=== PATIENT | male | born 1945 | race Caucasian/White ===

== ENCOUNTER → 2018-07-12 16:00 | Outpatient (CLI) | payer OTHER, MEDICARE, SELFPAY ==
--- OUTSIDE RECORDS SUMMARY | 2018-05-10 11:40 | XMS RPT_ITS | Clinical Summary ---
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 Shoulder M25.511 Active Neida Pain in right pain, right (ICD-10-CM) 01/10 01/10 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 (SNOMED CT) 11/06 11/06 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 Derangement of derangement (SNOMED CT) 07/12 07/12 Chicorelli lateral of lateral meniscus meniscus of right knee Osteoarthri 667406267 Active Neida Osteoarthritis tis, knee, (SNOMED CT) 07/12 07/12 Chicorelli of knee right Acute tear 265940233 Active Neida Acute meniscal medial (SNOMED CT) 07/12 07/12 Chicorelli tear, medial meniscus Other tear S83.281A Active Neida Other tear of of lateral (ICD-10-CM) 06/09 06/09 Chicorelli lateral meniscus, meniscus, current current injury, injury, right right knee, knee, initial initial encounter encounter Loose body 59240606708 Active Shelby Ramsay Loose body in in right 9105 06/09 06/09 Zakia right knee knee joint (SNOMED CT) joint EPIDERMOID [id number] Correctio Corrie Jacob Epidermoid CYST, BACK (SNOMED CT) n 12/12 Víctor cyst of skin of back Medications Medication Instructions Start Stop Generic Name NDC Provider Date Date LIPITOR TABS unknown dosage ATORVASTATIN [id number] Giancarlo L CALCIUM TABS Oxana EXFORGE 10-160 One tablet by AMLODIPINE 95352777309 Giancarlo L MG TABS mouth daily BESYLATE-VALSAR Oxana DAO CLONAZEPAM One tablet by CLONAZEPAM [id number] Giancarlo L 0.25 MG TBDP mouth daily Oxana Medications Administered No information available. Allergies, Adverse Reactions, Alerts Observed no known allergies at Results Date Name Value Unit Range Flag Description Office Visit MEDS REVIEW Done Documentation of current medications (procedure) SMOK STATUS Never smoker Tobacco use [facility] Plan of Care Type Date Detail Referral [facility] Therapy [facility], [address] [place] [address], [address] Referral Physical Therapy [facility], [address] [place] [address], [address] Pending order X-Ray, Shoulder Pending order MRI Joint Lower Extremity Patient education OSTEOARTHRITIS Procedures Code Procedure Name Date Entry Date CPT-07001 EXC B9 LES MRGN XCP SK TG T/A/L 1.1-2.0 CM Vital Signs Date Name Value Unit Description BMI (Body Mass Index) 24.82 kg/m2 Body Mass Index [Ratio] Height 71 [in_us] height E&M - 8302-2 Weight Measured 178 [lb_av] weight E&M - 3141-9 Body Temperature 97.6 [degF] temperature E&M BP Diastolic 87 mm[Hg] blood pressure, diastolic - 8462-4 BP Systolic 155 mm[Hg] blood pressure, systolic - 8480-6 BSA (Body Surface Area) 2.00 body surface area Heart Rate 65 /min pulse rate E&M - 8867-4 Respiratory Rate 14 /min respiratory rate E&M - 9279-1
--- OUTSIDE RECORDS SUMMARY | 2018-05-10 11:40 | XMS RPT_ITS | Clinical Summary ---
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 Shoulder M25.511 Active Neida Pain in right pain, right (ICD-10-CM) 01/10 01/10 Chicorelli shoulder Frozen 554178681 Active Neida Adhesive right (SNOMED CT) 11/06 11/06 Chicorelli capsulitis of shoulder shoulder Chronic 71646493 Active Neida Derangement of derangement (SNOMED CT) 07/12 07/12 Chicorelli lateral of lateral meniscus meniscus of right knee Osteoarthri 348281882 Active Neida Osteoarthritis tis, knee, (SNOMED CT) 07/12 07/12 Chicorelli of knee right Acute tear 067914803 Active Neida Acute meniscal medial (SNOMED CT) 07/12 07/12 Chicorelli tear, medial meniscus Other tear S83.281A Active Neida Other tear of of lateral (ICD-10-CM) 06/09 06/09 Chicorelli lateral meniscus, meniscus, current current injury, injury, right right knee, knee, initial initial encounter encounter Loose body 74606509962 Active Shelby Ramsay Loose body in in right 9105 06/09 06/09 Zakia right knee knee joint (SNOMED CT) joint EPIDERMOID [id number] Correctio Corrie Jacob Epidermoid CYST, BACK (SNOMED CT) n 12/12 Víctor cyst of skin of back Medications Medication Instructions Start Stop Generic Name NDC Provider Date Date LIPITOR TABS unknown dosage ATORVASTATIN [id number] Giancarlo L CALCIUM TABS Oxana EXFORGE 10-160 One tablet by AMLODIPINE 31528067848 Giancarlo L MG TABS mouth daily BESYLATE-VALSAR Oxana DAO CLONAZEPAM One tablet by CLONAZEPAM [id number] Giancarlo L 0.25 MG TBDP mouth daily Oxana Medications Administered No information available. Allergies, Adverse Reactions, Alerts Observed no known allergies at Results Date Name Value Unit Range Flag Description Office Visit MEDS REVIEW Done Documentation of current medications (procedure) SMOK STATUS Never smoker Tobacco use [facility] Plan of Care Type Date Detail Referral Physical Therapy [facility], [address] [place] [address], [address] Referral Physical Therapy [facility], [address] [place] [address], [address] Pending order X-Ray, Shoulder Pending order MRI Joint Lower Extremity Patient education OSTEOARTHRITIS Procedures Code Procedure Name Date Entry Date CPT-60196 EXC B9 LES MRGN XCP SK TG [...]
--- OUTSIDE RECORDS SUMMARY | 2018-05-10 11:40 | XMS RPT_ITS | Clinical Summary ---
:1945 Author Organization [facility] Address [address] [place] [address] Phone Care Team Providers Name Role Phone Zakia Shelby Ramsay Unavailable Conditions or Problems Problem Problem Onset Status Entry Provider Comment Standard Annotate Name Code Date Date Description Other tear S83.281A Active Shelby Ramsay Other tear of of lateral (ICD-10-CM) 04/11 04/11 [place] lateral meniscus, meniscus, current current injury, injury, right right knee, knee, initial initial encounter encounter Osteoarthri 141198307 Active Shelby Ramsay Osteoarthritis tis of (SNOMED CT) 01/10 01/10 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 Shoulder M25.511 Active Shelby Ramsay Pain in right pain, right (ICD-10-CM) 01/10 01/10 Chicorelli shoulder Frozen 111116387 Active Shelby Ramsay Adhesive right (SNOMED CT) 11/06 11/06 [place] capsulitis of shoulder shoulder Chronic 42110909 Active Shelby Ramsay Derangement of derangement (SNOMED CT) 07/12 07/12 [place] lateral of lateral meniscus meniscus of right knee Osteoarthri 635241543 Active Shelby Ramsay Osteoarthritis tis, knee, (SNOMED CT) 07/12 07/12 Chicorelli of knee right Acute tear 416436746 Active Shelby Ramsay Acute meniscal medial (SNOMED CT) 07/12 07/12 [place] tear, medial meniscus Other tear S83.281A Active Shelby Ramsay Other tear of of lateral (ICD-10-CM) 06/09 06/09 Chicorelli lateral meniscus, meniscus, current current injury, injury, right right knee, knee, initial initial encounter encounter Loose body 99055368075 Active Shelby Ramsay Loose body in in right 9105 06/09 06/09 Zakia right knee knee joint (SNOMED CT) joint EPIDERMOID [id number] Correctio Corrie Jacob Epidermoid CYST, BACK (SNOMED CT) n 12/12 Víctor cyst of skin of back Medications Medication Instructions Start Stop Generic Name NDC Provider Date Date LIPITOR TABS unknown dosage ATORVASTATIN [id number] Giancarlo L CALCIUM TABS Oxana EXFORGE 10-160 One tablet by AMLODIPINE 36177751139 Giancarlo L MG TABS mouth daily BESYLATE-VALSAR Oxana DAO CLONAZEPAM One tablet by CLONAZEPAM 47698455362 Giancarlo L 0.25 MG TBDP mouth daily Oxana Medications Administered No information available. Allergies, Adverse Reactions, Alerts Observed no known allergies at Results Date Name Value Unit Range Flag Description Office Visit MEDS REVIEW Done Documentation of current medications (procedure) SMOK STATUS Never smoker Tobacco use [facility] Plan of Care Type Date Detail Appointment 02:15 PM Shelby Koehler, [address] , [address], [place], [address], Referral Physical Therapy [facility], [address] [place] [address], [address] Referral Physical Therapy [facility], [address] [place] [address], [address] Pending order X-Ray, Shoulder Pending order MRI Joint Lower Extremity Patient education OSTEOARTHRITIS Procedures Code Procedure Name Date Entry Date CPT-57810 EXC B9 LES MRGN XCP SK TG [...]
--- OUTSIDE RECORDS SUMMARY | 2018-05-10 11:40 | XMS RPT_ITS | Clinical Summary ---
:1945 Author Organization [facility] Address [facility] [place] [address] Phone Care Team Providers Name Role Phone Zakia Shelby Ramsay Unavailable Conditions or Problems Problem Problem Onset Status Entry Provider Comment Standard Annotate Name Code Date Date Description Other tear S83.281A Active Shelby Ramsay Other tear of of lateral (ICD-10-CM) 04/11 04/11 [place] lateral meniscus, meniscus, current current injury, injury, right right knee, knee, initial initial encounter encounter Osteoarthri 473819665 Active Shelby Ramsay Osteoarthritis tis of (SNOMED CT) 01/10 01/10 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 Shoulder M25.511 Active Shelby Ramsay Pain in right pain, right (ICD-10-CM) 01/10 01/10 Chicorelli shoulder Frozen 554897719 Active Shelby Ramsay Adhesive right (SNOMED CT) 11/06 11/06 [place] capsulitis of shoulder shoulder Chronic 06577111 Active Shelby Ramsay Derangement of derangement (SNOMED CT) 07/12 07/12 Chicorelioana lateral of lateral meniscus meniscus of right knee Osteoarthri 852999970 Active Shelby Ramsay Osteoarthritis tis, knee, (SNOMED CT) 07/12 07/12 Chicorelli of knee right Acute tear 836746301 Active Shelby Ramsay Acute meniscal medial (SNOMED CT) 07/12 07/12 Chicorelioana tear, medial meniscus Other tear S83.281A Active Shelby Ramsay Other tear of of lateral (ICD-10-CM) 06/09 06/09 Chicorelli lateral meniscus, meniscus, current current injury, injury, right right knee, knee, initial initial encounter encounter Loose body 00046716592 Active Shelby Ramsay Loose body in in right 9105 06/09 06/09 Zakia right knee knee joint (SNOMED CT) joint EPIDERMOID [id number] Correctio Corrie Jacob Epidermoid CYST, BACK (SNOMED CT) n 12/12 Víctor cyst of skin of back Medications Medication Instructions Start Stop Generic Name NDC Provider Date Date LIPITOR TABS unknown dosage ATORVASTATIN [id number] Giancarlo L CALCIUM TABS Oxana EXFORGE 10-160 One tablet by AMLODIPINE 91585995603 Giancarlo L MG TABS mouth daily BESYLATE-VALSAR Oxana DAO CLONAZEPAM One tablet by CLONAZEPAM 81558748806 Giancarlo L 0.25 MG TBDP mouth daily Oxana Medications Administered No information available. Allergies, Adverse Reactions, Alerts Observed no known allergies at Results Date Name Value Unit Range Flag Description Office Visit SMOK STATUS Never smoker Tobacco use [facility] MEDS REVIEW Done Documentation of current medications (procedure) Plan of Care Type Date Detail Referral Physical Therapy [facility], [address] [place] [address], [address] Referral Physical Therapy [facility], [address] [place] [address], [address] Pending order MRI Joint Lower Extremity Pending order X-Ray, Shoulder Pending order MRI Joint Lower Extremity Patient education OSTEOARTHRITIS Procedures Code Procedure Name Date Entry Date CPT-43252 EXC B9 LES MRGN XCP SK TG [...]
--- OUTSIDE RECORDS SUMMARY | 2018-05-10 11:40 | XMS RPT_ITS | Clinical Summary ---
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 Shoulder M25.511 Active Shelby Ramsay Pain in right pain, right (ICD-10-CM) 01/10 01/10 Chicorelli shoulder Frozen 672098073 Active Shelby Ramsay Adhesive right (SNOMED CT) 11/06 11/06 [place] capsulitis of shoulder shoulder Chronic 17121096 Active Shelby Ramsay Derangement of derangement (SNOMED CT) 07/12 07/12 Chicorelioana lateral of lateral meniscus meniscus of right knee Osteoarthri 977110902 Active Shelby Ramsay Osteoarthritis tis, knee, (SNOMED CT) 07/12 07/12 Chicorelli of knee right Acute tear 475619598 Active Shelby Ramsay Acute meniscal medial (SNOMED CT) 07/12 07/12 Chicorelioana tear, medial meniscus Other tear S83.281A Active Shelby Ramsay Other tear of of lateral (ICD-10-CM) 06/09 06/09 Chicorelli lateral meniscus, meniscus, current current injury, injury, right right knee, knee, initial initial encounter encounter Loose body 63887002985 Active Shelby Ramsay Loose body in in right 9105 06/09 06/09 Zakia right knee knee joint (SNOMED CT) joint EPIDERMOID [id number] Correctio Corrie Jacob Epidermoid CYST, BACK (SNOMED CT) n 12/12 Víctor cyst of skin of back Medications Medication Instructions Start Stop Generic Name NDC Provider Date Date LIPITOR TABS unknown dosage ATORVASTATIN [id number] Giancarlo L CALCIUM TABS Oxana EXFORGE 10-160 One tablet by AMLODIPINE 24636195936 Giancarlo L MG TABS mouth daily BESYLATE-VALSAR Oxana DAO CLONAZEPAM One tablet by CLONAZEPAM 61036479543 Giancarlo L 0.25 MG TBDP mouth daily Oxana Medications Administered No information available. Allergies, Adverse Reactions, Alerts Observed no known allergies at Results Date Name Value Unit Range Flag Description Office Visit SMOK STATUS Never smoker Tobacco use [facility] MEDS REVIEW Done Documentation of current medications (procedure) Plan of Care Type Date Detail Referral Physical Therapy [facility], [address] [place] [address], [address] Referral Physical Therapy [facility], [address] [place] [address], [address] Pending order MRI Joint Lower Extremity Pending order X-Ray, Shoulder Pending order MRI Joint Lower Extremity Patient education OSTEOARTHRITIS Procedures Code Procedure Name Date Entry Date CPT-80980 EXC B9 LES MRGN XCP SK TG [...]
--- OUTSIDE RECORDS SUMMARY | 2018-05-10 11:40 | XMS RPT_ITS | Clinical Summary ---
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 Shoulder M25.511 Active Neida Pain in right pain, right (ICD-10-CM) 01/10 01/10 Chicorelli shoulder Frozen 072340021 Active Neida Adhesive right (SNOMED CT) 11/06 11/06 Chicorelli capsulitis of shoulder shoulder Chronic 05476216 Active Neida Derangement of derangement (SNOMED CT) 07/12 07/12 Chicorelli lateral of lateral meniscus meniscus of right knee Osteoarthri 532769831 Active Neida Osteoarthritis tis, knee, (SNOMED CT) 07/12 07/12 Chicorelli of knee right Acute tear 448307919 Active Neida Acute meniscal medial (SNOMED CT) 07/12 07/12 Chicorelli tear, medial meniscus Other tear S83.281A Active Neida Other tear of of lateral (ICD-10-CM) 06/09 06/09 Chicorelli lateral meniscus, meniscus, current current injury, injury, right right knee, knee, initial initial encounter encounter Loose body 28621913327 Active Shelby Ramsay Loose body in in right 9105 06/09 06/09 Zakia right knee knee joint (SNOMED CT) joint EPIDERMOID [id number] Correctio Corrie Jacob Epidermoid CYST, BACK (SNOMED CT) n 12/12 Víctor cyst of skin of back Medications Medication Instructions Start Stop Generic Name NDC Provider Date Date LIPITOR TABS unknown dosage ATORVASTATIN [id number] Giancarlo L CALCIUM TABS Oxana EXFORGE 10-160 One tablet by AMLODIPINE 14328937162 Giancarlo L MG TABS mouth daily BESYLATE-VALSAR Oxana DAO CLONAZEPAM One tablet by CLONAZEPAM 81559300616 Giancarlo L 0.25 MG TBDP mouth daily Oxana Medications Administered No information available. Allergies, Adverse Reactions, Alerts Observed no known allergies at Results Date Name Value Unit Range Flag Description Office Visit MEDS REVIEW Done Documentation of current medications (procedure) SMOK STATUS Never smoker Tobacco use [facility] Plan of Care Type Date Detail Appointment 03:30 PM Shelby Koehler, [address] , [address], [place], [address], Referral Physical Therapy [facility], [address] [place] [address], [address] Referral Physical Therapy [facility], [address] [place] [address], [address] Pending order X-Ray, Shoulder Pending order MRI Joint Lower Extremity Patient education OSTEOARTHRITIS Procedures Code Procedure Name Date Entry Date CPT-17642 EXC B9 LES MRGN XCP SK TG [...]
[2018-07-12 17:01] LABS: Absolute Lymphocyte Count 1.21 X10^3/ul (0.83-4.51); Absolute Neutrophil Count 2.5 X10^3/uL (2.0-7.7); Basophil# 0.05 X10^3/uL; Eosinophil# 0.27 X10^3/uL; Eosinophils% 5.5 % (0-5); Hematocrit 39.5 % (40-54); Hemoglobin 12.9 g/dl (13.0-16.5); Lymphocyte # 1.21 X10^3/ul (4.0); Lymphocyte % 24.6 % (19-41); Mean Corp Hgb Conc 32.7 g/gl (32-36); Mean Corpuscular Hgb 30.9 pg (27.0-32.0); Mean Corpuscular Volume 94.7 fL (80-94); Mean Platelet Vol. 10.9 fl (6.2-12.0); Monocyte# 0.84 X10^3/uL; Monocyte% 17.1 % (0-10); Neutrophil # 2.54 X10^3/uL (2.7-7.7); Neutrophil % 51.6 % (47-70); Platelet Count 274 K/mm3 (150-450); RBC Distribution Width CV 13.5 % (11.6-14.6); RBC Distribution Width SD 44.9 fl (35.1-43.9); Red Blood Count 4.17 M/mm3 (4.6-6.2); White Blood Count 4.9 K/mm3 (4.4-11.0)
[2018-07-12 17:03] LABS: POSITIVE COUNT NO; POSITIVE DIFFERENTIAL NO; POSITIVE MORPHOLOGY NO
[2018-07-12 17:14] LABS: ALB/GLOB Ratio 1.2 RATIO (0.9-2.4); AST(SGOT) 14 U/L (15-37); Alanine Aminotransfer ALT/SGPT 32 U/L (16-61); Albumin, Serum 3.7 g/dL (3.2-5.0); Alkaline Phosphatase 91 U/L (45-117); Anion Gap 6 (5-15); BUN 14 mg/dL (7-18); BUN/Creat Ratio 13.3 RATIO (10-20); Calcium,Total 8.6 mg/dL (8.5-10.1); Chloride 110 mmol/L (98-107); Creatinine, Serum 1.05 mg/dL (0.70-1.30); EST Glomerular Filtration Rate 74 mL/min (>60); Est Glom Filt Rate - Afr Amer 90 mL/min (>60); Globulin 3.2 g/dL (2.2-4.2); Glucose 89 mg/dL (74-106); PSA,Total - Annual Screen 1.82 ng/mL (0.00-4.00); Potassium 4.4 mmol/L (3.5-5.1); Protein, Total 6.9 g/dL (6.4-8.2); Sodium Level 145 mmol/L (136-145); Thyroid Stim Hormone (TSH) 3.28 uIU/mL (0.358-3.74)
[2018-07-15 09:59] LABS: Hep C Antibodies <0.1 s/co ratio (0.0-0.9)
== END ==
PROVIDERS: Family Provider Family Medicine Geriatric Medicine; PCP Family Medicine Geriatric Medicine; Visit Provider Family Medicine Geriatric Medicine
DX: E55.9 Vitamin D deficiency, unspecified (principal); I10 Essential (primary) hypertension; Z12.5 Encounter for screening for malignant neoplasm of prostate; Z13.89 Encounter for screening for other disorder
CPT/HCPCS: 36415; 80053; 82306; 84153; 84443; 85025; 86803; G0103

== ENCOUNTER → 2018-11-05 16:07 | Outpatient (CLI) | payer OTHER, MEDICARE, SELFPAY ==
--- NOTE | 2018-11-05 16:30 | RAD_ITS ---
STUDY: X-RAY - ABDOMEN/PELVIS REASON FOR EXAM: Male, 73 years old. Pain TECHNIQUE: Supine and upright views of the abdomen and pelvis were obtained. COMPARISON: None. FINDINGS: Lung Bases: Mild chronic changes in both lung bases. Abdomen: No demonstrated abnormality of the major organs. No demonstrated free air. Numerous phleboliths in the lower pelvis bilaterally. Bowel: Unremarkable bowel gas pattern. Soft tissues: Unremarkable. Bones: Diffuse degenerative changes. Minimal levoscoliosis of the lumbar spine. RAD/Abd Inc Decub and/or Erect IMPRESSION: No acute abnormalities are seen in the abdomen or pelvis. Electronically Signed: Genny Oviedo MD at 16:26 EST Tel Direct: [phone], Service support ,
[2018-11-05 17:55] LABS: Absolute Lymphocyte Count 1.02 X10^3/ul (0.83-4.51); Absolute Neutrophil Count 4.1 X10^3/uL (2.0-7.7); Basophil# 0.04 X10^3/uL; Basophil% 0.7 % (0-1); Eosinophil# 0.15 X10^3/uL; Eosinophils% 2.5 % (0-5); Hematocrit 38.4 % (40-54); Hemoglobin 12.6 g/dl (13.0-16.5); Lymphocyte # 1.02 X10^3/ul (4.0); Lymphocyte % 17.3 % (19-41); Mean Corp Hgb Conc 32.8 g/gl (32-36); Mean Corpuscular Hgb 30.7 pg (27.0-32.0); Mean Corpuscular Volume 93.4 fL (80-94); Mean Platelet Vol. 11.2 fl (6.2-12.0); Monocyte# 0.58 X10^3/uL; Monocyte% 9.8 % (0-10); Neutrophil # 4.11 X10^3/uL (2.7-7.7); Neutrophil % 69.5 % (47-70); Platelet Count 282 K/mm3 (150-450); RBC Distribution Width CV 13.4 % (11.6-14.6); RBC Distribution Width SD 44.3 fl (35.1-43.9); Red Blood Count 4.11 M/mm3 (4.6-6.2); White Blood Count 5.9 K/mm3 (4.4-11.0)
[2018-11-05 18:13] LABS: ALB/GLOB Ratio 1.3 RATIO (0.9-2.4); AST(SGOT) 16 U/L (15-37); Alanine Aminotransfer ALT/SGPT 34 U/L (16-61); Alkaline Phosphatase 103 U/L (45-117); Amylase 60 U/L (25-115); Anion Gap 7 (5-15); BUN 21 mg/dL (7-18); BUN/Creat Ratio 17.8 RATIO (10-20); Calcium,Total 8.5 mg/dL (8.5-10.1); Chloride 110 mmol/L (98-107); Creatinine, Serum 1.18 mg/dL (0.70-1.30); EST Glomerular Filtration Rate 65 mL/min (>60); Est Glom Filt Rate - Afr Amer 78 mL/min (>60); Globulin 3.1 g/dL (2.2-4.2); Glucose 91 mg/dL (74-106); Lipase 220 U/L (73-393); Potassium 4.2 mmol/L (3.5-5.1); Protein, Total 7.1 g/dL (6.4-8.2); Sodium Level 142 mmol/L (136-145)
[2018-11-05 18:19] LABS: POSITIVE COUNT NO; POSITIVE DIFFERENTIAL NO; POSITIVE MORPHOLOGY NO
== END ==
PROVIDERS: Family Provider Family Medicine Geriatric Medicine; PCP Family Medicine Geriatric Medicine; Referring Provider Family Medicine Geriatric Medicine; Visit Provider Family Medicine Geriatric Medicine
DX: R10.9 Unspecified abdominal pain (principal)
CPT/HCPCS: 36415; 74019; 80053; 82150; 83690; 85025

== ENCOUNTER → 2018-11-19 10:26 | Outpatient (CLI) | payer OTHER, MEDICARE, SELFPAY ==
--- NOTE | 2018-11-19 10:40 | RAD_ITS ---
STUDY: X-RAY - ABDOMEN/PELVIS REASON FOR EXAM: Male, 73 years old. Abdominal cramping and pain. History of recent surgery. TECHNIQUE: Two AP supine views of the abdomen and pelvis. COMPARISON: None. FINDINGS: There is an unremarkable bowel gas pattern. The visualized liver, spleen and kidneys are grossly normal in size and morphology. There are calcified phleboliths in the pelvis. There are degenerative changes of the visualized lumbar spine. RAD/Abdomen Single View IMPRESSION: Unremarkable bowel gas pattern. Electronically Signed: Bruce Fofana MD at 11:16 EST Tel [phone], Service support ,
--- OUTSIDE RECORDS SUMMARY | 2019-01-21 20:49 | XMS RPT_ITS ---
:1945 Author Organization OHIP Support Name Relationship Address Phone CHANDRIKA YUSUF Unavailable [address] + [place] [address] [employer] [place] [employer] Unavailable [address] +. [place] [address] NOÉ YUSUFIN Unavailable [address] + [place] [address] [employer] [place] [employer] Unavailable [address] +. [place] [address] NOT GIVEN Unavailable [address] [place] [address] NOÉ YUSUFIN Unavailable [address] + [place] [address] STRONGNOÉIN Unavailable [address] [place] [address] NOT GIVEN Unavailable [address] [place] [address] NOÉ YUSUFIN Unavailable [address] + [place] [address] STRONGNOÉIN Unavailable [address] [place] [address] NOT GIVEN Unavailable [address] [place] [address] NOÉ YUSUFIN Unavailable [address] + [place] [address] MADELIN CHANDRIKA Unavailable [address] [place] [address] MADELIN CHANDRIKA Unavailable [address] + [place] [address] NOÉ YUSUFIN Unavailable [address] [place] [address] NOÉ YUSUFIN Unavailable [address] + [place] [address] [employer] [place] [employer] Unavailable [address] +. [facility] [address] Care Team Providers Name Role Phone CHERIE JOHNS II Referring Unavailable COOPERRIDER II, CHERIE H Attending Unavailable COOPERRIDER II, CHERIE H Attending Unavailable COOPERRIDER II, CHERIE H Attending Unavailable COOPERRIDER II, CHERIE H Attending Unavailable COOPERRIDER II, CHERIE H Referring Unavailable JEMIMA ARREOLA M Admitting Unavailable HABERJEMIMA BARTON M Attending Unavailable NO, DOCTOR ON Referring Unavailable JEMIMA ARREOLA M Primary Care Unavailable WILMAN MCCALLUM MD Consulting Unavailable PROVIDER, UNKNOWN Consulting Unavailable PROVIDER, UNKNOWN Consulting Unavailable EULALIA ALMANZAR DR Admitting Unavailable EULALIA ALMANZAR DR Attending Unavailable EULALIA ALMANZAR DR Primary Care Unavailable WILMAN MCCALLUM MD Consulting Unavailable PROVIDER, UNKNOWN Consulting Unavailable PROVIDER, UNKNOWN Consulting Unavailable EULALIA ALMANZAR DR Admitting Unavailable EULALIA ALMANZAR DR Attending Unavailable EULALIA ALMANZAR DR Primary Care Unavailable WILMAN MCCALLUM MD Consulting Unavailable PROVIDER, UNKNOWN Consulting Unavailable PROVIDER, UNKNOWN Consulting Unavailable EULALIA ALMANZAR DR Admitting Unavailable EULALIA ALMANZAR DR Attending Unavailable EULALIA ALMANZAR DR Primary Care Unavailable WILMAN MCCALLUM MD Consulting Unavailable PROVIDER, UNKNOWN Consulting Unavailable PROVIDER, UNKNOWN Consulting Unavailable Jose Manuel, Wilman Chi Attending Unavailable Jose Manuel, Wilman Chi Primary Care Unavailable Jose Manuel, Wilman Chi Referring Unavailable Jose Manuel, Wilman Chi Attending Unavailable Jose Manuel, Wilman Chi Referring Unavailable Jose Manuel, Wilman Chi Primary Care Unavailable Jose Manuel, Wilman Chi Attending Unavailable Jose Manuel, Wilman Chi Primary Care Unavailable PROBLEMS PROBLEMS DATE TYPE CONDITION / ATTENDING STATUS SOURCE CODE 11/20/2018 Active Hypermetropia, COOPERRIDER II, Active [facility] bilateral / CHERIE [facility] H52.03(ICD-10) Repository 10/15/2018 Admitting Displaced EULALIA ALMANZAR DR Active Iker Jeffers Diagnosis fracture of [facility] radius, initial Repository encounter for closed fracture / [id number](ICD-10) 10/15/2018 Principle Displaced EULALIA ALMANZAR DR Active Iker Jeffers Diagnosis fracture of [facility] radius, initial Repository encounter for closed fracture / D13911E(ICD-10) PROCEDURES PROCEDURES No Procedure Records FoundRESULTS RESULTS PROGRESS Observed: 11/20/2018 Status: COMPLETED Source: [place] 9:19 AM [facility] REPOSITORY HNO ID: [id number] Author: Cherie Johns II Service: (none) Author Type: INCIDENT RESPONSE SPECIALIST Type: Progress Notes Filed: 11/20/2018 9:21 AM Note Text: Assessment and Plan 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 Ocular health maintained with contact lens use. Poole stable. Continue with daily disposable contact lenses. Recheck in one year. H40.003 Glaucoma suspect of both eyes Comment: Glaucoma suspect both eyes due to optic nerve cupping. Stable nerve fiber layers in areas scanned today. Monitor yearly. No treatment indicated at this time. Discussed need for continued close observation to minimize chance of future vision loss. H25.13 Nuclear senile cataract of both eyes Comment: Mild cataract in both eyes. Well tolerated at this time. Discussed possible future affect on daily activities to watch for. Monitor as instructed. I have confirmed and edited as necessary the relevant ophthalmic history, ROS, and the neuro exam findings as obtained by others. I have seen and examined Yolanda Yusuf DWIGHT. I have discussed the case and the management of this patient's care with the Resident/Fellow, if applicable. I also have reviewed and agree with the assessment and plan as stated above and agree with all of its relevant components. Cherie Johns, II, OD ABDOMEN SINGLE VIEW Observed: 11/19/2018 Status: F Source: [place] 10:31 AM [facility] REPOSITORY [facility] Imaging Services [address] [place] [address] Abdomen Single View MR#: [id number] Acct: [id number] Name: YOLANDA YUSUF Rep #: [id number] : 1945 M 73 From: Bruce Fofana MD PCP: Jose Manuel GONZALEZ,Wilman Montejo Status: REG CLI Study: Abdomen Single View Date of Exam: 11/19/18 Exam# [id number] Ordering Dr: Wilman Mccallum MD STUDY: X-RAY - ABDOMEN/PELVIS REASON FOR EXAM: Male, 73 years old. Abdominal cramping and pain. History of recent surgery. TECHNIQUE: Two AP supine views of the abdomen and pelvis. COMPARISON: None. FINDINGS: There is an unremarkable bowel gas pattern. The visualized liver, spleen and kidneys are grossly normal in size and morphology. There are calcified phleboliths in the pelvis. There are degenerative changes of the visualized lumbar spine. RAD/Abdomen Single View IMPRESSION: Unremarkable bowel gas pattern. Electronically Signed: Bruce Fofana MD at 11:16 EST Tel [phone], Service support , CC: Wilman Mccallum MD Turkey Roll Maker: Signed ABD INC DECUB Observed: 11/05/2018 Status: F Source: [place] AND/OR ERECT 4:30 PM [facility] REPOSITORY [facility] Imaging Services [facility] [place] [address] Abd Inc Decub and/or Erect MR#: [id number] Acct: [id number] Name: YOLANDA YUSUF Rep #: [id number] : 1945 73 From: Genny Oviedo MD PCP: Wilman Mccallum MD, Chi Status: REG CLI Study: Abd Inc Decub and/or Erect Date of Exam: 11/05/18 Exam# [id number] Ordering Dr: Wilman Mccallum MD STUDY: X-RAY - ABDOMEN/PELVIS REASON FOR EXAM: Male, 73 years old. Pain TECHNIQUE: Supine and upright views of the abdomen and pelvis were obtained. COMPARISON: None. FINDINGS: Lung Bases: Mild chronic changes in both lung bases. Abdomen: No demonstrated abnormality of the major organs. No demonstrated free air. Numerous phleboliths in the lower pelvis bilaterally. Bowel: Unremarkable bowel gas pattern. Soft tissues: Unremarkable. Bones: Diffuse degenerative changes. Minimal levoscoliosis of the lumbar spine. RAD/Abd Inc Decub and/or Erect IMPRESSION: No acute abnormalities are seen in the abdomen or pelvis. Electronically Signed: Genny Oviedo MD at 16:26 EST Tel Direct: [phone], Service support , CC: Wilman Mccallum MD Turkey Roll Maker: Signed COMPREHENSIVE METABOLIC Collected: 11/05/2018 Status: F Source: [place] 4:09 PM [facility] REPOSITORY TYPE CODE TESTS RESULT OUT OF RANGE REFERENCE UNITS LAB L501.0100 74-106 mg/dL Normal GLU 91 Result Comment: Please note revised GLUCOSE reference range effective 2017. LAB L501.1000 7-18 mg/dL High BUN 21 LAB L501.1100 0.70-1.30 mg/dL Normal CREAT,SERUM 1.18 Result Comment: The validity of the calculated GFR AND GFRAA in patients over 70 years has not been determined. Clinical correlation is essential. LAB L501.1110 >60 mL/min Normal EST GFR 65 Result Comment: Non- GFR Calc LAB L501.1115 >60 mL/min Normal EST GFR - AA 78 Result Comment: GFR Calc LAB L501.1300 10-20 RATIO Normal BUN/CRE 17.8 LAB L501.1500 6.4-8.2 g/dL T Normal PROT 7.1 LAB L501.1800 3.2-5.0 g/dL Normal ALB 4.0 LAB L501.1950 2.2-4.2 g/dL Normal GLOB 3.1 LAB L501.2000 0.9-2.4 RATIO Normal A/G 1.3 LAB L501.2200 8.5-10.1 mg/dL CA Normal 8.5 LAB L501.4100 15-37 U/L Normal AST 16 LAB L501.4305 45-117 U/L Normal ALK P 103 LAB L501.4405 16-61 U/L Normal ALT 34 LAB L501.4600 0.20-1.00 mg/dL T Normal BILI 0.80 LAB L501.5300 136-145 mmol/L NA Normal 142 LAB L501.5600 3.5-5.1 mmol/L K Normal 4.2 LAB L501.5900 98-107 mmol/L High CL 110 LAB L501.6100 21.0-32.0 mmol/L Normal CO2 25.0 LAB L501.6200 5-15 Normal GAP 7 Performed By: #### L500.4050, L501.2400, L501.2450 #### [facility] [address] [place], [address] AMYLASE Collected: 11/05/2018 Status: F Source: [place] 4:09 PM [facility] REPOSITORY TYPE CODE TESTS RESULT OUT OF RANGE REFERENCE UNITS LAB L501.2400 25-115 U/L Normal SHERON 60 Performed By: #### L500.4050, L501.2400, L501.2450 #### [facility] [address] [place], [address] LIPASE Collected: 11/05/2018 Status: F Source: [place] 4:09 PM [facility] REPOSITORY TYPE CODE TESTS RESULT OUT OF RANGE REFERENCE UNITS LAB L501.2450 73-393 U/L Normal LIPASE 220 Performed By: #### L500.4050, L501.2400, L501.2450 #### [facility] [address] [place], [address] CBC W/DIFF, AUTOMATED Collected: 11/05/2018 Status: F Source: [place] 4:09 PM [facility] REPOSITORY TYPE CODE TESTS RESULT OUT OF RANGE REFERENCE UNITS LAB L100.1000 4.4-11.0 K/mm3 Normal WBC 5.9 LAB L100.1200 4.6-6.2 M/mm3 Low RBC 4.11 LAB L100.1300 13.0-16.5 g/dl Low HGB 12.6 LAB L100.1400 40-54 % Low HCT 38.4 LAB L100.1500 80-94 fL Normal MCV 93.4 LAB L100.1600 27.0-32.0 pg Normal MCH 30.7 LAB L100.1700 32-36 g/gl Normal MCHC 32.8 LAB L100.1810 11.6-14.6 % Normal RDW CV 13.4 LAB L100.1820 35.1-43.9 fl High RDW SD 44.3 LAB L100.1900 150-450 K/mm3 Normal PLT 282 LAB L100.2000 6.2-12.0 fl Normal MPV 11.2 LAB L100.2100 47-70 % Normal NEUT% 69.5 LAB L100.2200 19-41 % Low LY% 17.3 LAB L100.2300 0-10 % Normal MONO% 9.8 LAB L100.2400 0-5 % Normal EO% 2.5 LAB L100.2500 0-1 % Normal BASO% 0.7 LAB L100.2550 0.0-0.9 % Normal IM GRAN % 0.200 Result Comment: IG% - Immature Granulocytes (promyelocytes, myelocytes and metamyelocytes) > 1% indicates that a LEFT SHIFT is Present. LAB L100.2620 2.0-7.7 X10 3/uL Normal Absolute Neut 4.1 LAB L100.2720 0.83-4.51 X10 3/ul Normal Absolute Lymph 1.02 Performed By: #### L100.0100 #### [facility] [address] 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 Corneas tolerating EW well. Patient understands increased risk vs DW. Therapy on shoulder increasing mobility eventually allowing return to use of daily disposable contacts is plan. Annual exam at next visit in one month. I have confirmed and edited as necessary the relevant ophthalmic history, ROS, and the neuro exam findings as obtained by others. I have seen and examined Yolanda Onel Yusuf II. I have discussed the case and the management of this patient's care with the Resident/Fellow, if applicable. I also have reviewed and agree with the assessment and plan as stated above and agree with all of its relevant components. 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 Patient reports improving mobility of shoulder which should allow self-handling soon. Recheck in one month. I have confirmed and edited as necessary the relevant ophthalmic history, ROS, and the neuro exam findings as obtained by others. I have seen and examined Yolanda Yusuf II. I have discussed the case and the management of this patient's care with the Resident/Fellow, if applicable. I also have reviewed and agree with the assessment and plan as stated above and agree with all of its relevant components. Cherie Johns II, OD PROGRESS Observed: 08/30/2018 Status: COMPLETED Source: [place] 10:22 AM [facility] REPOSITORY O ID: [id number] Author: Cherie Johns II Service: (none) Author Type: INCIDENT RESPONSE SPECIALIST Type: Progress Notes Filed: 08/30/2018 10:24 AM Note Text: ASSESSMENT/PLAN: 1. Hypermetropia of both eyes - ICD9: 367.0, ICD10: H52.03 (primary diagnosis) 2. Presbyopia - ICD9: 367.4, ICD10: H52.4 Extended wear use of contact lenses due to inability to insert/remove contacts being well tolerated. Patient understands increased risk with use of EW contacts. Will return for next pair of contacts in 1 month or sooner if any problems noted. I have confirmed and edited as necessary the relevant ophthalmic history, review of systems, surgical history, and ophthalmological examination findings as obtained by the ophthalmic technical staff. I have seen and examined Yolanda Yusuf II. I have discussed the examination findings, diagnosis, and treatment options with the patient and/or the patient's family. I have also reviewed and agree with the assessment and plan as stated above and agree with all its relevant components. I gave the patient the opportunity to ask questions about the findings, diagnosis, and treatment options. Cherie Johns II, OD C-ARM USAGE 1 HOUR Observed: 08/20/2018 Status: F Source: [place] 4:00 PM [place] [address] Patient: YOLANDA YUSUF Phone#: : 1945 Age: 72 Gender: M Pt. Type: Out Account: [id number] Location: [facility] Ordering: EULALIA ALMANZAR Exam Date: 08/20/2018/15:07 Family Phys: WILMAN MCCALLUM Charge Code: [id number] Physician: [place] Order #: [id number] DLP Dose#: PROCEDURE: C-ARM USEAGE 1 HR COMPARISON: None. INDICATIONS: Fracture TOTAL DOSE: .63 mGy FINDINGS: IMAGES: There has been surgical resection of the radial head. Mild degenerative changes are present. BONES: Normal. No significant arthropathy or acute abnormality. SOFT TISSUES: Negative. No visible soft tissue swelling. EFFUSION: None visible. OTHER: Negative. CONCLUSION: 1. Surgical resection of the radial head. Dictated by: Karine Salinas MD on 08/20/2018 at 16:15 Approved by: Karine Salinas MD on 08/20/2018 at 16:15 OPERATIVE PROCEDURES Observed: 08/20/2018 Status: F Source: [facility] 10:51 AM [facility] OPERATIVE REPORT NAME ACCOUNT SEX AGE ADMIT DISCHARGE PT MED. RECORD# NUMBER DATE DATE TYPE MADELIN [id number] Nidia 72 08/20/18 2 YOLANDA Sykes [id number] ROOM: [facility] DATE OF : 1945 DICTATING PHYSICIAN: Eulalia Almanzar DATE OF SURGERY: August 20, 2018 SURGEON: Eulalia Almanzar MD [employer] DIRECTOR: Helena Medina PA-C. ANESTHESIOLOGIST: ANESTHETIC: General. PREOPERATIVE DIAGNOSIS: Left elbow displaced comminuted radial head fracture. POSTOPERATIVE DIAGNOSIS: Left elbow displaced comminuted radial head fracture. OPERATION PERFORMED: Left elbow resection radial head. COMPLICATIONS: ESTIMATED BLOOD LOSS: SPECIAL MEDICATIONS: Ancef. INDICATIONS: The patient is a 72-year-old male who fell at work recently injuring his left elbow. He was diagnosed with a displaced comminuted radial head fracture. The patient wished to have surgery. Proposed surgery was resection of the radial head. The patient understood risks, benefits, and alternatives of the procedure and consented for the procedure. FINDINGS: Intraoperative findings showed a displaced radial head fracture. Fracture was displaced and angled 90 degrees compared to his normal location. This involved a majority of the radial head, which was comminuted. We resected it and smoothed down the bony surface with an oscillating saw and a rasp. Fluoroscopy was utilized as well. children's nursery assistant, physician glass ribbon machine operator assistant, was utilized throughout the entire procedure. She helped with patient positioning, holding of limb, holding of retractors. She helped Page 1 of 3 YOLANDA YUSUF Operative Report with exposure throughout. She helped with exposure for resection of the radial head using the oscillating saw, protecting soft tissue, as well as resection of the radial head. Without manager surgical, surgical time would have been increased. Surgical outcome could have been less optimal. DESCRIPTION OF OPERATION: The patient was taken to the OR and transferred to the OR table. He was given a general anesthetic. Ancef was given IV preoperatively. Under general anesthetic, his arm lacked 30 degrees of full extension. He also lacked full supination. We could palpate the crepitance with pronation, supination of the elbow. A well-padded tourniquet was applied to the left upper arm. The left upper extremity was prepped, padded, and draped in the usual orthopedic sterile fashion for the procedure. We began by injecting Marcaine with epinephrine into the proposed surgical site, skin, and deeper. Once this was done, limb was exsanguinated, tourniquet was applied to 250 mmHg. Incision was made over the radial head, slightly obliquely and slightly curved. It was taken through skin and subcutaneous tissue. We came down onto the interval between the anconeus tendon and the extensor carpi ulnaris tendon. We developed that plain. This brought us down onto the fracture site into the joint with the proximal radius and the capitulum. We identified small fracture fragments and they were removed. The largest fragment ultimately was discovered just underneath our soft tissue sleeve and at one point held up by the retractors. At this point, we removed the radial head having used fluoroscopy to help visualize it as well. We again used the oscillating saw to smooth down the transected radial head. During our exposure, we did keep the radius in pronation to help resect the bone. We did pronate and supinate to make sure it was flat across. We did use a rasp to smooth it down as well. At this point, we could place surgeons finger at the surgical site, pronate, supinate, and flex and extend and there was no contact between the radius and the capitulum. With axial loading of the wrist, there is also no contact between the radius and the capitulum. Wrist joint was found to be stable. Elbow joint was found to be stable. The wound was thoroughly irrigated. Tourniquet was let down. Bleeding was controlled with the Bovie. Wound was again thoroughly irrigated. Final set of x-rays were taken and confirmed. No further fragments could be seen of the radial head. Radial head was felt to be completely removed. We repaired the split between the anconeus and extensor carpi ulnaris with a running #1 Vicryl. We did a deep layer of inverted 2-0 Vicryl followed by skin Steri-Strips, 4x4's, ABD, Juan wrap, and a splint. He was put in an arm sling. He was awoken from his anesthetic and transferred back to his own bed in recovery room in satisfactory condition. Dictated By: Eulalia Almanzar MD 08/20/18 15:27 JOB #: [id number] Transcribed By: nury 08/20/18 15:30 Electronically signed by: E-SIGN DR. EULALIA ALMANZAR M.D. 08/21/18 08:02 Page 2 of 3 YOLANDA YUSUF Operative Report Page 3 of 3 YOLANDA YUSUF Operative Report CHEST 2 VIEWS Observed: 08/14/2018 Status: F Source: [facility] 5:23 PM [place] [address] Patient: YOLANDA YUSUF. Phone#: : 1945 Age: 72 Gender: M Pt. Type: Out Account: [id number] Location: 052 Ordering: EULALIA ALMANZAR Exam Date: 08/14/2018/17:12 Family Phys: WILMAN MCCALLUM Charge Code: [id number] Physician: [place] Order #: [id number] DLP Dose#: PROCEDURE: X-RAY CHEST 2 VIEWS COMPARISON: None. INDICATIONS: Surgery clearance FINDINGS: LUNGS: Normal. No significant pulmonary parenchymal abnormalities. VASCULATURE: Normal. Unremarkable pulmonary vasculature. CARDIAC: Normal. No cardiac silhouette abnormality or cardiomegaly. MEDIASTINUM: Normal. No visible mass or adenopathy. PLEURA: Normal. No effusion or pleural thickening. BONES: There are degenerative changes of the spine. There appear to be degenerative changes of the right shoulder however it is incompletely evaluated on this exam. OTHER: Negative. CONCLUSION: No acute disease. Dictated by: Emelina Garzon MD on 08/14/2018 at 21:23 Approved by: Emelina Garzon MD on 08/14/2018 at 21:23 CBC Collected: 08/14/2018 Status: F Source: [place] 5:00 PM [facility] REPOSITORY TYPE CODE TESTS RESULT OUT OF RANGE REFERENCE UNITS LAB CBC(LOINC) CBC Result Comment: CBC-COMPLETE BLOOD COUNT LAB WBC(LOINC) 4.5 - 10.8 x 10EE3/UL WBC 7.9 LAB RBC(LOINC) 4.50 - x 10EE6/UL 6.00 RBC Low 4.34 LAB HEMOGLOBIN(LOINC) 13.0 - g/dl 17.5 HEMOGLOBIN 13.5 LAB HEMATOCRIT(LOINC) 40.0 - % 52.0 Low HEMATOCRIT 39.8 LAB MCV(LOINC) 81 - 98 fl MCV 92 LAB MCH(LOINC) 27 - 33 pg MCH 31 LAB MCHC(LOINC) 32 - 36 X10 3 MCHC 34 LAB RDW/CV(LOINC) 12.0 - % 15.6 RDW/CV 13.6 LAB PLATELET(LOINC) 150 - 450 x10EE3/UL PLATELET 264 LAB MPV(LOINC) 6.4 - 10.5 fl MPV 9.2 Result Comment: AUTOMATED DIFFERENTIAL LAB NEUT %(LOINC) 46.0 - 76.0 % NEUT % 71.7 LAB LYMPH %(LOINC) 20.0 - 45.0 % Low LYMPH % 13.6 LAB MONOS %(LOINC) 0.0 - 10.0 % MONOS % High 11.8 LAB EO %(LOINC) 0.0 - 7.0 % EO % 2.1 LAB BASO %(LOINC) 0.0 - 2.0 % BASO % 0.8 LAB Lymph #(LOINC) 0.80 - 2.80 x10EE3/U L Lymph # 1.10 LAB Neut #(LOINC) 1.50 - 7.10 x10EE3/U L Neut # 5.60 LAB Cooper #(LOINC) 0.20 - 1.00 x10EE3/U L Cooper # 0.90 LAB EO #(LOINC) 0.00 - 0.50 x10EE3/U L EO # 0.20 LAB Baso #(LOINC) 0.00 - 0.10 x10EE3/U L Baso # 0.10 LAB MANUAL DIFF(LOINC) MANUAL DIFF N/A LAB MORPHOLOGY(LOINC ) MORPHOLOGY N/A Result Comment: {CD] Performed By: #### [id number] #### [facility],[address] [place] [address] BMP WITH EGFR Collected: 08/14/2018 Status: F Source: [facility] 5:00 PM [facility] REPOSITORY TYPE CODE TESTS RESULT OUT OF RANGE REFERENCE UNITS LAB BMP with eGFR(LOINC) BMP with eGFR Result Comment: BASIC METABOLIC PANEL LAB SODIUM(LOINC) 136 - 145 mmol/l SODIUM 142 LAB POTASSIUM(LOINC) 3.5 - 5.1 mmol/L POTASSIUM 4.1 LAB CHLORIDE(LOINC) 98 - 107 mmol/L CHLORIDE 107 LAB CO2(LOINC) 21.0 - mmol/L 31.0 CO2 27.9 LAB GLUCOSE(LOINC) 74 - 106 mg/dl GLUCOSE 91 LAB BUN(LOINC) 6 - 20 mg/dl BUN 20 LAB CREATININE(LOINC) 0.7 - 1.3 mg/dl CREATININE 1.0 LAB CALCIUM(LOINC) 8.6 - mg/dl 10.2 CALCIUM 9.6 LAB ANION GAP(LOINC) 10 - 20 mmol/L ANION GAP 11 LAB AGE(LOINC) years AGE 72 LAB eGFR(LOINC) 60 - 999 ML/MINUTE eGFR >60 LAB eGFR(AA)(LOINC) 60 - 999 ML/MINUTE eGFR(AA) >60 Result Comment: ACCORDING TO THE NATIONAL KIDNEY DISEASE EDUCATION PROGRAM(NKDE), A NORMAL eGFR IS A VALUE GREATER THAN OR EQUAL TO 60 ML/MIN/1.73 SQ METERS. CHRONIC KIDNEY DISEASE: <60mL/MIN/1.73 SQ METERS KIDNEY FAILURE: <15mL/MIN/1.73 SQ METERS THIS TEST SHOULD ONLY BE USED FOR PATIENTS 18 YEARS OF AGE AND OLDER. Performed By: #### [id number] #### [facility],[address] [place] [id number] FOREARM LT Observed: 08/13/2018 Status: F Source: [facility] 5:[address] [address] Patient: YOLANDA YUSUF Phone#: : 1945 Age: 72 Gender: M Pt. Type: ER Account: [id number] Location: 052 Ordering: JEMIMASELENA ELLERSKYLER Exam Date: 08/13/2018/17:02 Family Phys: WILMAN MCCALLUM Charge Code: 825886 Physician: [place] Order #: [id number] DLP Dose#: PROCEDURE: X-RAY FOREARM LT 2 VIEWS COMPARISON: None. INDICATIONS: Trauma FINDINGS: BONES: Bony avulsion is identified in the radial humeral joint space. Donor site is difficult to determine, but most likely is from the radial head. SOFT TISSUES: Negative. No visible soft tissue swelling. EFFUSION: Joint effusion is present. OTHER: Negative. CONCLUSION: 1. Displaced and rotated avulsion most likely arising from the radial head. Joint effusion is present. Dictated by: Karine Salinas MD on 08/14/2018 at 8:31 Approved by: Kairne Salinas MD on 08/14/2018 at 8:31 ELBOW COMPLETE LT Observed: 08/13/2018 Status: F [facility] [address] Patient: YOLANDA YUSUF Phone#: : [phone] Age: 72 Gender: M Pt. Type: ER Account: [id number] Location: 052 Ordering: JEMIMASELENA ELLRESKYLER Exam Date: 08/13/2018/17:12 Family Phys: WILMAN MCCALLUM Charge Code: 264269 Physician: Sonoma Order #: [id number] DLP Dose#: PROCEDURE: X-RAY ELBOW LT MIN 3 VIEWS COMPARISON: None. INDICATIONS: Trauma FINDINGS: BONES: Radial head avulsion is present. Fracture line extends to the articular surface. SOFT TISSUES: Negative. No visible soft tissue swelling. EFFUSION: Joint effusion is present. OTHER: Negative. CONCLUSION: 1. Radial head fracture. Dictated by: Karine Salinas MD on 08/14/2018 at 8:47 Approved by: Karine Salinas MD on 08/14/2018 at 8:47 EMERGENCY REPORT Observed: 08/13/2018 Status: F Source: [facility] 4:10 PM [facility] REPORT NAME ACCOUNT SEX AGE ADMIT DISCHARGE PT MED. RECORD# NUMBER DATE DATE TYPE MADELIN [id number] Nidia 72 08/13/18 08/13/18 3 YOLANDA [id number] ROOM: ER DATE OF : 1945 DICTATING PHYSICIAN: Jemima Alfonso CHIEF COMPLAINT: Elbow pain. 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 He complains of pain when he twists it like a doorknob on the left and tingling down into his arm. He did not hit his head or lose consciousness. He denies any headache, neck pain, blurred vision, double vision, chest pain, shortness of breath, back pain, abdominal pain, flank pain, lower extremity trauma and isolated pain to the left elbow which he has not injured previously. PAST MEDICAL HISTORY: Hypertension, skin cancer. PAST SURGICAL HISTORY: None. MEDICATIONS: See nurse notes. ALLERGIES: No known drug allergies. FAMILY HISTORY: Noncontributory. SOCIAL HISTORY: Denies alcohol, tobacco or illicit drug abuse. REVIEW OF SYSTEMS: Ten systems reviewed and negative except as mentioned above in HPI. PHYSICAL EXAMINATION: General: Awake, alert and oriented. GCS is 15 with left elbow pain, hesitant to move and holding with his other hand. Head is normocephalic, atraumatic. Pupils are equal and reactive to light bilaterally. Extraocular muscles are intact. No external signs or trauma to the head. Midface is stable. Teeth are intact. No midline cervical tenderness. Heart rate and rhythm regular without murmur, gallop or rub. Lungs are clear to auscultation bilaterally without wheezes , rales or rhonchi. Abdomen is soft with no reproducible tenderness, guarding, rebound or rigidity. Pulses are stable. No lower extremity edema, calf tenderness or swelling. No midline, thoracic or lumbosacral tenderness. We focused physical exam on the left upper extremity. When he holds his arm perfectly still he does not have any pain, but as he tries to turn it like he would be turning a door knob he complains of pain at the radial Page 1 of 2 YOLANDA YUSUF Emergency Room Report head. There is no obvious deformity, abrasion, laceration or contusion. He has limited range of motion of the elbow due to pain. He is able to flex and extend his wrist and move all his fingers in all directions on his own without any difficulty. No radial, ulnar or median nerve entrapment. No pain at the shoulder or humerus. DIAGNOSTIC DATA: X-ray interpreted by the radiologist reveals a comminuted radial head fracture. EMERGENCY DEPARTMENT COURSE AND TREATMENT: The patient was placed in a posterior splint by tn in 90 degree flexion with a sling and swath. On assessment, he is able to move all his fingers good. Good pulses and good perfusion. DIAGNOSIS: Closed left comminuted radial head fracture. PLAN/DISPOSITION: He was given a Percocet 4 pack to go and a prescription for Percocet. He will follow up with [employer] tomorrow. Contact [facility] for 2-3-day followup. Ice, elevation, pain medication. We discussed reasons for ED return sooner. Dictated By: Jemima Alfonso DO 08/13/18 19:27 JOB #: [id number] Transcribed By: damir 08/14/18 02:34 Electronically signed by: E-Sign: JEMIMA ALFONSO MD 09/18/18 12:00 Page 2 of 2 YOLANDA YUSUF Emergency Room Report CBC W/DIFF, AUTOMATED Collected: 07/12/2018 Status: F Source: [place] 4:01 PM [facility] REPOSITORY TYPE CODE TESTS RESULT OUT OF RANGE REFERENCE UNITS LAB L100.1000 4.4-11.0 K/mm3 Normal WBC 4.9 LAB L100.1200 4.6-6.2 M/mm3 Low RBC 4.17 LAB L100.1300 13.0-16.5 g/dl Low HGB 12.9 LAB L100.1400 40-54 % Low HCT 39.5 LAB L100.1500 80-94 fL High MCV 94.7 LAB L100.1600 27.0-32.0 pg Normal MCH 30.9 LAB L100.1700 32-36 g/gl Normal MCHC 32.7 LAB L100.1810 11.6-14.6 % Normal RDW CV 13.5 LAB L100.1820 35.1-43.9 fl High RDW SD 44.9 LAB L100.1900 150-450 K/mm3 Normal PLT 274 LAB L100.2000 6.2-12.0 fl Normal MPV 10.9 LAB L100.2100 47-70 % Normal NEUT% 51.6 LAB L100.2200 19-41 % Normal LY% 24.6 LAB L100.2300 0-10 % High MONO% 17.1 LAB L100.2400 0-5 % High EO% 5.5 LAB L100.2500 0-1 % Normal BASO% 1.0 LAB L100.2550 0.0-0.9 % Normal IM GRAN % 0.200 Result Comment: IG% - Immature Granulocytes (promyelocytes, myelocytes and metamyelocytes) > 1% indicates that a LEFT SHIFT is Present. LAB L100.2620 2.0-7.7 X10 3/uL Normal Absolute Neut 2.5 LAB L100.2720 0.83-4.51 X10 3/ul Normal Absolute Lymph 1.21 Performed By: #### L100.0100 #### [facility] [address] [place], [address] COMPREHENSIVE METABOLIC Collected: 07/12/2018 Status: F Source: [facility] 4:01 PM [facility] REPOSITORY TYPE CODE TESTS RESULT OUT OF RANGE REFERENCE UNITS LAB L501.0100 74-106 mg/dL Normal GLU 89 Result Comment: Please note revised GLUCOSE reference range effective 2017. LAB L501.1000 7-18 mg/dL Normal BUN 14 LAB L501.1100 0.70-1.30 mg/dL Normal CREAT,SERUM 1.05 Result Comment: The validity of the calculated GFR AND GFRAA in patients over 70 years has not been determined. Clinical correlation is essential. LAB L501.1110 >60 mL/min Normal EST GFR 74 Result Comment: Non- GFR Calc LAB L501.1115 >60 mL/min Normal EST GFR - AA 90 Result Comment: GFR Calc LAB L501.1300 10-20 RATIO Normal BUN/CRE 13.3 LAB L501.1500 6.4-8.2 g/dL T Normal PROT 6.9 LAB L501.1800 3.2-5.0 g/dL Normal ALB 3.7 LAB L501.1950 2.2-4.2 g/dL Normal GLOB 3.2 LAB L501.2000 0.9-2.4 RATIO Normal A/G 1.2 LAB L501.2200 8.5-10.1 mg/dL CA Normal 8.6 LAB L501.4100 15-37 U/L Low AST 14 LAB L501.4305 45-117 U/L Normal ALK P 91 LAB L501.4405 16-61 U/L Normal ALT 32 LAB L501.4600 0.20-1.00 mg/dL T Normal BILI 0.60 LAB L501.5300 136-145 mmol/L NA Normal 145 LAB L501.5600 3.5-5.1 mmol/L K Normal 4.4 LAB L501.5900 98-107 mmol/L High CL 110 LAB L501.6100 21.0-32.0 mmol/L Normal CO2 29.0 LAB L501.6200 5-15 Normal GAP 6 Performed By: #### L500.4050, L501.9520, L501.9910 #### [facility] [address] [place], [place], [id number] THYROID STIM HORMONE Collected: 07/12/2018 Status: F Source: [place] ([facility]) 4:01 PM [facility] REPOSITORY TYPE CODE TESTS RESULT OUT OF RANGE REFERENCE UNITS LAB L501.9520 0.358-3.74 uIU/mL Normal TSH 3.28 Performed By: #### L500.4050, L501.9520, L501.9910 #### [facility] [address] [place], [place], [id number] PSA,TOTAL - ANNUAL Collected: 07/12/2018 Status: F Source: [place] SCREEN 4:01 PM [facility] REPOSITORY TYPE CODE TESTS RESULT OUT OF RANGE REFERENCE UNITS LAB L501.9910 0.00-4.00 ng/mL Normal PSA,TOT 1.82 SCREEN Result Comment: This test was performed using the TPSA assay method for the [employer] chemistry system. Values obtained with different assay methods cannot be used interchangably. When changing PSA assays in the course of monitoring a patient, additional sequential testing should be carried out to confirm baseline values. Performed By: #### L500.4050, L501.9520, L501.9910 #### [facility] [address] [place], [address] VITAMIN D,25 HYDROXY Collected: 07/12/2018 Status: F Source: [place] 4:01 PM [facility] REPOSITORY TYPE CODE TESTS RESULT OUT OF REFERENCE UNITS RANGE LAB L506.1000 29.95-100.01 ng/mL Low Vitamin D 25.0 25-OH Result Comment: Vitamin D 25(OH) Status Range Deficiency <20 ng/mL (50nmol/L) Insuffciency 20 - 30 ng/mL (50 - 75 nmol/L) Sufficiency 30 - 100 ng/mL (75 - 250 nmol/L) Toxicity >100 ng/mL (>250 nmol/L) Performed By: #### L506.1000 #### [facility] [address] [place], [address] HEPATITIS C ANTIBODIES Collected: 07/12/2018 Status: F Source: [place] 4:01 [facility] REPOSITORY TYPE CODE TESTS RESULT OUT OF RANGE REFERENCE UNITS LAB L3100.0650 0.0-0.9 s/co ratio Normal HEP C AB <0.1 Result Comment: Negative: < 0.8 Indeterminate: 0.8 - 0.9 Positive: > 0.9 The CDC recommends that a positive HCV antibody result be followed up with a HCV Nucleic Acid Amplification test (467912). Performed at: - [facility] [id number] Running Rigger: Jhonathan Garcia PhD, Phone: [phone] Performed By: #### L3100.0625 #### [facility] (refer to report for specific site) refer to report for address and phone number ALLERGIES ALLERGIES DATE TYPE / CODE NAME / CODE REACTION SEVERITY SOURCE 09/27/2014 Drug No Known Unknown [place] Allergy/328134240(S Allergies/F0019 [facility] NOMED CT) [address](RXNORM) Hospital Repository Miscellaneous No Known Drug Moderate Iker Pomjonatan Allergy/455789587(S Allergies (Severity [facility] NOMED CT) Modifier) [facility] (Qualifier Repository Value) Drug NO KNOWN Bell Class/040878381(SNO ALLERGIES Clinic Main [facility] CT) [place] Repository ENCOUNTERS ENCOUNTERS ADMIT/DISCHARGE ACCOUNT ADMITTING ENCOUNTER LOCATION SOURCE NUMBER CLASS 11/22/2018/11/23/19 [id number] Ambulatory [address] Repository 11/20/2018/11/21/19 [id number] Ambulatory [address] Repository 11/19/2018 [id number] [facility] ing:RAD Repository 11/05/2018 [id number] [facility] ing:POLAB3 Repository 10/25/2018/10/26/20 [id number] Ambulatory [address] Repository 10/15/2018 [id number] JENELLE Ambulatory [address] [facility] Repository 09/27/2018/10/01/20 [id number] Ambulatory [address] Repository 08/30/2018/08/31/20 [id number] Ambulatory [address] Repository 08/20/2018/08/20/20 [id number] JENELLE, Ambulatory BuildinR Iker Jeffers EULALIA coxom: [facility] Repository 08/14/2018/08/14/20 [id number] JENELLE [facility] [address] [facility] Repository 08/13/2018/08/13/20 [id number] ELBA, Emergency BuildinR Iker coxom: ERBed: J [facility] Repository 07/12/2018 [id number] [facility] ing:POLAB3 Repository 05/07/2018/05/08/[id number] Repository 02/13/2018/02/15/20 [id number] Ambulatory [address] Repository PAYERS PAYERS ENCOUNTER GUARANTOR PAYER SUBSCRIBER SOURCE 11/19/2018 YOLANDA [id number] CR Insurance:MEDICAL STRONGDOB: [facility] [address] [place] [address] [id number] [address]Jci: Number: Repository [id number] (HP) Date:[id number] [address]JT: 11/19/2018 Secondary YOLANDA L [place] Insurance:MEDICARE STRONGDOB: Community PART A BPolicy Number: [id number] [id number] Repository Date:2018-11-19 11/19/2018 Tertiary NOT GIVENUNK [place] Insurance:SELF PAY [facility] Number: Effective Repository Date:2018-11-19 11/05/2018 Yolanda L Primary CHANDRIKA L Keely [id number] Insurance:MEDICAL STRONGDOB: [address] [id number] [facility] Hospital [address]Yuw: Number: Repository [id number] (HP) Date:[id number] [address]TB: 11/05/2018 Secondary Yolanda L [place] Insurance:MEDICARE StrongDOB: Community PART A BPolicy Number: [id number] [facility] [id number] Repository Date:2018-11-05 11/05/2018 Tertiary NOT GIVENUNK [place] Insurance:SELF PAY [facility] Number: Effective Repository Date:2018-11-05 10/15/2018 YOLANDA L Primary YOLANDA Sykes Iker Jeffers STRONGDOB: Insurance:CAREWORKS STRONGDOB: [facility] [id number] Hospital CR Number: 5 CR Repository [address] [place] [id number] Date:Plan Name:[facility] [id number]: () 08/20/2018 YOLANDA L Primary YOLANDA Guidryjonatan STRONGDOB: Insurance:WORKERS COMP STRONGDOB: [facility] [id number] Hospital CR Number: [address] Repository [address], [id number] [place] Date:Plan Name:[facility] [id number]: () 08/14/2018 YOLANDA Primary YOLANDA Jeffers STRONGDOB: Insurance:WORKERS COMP STRONGDOB: [facility] [id number] Hospital CR Number: [address] Repository [place], [id number] [place] Date:Plan Name:[facility] [id number]: () 08/13/2018 [facility] YOLANDA Jeffers STRONGDOB: Insurance:WORKERS COMP STRONGDOB: [facility] [id number] Number: [address] Repository [place], [id number] [place] Date:Plan Name:[facility] [id number]: () 07/12/2018 [facility] Primary CHANDRIKA Riggs [id number] Insurance:MEDICAL STRONGDOB: [facility] [id number] [place] [address]Wzt: Number: Repository [id number] (HP) Date:[id number] [address] [place] [address]FH: 07/12/2018 Secondary Yolanda L [place] Insurance:MEDICARE StrongDOB: Community PART A BPolicy Number: [id number] [facility] [id number] Repository Date:2018-07-12 07/12/2018 Tertiary NOT GIVENUNK [place] Insurance:SELF PAY [facility]: Effective Repository Date:2018-07-12
== END ==
PROVIDERS: Family Provider Family Medicine Geriatric Medicine; PCP Family Medicine Geriatric Medicine; Referring Provider Family Medicine Geriatric Medicine; Visit Provider Family Medicine Geriatric Medicine
DX: R10.9 Unspecified abdominal pain (principal)
CPT/HCPCS: 74018

== ENCOUNTER → 2019-01-03 10:46 | Outpatient (CLI) | payer OTHER, MEDICARE, SELFPAY ==
--- NOTE | 2019-01-03 11:00 | RAD_ITS ---
STUDY: X-RAY CHEST REASON FOR EXAM: Male, 73 years old. Cough, fever TECHNIQUE: PA and lateral views of the chest. COMPARISON: March 30, 2016 FINDINGS: There is no new focal consolidation. Normal size heart. Normal mediastinum and jennifer. Normal visualized pulmonary arteries. Normal visualized aortic arch and descending thoracic aorta. Normal visualized thoracic spine. Normal visualized ribs, clavicles, and shoulders. There is no demonstrated abnormality of the visualized soft tissue structures of the upper abdomen. RAD/Chest PA and Lateral IMPRESSION: No acute cardiopulmonary process. Electronically Signed: Stephanie Talavera MD at 22:24 EST Tel , Service support ,
== END ==
PROVIDERS: Family Provider Family Medicine Geriatric Medicine; PCP Family Medicine Geriatric Medicine; Referring Provider Family Medicine Geriatric Medicine; Visit Provider Family Medicine Geriatric Medicine
DX: R05 Cough (principal); R50.9 Fever, unspecified
CPT/HCPCS: 71046; 87633

== ENCOUNTER → 2019-08-08 12:07 | Outpatient (CLI) | payer OTHER, MEDICARE, SELFPAY ==
[2019-08-08 12:46] LABS: Absolute Lymphocyte Count 0.76 X10^3/uL (0.83-4.51); Absolute Neutrophil Count 5.8 X10^3/uL (2.0-7.7); Basophil# 0.05 X10^3/uL; Basophil% 0.6 % (0-1); Eosinophils% 2.6 % (0-5); Hemoglobin 12.8 g/dL (13.0-16.5); Lymphocyte # 0.76 X10^3/ul (4.0); Lymphocyte % 9.7 % (19-41); Mean Corpuscular Hgb 30.2 pg (27.0-32.0); Mean Corpuscular Volume 94.3 fL (80-94); Mean Platelet Vol. 10.9 fl (6.2-12.0); Monocyte# 0.99 X10^3/uL; Monocyte% 12.7 % (0-10); NRBC Flagged by Analyzer 0 % (0-5); Neutrophil # 5.78 X10^3/uL (2.7-7.7); Neutrophil % 74.1 % (47-70); Platelet Count 262 K/mm3 (150-450); RBC Distribution Width SD 44.8 fl (35.1-43.9); Red Blood Count 4.24 M/mm3 (4.6-6.2); White Blood Count 7.8 K/mm3 (4.4-11.0)
[2019-08-08 13:03] LABS: ALB/GLOB Ratio 1.2 RATIO (0.9-2.4); AST(SGOT) 12 U/L (15-37); Alanine Aminotransfer ALT/SGPT 28 U/L (16-61); Albumin, Serum 3.9 g/dL (3.2-5.0); Alkaline Phosphatase 93 U/L (45-117); Anion Gap 5 (5-15); BUN 14 mg/dL (7-18); BUN/Creat Ratio 13.2 RATIO (10-20); Calcium,Total 8.8 mg/dL (8.5-10.1); Chloride 107 mmol/L (98-107); Creatinine, Serum 1.06 mg/dL (0.70-1.30); EST Glomerular Filtration Rate 73 mL/min (>60); Est Glom Filt Rate - Afr Amer 88 mL/min (>60); Globulin 3.3 g/dL (2.2-4.2); Glucose 81 mg/dL (74-106); Potassium 4.4 mmol/L (3.5-5.1); Protein, Total 7.2 g/dL (6.4-8.2); Sodium Level 141 mmol/L (136-145); Thyroid Stim Hormone (TSH) 3.21 uIU/mL (0.358-3.74)
[2019-08-08 13:05] LABS: Vitamin D,25 Hydroxy 19.5 ng/mL (29.95-100.01)
== END ==
PROVIDERS: Family Provider Family Medicine Geriatric Medicine; PCP Family Medicine Geriatric Medicine; Visit Provider Family Medicine Geriatric Medicine
DX: I10 Essential (primary) hypertension (principal); E55.9 Vitamin D deficiency, unspecified
CPT/HCPCS: 36415; 80053; 82306; 84443; 85025

== ENCOUNTER → 2019-12-09 11:13 | Outpatient (CLI) | payer OTHER, MEDICARE, SELFPAY | PROVIDERS: PCP Family Medicine Geriatric Medicine; Referring Provider Family Medicine Geriatric Medicine; Visit Provider Family Medicine Geriatric Medicine | DX: R68.83 Chills (without fever) (principal) | CPT/HCPCS: 87633 ==

== ENCOUNTER → 2019-12-31 17:03 | Outpatient (CLI) | payer OTHER, MEDICARE, SELFPAY | PROVIDERS: PCP Family Medicine Geriatric Medicine; Referring Provider Family Medicine Geriatric Medicine; Visit Provider Family Medicine Geriatric Medicine | DX: R68.83 Chills (without fever) (principal) | CPT/HCPCS: 87633 ==

== ENCOUNTER → 2020-08-24 17:24 | Outpatient (CLI) | payer OTHER, MEDICARE, SELFPAY ==
[2020-08-24 17:57] LABS: Absolute Lymphocyte Count 1.04 X10^3/uL (0.83-4.51); Absolute Neutrophil Count 3.9 X10^3/uL (2.0-7.7); Basophil# 0.05 X10^3/uL; Basophil% 0.9 % (0-1); Eosinophil# 0.19 X10^3/uL; Eosinophils% 3.3 % (0-5); Hematocrit 39.5 % (40-54); Hemoglobin 12.7 g/dL (13.0-16.5); Lymphocyte # 1.04 X10^3/ul (4.0); Lymphocyte % 17.8 % (19-41); Mean Corp Hgb Conc 32.2 g/dL (32-36); Mean Corpuscular Hgb 30.6 pg (27.0-32.0); Mean Corpuscular Volume 95.2 fL (80-94); Mean Platelet Vol. 10.8 fl (6.2-12.0); Monocyte# 0.66 X10^3/uL; Monocyte% 11.3 % (0-10); NRBC Flagged by Analyzer 0 % (0-5); Neutrophil # 3.88 X10^3/uL (2.7-7.7); Neutrophil % 66.5 % (47-70); Platelet Count 309 K/mm3 (150-450); RBC Distribution Width CV 13.3 % (11.6-14.6); RBC Distribution Width SD 46.8 fl (35.1-43.9); Red Blood Count 4.15 M/mm3 (4.6-6.2); White Blood Count 5.8 K/mm3 (4.4-11.0)
[2020-08-24 19:00] LABS: ALB/GLOB Ratio 1.2 RATIO (0.9-2.4); AST(SGOT) 17 U/L (15-37); Alanine Aminotransfer ALT/SGPT 30 U/L (16-61); Alkaline Phosphatase 94 U/L (45-117); Anion Gap 7 (5-15); BUN 16 mg/dL (7-18); BUN/Creat Ratio 14.3 RATIO (10-20); Calcium,Total 9.2 mg/dL (8.5-10.1); Chloride 107 mmol/L (98-107); Creatinine, Serum 1.12 mg/dL (0.70-1.30); EST Glomerular Filtration Rate 68 mL/min (>60); Est Glom Filt Rate - Afr Amer 83 mL/min (>60); Globulin 3.2 g/dL (2.2-4.2); Glucose 90 mg/dL (74-106); Potassium 3.9 mmol/L (3.5-5.1); Protein, Total 7.2 g/dL (6.4-8.2); Sodium Level 141 mmol/L (136-145); Thyroid Stim Hormone (TSH) 4.52 uIU/mL (0.358-3.74)
[2020-08-25 07:45] LABS: SARS-COV-2 TOTAL ABS Nonreactive (Nonreactive)
[2020-08-25 09:41] LABS: Vitamin D,25 Hydroxy 36.6 ng/mL
== END ==
PROVIDERS: PCP Family Medicine Geriatric Medicine; Visit Provider Family Medicine Geriatric Medicine
DX: I10 Essential (primary) hypertension (principal); E55.9 Vitamin D deficiency, unspecified; Z11.59 Encounter for screening for other viral diseases
CPT/HCPCS: 36415; 80053; 82306; 84443; 85025; 86769

== ENCOUNTER → 2021-05-25 14:04 | Outpatient (CLI) | payer OTHER, MEDICARE, SELFPAY | LOC: LAB 05-24 17:06 → PSN 14:08 | PROVIDERS: PCP Family Medicine Geriatric Medicine; Referring Provider Family Medicine Geriatric Medicine; Visit Provider Family Medicine Geriatric Medicine | DX: R06.89 Other abnormalities of breathing (principal) | CPT/HCPCS: 87426; 87804; 87807; C9803 ==

== ENCOUNTER 2022-09-30 09:12 | Outpatient (CLI) | payer OTHER, MEDICARE, SELFPAY ==
[2022-09-30 12:59] LABS: Absolute Lymphocyte Count 1.01 X10^3/uL (0.83-4.51); Absolute Neutrophil Count 4.8 X10^3/uL (2.0-7.7); Basophil# 0.05 X10^3/uL; Basophil% 0.7 % (0-1); Eosinophil# 0.19 X10^3/uL; Eosinophils% 2.7 % (0-5); Hematocrit 40.2 % (40-54); Hemoglobin 13.1 g/dL (13.0-16.5); Lymphocyte # 1.01 X10^3/ul (0.83-4.51); Lymphocyte % 14.4 % (19-41); Mean Corp Hgb Conc 32.6 g/dL (32-36); Mean Corpuscular Hgb 31.4 pg (27.0-32.0); Mean Corpuscular Volume 96.4 fL (80-94); Mean Platelet Vol. 10.6 fl (6.2-12.0); Monocyte# 0.91 X10^3/uL; NRBC Flagged by Analyzer 0 % (0-5); Neutrophil # 4.79 X10^3/uL (2.7-7.7); Neutrophil % 68.6 % (47-70); Platelet Count 295 K/mm3 (150-450); RBC Distribution Width CV 13.1 % (11.6-14.6); RBC Distribution Width SD 46.5 fl (35.1-43.9); Red Blood Count 4.17 M/mm3 (4.6-6.2)
[2022-09-30 13:15] LABS: Vitamin D,25 Hydroxy 17.2 ng/mL
[2022-09-30 13:46] LABS: ALB/GLOB Ratio 1.2 RATIO (0.9-2.4); AST(SGOT) 19 U/L (15-37); Alanine Aminotransfer ALT/SGPT 33 U/L (16-61); Albumin, Serum 3.9 g/dL (3.2-5.0); Alkaline Phosphatase 94 U/L (45-117); Anion Gap 7 (5-15); BUN 16 mg/dL (7-18); BUN/Creat Ratio 13.7 RATIO (10-20); Chloride 103 mmol/L (98-107); Creatinine, Serum 1.17 mg/dL (0.70-1.30); EST Glomerular Filtration Rate 65 mL/min (>60); Est Glom Filt Rate - Afr Amer 78 mL/min (>60); Globulin 3.3 g/dL (2.2-4.2); Glucose 93 mg/dL (74-106); Protein, Total 7.2 g/dL (6.4-8.2); Sodium Level 139 mmol/L (136-145); Thyroid Stim Hormone (TSH) 3.15 uIU/mL (0.358-3.74)
== END 2022-09-30 23:59 | disposition home or self-care (01) ==
LOC: POLAB3 09:12
PROVIDERS: PCP Family Medicine Geriatric Medicine; Visit Provider Family Medicine Geriatric Medicine
DX: I10 Essential (primary) hypertension (principal); R53.83 Other fatigue
CPT/HCPCS: 36415; 80053; 82306; 84443; 85025

== ENCOUNTER → 2023-03-06 | Outpatient (CLI) | payer OTHER, MEDICARE, SELFPAY ==
[2023-03-06 14:50] LABS: Probe Check PASS; Specimen Processing Control PASS
== END | disposition home or self-care (01) ==
PROVIDERS: PCP Family Medicine Geriatric Medicine; Referring Provider Family Medicine Geriatric Medicine; Visit Provider Family Medicine Geriatric Medicine
DX: R68.83 Chills (without fever) (principal)
CPT/HCPCS: 87635; 87804; 87807; C9803; U0003; U0005

== ENCOUNTER → 2023-11-06 | Outpatient (CLI) | payer MEDICARE, SELFPAY | END | disposition home or self-care (01) | PROVIDERS: PCP Family Medicine Geriatric Medicine; Referring Provider Family Medicine Geriatric Medicine; Visit Provider Family Medicine Geriatric Medicine | DX: R68.83 Chills (without fever) (principal) | CPT/HCPCS: 87631 ==

== ENCOUNTER → 2023-11-14 | Outpatient (CLI) | payer MEDICARE, SELFPAY ==
[2023-11-14 12:52] LABS: Absolute Lymphocyte Count 0.85 X10^3/uL (0.83-4.51); Absolute Neutrophil Count 16.6 X10^3/uL (2.0-7.7); Basophil% 0.5 % (0-1); Eosinophil# 0.06 X10^3/uL; Eosinophils% 0.3 % (0-5); Hematocrit 40.9 % (40-54); Hemoglobin 13.1 g/dL (13.0-16.5); Lymphocyte # 0.85 X10^3/ul (0.83-4.51); Lymphocyte % 4.3 % (19-41); Mean Corpuscular Hgb 30.7 pg (27.0-32.0); Mean Corpuscular Volume 95.8 fL (80-94); Mean Platelet Vol. 10.4 fl (6.2-12.0); Monocyte# 1.55 X10^3/uL; Monocyte% 7.9 % (0-10); NRBC Flagged by Analyzer 0 % (0-5); Neutrophil # 16.63 X10^3/uL (2.7-7.7); Neutrophil % 84.5 % (47-70); POSITIVE DIFFERENTIAL YES; Platelet Count 451 K/mm3 (150-450); RBC Distribution Width CV 13.2 % (11.6-14.6); RBC Distribution Width SD 46.9 fl (35.1-43.9); Red Blood Count 4.27 M/mm3 (4.6-6.2); White Blood Count 19.7 K/mm3 (4.4-11.0)
[2023-11-14 13:05] LABS: Vitamin D,25 Hydroxy 45.5 ng/mL
[2023-11-14 13:13] LABS: Differential Indicated SCAN CRITERIA MET
[2023-11-14 13:30] LABS: ALB/GLOB Ratio 0.9 RATIO (0.9-2.4); AST(SGOT) 12 U/L (15-37); Alanine Aminotransfer ALT/SGPT 34 U/L (16-61); Albumin, Serum 3.4 g/dL (3.2-5.0); Alkaline Phosphatase 107 U/L (45-117); Anion Gap 6 (5-15); BUN 19 mg/dL (7-18); BUN/Creat Ratio 18.4 RATIO (10-20); Calcium,Total 9.3 mg/dL (8.5-10.1); Chloride 108 mmol/L (98-107); Creatinine, Serum 1.03 mg/dL (0.70-1.30); EST Glomerular Filtration Rate 75 mL/min (>60); Est Glom Filt Rate - Afr Amer 90 mL/min (>60); Globulin 3.8 g/dL (2.2-4.2); Glucose 100 mg/dL (74-106); Potassium 4.1 mmol/L (3.5-5.1); Protein, Total 7.2 g/dL (6.4-8.2); Sodium Level 140 mmol/L (136-145); Thyroid Stim Hormone (TSH) 2.07 uIU/mL (0.358-3.74)
[2023-11-16 09:33] LABS: Pathologist Review Reviewed
== END | disposition home or self-care (01) ==
PROVIDERS: PCP Family Medicine Geriatric Medicine; Visit Provider Family Medicine Geriatric Medicine
DX: I10 Essential (primary) hypertension (principal); E55.9 Vitamin D deficiency, unspecified
CPT/HCPCS: 36415; 80053; 82306; 84443; 85025

== ENCOUNTER 2023-11-20 08:41 | Outpatient (RCR) | payer MEDICARE, SELFPAY ==
--- NOTE | 2023-11-20 09:53 | HP.SP.EVAL ---
Visit History Visit Info Date of Eval: 11/20/23 Visit: 1 [place]: STACEY Chaudhry Attending Doctor: Referring Doctor: Reason for Referral: DYSPHAGIA RX HERE Previous speech therapy: No Other Relevant Medical History/Diagnoses/Surgery: YOLANDA YUSUF is a 78 year old male who presents to [facility] following concerns for dysphagia. Two months ago, Roly stating when he was drinking water it felt like it hit the back of his throat and then spit it back up - almost like a gag. This event occurred 3x in the same way across 3-4 weeks. 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 Pt does not recall being sick or feeling post nasal drip during these times. Pt with hx of melanoma on the lower left side of his face. No hx of radiation or chemotherapy. Pt with partial resection of left upper lip which impacts labial seal. He denies hx of GERD. Smoking Status: Never smoker Diagnosis Diagnosis: Suspected Oropharyngeal Phase Dysphagia Pain Is pain an issue with your current prescribed condition?: No Personal Preferred language: Belarusian Patient Allergies Allergies Allergies: Allergies No Known Allergies Allergy (Verified 09/27/14 10:02) Objective Dysphagia Administered by Administered by: Self Thin Liquids Administred via: Cup Oral Transit: WNL Bolus clearance: fully cleared Gagging: No Cough: none observed/unable to assess Patient Report: Pt participating in [place] Swallow Protocol with consumption of 3 oz of water with no overt s/sx of penetration/aspiration. Pt taking single sips of thin liquids throughout PO solid trials with Pt showing no signs of penetration/aspiration. Pureed Administered via: Spoon Oral Preparation: WNL Oral Transit: WNL Bolus clearance: fully cleared Gagging: No Cough: none observed/unable to assess Regular Oral Preparation: WNL Oral Transit: WNL Bolus clearance: fully cleared Gagging: No Cough: none observed/unable to assess Impact Impact on Safety & Functioning: No Limitations Diet Texture Recommendations Solids: Regular (Level 7) Liquids: Thin (Level 0) Results Swallowing Within Normal Limits: Yes (Suspecting WNL at this time, however will monitor for one month) Reference: Neuro-QoL instrument Radiation Oncology Patient Plan Plan Plan: Will recommend Roly for skilled outpatient tx to address suspected deficits in oropharyngeal dysphagia. Pt would benefit from keeping a journal of symptoms over the next month to determine need for intervention with instrumental evaluation (i.e., MBSS, FEES). Roly would benefit from continuing an established relationship with speech therapy while we continue to monitor his symptoms. Without skilled intervention, Pt is at risk for consuming a restrictive diet putting him at risk for aspiration pneumonia and atrophy of laryngeal musculature. Recommendations Treatment Warranted: Yes Treatment Warranted: Dysphagia Progress Prognosis: Excellent Frequency Frequency: Monthly Additional (Frequency): 1x follow up in a month Goals that are Established Determination:: Goals will be added/modified as deemed necessary and appropriate. Therapy will be discontinued when results of re-evaluation indicate therapy is no longer needed or lack of progress has been documented. Goal #1-5 Goal #1: Roly will keep a journal of dysphagia symptoms over the next 4 weeks to determine presence of continued dysphagia symptoms. Goal #2: Roly will participate in an instrumental assessment of the swallow (MBSS, FEES) to objectively assess swallow function and determine cause of his previous expelling episodes. Education Patient has Indicated that the Following Identified Educational Needs: None The Patient has indicated that they have no educational or learning abilities that may effect their care.: Yes Patient Instruction Patient Education: Diagnosis, Treatment Plan and Goals Person Taught: Patient Teaching Method: Discussion and Demonstration Response to teaching: Return demonstration and Verbalize understanding
== END 2023-11-20 19:00 | disposition home or self-care (01) ==
LOC: SP 08:41
PROVIDERS: PCP Family Medicine Geriatric Medicine; Referring Provider Family Medicine Geriatric Medicine; Visit Provider Family Medicine Geriatric Medicine
DX: R13.10 Dysphagia, unspecified (principal)
CPT/HCPCS: 92610

== ENCOUNTER 2024-04-14 11:05 | Emergency (ER) | payer MEDICARE, SELFPAY ==
[2024-04-14 11:06] VITALS: BP 146/85; PULSE 71; RESP 16; TEMP 36.6; O2SAT 94; BMI 24.3
--- NOTE | 2024-04-14 11:26 | RAD_ITS ---
EXAM: XR RIGHT KNEE COMPLETE, 4 OR MORE VIEWS CLINICAL INDICATION: atraumatic right knee pain TECHNIQUE: Four or more views of the right knee. COMPARISON: 10/01/2021. FINDINGS: BONES/JOINTS: Suspicious fracture fragment in the medial proximal tibial condyle. This does not appear recent but was not present previously. Pronounced narrowing in the medial tibiofemoral compartment. Degenerative narrowing of the patellofemoral articulation. No sclerotic or destructive changes observed. SOFT TISSUES: Unremarkable. No soft tissue swelling or gas. No radiopaque foreign body. RAD/Knee 4 or More Views IMPRESSION: 1. Increase degenerative narrowing of the medial femorotibial compartment of the right knee. 2. Mild degenerative narrowing of the patellofemoral articulation is unchanged. 3. Suspicious fracture fragment in the medial proximal tibial condyle does not appear recent. MRI of the right knee will be very helpful for further evaluation Electronically Signed: Ge Briones MD at 12:06 EDT ,
--- NOTE | 2024-04-14 11:28 | EDS_ITS ---
HPI History of Present Illness HPI Narrative: 78-year-old male history of arthritic right knee with prior partial meniscal resection. Prior meniscal tear. He has been a runner for most of his life. Recently [place] a trip out [place] and they been walking a lot lately. Last night he had sudden onset of knee pain. Denies any fall injury or trauma recently. No fever. No redness. No prior knee infections nor any history of gout. Chief Complaint: Lower Extremity Injury Informant: patient and spouse/S.O. Occured/Mechanism Mechanism/Context: No injury and No blunt trauma Onset/Context/Timing Onset: Days Context: Gradual Onset Timing: Continuous Quality of Pain: Sharp Current Severity: Mild Maximum Severity: Mild Associated Symptoms Associated Symptoms: Negative for Parasthesia, Weakness or Loss of Funtion Narrative Narrative: 78-year-old male with atraumatic knee pain. No fever or significant swelling. Prior similar symptoms: Yes Recent Illness/Hospitalization: No PFSH PFSH Medical History (Updated 04/14/24 @ 11:36 by Itzel Smith) Restless leg Hypertension Home Medications ?Medication ?Instructions ?Recorded ?Last Taken ?Type amlodipine 5 mg-valsartan 320 mg 1 tab PO DAILY 09/27/14 Unknown History tablet (Exforge) nebivolol 10 mg tablet (Bystolic) 10 mg PO DAILY 09/27/14 09/21/16 08:00 History 10 MG atorvastatin 10 mg tablet 10 mg PO QHS 06/08/16 Unknown History clonazepam 0.5 mg tablet 0.5 mg PO QHS 06/08/16 Unknown History Allergy/AdvReac Type Severity Reaction Status Date / Time No Known Allergies Allergy Verified 04/14/24 11:06 Social History Smoking Status: Never smoker ROS ROS ED ROS Narrative Denies recent illness. Review of Systems ROS Unobtainable: Denies due to encephalopathy Constitutional Constitutional ED: Denies chills or fever(s) Eyes Eyes: Denies blurry vision ENT ENT ED: Denies ear pain Cardiovascular Cardiovascular: Denies chest pain or palpitations Respiratory/Chest Respiratory/Chest: Denies cough or dyspnea Gastrointestinal Gastrointestinal: Denies abdominal pain Genitourinary Genitourinary ED: Denies dysuria or hematuria Musculoskeletal Musculoskeletal: Denies arthralgias or back pain Integumentary Denies abscess or Abrasions Neurologic Neurologic: Denies headache(s) Psychiatric Psychiatric: Denies anxiety or depression Endocrine Endocrinology: Denies polydipsia Hematologic/Lymphatic Hematologic/Lymphatic: Denies easy bleeding or easy bruising Allergic/Immunologic Allergic/Immunologic ED: Denies mouth swelling or tongue swelling EXAM Physical Exam Narrative Exam Narrative: Well-appearing male vital signs stable afebrile. present in room. H EENT exam unremarkable. Lungs clear. Heart regular rhythm. Abdomen soft. Moving all 4 extremities. Neurovascular intact. Right knee minimally swollen. No significant effusion. No redness. No septic joint or cellulitis. He is able to flex and extend his right knee with minimal discomfort. ACL and PCL are intact. As are his MCL and LCL. He can lift his leg off the bed. He has flexion extension. Right foot has normal dorsi plantarflexion. No bony deformity. He is awake and alert. Const Vital Signs: 04/14/24 11:06 Temperature 97.8 F Temperature Source Temporal Pulse Rate 71 Respiratory Rate 16 Blood Pressure 146/85 H Blood Pressure Mean 105 Pulse Ox 94 Oxygen Delivery Method Room Air Positive well nourished and well developed; Negative for obese, cachectic, contractures or unkempt General Appearance ED: well developed and NAD; Negative for unkempt, cachectic or contractures Nutritional Appearance: Negative for cachectic or obese HEENT Reports moist mucous membranes normocephalic and atraumatic; Negative for trauma or tenderness Eyes PERRL General Eye ED: Negative for other Neck full ROM and supple Thyroid: Negative for tender Lymph Lymphatic: Negative for other Chest Wall inspection of chest normal and palpation of chest normal Chest: Negative for other Resp normal respiratory effort, no retractions and clear to auscultation bilaterally Effort and Inspection: Negative for pain with movement Auscultation: Negative for rales, rhonchi, wheezes or diminished lung sounds Cardio regular rate, regular rhythm, S1 normal heart sound, S2 normal heart sound and no murmurs Rate: Negative for bradycardia or tachycardic Rhythm: Negative for abnormal rhythm Bruits: Negative for other GI non-tender, non-distended and no masses Inspection: Negative for abdominal distention Auscultation: normoactive bowel sounds Palpation: soft; Negative for tender or guarding Extremity full ROM; Negative for normal to inspection Extremity Narrative: Right knee minimal swelling. No septic joint. No cellulitis. Normal range of motion. Minimal discomfort. Ligaments and tendons intact. Right leg neurovascular intact. Calves nontender. No edema or cords. General Extremety ED: Negative for cyanosis General Extremity: Negative for cyanosis Neuro oriented x3, CN's II-XII intact bilaterally and moves all extremities Sensorium / Orientation: alert, oriented to person, oriented to place and orien nadira to time; Negative for orientation impaired, confused, lethargic or stuporous Motor Exam: strength 5/5 throughout Psych mental status grossly normal Appearance: Negative for unkempt Mood & Affect: Negative for anxious Skin no wounds Lesions: no lesions Rashes: No no rashes Trauma: Negative for abrasion, laceration or puncture MDM MDM MDM Narrative Medical decision making narrative: 78-year-old male history of right knee meniscal injury and surgery and arthritis. With atraumatic knee pain without fever. This appears to be arthritic. I did want an x-ray done. And we discussed and his has had multiple knee injections in the past before she had knee replacements and they would like that also. I do not think he needs any lab workup he has no history of gout and there is no signs of infection. Radiography Diagnostic Testing: Clinical Impression(s) from Imaging Studies Knee X-Ray 04/14/24 11:26 IMPRESSION: 1. Increase degenerative narrowing of the medial femorotibial compartment of the right knee. 2. Mild degenerative narrowing of the patellofemoral articulation is unchanged. 3. Suspicious fracture fragment in the medial proximal tibial condyle does not appear recent. MRI of the right knee will be very helpful for further evaluation Electronically Signed: Ge Briones MD at 12:06 EDT , Procedures Other Procedures Procedure(s): Right knee joint injection. Flexed position. Cleaned the area with iodine. Injected 10 cc of lidocaine with Kenalog. The patient flex and extend his leg. He started given some relief quickly. Discharge Plan Triage Chief Complaint: Lower Extremity Injury ED Provider: Etienne White Dx/Rx/DC Orders Clinical Impression: Primary osteoarthritis of right knee, History of meniscal tear Instructions: Osteoarthritis Knee Prescriptions: No Action amlodipine-valsartan [Exforge] 1 EACH tablet 1 tab PO DAILY Patient Comments: bp medication nebivolol [Bystolic] 10 MG tablet 10 mg PO DAILY Patient Comments: bp lowering medication atorvastatin 10 MG tablet 10 mg PO QHS Patient Comments: cholesterol lowering clonazepam 0.5 MG tablet 0.5 mg PO QHS Patient Comments: for sleep/anxiety Primary Care Provider: Linda Ibarra Referrals: Linda Ibarra MD [Primary Care Provider] - As Needed Activity Restrictions/Additional Instructions: Ice your knee and elevate to decrease pain and swelling. Slowly increase activity as tolerated. Follow-up with your doctor if not improving. Return if significant swelling, increasing pain, fever or redness which would be signs of infection. Tylenol and Motrin for pain and swelling. Follow-up with an orthopedic doctor of your choice for further evaluation and other treatment options. Print Language: Luxembourgish Disposition Disposition: Home, Self Care
[2024-04-14] MEDS: Triamcinolone Acetonide 40 MG/ML Vial IU (11:33)
[2024-04-14] MEDS: Lidocaine 2% (20 ml mdv) 20 ML Vial INFILT (11:33)
[2024-04-14 12:28] VITALS: BP 133/84; PULSE 70; RESP 16; TEMP 36.6; O2SAT 96
== END 2024-04-14 12:29 | disposition home or self-care (01) ==
PROVIDERS: Emergency Provider Emergency Medicine; PCP Family Medicine; Visit Provider Emergency Medicine
DX: M17.11 Unilateral primary osteoarthritis, right knee (principal); I10 Essential (primary) hypertension; Z79.899 Other long term (current) drug therapy
CPT/HCPCS: 20610; 73564; 99282

== ENCOUNTER → 2024-08-05 | Outpatient (CLI) | payer MEDICARE, SELFPAY ==
[2024-08-05 12:10] LABS: Absolute Lymphocyte Count 0.98 X10^3/uL (0.83-4.51); Absolute Neutrophil Count 4.9 X10^3/uL (2.0-7.7); Basophil# 0.06 X10^3/uL; Basophil% 0.9 % (0-1); Eosinophil# 0.15 X10^3/uL; Eosinophils% 2.2 % (0-5); Hematocrit 40.3 % (40-54); Hemoglobin 13.4 g/dL (13.0-16.5); Lymphocyte # 0.98 X10^3/ul (0.83-4.51); Lymphocyte % 14.1 % (19-41); Mean Corp Hgb Conc 33.3 g/dL (32-36); Mean Corpuscular Hgb 31.4 pg (27.0-32.0); Mean Corpuscular Volume 94.4 fL (80-94); Mean Platelet Vol. 10.4 fl (6.2-12.0); Monocyte# 0.83 X10^3/uL; Monocyte% 11.9 % (0-10); NRBC Flagged by Analyzer 0 % (0-5); Neutrophil % 70.2 % (47-70); Platelet Count 324 K/mm3 (150-450); RBC Distribution Width CV 12.8 % (11.6-14.6); RBC Distribution Width SD 44.3 fl (35.1-43.9); Red Blood Count 4.27 M/mm3 (4.6-6.2)
[2024-08-05 12:29] LABS: ALB/GLOB Ratio 1.1 RATIO (0.9-2.4); AST(SGOT) 15 U/L (15-37); Alanine Aminotransfer ALT/SGPT 22 U/L (16-61); Albumin, Serum 3.7 g/dL (3.2-5.0); Alkaline Phosphatase 105 U/L (45-117); Anion Gap 5 (5-15); BUN 12 mg/dL (7-18); BUN/Creat Ratio 10.3 RATIO (10-20); Calcium,Total 9.5 mg/dL (8.5-10.1); Chloride 105 mmol/L (98-107); Cholesterol 212 mg/dL (200); Creatinine, Serum 1.16 mg/dL (0.70-1.30); EST Glomerular Filtration Rate 65 mL/min (>60); Est Glom Filt Rate - Afr Amer 79 mL/min (>60); Globulin 3.4 g/dL (2.2-4.2); Glucose 95 mg/dL (74-106); High Density Lipoprotein 61 mg/dL; Potassium 4.1 mmol/L (3.5-5.1); Protein, Total 7.1 g/dL (6.4-8.2); Sodium Level 136 mmol/L (136-145); Triglycerides 164 mg/dL; Very Low Density Lipoprotein 33 mg/dL (5-40)
== END | disposition home or self-care (01) ==
PROVIDERS: PCP Family Medicine; Referring Provider Family Medicine; Visit Provider Family Medicine
DX: Z12.5 Encounter for screening for malignant neoplasm of prostate (principal); I10 Essential (primary) hypertension
CPT/HCPCS: 36415; 80053; 80061; 84153; 85025; G0103

== ENCOUNTER → 2024-10-21 | Outpatient (CLI) | payer MEDICARE, SELFPAY | END | disposition home or self-care (01) | LOC: LABSPEC 10:20 | PROVIDERS: PCP Family Medicine; Referring Provider Physician Assistant; Visit Provider Physician Assistant | DX: R39.15 Urgency of urination (principal) | CPT/HCPCS: 87077; 87086; 87088; 87186 ==

== ENCOUNTER → 2024-11-28 | Outpatient (CLI) | payer MEDICARE, SELFPAY ==
[2024-11-28 18:28] LABS: Vitamin D,25 Hydroxy 79.9 ng/mL
[2024-11-28 18:29] LABS: ALB/GLOB Ratio 0.8 RATIO (0.9-2.4); AST(SGOT) 9 U/L (15-37); Alanine Aminotransfer ALT/SGPT 17 U/L (16-61); Albumin, Serum 3.2 g/dL (3.2-5.0); Alkaline Phosphatase 112 U/L (45-117); Anion Gap 8 (5-15); BUN 17 mg/dL (7-18); BUN/Creat Ratio 14.5 RATIO (10-20); Chloride 104 mmol/L (98-107); Cholesterol 187 mg/dL (200); Creatinine, Serum 1.17 mg/dL (0.70-1.30); EST Glomerular Filtration Rate 64 mL/min (>60); Est Glom Filt Rate - Afr Amer 78 mL/min (>60); Glucose 86 mg/dL (74-106); High Density Lipoprotein 59 mg/dL; Protein, Total 7.2 g/dL (6.4-8.2); Sodium Level 138 mmol/L (136-145); Triglycerides 84 mg/dL; Very Low Density Lipoprotein 17 mg/dL (5-40)
[2024-11-28 18:33] LABS: Absolute Lymphocyte Count 0.94 X10^3/uL (0.83-4.51); Absolute Neutrophil Count 10.4 X10^3/uL (2.0-7.7); Basophil# 0.07 X10^3/uL; Basophil% 0.5 % (0-1); Eosinophil# 0.29 X10^3/uL; Eosinophils% 2.3 % (0-5); Hematocrit 38.3 % (40-54); Hemoglobin 12.5 g/dL (13.0-16.5); Lymphocyte # 0.94 X10^3/ul (0.83-4.51); Lymphocyte % 7.3 % (19-41); Mean Corp Hgb Conc 32.6 g/dL (32-36); Mean Corpuscular Hgb 30.8 pg (27.0-32.0); Mean Corpuscular Volume 94.3 fL (80-94); Mean Platelet Vol. 10.3 fl (6.2-12.0); Monocyte% 7.8 % (0-10); NRBC Flagged by Analyzer 0 % (0-5); Neutrophil # 10.42 X10^3/uL (2.7-7.7); Neutrophil % 81.3 % (47-70); Platelet Count 395 K/mm3 (150-450); RBC Distribution Width CV 12.9 % (11.6-14.6); RBC Distribution Width SD 44.7 fl (35.1-43.9); Red Blood Count 4.06 M/mm3 (4.6-6.2); White Blood Count 12.8 K/mm3 (4.4-11.0)
== END | disposition home or self-care (01) ==
LOC: MFPLAB 15:34
PROVIDERS: PCP Family Medicine; Visit Provider Family Medicine
DX: I10 Essential (primary) hypertension (principal); R53.83 Other fatigue
CPT/HCPCS: 36415; 80053; 80061; 82306; 84443; 85025

== ENCOUNTER → 2025-01-27 | Outpatient (CLI) | payer MEDICARE, SELFPAY ==
[2025-01-27 12:20] LABS: Absolute Lymphocyte Count 1.03 X10^3/uL (0.83-4.51); Absolute Neutrophil Count 5.4 X10^3/uL (2.0-7.7); Basophil# 0.09 X10^3/uL; Basophil% 1.2 % (0-1); Eosinophil# 0.19 X10^3/uL; Eosinophils% 2.5 % (0-5); Hematocrit 40.3 % (40-54); Hemoglobin 13.8 g/dL (13.0-16.5); Lymphocyte # 1.03 X10^3/ul (0.83-4.51); Lymphocyte % 13.6 % (19-41); Mean Corp Hgb Conc 34.2 g/dL (32-36); Mean Corpuscular Hgb 31.9 pg (27.0-32.0); Mean Corpuscular Volume 93.1 fL (80-94); Mean Platelet Vol. 10.5 fl (6.2-12.0); Monocyte% 10.6 % (0-10); NRBC Flagged by Analyzer 0 % (0-5); Neutrophil % 71.6 % (47-70); Platelet Count 346 K/mm3 (150-450); RBC Distribution Width CV 13.5 % (11.6-14.6); RBC Distribution Width SD 46.3 fl (35.1-43.9); Red Blood Count 4.33 M/mm3 (4.6-6.2); White Blood Count 7.6 K/mm3 (4.4-11.0)
[2025-01-27 12:50] LABS: Vitamin B12 564 pg/mL (180-914)
== END | disposition home or self-care (01) ==
LOC: MTLAB 10:16
PROVIDERS: PCP Family Medicine; Referring Provider Family Medicine; Visit Provider Family Medicine
DX: E53.8 Deficiency of other specified B group vitamins (principal)
CPT/HCPCS: 36415; 82607; 82746; 85025

== ENCOUNTER → 2025-05-26 | Outpatient (CLI) | payer MEDICARE, SELFPAY ==
--- NOTE | 2025-05-26 08:29 | CT_ITS ---
PROCEDURE: EXTREMITY LOWER WITHOUT CONTRA 05/26/2025 REASON FOR EXAM: TEMPLATING FOR RIGHT TKA TECHNIQUE: EXTREMITY LOWER WITHOUT CONTRA Coronal and Sagittal reconstruction series were provided. CONTRAST: None One or more dose reduction techniques were used (e.g., Automated exposure control, adjustment of the mA and/or kV according to patient size, use of iterative reconstruction technique). RADIATION DOSE SUMMARY: DLP: 1147 mGycm COMPARISON: May 12, 2025 x-ray FINDINGS: There is severe medial joint space narrowing. There multiple intra-articular osteochondral fragments with the largest measuring 0.7 cm in the medial joint space. Chondrocalcinosis is noted in the lateral meniscus. There are prominent osteophytes of the patellofemoral articulation and medial and lateral articular surfaces. There is a small joint effusion. Adjacent muscular structures appear intact. Vascular calcifications are noted. 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 Reading Location: [facility]
== END | disposition home or self-care (01) ==
LOC: CT 08:26
PROVIDERS: PCP Family Medicine; Referring Provider Orthopaedic Surgery; Visit Provider Orthopaedic Surgery
DX: R22.1 Localized swelling, mass and lump, neck (principal)
CPT/HCPCS: 73700

== ENCOUNTER 2025-06-17 05:14 | Day surgery (SDC) | payer MEDICARE, SELFPAY ==
--- NOTE | 2025-05-29 11:33 | EKG12_ITS ---
Test Reason : PRE OP Blood Pressure : */* mmHG Vent. Rate : 60 BPM Atrial Rate : 60 BPM P-R Int : 140 ms QRS Dur : 90 ms QT Int : 432 ms P-R-T Axes : 36 -29 -11 degrees QTcB Int : 432 ms Normal sinus rhythm Minimal voltage criteria for LVH, may be normal variant Nonspecific ST abnormality Abnormal ECG Confirmed by ARCHIE GONZALEZ, MOUNA ([id number]), web editor ABBEY VYAS ([id number]) on 05/30/2025 5:58:04 AM Referred By: Chris Burton Confirmed By: MOUNA ALMANZA MD
[2025-05-29 12:14] LABS: Hematocrit 40.1 % (40-54); Hemoglobin 13.5 g/dL (13.0-16.5); Immature Granulocytes Count 0.050 X10^3/uL (0.0-0.0); Mean Corp Hgb Conc 33.7 g/dL (32-36); Mean Corpuscular Volume 96.2 fL (80-94); Mean Platelet Vol. 10.3 fl (6.2-12.0); NRBC Flagged by Analyzer 0 % (0-5); Platelet Count 305 K/mm3 (150-450); RBC Distribution Width CV 13.2 % (11.6-14.6); RBC Distribution Width SD 47.0 fl (35.1-43.9); Red Blood Count 4.17 M/mm3 (4.6-6.2); White Blood Count 6.2 K/mm3 (4.4-11.0)
[2025-05-29 12:23] LABS: Prothrombin Time (Protime)PT. 13.3 SECONDS (11.7-14.9)
[2025-05-29 12:24] LABS: Partial Thromboplast Time 27.8 Seconds (24.1-36.2)
[2025-05-29 12:57] LABS: Anion Gap 10 (5-15); BUN 13 mg/dL (4-19); BUN/Creat Ratio 11.8 RATIO (10-20); Calcium,Total 9.2 mg/dL (7.6-11.0); Carbon Dioxide 24.6 mmol/L (21.0-32.0); Chloride 105 mmol/L (98-108); Glucose 99 mg/dL (70-99); Potassium 4.5 mmol/L (3.3-5.1)
[2025-05-29 13:02] LABS: Magnesium 2.1 mg/dL (1.5-2.2)
--- NOTE | 2025-05-30 19:54 | PAT.ANESEVAL ---
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 When Was Last Pacemaker Check QUESTION #4 FULL TEXT: You/Your Family Experience fever (hyperthermia) with Anesthesia Last Oral Intake Last Oral intake: Last Oral Intake NPO since Meds taken in AM with sips of water? Meds patient instructed to take am of surgery PONV PONV - vortex operator: PONV - vortex operator Female No 05/27/25 10:28 HX of Motion Sickness No 05/27/25 10:28 HX of N/V After Surgery No 05/27/25 10:28 Non-Smoker Yes 05/27/25 10:28 Duration of Surgery greater Yes 05/27/25 10:28 than 60 minutes Number of Risk Factors 2 05/27/25 10:28 PONV Score Moderate Risk 05/27/25 10:28 Height & Weight Height & Weight: Anesthesia: Height & Weight Height 5 ft 10 in 05/09/25 10:16 Respiratory Assessment Respiratory Assessment - vortex operator: Respiratory Tract Infection Hx - vortex operator Hx Respiratory Tract Infection No 05/27/25 10:28 STOP Sleep Apnea STOP Sleep Apnea - vortex operator: STOP Sleep Apnea - vortex operator Hx Hypertension Yes: PER PT, CONTROLLED ON 05/27/25 10:28 MEDS Hx Sleep Apnea No 05/27/25 10:28 CPAP BIPAP Do you snore loudly (louder No 05/27/25 10:28 than talking or can be heard Do you often feel tired/ No 05/27/25 10:28 fatigued/ sleepy during daytime? Has anyone observed you stop No 05/27/25 10:28 breathing during sleep? STOP Results Negative 05/27/25 10:28 QUESTION #5 FULL TEXT : Do you snore loudly (louder than talking or can be heard through closed doors)? 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 Specify any problems Hx of Preganancy in last 3 N/A 05/27/25 10:28 Months Nurse Filling Out Transfusion MGRIFFITH 05/27/25 10:28 & Questions: Date: 05/27/25 05/27/25 10:28 Time: 10:34 05/27/25 10:28 Patient unable to answer at this time (ie. confused, unrespo /Reproduction History /Reproductive History - vortex operator: /Reproductive Hx- vortex operator Hx Now Gestational Age (in weeks): EDC: Hx Hx [facility] History Wears hearing aid Anxiety Alcohol use Thyroid disease High cholesterol Non-smoker History of stress test Restless leg Hypertension Home Medications ?Medication ?Instructions ?Recorded ?Last Taken ?Type amlodipine 5 mg-valsartan 320 mg 1 tab PO QHS 09/27/14 Unknown History tablet (Exforge) nebivolol 10 mg tablet (Bystolic) 10 mg PO QHS 09/27/14 09/21/16 08:00 History 10 MG clonazepam 0.5 mg tablet 0.25 mg PO QHS 06/08/16 Unknown History citalopram 10 mg tablet 10 mg PO DAILY 05/27/25 Unknown History levothyroxine 25 mcg tablet 25 mcg PO DAILY 05/27/25 Unknown History Allergy/AdvReac Type Severity Reaction Status Date / Time No Known Allergies Allergy Verified 05/28/25 15:01 Surgical History History of skin surgery H/O knee surgery Social History household members: spouse Smoking Status: Never smoker alcohol intake: current alcohol intake frequency: 0-2 drinks per day substance use type: does not use Audit: Pertinent Findings Pertinent Findings EKG Perinent findings: May 29, 2025. Normal sinus rhythm. Minimal voltage criteria for LVH. Nonspecific ST abnormality. Recommendation Anesthesia Recommendation Anesthesia recommendation: OPTIMIZED for anesthesia
[2025-06-17] VITALS (13 sets, daily range): BP systolic 98–133; BP diastolic 59–83; PULSE 79–98; RESP 14–18; TEMP 36.1–36.6; O2SAT 94–99; BMI 26.2
--- OUTSIDE RECORDS SUMMARY | 2025-06-17 05:21 | XMS RPT_ITS | CCD ---
Author Organization [facility] Inform ion [facility] Care Team Providers Care Revenue Enforcement Collection Agent Name Role Phone DionnaShelby koch Unavailable [phone] Dakotah Bethany N Unavailable Candelaria Claireica N Unavailable Dakotah Bethany N Unavailable Free, Text Entry Unavailable Unavailable Jaiden, Shaniqua Unavailable Unavailable Pending Provider Unavailable Unavailable Unavailable Unavailable Jin Richard Chi Primary Care Provider [phone] Lisa Hawkisn Unavailable Unavailable Kirk Morales Unavailable Unavailable Unavailable Unavailable BUTCH LOPEZ PARAEDUCATOR-URGENT/OCC Admitting Unav ailable LOPEZ, BUTCH PARAEDUCATOR-URGENT/OCC Attending Unav ailable LOPEZ, BUTCH PARAEDUCATOR-URGENT/OCC Primary Care Unav ailable JIN RICHARD MD Consulting Unavailable PROVIDER, UNKNOWN Consulting Unavailable PROVIDER, UNKNOWN Consulting Unavailable Pending, Provider Primary Care Unavailable Rezaee, Dr. Susan Leija Attending Selina vailable Omar Salguero Attending Unavailable Pending, Provider Primary Care Unavailable Rezaee, Dr. Susan Leija Referring Selina vailable Pending, Provider Primary Care Unavailable Rezaee, Dr. Susan Leija Referring Selina vailable Rezaee, Dr. Susan Leija Attending Selina vailable Pending, Provider Primary Care Unavailable Rezaee, Dr. Susan Leija Referring Selina vailable Rezaee, Dr. Susan Leija Attending Selina vailable Rezaee, Dr. Susan Leija Referring Selina vailable Pending, Provider Primary Care Unavailable Rezaee, Dr. Susan Leija Attending Selina vailable Rezaee, Dr. Susan Leija Attending Selina vailable Pending, Provider Primary Care Unavailable Rezaee, Dr. Susan Leija Referring Selina vailable Morales, Dr. Kirk Madrid Attending Unavai lable Pending, Provider Primary Care Unavailable Rezaee, Dr. Susan Leija Referring Selina vailable Honda, Dr. Brooks Dalton Attending Unavailabl e Morales, Dr. Kirk Madrid Referring Unavai lable Pending, Provider Primary Care Unavailable Pending, Provider Primary Care Unavailable Rezaee, Dr. Susan Leija Referring Selina vailable Rezaee, Dr. Susan Leija Attending Selina vailable Pending, Provider Primary Care Unavailable Jose MOmar Attending Unavailable Jose MOmar Referring Unavailable Self, Referral Referring Unavailable Pending, Provider Primary Care Unavailable Jose M, Omar Attending Unavailable Pending, Provider Primary Care Unavailable Rezaee, Dr. Susan Leija Referring Selina vailable Rezaee, Dr. Susan Leija Admitting Selina vailable Rezaee, Dr. Susan Leija Attending Selina vailable Jose Manuel, Jin Chi Primary Care Provider Unavailable Primary Care Provider Unavailabl e SUSAN FARLEY Attending Unavailable OMAR SALGUERO Attending Unavailable REZASUSAN CALVIN Attending Unavailable Linda Ibarra MD Primary Care Provider CHERIE COVINGTON II Attending Unavailabl LINDA Diaz Primary Care Unavailable SELF Referring Unavailable EDDIE, LINDA Primary Care Unavailable NADYA QUINTANILLA, CHERIE Chapa Referring Unavailabl e NADYA QUINTANILLA, CHERIE Chapa Attending UnavailLinda Pagan MD Primary Care Provider Linda Ibarra MD Referring Provider Ankit Ambrosio Attending Provider [phone] Dr. Chris Burton DO Attending Provider Ankit Ambrosio Referring Provider Linda Ibarra MD Attending Provider [phone] Linda Ibarra MD Primary Care Provider [phone] Eddie MD, Chalon Referring Provider [phone] Micheal LEWIS, Dr. Perez Attending Provider Eddie GONZALEZ, Linda Attending Provider [phone] Kalyn GONZALEZ, Dr. Robbins Attending Provider [phone] Eddie GONZALEZ, Chalon Primary Care Provider [phone] Eddie GONZALEZ, Linda Referring Provider [phone] Micheal LEWIS, Dr. Perez Attending Provider Micheal LEWIS, Dr. Perez Referring Provider Eddie GONZALEZ, Chalon Primary Care Provider [phone] Eddie GONZALEZ, Chalangeilc Referring Provider [phone] Micheal LEWIS, Dr. Perez Attending Provider Eddie, Chalon Primary Care Unavailable Eddie, Chalon Referring Unavailable Borruso, Chris Attending Unavailable Eddie, Chalon Primary Care Unavailable Eddie, Chalon Referring Unavailable Borruso, Chris Attending Unavailable Eddie, Chalon Primary Care Unavailable Eddie, Chalon Referring Unavailable Borruso, Chris Attending Unavailable Eddie, Chalon Primary Care Unavailable Eddie, Chalon Referring Unavailable Borruso, Chris Attending Unavailable Rosendo Mccain Attending Unavailable Eddie, Chalon Primary Care Unavailable Eddie, Chalon Referring Unavailable Eddie, Chalon Primary Care Unavailable Borruso, Chris Attending Unavailable Eddie, Chalon Referring Unavailable Ankit Ambrosio Attending Unavailable Eddie, Chalon Primary Care Unavailable Ankit Ambrosio Attending Unavailable Eddie, Chalon Primary Care Unavailable Eddie, Chalon Referring Unavailable Eddie, Chalon Primary Care Unavailable Borruso, Chris Referring Unavailable Borruso, Chris Attending Unavailable Eddie, Chalon Primary Care Unavailable Eddie, Chalon Referring Unavailable Borruso, Chris Attending Unavailable Eddie, Chalon Primary Care Unavailable Borruso, Chris Referring Unavailable Borruso, Chris Attending Unavailable Eddie, Chalon Referring Unavailable Borruso, Chris Attending Unavailable Eddie, Chalon Primary Care Unavailable Ankit Ambrosio Attending Unavailable Eddie, Chalon Primary Care Unavailable Ankit Ambrosio Referring Unavailable Eddie, Chalon Primary Care Unavailable Eddie, Chalon Attending Unavailable Eddie, Chalon Primary Care Unavailable Eddie, Chalon Referring Unavailable Eddie, Chalon Attending Unavailable Eddie, Chalon Referring Unavailable Eddie, Chalon Primary Care Unavailable Eddie, Chalon Attending Unavailable Rosendo Mccain Attending Unavailable Eddie, Chalon Primary Care Unavailable Eddie, Chalon Referring Unavailable Eddie, Chalon Primary Care Unavailable Micheal, Chris Attending Unavailable Eddie, Janetton Referring Unavailable Eddie, Chalon Primary Care Unavailable Micheal, Chris Attending Unavailable Eddie, Janetton Primary Care Unavailable Eddie, Janetton Referring Unavailable Borwilda, Chris Attending Unavailable Eddie, Janetton Referring Unavailable Eddie, Chalon Primary Care Unavailable Shikharuso, Chris Attending Unavailable Allergies Allergy Classification Reported Allergen(s) Allergy Type Date of Onset Reaction(s) Facility (1 source) No Alert Propensity to adverse reactions to drug 2 [facility] Medications Current Medications Medication Drug Class(es) Dates Sig (Normalized) Sig (Original) amLODIPine 5 mg / valsartan 320 mg oral tablet (20 sources) Dihydropyridine Calcium Channel Spring, Angiotensin 2 Receptor Spring Start: 09-27-2014 Amlodipine-Valsar durant (Exforge) 1 EACH tablet Active 1 {tbl} PO AT BEDTIME September 27, 2014 1:00am Start: 09-27-2014 Amlodipine-Breanne sartan (Exforge 5-320 Mg Tablet) 1 EACH tablet Active 1 {tbl} PO DAILY September 27, 2014 1:00am Exforge TABS Flynn ntity: 0 Refills: 0 Ordered: 15-Mar-2022 DO Active Exforge Quantity : 0 Refills: 0 Ordered: 14-May-2021 Shaniqua Hwang Generic Substitution Allowed take 1 tablet by karlie th once daily EXFORGE 10-160 MG TABS One tablet by mouth daily AMLODIPINE BESYLATE-VALSARTAN [id number] Giancarlo Daigle take 1 tablet by karlie th once daily EXFORGE 10-160 MG TABS One tablet by mouth daily AMLODIPINE BESYLATE-VALSARTAN [id number] Giancarlo Daigle Comment on above: Take by mouth daily at bedtime. Dosage unknown azithromycin 250 mg oral tablet (1 source) Macrolide Antimicrobial Start: 08-26-2021 End: 08-30-2021 Zithromax Z-Hang 250 mg oral tablet ; 2 tab(s) by mouth at once on day 1, then 1 tablet once a day on days 2-5 Quantity: 6 Refills: 0 Ordered: 26-Aug-2021 Shaniqua Hawng Start: 26-Aug-2021 End: 30-Aug-2021 Generic Substitution Allowed Comments: Do not take dairy products, antacids, or iron preparations within one hour of this medication.Finish all this medication unless otherwise directed by prescriber. Comment on above: Do not take dairy pr oducts, antacids, or iron preparations within one hour of this medication.Finish all this medication unless otherwise directed by prescriber. benoxinate hydrochloride 4 mg/ml / fluorescein sodium 3 mg/ml ophthalmic solution (6 sources) Diagnostic Dye Start: 12-25-2024 End: 12-25-2024 fluorescein-benoxinate 0.3-0.4 % 1 Drop (FLURESS) Start: 12-25-2024 End: 12-25-2024 1 Drop, BOTH EYES, DIRECT ED, Starting on Mon12/25/24 at 1000, Until Mon12/25/24 at 2159, Administer for applanation tonometry. In the event of a Fluress shortage, administer Isabel-Fluor 1 drop into both eyes as directed for applanation tonometry Start: 03-20-2024 End: 03-20-2024 fluorescein-benoxinate 0.3-0 .4 % 1 Drop (FLURESS) Start: 07-12-2023 End: 07-13-2023 fluorescein-benoxinate 0.25- 0.4 % 1 Drop (FLURESS) Start: 05-24-2022 End: 05-25-2022 fluorescein-benoxinate 0.25- 0.4 % 1 Drop (FLURESS) cholecalciferol 0.125 mg ora l tablet (2 sources) Vitamin D cholecalciferol (Vitamin D-3) 5,000 Units tablet Take by mouth. 0 Active cholecalciferol, vitamin D3, (VITAMIN D3 ORAL) (4 sources) cholecalciferol, vitamin D3, (VITAMIN D3 ORAL) Take by mouth. Active cholecalciferol, vitamin D3, (VITAMIN D3 ORAL) Take by mouth. 0 Active Comment on above: Take by mouth. citalopram 10 mg oral tablet (20 sources) Serotonin Reuptake Inhibitor Start: 05-27-2025 take 1 tablet by mouth once daily Citalopram 10 mg tablet Active 10 mg PO DAILY May 27, 2025 12:00am Start: 04-21-2023 take 1 tablet by mouth once ci talopram hydrobromide (CELEXA) 10 mg tablet Take 1 tablet by mouth every afternoon. 04/21/2023 Active CeleXA TABS Clive tity: 0 Refills: 0 Ordered: 15-Mar-2022 DO Active CeleXA Quantity: 0 Refills: 0 Ordered: 26-Aug-2021 Shaniqua Hwang Generic Substitution Allowed Comment on above: Take 1 tablet by karlie th every afternoon. clonazePAM 0.5 mg oral tablet (20 sources) Benzodiazepine Start: take 0.25 mg by mouth at bedtime Clonazepam 0.5 MG tablet Active 0.25 mg PO AT BEDTIME June 08, 2016 12:00am Start: 06-08-2016 take 1 tablet by karlie th at bedtime Clonazepam 0.5 MG tablet Active 0.5 mg PO AT BEDTIME June 08, 2016 12:00am End: 09-01-2023 take 1 tablet by mouth once daily clonazePAM (KlonoPIN) 0.5 mg tablet Take 1 tablet (0.5 mg) by mouth once daily. 0 09/01/2023 Discontinued (Therapy completed) clonazePAM Quant ity: 0 Refills: 0 Ordered: 26-Aug-2021 Shaniqua Hwang Generic Substitution Allowed take 1 tablet by karlie th once daily CLONAZEPAM 0.25 MG TBDP One tablet by mouth daily CLONAZEPAM [id number] Giancarlo Daigle Comment on above: Take by mouth. fluticasone propionate 0.05 mg/actuat metered dose nasal spray (1 source) Corticosteroid Start: 08-26-20 End: 09-24-20 take 1-2 spray(s) nasal route once daily Flonase 50 mcg/inh nasal spray ; 1-2 spray(s) in each nostril once a day Quantity: 1 Refills: 0 Ordered: 26-Aug-2021 Shaniqua Hwang Start: 26-Aug-2021 End: 24-Sep-2021 Generic Substitution Allowed Comments: For the nose.It is very important that you take or use this exactly as directed. Do not skip doses or discontinue unless directed by your doctor. Comment on above: For the nose.It is v anali important that you take or use this exactly as directed. Do not skip doses or discontinue unless directed by your doctor. levothyroxine sodium 0.025 mg oral tablet (15 sources) l-Thyroxine Start: 05-27-20 take 1 tablet by mouth once daily Levothyroxine 25 mcg tablet Active 25 ug PO DAILY May 27, 2025 12:00am Start: 11-29-2024 take 1 tablet by mouth once le vothyroxine (SYNTHROID) 25 mcg tablet Take 1 tablet by mouth every afternoon. 11/29/2024 Active Start: 02-02-2021 End: 09-06-2023 take 1 tablet by mouth once daily levothyroxine (Synthroid, Levoxyl) 25 mcg tablet Take 1 tablet (25 mcg) by mouth once daily. 0 07/25/2023 Active Lisinopril (2 sources) Angiotensin Converting Enzyme Inhibitor lisinopril Quantity: 0 Refills: 0 Ordered: 14-May-2021 Joann Conteh Generic Substitution Allowed moxifloxacin 5 mg/ml ophthalmic solution (6 sources) Quinolone Antimicrobial Start: 05-08-2023 moxifloxacin (Vigamox) 0.5 % ophthalmic solution Start: 05-08-2023 End: 05-15-2023 take 1 drop(s) into the eye(s) every two hours moxifloxacin (VIGAMOX) 0.5 % ophthalmic solution Use 1 Drop in the left eye every 2 hours while awake. 3 mL 1 05/08/2023 05/15/2023 Discontinued (Course of therapy completed) Start: 05-24-2022 End: 05-31-2022 take 1 drop(s) into the eye(s) every two hours moxifloxacin (VIGAMOX) 0.5 % ophthalmic solution Use 1 Drop in the left eye every 2 hours while awake. 3 mL 1 05/24/2022 05/31/2022 Discontinued (Course of therapy completed) Comment on above: Use 1 Drop in the le ft eye every 2 hours while awake. nebivolol 10 mg oral tablet (20 sources) Start: 09-27-2014 take 1 tablet by mouth at bedtime Nebivolol (Bystolic) 10 MG tablet Active 10 mg PO AT BEDTIME September 27, 2014 1:00am Bystolic TABS Qu antity: 0 Refills: 0 Ordered: 15-Mar-2022 DO Active Bystolic Quantit y: 0 Refills: 0 Ordered: 26-Aug-2021 Barney Hwangn Generic Substitution Allowed Comment on above: 10 mg once daily. phenylephrine hydrochloride 25 mg/ml ophthalmic solution (1 source) alpha-1 Adrenergic Agonist Start: 07-12-2023 End: 07-13-2023 PHENYLephrine 2.5 % 1 Drop (AK-DILATE, TWIN-SYNEPHRINE) tropicamide 10 mg/ml ophthalmic solution (4 sources) Anticholinergic Start: 12-25-2024 End: 12-25-2024 tropicamide 1 % 1 Drop (MYDRIACYL) Start: 12-25-2024 End: 12-25-2024 1 Drop, BOTH EYES, DIRECT ED, Starting on Mon12/25/24 at 1000, Until Mon12/25/24 at 2159, Administer for dilation Start: 07-12-2023 End: 07-13-2023 tropicamide 1 % 1 Drop (MYDR IACYL) Start: 03-19-2022 End: 03-19-2022 tropicamide 0.5 % 1 Drop (MY DRIACYL) Completed/Discontinued Medications Medication Drug Class(es) Dates Sig (Normalized) Sig (Original) acetaminophen 325 mg / HYDROcodone bitartrate 5 mg oral tablet (9 sources) Opioid Agonist Start: 09-21-2016 End: 10-01-2021 Hydrocodone-Acetami nophen 1 TABLET tablet Discontinued 1 - 2 {tbl} PO EVERY 6 HOURS NEEDED as needed for Pain 60 0 September 21, 2016 1:00am October 01, 2021 10:11am Start: 09-21-2016 End: 10-01-2021 take 1 tablet by mouth every six hours as needed Hydrocodone-Acetaminophen Discontinued 1 - 2 TABLET PO EVERY 6 HOURS NEEDED 60 September 21, 2016 12:00am October 01, 2021 9:11am [id number] 200 actuat albuterol 0.09 mg/actuat metered dose inhaler (2 sources) beta2-Adrenergic Agonist Start: 03-06-2023 End: 09-18-2023 albuterol 90 mcg/actuation inhaler amoxicillin 500 mg oral tablet (7 sources) Penicillin-class Antibacterial Start: 10-07-2024 End: 10-21-2024 take 1 tablet by mouth three times daily Amoxicillin 500 mg tablet Discontinued 500 mg PO THREE TIMES A DAY 30 0 October 07, 2024 1:00am October 21, 2024 9:17am Start: 05-14-2021 End: 05-23-2021 take 1 tablet by mouth twice daily amoxicillin 875 mg oral tablet ; 1 tab(s) orally 2 times a day x 10 days Quantity: 20 Refills: 0 Ordered: 14-May-2021 Shaniqua Hwang Start: 14-May-2021 End: 23-May-2021 Status: Completed Generic Substitution Allowed Comments: Finish all this medication unless otherwise directed by prescriber. Comment on above: Finish all this medi cation unless otherwise directed by prescriber. atorvastatin 10 mg oral tablet (20 sources) HMG-CoA Reductase Inhibitor Start: 6 End: take 1 tablet by mouth at bedtime Atorvastatin 10 MG tablet Discontinued 10 mg PO AT BEDTIME June 08, 2016 12:00am January 13, 2025 9:41am Lipitor TABS Flynn ntity: 0 Refills: 0 Ordered: 15-Mar-2022 DO Active Lipitor Quantity : 0 Refills: 0 Ordered: 14-May-2021 Shaniqua Hwang Generic Substitution Allowed Comment on above: Take by mouth. Dosag e unknown chlorhexidine gluconate 1.2 mg/ml mouthwash (20 sources) Start: 03-30-2022 End: 09-01-2023 chlorhexidine (Hibiclens) 4 % external liquid use as a preoperative shower 0 03/30/2022 09/01/2023 Discontinued (Therapy completed) Start: 03-30-2022 End: 09-01-2023 take 15 mL by mouth in the morning chlorhexidine (Peridex) 0.12 % solution RINSE MOUTH WITH 15ML (1 CAPFUL) FOR 30 SECONDS AM AND PM AFTER TOOTHBRUSHING. EXPECTORATE AFTER RINSING, DO NOT SWALLOW 0 03/30/2022 09/01/2023 Discontinued (Therapy completed) ciprofloxacin 500 mg oral tablet (5 sources) Quinolone Antimicrobial Start: 10-21-2024 End: 01-13-2025 take 1 tablet by mouth twice daily Ciprofloxacin Hcl 500 mg tablet Discontinued 500 mg PO TWICE A DAY October 21, 2024 1:00am January 13, 2025 9:41am codeine phosphate 2 mg/ml / guaiFENesin 20 mg/ml oral solution (1 source) Opioid Agonist Start: 03-06-2023 End: 09-01-2023 codeine-guaifenesin (Robitussin-AC) 10-100 mg/5 mL syrup cyclobenzaprine hydrochloride 10 mg oral tablet (3 sources) Muscle Relaxant Start: 03-17-2015 cyclobenzaprine (FLEXERIL) 10 mg tablet 10 mg daily at bedtime. 0 03/17/2015 Active Comment on above: 10 mg daily at bedti me. doxycycline hyclate 100 mg oral tablet (1 source) Tetracycline-class Drug Start: 03-06-2023 End: 09-01-2023 doxycycline (Vibra-Tabs) 100 mg tablet loratadine 10 mg oral tablet (2 sources) Start: 05-14-2021 End: 05-23-2021 take 1 tablet by mouth once daily Claritin 10 mg oral tablet ; 1 tab(s) orally once a day Quantity: 1 Refills: 0 Ordered: 14-May-2021 Barney Hwangn Start: 14-May-2021 End: 23-May-2021 Status: Completed Generic Substitution Allowed Comments: May cause drowsiness. Alcohol may intensify this effect. Use care when operating dangerous machinery.Obtain medical advice before taking any non-prescription drugs as some may affect the action of this medication. Comment on above: May cause drowsiness . Alcohol may intensify this effect. Use care when operating dangerous machinery.Obtain medical advice before taking any non-prescription drugs as some may affect the action of this medication. ondansetron 8 mg oral tablet (9 sources) Serotonin-3 Receptor Antagonist Start: 09-21-2016 End: 10-01-2021 take 1 tablet by mouth every eight hours as needed for nausea Ondansetron Hcl 8 MG tablet Discontinued 8 mg PO EVERY 8 HOURS NEEDED as needed for Nausea September 21, 2016 1:00am October 01, 2021 10:11am oxyCODONE hydrochloride 5 mg oral tablet (3 sources) Opioid Agonist Start: 04-14-2022 take 1 tablet by mouth every four hours as needed oxyCODONE HCl - 5 MG Oral Tablet TAKE 1 TABLET EVERY 4 HOURS NEEDED. Quantity: 24 Refills: 0 Ordered: 14-Apr-2022 Omar Salguero MD Start : 14-Apr-2022 Active prednisoLONE acetate 10 mg/ml ophthalmic suspension (9 sources) Corticosteroid Start: 07-12-2023 End: 12-25-2024 prednisoLONE acetate (PRED FORTE) 1 % ophthalmic suspension Use 1 drop in the operative eye 4 times a day starting the day after surgery. Taper drop weekly as instructed by your doctor. 10 mL 1 07/12/2023 12/25/2024 Discontinued (Course of therapy completed) Start: 07-12-2023 prednisoLONE a cetate (Pred-Forte) 1 % ophthalmic suspension Comment on above: Use 1 drop in the op erative eye 4 times a day starting the day after surgery. Taper drop weekly as instructed by your doctor. predniSONE 10 mg oral tablet (3 sources) Start: 03-06-2023 End: 09-18-2023 predniSONE (Deltasone) 10 mg tablet Start: 08-26-2021 End: 08-28-2021 take 1 tablet by mouth once daily at mealtime predniSONE 10 mg oral tablet ; 1 tab(s) orally once a day x 3 days. Take with food. Quantity: 3 Refills: 0 Ordered: 26-Aug-2021 Shaniqua Hwang Start: 26-Aug-2021 End: 28-Aug-2021 Generic Substitution Allowed Comments: It is very important that you take or use this exactly as directed. Do not skip doses or discontinue unless directed by your doctor.Obtain medical advice before taking any non-prescription drugs as some may affect the action of this medication.Take with food or milk. Comment on above: It is very important that you take or use this exactly as directed. Do not skip doses or discontinue unless directed by your doctor.Obtain medical advice before taking any non-prescription drugs as some may affect the action of this medication.Take with food or milk. 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] Onset: 03-30-2022 Chronic Cataract (14 sources) Nuclear senile cataract; Translations: [Age-related nuclear cataract, bilateral] Onset: 04-18-2015 Resolved: 10-06-2023 Chronic Disorders of lipid metabolism (6 sources) Hyperlipidemia, unspecified; Translations: [Mixed hyperlipidemia] Onset: 04-13-2022 09-06-2023 Chronic Essential hypertension (16 sources) Hypertensive disorder; Translations: [Essential (primary) hypertension] Onset: 04-13-2022 06-08-2016 Chronic Glaucoma (12 sources) Suspected bilateral glaucoma; 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, unspecified, bilateral] Onset: 11-20-2018 Chronic Gout and other crystal arthropathies (9 sources) Acute gout; Translations: [Gout, unspecified] 10-01-2021 Chronic Joint disorders and dislocations; trauma-related (12 sources) Derangement of lateral meniscus; Translations: [Loose body in knee, right knee] Onset: 06-09-2016 07-12-2016 Chronic Melanomas of skin (20 sources) Malignant melanoma of skin of lip; 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] Onset: 03-30-2022 Chronic Osteoarthritis (20 sources) Osteoarthritis of glenohumeral joint; Translations: [Osteoarthritis of knee] Onset: 07-12-2016 01-10-2017 Chronic Other connective tissue disease (9 sources) Pain in hallux; Translations: [Pain in right toe(s)] 10-01-2021 Episodic Other connective tissue disease (8 sources) Tendinitis of right rotator cuff; Translations: [Other shoulder lesions, right shoulder] 02-24-2025 Episodic Other connective tissue disease (8 sources) Subdeltoid bursitis of right shoulder; Translations: [Bursitis of right shoulder] 02-24-2025 Episodic Other eye disorders (3 sources) Marginal corneal ulcer of left eye; Translations: [Marginal corneal ulcer, left eye] Episodic Other eye disorders (2 sources) Dry eyes; Translations: [Dry eye syndrome of bilateral lacrimal glands] 03-20-2024 Episodic Other injuries and conditions due to external causes (5 sources) H/O: knee problem; Translations: [Personal history of other (healed) physical injury and trauma] 04-22-2024 Episodic Other lower respiratory disease (2 sources) Cough; Translations: [Cough] 08-26-2021 Episodic Other non-epithelial cancer of skin (10 sources) History of malignant neoplasm of skin; Translations: [Personal history of other malignant neoplasm of skin] Onset: 03-30-2022 06-08-2016 Episodic Other non-traumatic joint disorders (2 sources) Pain in right knee; Translations: [Chronic pain of right knee] 05-28-2025 Episodic Other skin disorders (2 sources) Lip swelling; Translations: [Localized swelling, mass and lump, head] Onset: 02-06-2024 02-06-2024 Episodic Other skin disorders (2 sources) Localized swelling, mass and lump, head; Translations: [Localized swelling, mass and lump, head] Onset: 02-06-2024 Episodic Other skin disorders (1 source) Localized swelling, mass and lump, neck; Translations: [Localized swelling, mass and lump, neck] Onset: 06-06-2025 Episodic Other upper respiratory disease (2 sources) Pain in throat 05-14-2021 Episodic Comment on above: SORE THROAT Other upper respiratory infections (15 sources) Acute sinusitis; Translations: [Acute sinusitis, unspecified] 08-26-2021 Episodic Residual codes; unclassified (3 sources) No current problems or disability; Translations: [Other specified conditions influencing health status] Onset: 04-04-2022 Episodic Unclassified (2 sources) CONTACT WITH AND SUSPECTED EXPOSURE TO COVID-19; Translations: [CONTACT WITH AND SUSPECTED EXPOSURE TO COVID-19] Onset: 04-05-2022 Viral infection (2 sources) Disease caused by 2019-nCoV 08-26-2021 Comment on above: COVID SX Past or Other Problems Problem Classification Problem Date Documented Date Episodic/Chronic Genitourinary symptoms and ill-defined conditions (2 sources) Urgency of urination; Translations: [Frequency of micturition] Onset: 10-21-2024 Episodic Joint disorders and dislocations; trauma-related (18 sources) Other tear of lateral meniscus, current injury, right knee, initial encounter; Translations: [Acute meniscal tear, medial] Onset: 06-09-2016 04-11-2017 Episodic Nutritional deficiencies (1 source) Deficiency of other specified B group vitamins; Translations: [Deficiency of other specified B group vitamins] Onset: 01-30-2025 Episodic Other aftercare (1 source) Other half-way (current) drug therapy; Translations: [Other half-way (current) drug therapy] Onset: 03-30-2022 Episodic Other connective tissue disease (6 sources) Adhesive capsulitis of shoulder; Translations: [Adhesive capsulitis of right shoulder] Onset: 09-06-2016 09-06-2016 Episodic Other non-traumatic joint disorders (7 sources) Pain in right shoulder; Translations: [Pain in right shoulder] Onset: 01-10-2017 01-10-2017 Episodic Other screening for suspected conditions (not mental disorders or infectious disease) (2 sources) Abnormal electrocardiogram [ECG] [EKG]; Translations: [Encounter for screening for malignant neoplasm of prostate] Onset: 03-30-2022 Episodic Other skin disorders (6 sources) Epidermal cyst; Translations: [Epidermal cyst] 10-11-2012 Episodic Unclassified (1 source) CONTACT WITH AND SUSPECTED EXPOSURE TO COVID-19; Translations: [CONTACT WITH AND SUSPECTED EXPOSURE TO COVID-19] Onset: 04-05-2022 Unclassified (3 sources) Onset: 09-01-2023 Resolved: 02-06-2024 09-01-2023 Results Test Name Value Interpretation Reference Range Facility Fructosamineon 05-30-2025 FRUCTOSAMINE 265 umol/L Normal 0-285 [facility] Comment on above: Result Comment: Publ ished reference interval for apparently healthy subjects between age 20 and 60 is 205 - 285 umol/L and in a poorly controlled diabetic population is 228 - 563 umol/L with a mean of 396 umol/L. Performed at: - [facility] [id number] Drop Forger Helper: Jhonathan Garcia PhD, Phone: [phone] Performed By: #### L 500.2500, L300.4310, L501.9985, BTSPAT, L100.0100, L300.3900, L3400.0100, M100.651 ####[facility] [address] [place], [address] MR/Charla 05-30-2025 MR/SAVANNAH.SUSHMA [facility] Medical Records Department [address] [place] [address] PAT - Anesthesia 05/30/251953 MR#: [id number] Acct: [id number] Name: YOLANDA HATFIELD II Rep #: [id number] : 1945 79 From: Rufus King MD PCP: Dr. Linda Ibarra MD Status:PRE [facility] Y Race: C [place] [facility] Pre-Assessment Diagnosis/Proposed Procedure Planned Operative Procedure(s): Right Total Knee Replacement Robotic Arm Assisted Anesthesia History Anesthesia History - audit associate: Anesthesia History - audit associate Hx Hospitalization No 05/27/25 10:28 Any Problems With Anesthesia No 05/27/25 10:28 Cholinesterase deficiency No 05/27/25 10:28 You/Your Family Experience No 05/27/25 10:28 fever (hyperthermia) with Relationship Recent Exposure to Contagious No 05/09/25 10:16 Disease Does patient have nerve No 05/27/25 10:28 stimulator Patient instructed to have device shut off --Does patient have Pacemaker or ICD? When Was Last Pacemaker Check QUESTION #4 FULL TEXT: You/Your Family Experience fever (hyperthermia) with Anesthesia Last Oral Intake Last Oral intake: Last Oral Intake NPO since Meds taken in AM with sips of water? Meds patient instructed to take am of surgery PONV PONV - audit associate: PONV - audit associate Female No 05/27/25 10:28 HX of Motion Sickness No 05/27/25 10:28 HX of N/V After Surgery No 05/27/25 10:28 Non-Smoker Yes 05/27/25 10:28 Duration of Surgery greater Yes 05/27/25 10:28 than 60 minutes Number of Risk Factors 2 05/27/25 10:28 PONV Score Moderate Risk 05/27/25 10:28 Height Weight Height Weight: Anesthesia: Height Weight Height 5 ft 10 in 05/09/25 10:16 Respiratory Assessment Respiratory Assessment - audit associate: Respiratory Tract Infection Hx - audit associate Hx Respiratory Tract Infection No 05/27/25 10:28 STOP Sleep Apnea STOP Sleep Apnea - audit associate: STOP Sleep Apnea - audit associate Hx Hypertension Yes: PER PT, CONTROLLED ON 05/27/25 10:28 MEDS Hx Sleep Apnea No 05/27/25 10:28 CPAP BIPAP Do you snore loudly (louder No 05/27/25 10:28 than talking or can be heard Do you often feel tired/ No 05/27/25 10:28 fatigued/ sleepy during daytime? Has anyone observed you stop No 05/27/25 10:28 breathing during sleep? STOP Results Negative 05/27/25 10:28 QUESTION #5 FULL TEXT : Do you snore loudly (louder than talking or can be heard through closed doors)? 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 Specify any problems Hx of Preganancy in last 3 N/A 05/27/25 10:28 Months Nurse Filling Out Transfusion MGRIFFITH 05/27/25 10:28 Questions: Date: 05/27/25 05/27/25 10:28 Time: 10:34 05/27/25 10:28 Patient unable to answer at this time (ie. confused, unrespo /Reproduction History /Reproductive History - audit associate: /Reproductive Hx- audit associate Hx Now Gestational Age (in weeks): EDC: Hx Hx Para Hx Section SAB [facility] Medical History Wears hearing aid Anxiety Alcohol use Thyroid disease High cholesterol Non-smoker History of stress test Restless leg Hypertension Home Medications ???Medication ???Instructions ???Recorded ???Last Taken ???Type amlodipine 5 mg-valsartan 320 mg 1 tab PO QHS 09/27/14 Unknown Hist ory tablet (Exforge) nebivolol 10 mg tablet (Bystolic) 10 mg PO QHS 09/27/14 09/21/16 08 :00 History 10 MG clonazepam 0.5 mg tablet 0.25 mg PO QHS 06/08/16 Unknown Hi story citalopram 10 mg tablet 10 mg PO DAILY 05/27/25 Unknown Hi story levothyroxine 25 mcg tablet 25 mcg PO DAILY 05/27/25 Unknown H istory Allergy/AdvReac Type Severity Reaction Status Date / Time No Known Allergies Allergy Verified 05/28/25 15:01 Surgical History History of skin lili (more content not included)... Normal [facility] MRSA/SAID NASAL SCREENon MRSA+SAID SCRN Reason for Exam: Lili everardo MRSA MRSA Negative S. AUREUS S. aureus Negative Normal [facility] Comment on above: Performed By: #### L 500.2500, L300.4310, L501.9985, BTSPAT, L100.0100, L300.3900, L3400.0100, M100.651 ####[facility] [address] [facility] [place], [address] 12 Lead EKGon 05-29-2025 12 Lead EKG [facility] Cardiovascular Services [address] [place] [address] 12 Lead EKG 05/29/25 1210 MR#: [id number] Acct: [id number] Name: YOLANDA HATFIELD II Rep #: [id number] : 1945 79 From: Rosendo Mccain MD Attending Dr: Dr. Chris Burton, Status: NE E SD Ordering Dr: Chris Burton DO Date: 05/29/25 Location[place] [facility] Sex: M C Admitted: Test Reason : PRE OP Blood Pressure : */* mmHG Vent. Rate : 60 BPM Atrial Rate : 60 BPM P-R Int : 140 ms QRS Dur : 90 ms QT Int : 432 ms P-R-T Axes : 36 -29 -11 degrees QTcB Int : 432 ms Normal sinus rhythm Minimal voltage criteria for LVH, may be normal variant Nonspecific ST abnormality Abnormal ECG Confirmed by ROSENDO MCCAIN MD ([id number]), photograph editor ABBEY VYAS ([id number]) on 05/30/2025 5:58:04 AM Referred By: Chris Burton Confirmed By: ROSENDO MCCAIN MD 05/30/25 0558 Date Rosendo Mccain MD CC: Dr. Linda Ibarra MD; Dr. Chris Burton, DO Signed Normal [facility] Basic Metabolic Profile (BMP )on 05-29-2025 BUN/CRE 11.8 RATIO Normal 10-20 [facility] Comment on above: Performed By: #### L 500.2500, L300.4310, L501.9985, BTSPAT, L100.0100, L300.3900, L3400.0100, M100.651 ####[facility] [address] [place], [address] Calcium [Mass/Vol] 9.2 mg/dL Normal 7.6-11.0 [facility] Comment on above: Performed By: #### L 500.2500, L300.4310, L501.9985, BTSPAT, L100.0100, L300.3900, L3400.0100, M100.651 ####[facility] [address] [place], [address] Chloride [Moles/Vol] 105 mmol/L Normal 98-108 [facility] Comment on above: Performed By: #### L 500.2500, L300.4310, L501.9985, BTSPAT, L100.0100, L300.3900, L3400.0100, M100.651 ####[facility] [address] [place], [address] CO2 [Moles/Vol] 24.6 mmol/L Normal 21.0-32.0 [facility] Comment on above: Performed By: #### L 500.2500, L300.4310, L501.9985, BTSPAT, L100.0100, L300.3900, L3400.0100, M100.651 ####[facility] [address] [place], [address] Creatinine [Mass/Vol] 1.08 mg/dL Normal 0.70-1.20 [facility] Comment on above: Performed By: #### L 500.2500, L300.4310, L501.9985, BTSPAT, L100.0100, L300.3900, L3400.0100, M100.651 ####[facility] [address] [place], [address] GAP 10 Normal 5-15 [facility] Comment on above: Performed By: #### L 500.2500, L300.4310, L501.9985, BTSPAT, L100.0100, L300.3900, L3400.0100, M100.651 ####[facility] [address] [place], [address] GFR/1.73 sq M.predicted among non-blacks MDRD (S/P/Bld) [Vol rate/Area] 71 mL/min/{1.73_m2} Normal >60 [facility] Comment on above: Result Comment: mL/m in/1.73m2 CKD-EPI Creatinine Equation (2020) Performed By: #### L 500.2500, L300.4310, L501.9985, BTSPAT, L100.0100, L300.3900, L3400.0100, M100.651 ####[facility] [address] [place], [address] Glucose [Mass/Vol] 99 mg/dL Normal 70-99 [facility] Comment on above: Performed By: #### L 500.2500, L300.4310, L501.9985, BTSPAT, L100.0100, L300.3900, L3400.0100, M100.651 ####[facility] [address] [place], [address] Potassium [Moles/Vol] 4.5 mmol/L Normal 3.3-5.1 [facility] Comment on above: Performed By: #### L 500.2500, L300.4310, L501.9985, BTSPAT, L100.0100, L300.3900, L3400.0100, M100.651 ####[facility] [address] [place], [address] Sodium [Moles/Vol] 140 mmol/L Normal 133-145 [facility] Comment on above: Performed By: #### L 500.2500, L300.4310, L501.9985, BTSPAT, L100.0100, L300.3900, L3400.0100, M100.651 ####[facility] [address] [place], [address] Urea nitrogen [Mass/Vol] 13 mg/dL Normal 4-19 [facility] Comment on above: Performed By: #### L 500.2500, L300.4310, L501.9985, BTSPAT, L100.0100, L300.3900, L3400.0100, M100.651 ####[facility] [address] [place], [address] CBC W/Diff, Automatedon 07-3 Absolute Lymph 1.06 X10 3/uL Normal 0.83-4.51 [facility] Comment on above: Performed By: #### L 500.2500, L300.4310, L501.9985, BTSPAT, L100.0100, L300.3900, L3400.0100, M100.651 #### [facility] [address] [place], [address] Absolute Neut 4.1 X10 3/uL Normal 2.0-7.7 [facility] Comment on above: Performed By: #### L 500.2500, L300.4310, L501.9985, BTSPAT, L100.0100, L300.3900, L3400.0100, M100.651 #### [facility] [address] [place], [address] Basophils/100 WBC (Bld) 1.0 % Normal 0-1 [facility] Comment on above: Performed By: #### L 500.2500, L300.4310, L501.9985, BTSPAT, L100.0100, L300.3900, L3400.0100, M100.651 #### [facility] [address] [place], [address] Eosinophils/100 WBC (Bld) 2.3 % Normal 0-5 [facility] Comment on above: Performed By: #### L 500.2500, L300.4310, L501.9985, BTSPAT, L100.0100, L300.3900, L3400.0100, M100.651 #### [facility] [address] [facility] [place], [address] Erythrocyte distribution width (RBC) [Ratio] 13.2 % Normal 11.6-14.6 [facility] Comment on above: Performed By: #### L 500.2500, L300.4310, L501.9985, BTSPAT, L100.0100, L300.3900, L3400.0100, M100.651 #### [facility] [address] [place], [address] Hematocrit (Bld) [Volume fraction] 40.1 % Normal 40-54 [facility] Comment on above: Performed By: #### L 500.2500, L300.4310, L501.9985, BTSPAT, L100.0100, L300.3900, L3400.0100, M100.651 #### [facility] [address] [place], [address] Hemoglobin (Bld) [Mass/Vol] 13.5 g/dL Normal 13.0-16.5 [facility] Comment on above: Performed By: #### L 500.2500, L300.4310, L501.9985, BTSPAT, L100.0100, L300.3900, L3400.0100, M100.651 #### [facility] [address] [place], [address] IG% 0.800 Normal 0.0-0.9 [facility] Comment on above: Result Comment: IG% - Immature Granulocytes (promyelocytes, myelocytes and metamyelocytes) > 1% indicates that a LEFT SHIFT is Present. Performed By: #### L 500.2500, L300.4310, L501.9985, BTSPAT, L100.0100, L300.3900, L3400.0100, M100.651 #### [facility] [address] [place], [address] Lymphocytes/100 WBC (Bld) 17.2 % Low 19-41 [facility] Comment on above: Performed By: #### L 500.2500, L300.4310, L501.9985, BTSPAT, L100.0100, L300.3900, L3400.0100, M100.651 #### [facility] [address] [place], [address] MCH (RBC) [Entitic mass] 32.4 pg High 27.0-32.0 [facility] Comment on above: Performed By: #### L 500.2500, L300.4310, L501.9985, BTSPAT, L100.0100, L300.3900, L3400.0100, M100.651 #### [facility] [address] [place], [address] MCHC (RBC) [Mass/Vol] 33.7 g/dL Normal 32-36 [facility] Comment on above: Performed By: #### L 500.2500, L300.4310, L501.9985, BTSPAT, L100.0100, L300.3900, L3400.0100, M100.651 #### [facility] [address] [place], [address] MCV (RBC) [Entitic vol] 96.2 fL High 80-94 [facility] Comment on above: Performed By: #### L 500.2500, L300.4310, L501.9985, BTSPAT, L100.0100, L300.3900, L3400.0100, M100.651 #### [facility] [address] [place], [address] Monocytes/100 WBC (Bld) 12.6 % High 0-10 [facility] Comment on above: Performed By: #### L 500.2500, L300.4310, L501.9985, BTSPAT, L100.0100, L300.3900, L3400.0100, M100.651 #### [facility] [address] [place], [address] Neutrophils/100 WBC (Bld) 66.1 % Normal 47-70 [facility] Comment on above: Performed By: #### L 500.2500, L300.4310, L501.9985, BTSPAT, L100.0100, L300.3900, L3400.0100, M100.651 #### [facility] [address] [place], [address] Nucleated RBC (Bld) [#/Vol] 0 10*3/uL Normal 0-5 [facility] Comment on above: Performed By: #### L 500.2500, L300.4310, L501.9985, BTSPAT, L100.0100, L300.3900, L3400.0100, M100.651 #### [facility] [address] [place], [address] Platelet mean volume (Bld) [Entitic vol] 10.3 fL Normal 6.2-12.0 [facility] Comment on above: Performed By: #### L 500.2500, L300.4310, L501.9985, BTSPAT, L100.0100, L300.3900, L3400.0100, M100.651 #### [facility] [address] [place], [address] Platelets (Bld) [#/Vol] 305 10*3/uL Normal 150-450 [facility] Comment on above: Performed By: #### L 500.2500, L300.4310, L501.9985, BTSPAT, L100.0100, L300.3900, L3400.0100, M100.651 #### [facility] [address] [place], [address] RBC (Bld) [#/Vol] 4.17 10*6/uL Low 4.6-6.2 [facility] Comment on above: Performed By: #### L 500.2500, L300.4310, L501.9985, BTSPAT, L100.0100, L300.3900, L3400.0100, M100.651 #### [facility] [address] [place], [address] RDW SD 47.0 fl High 35.1-43.9 [facility] Comment on above: Performed By: #### L 500.2500, L300.4310, L501.9985, BTSPAT, L100.0100, L300.3900, L3400.0100, M100.651 #### [facility] [address] [place], [address] WBC (Bld) [#/Vol] 6.2 10*3/uL Normal 4.4-11.0 [facility] Comment on above: Performed By: #### L 500.2500, L300.4310, L501.9985, BTSPAT, L100.0100, L300.3900, L3400.0100, M100.651 #### [facility] [address] [place], [address] Hemoglobin A1con 05-29-2025 HbA1c (Bld) [Mass fraction] 5.2 % Normal <=5.6 [facility] Comment on above: Result Comment: Norm al < 5.7 % Prediabetic 5.7 - 6.4 % Diabetic >or= 6.5 % Please note range changes. Performed By: #### L 500.2500, L300.4310, L501.9985, BTSPAT, L100.0100, L300.3900, L3400.0100, M100.651 #### [facility] [address] [place], [address] Magnesiumon 05-29-2025 Magnesium [Mass/Vol] 2.1 mg/dL Normal 1.5-2.2 [facility] Comment on above: Performed By: #### L 501.5200, L501.9520 ####[facility] [address] [place], [address] Partial Thromboplast Timeon 05-29-2025 aPTT Coag (Bld) [Time] 27.8 s Normal 24.1-36.2 [facility] Comment on above: Performed By: #### L 500.2500, L300.4310, L501.9985, BTSPAT, L100.0100, L300.3900, L3400.0100, M100.651 #### [facility] [address] [place], [address] Prothrombin Time w/INRon INR Coag (PPP) [Relative time] 1.0 {INR} Normal [facility] Comment on above: Performed By: #### L 500.2500, L300.4310, L501.9985, BTSPAT, L100.0100, L300.3900, L3400.0100, M100.651 #### [facility] [address] [place], [address] PT Coag (PPP) [Time] 13.3 s Normal 11.7-14.9 [facility] Comment on above: Performed By: #### L 500.2500, L300.4310, L501.9985, BTSPAT, L100.0100, L300.3900, L3400.0100, M100.651 #### [facility] [address] [place], [address] Thyroid Stim Hormone (TSH)on 05-29-2025 TSH 2.180 uIU/mL Normal 0.300-4.20 0 [facility] Comment on above: Performed By: #### L 501.5200, L501.9520 ####[facility] [address] [place], [address] Type AND Screen - PAT ONLYon 05-29-2025 Ab SCREEN GEL Negative Normal [facility] Comment on above: Order Comment: Surge ry Date: 06/10/25Reason for Laboratory Test [id number] TOTAL KNEE ARTHROPLASTY Performed By: #### L 500.2500, L300.4310, L501.9985, BTSPAT, L100.0100, L300.3900, L3400.0100, M100.651 ####[facility] [address] [place], [address] Orthopedic Visit Reporton Orthopedic Visit Report [facility] [address] [place] [address] 5 [place] [address] OFFICE VISIT Date of Service: 05/28/25 MR#: [id number] Acct: [id number] Name: YOLANDA HATFIELD II Rep #: [id number] : 1945 Provider: Dr. Chris díaz DO Age/Sex: 79/M Location[place] [facility] Status: Signed Intake Vital Signs 05/09/25 10:16 Height 5 ft 10 in Intake Visit Reasons: right knee Chief Complaint: Right Knee Pain Allergies No Known Allergies Allergy (Verified 05/28/25 15:01) Medications ???Medication ???Instructions ???Recorded ???Confirmed ???Type amlodipine 5 mg-valsartan 320 mg 1 tab PO QHS 09/27/14 05/28/25 His tory tablet (Exforge) nebivolol 10 mg tablet (Bystolic) 10 mg PO QHS 09/27/14 05/28/25 Hi story clonazepam 0.5 mg tablet 0.25 mg PO QHS 06/08/16 05/28/25 H istory citalopram 10 mg tablet 10 mg PO DAILY 05/27/25 05/28/25 H istory levothyroxine 25 mcg tablet 25 mcg PO DAILY 05/27/25 05/28/25 History Have you fallen in the past year?: No PFSH Medical History Wears hearing aid Anxiety Alcohol use Thyroid disease High cholesterol Non-smoker History of stress test Restless leg Hypertension Surgical History History of skin surgery H/O knee surgery Social History household members: spouse Smoking Status: Never smoker alcohol intake: current alcohol intake frequency: 0-2 drinks per day substance use type: does not use HPI right knee Details: This documentation accurately reflects the service provided and the decisions made by me, Dr. Chris Burton, DO 05/28/25 2105. Part of today???s visit was documented by Mariza LEBRON, acting as scribe. YOLANDA HATFIELD is a 79 year old M here today for right knee Iovera treatment Ortho Exam General General: Yes no acute distress Neurologic: Yes alert and Yes oriented x3 Psychologic: Yes reasonable and appropriate Right Knee Skin/Wound: Yes CDI, No erythema, No ecchymosis and No swelling Homans Sign: No Knee ROM: Yes ROM-Extension -20 to 0 and Yes ROM-Flexion 0-140 Examination: No Med jt line tenderness, No Lat jt line tenderness, No Pain with flexion and No Pain with extention Stability: NML: Anterior Drawer, NML: Posterior Drawer, NML: Varus 0 and NML: Varus 30 and 1+: Valgus 0 (Due to medial joint space narrowing) and 1+: Valgus 30 Apprehension with Lateral Translation: No KNEE: lacking 5 degrees EXT FLEX 120 - collateral instability No significant swelling no gross motor or sensory deficits right lower EXTR Office Procedures Iovera Procedure Details:: Preoperative diagnosis :chronic knee pain Postoperative diagnosis: Same Procedure: Cryotherapy with Iovera device to anterior femoral cutaneous nerve and 2 branches of the infrapatellar saphenous nerve. Three nerves in total. Description of procedure: Patient was brought back to the procedure room the operative extremity was identified by both patient and physician. Entire extremity was cleaned with alcohol. The superior inferior and medial lateral borders of the patella were marked followed by the center of the patella. We then measured 12 cm proximal to this and with the knee in flexion marked the medial and lateral edges of the patella continuing proximally to give us our proximal treatment line.This was our treatment line for the anterior femoral cutaneous nerve. A second treatment line was made 5 cm medial to the inferior pole of the patella and 5 cm distally. The treatment lines were then prepped with Betadine and 1 last time with alcohol. Lidocaine 1% with epi was injected subcutaneously along the treatment lines. Using the Iovera device on the marked treatment lines device was activated allowing it to freeze and defrost with 1 minute cycles. Once all 3 nerve branches were treated across the 2 treatment lines patient was cleaned and a light dressing with 4 x 4 and Juan wrap was applied. Patient tolerated the procedure without complication. Supplemental Info 05/12/2025 x-ray right knee: There is advanced medial compartment arthrosis with bony erosion of the medial tibial plateau on the flexion view there is also bone spurs throughout the remainder of the knee and moderate spurring of the patellofemoral compartment 02/24/2025 x-ray right shoulder there is severe glenohumeral arthrosis 04/14/2024 x-ray right knee: Advanced medial compartment arthrosis near [id number] there is a fractured osteophyte of the most proximal medial tibial plateau joint space narrowing medially with varus deformity there is also moderate spurring noted through the remainder of the knee 10/01/2021 x-ray right great toe mild/moderate arthritic changes w (more content not included)... Normal [facility] Extremity Lower without Cont raon 05-26-2025 Extremity Lower without Contra [facility] Imaging Services [address] [place] [address] Extremity Lower without Contra MR#: [id number] Acct: [id number] Name: YOLANDA HATFIELD II Rep #: [id number] : 1945 M 79 From: Mic Mcdaniels MD PCP: Dr. Linda Ibarra MD Status: REG CLI Study: Extremity Lower without Contra Date of Exam: 0 05/26/25 Exam# [id number] Ordering Dr: Chris Burton DO PROCEDURE: EXTREMITY LOWER WITHOUT CONTRA 05/26/2025 REASON FOR EXAM: TEMPLATING FOR RIGHT TKA TECHNIQUE: EXTREMITY LOWER WITHOUT CONTRA Coronal and Sagittal reconstruction series were provided. CONTRAST: None One or more dose reduction techniques were used (e.g., Automated exposure control, adjustment of the mA and/or kV according to patient size, use of iterative reconstruction technique). RADIATION DOSE SUMMARY: DLP: 1147 mGycm COMPARISON: May 12, 2025 x-ray FINDINGS: There is severe medial joint space narrowing. There multiple intra-articular osteochondral fragments with the largest measuring 0.7 cm in the medial joint space. Chondrocalcinosis is noted in the lateral meniscus. There are prominent osteophytes of the patellofemoral articulation and medial and lateral articular surfaces. There is a small joint effusion. Adjacent muscular structures appear intact. Vascular calcifications are noted. 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 Reading Location: [facility] CC: Dr. Linda Ibarra MD; Dr. Chris Burton DO Audiovisual Equipment Operator: Signed [facility] Knee 4 or More Viewson 05-12 Knee 4 or More Views [facility] Imaging Services [address] [place] [address] Knee 4 or More Views MR#: [id number] Acct: [id number] Name: YOLANDA HATFIELD II Rep #: [id number] : 1945 M 79 From: Ashley Hines PCP: Dr. Linda Ibarra MD Status: DEP AMB Study: Knee 4 or More Views Date of Exam: 05/12/25 Exam# [id number] Ordering Dr: Chris Burton DO PROCEDURE: KNEE 4 OR MORE VIEWS 05/12/2025 REASON FOR EXAM: CHRONIC PAIN TECHNIQUE: KNEE 4 OR MORE VIEWS COMPARISON: Right knee study dated 04/14/2020 FINDINGS: Bones: Diffuse osteopenia of the osseous structures of the right knee are noted. There is an old healed proximal medial tibial fracture. No acute fractures are seen. There is significant arthritic changes noted involving the medial femorotibial joint and patellofemoral joint. Small spurs are seen off the posterior superior and posterior inferior aspect of the patella. Marginal osteophytes are seen off of the medial and lateral aspect of the tibia. There is increased calcific density in the lateral femorotibial joint most likely representing chondrocalcinosis. There is a small suprapatellar bursa effusion. Soft tissue swelling of the knee is noted. Arteriosclerotic vascular disease of the vessels of the knee are noted. RAD/Knee 4 or More Views IMPRESSION: Significant arthritic changes noted involving the medial femorotibial and patellofemoral joints right knee. Chondrocalcinosis lateral femorotibial joint right knee. Old healed fracture off the proximal medial aspect of the tibia. No acute fractures. 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 Small suprapatellar bursa effusion and mild soft tissue swelling of the knee Reading Location: [id number] CC: Dr. Linda Ibarra MD; Dr. Chris Burton DO Audiovisual Equipment Operator: Signed [facility] Orthopedic Visit Reporton Orthopedic Visit Report [facility] [address] [place] [address] OFFICE VISIT Date of Service: 05/12/25 MR#: [id number] Acct: [id number] Name: YOLANDA HATFIELD II Rep #: [id number] : 1945 Provider: Dr. Chris díaz DO Age/Sex: 79/M [place] [facility] [place] Status: Signed Intake Vital Signs 02/24/25 09:12 05/09/25 10:16 Height 5 ft 10 in 5 ft 10 in Weight: 180 lb BMI 25.8 Intake Visit Reasons: RIGHT KNEE Chief Complaint: Right Knee Pain Accompanied by: Self Is patient in pain?: Yes Pain scale (1-10): 4 Allergies No Known Allergies Allergy (Verified 05/12/25 09:56) Medications ???Medication ???Instructions ???Recorded ???Confirmed ???Type amlodipine 5 mg-valsartan 320 mg 1 tab PO DAILY 09/27/14 05/12/25 H istory tablet (Exforge) nebivolol 10 mg tablet (Bystolic) 10 mg PO DAILY 09/27/14 05/12/25 History clonazepam 0.5 mg tablet 0.5 mg PO QHS 06/08/16 05/12/25 Hi story Have you fallen in the past year?: No PFSH Medical History Restless leg Hypertension Surgical History H/O knee surgery Social History household members: spouse Smoking Status: Never smoker alcohol intake: current alcohol intake frequency: 0-2 drinks per day substance use type: does not use HPI RIGHT KNEE Details: This documentation accurately reflects the service provided and the decisions made by me, Dr. Chris Burton, DO 05/12/2542. Part of today???s visit was documented by Eden Cherry ATC, acting as scribe. YOLANDA HATFIELD is a 79 year old M here today for right knee pain. Patient would like to discuss surgery today. Patient states he did stand up from the couch and hit the knee on the marble ground and it caused an increase in pain but states this happened prior to his last appointment. He states the past injections have given him some relief. He states the last round of injections did help but did not last very long. He has tried a sleeve in the past but no card reader brace. 02/17/2025: Completed Euflexxa series right knee 01/13/2025:01/13/2025 :here today for right knee pain and swelling. Rates pain 2 out of ten. Reports pain stable at a 2-3/10 most of the time. Denies radiculopathy, weakness, numbness or tingling. Ibuprofen taken occasionally for pain. 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 Hx Euflexxa injections completed 07/12/2024. Right knee steroid injection right knee 10/07/2024 reporting pain relief did not last as long as other times. Denies history of surgery on right knee. Denies hx physical therapy. Does not use assistive devices. Plan:Patients xrays show severe osteoarthritis but he does not want to proceed with a total knee arthroplasty at this time. His pain is not affecting his ADLs and when it does, he should consider a total knee arthroplasty. He would like to try the series of viscosupplementation injections which he may have every 6 months. Patient may wear his knee brace when he is running. Followup when we receive the injection approval or sooner if pain, swelling, numbness or associated symptoms, or concerns develop. All questions answered. Patient in agreement of plan. 05/27/2024:right knee pain. Patient notes that he has had knee pain off and on for his entire life. He states that in March, he stood from the couch and a blanket was wrapped around his knee, and he fell on his knee and his knee hit a marble coffee table. Patient denies any bruising or swelling. He went to the ED the next day due to his pain, and he had a steroid injection. Patient notes that he is 95% better. He notes that he still has pain with ambulation. Patient complains of pain over his anterior knee when he ambulates. He rates his pain at a 3/10. Patient denies any pain medications. Patient has a knee sleeve which he uses at times. He denies any physical therapy. Patient had a knee scope in [address] Koehler. 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 Plan:Very pleasant 78-year old active male recent runner up to 2 years ago seen with his today Educated the patient about the anatomy of the knee and etiology of his pain. Spoke with the patient about have having a chip of his medial tibial plateau. 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 Spoke with the patient about his options- repeat steroid injections every 3 months, viscosupplementation injections, physical therapy for strengthening, medial card reader bracing, oral anti-inflammatory or a total knee arthroplasty. Due to patients pain at this time, he should try conservative treatment. He should not do regular running after a total knee arthroplasty. Patient is n (more content not included)... [facility] Orthopedic Visit Reporton Orthopedic Visit Report [facility] [address] [place] [address] OFFICE VISIT Date of Service: 02/24/25 MR#: [id number] Acct: [id number] Name: YOLANDA HATFIELD II Rep #: [id number] : 1945 Provider: Dr. Chris díaz DO Age/Sex: 79/M Location: [facility] [place] Status: Signed Intake Vital Signs 02/17/25 09:00 02/24/25 09:12 Height 5 ft 10 in 5 ft 10 in Weight: 180 lb 180 lb BMI 25.8 25.8 Intake Visit Reasons: RIGHT SHOULDER Chief Complaint: Right shoulder pain Accompanied by: Self Is patient in pain?: Yes Pain scale (1-10): 1 Allergies No Known Allergies Allergy (Verified 02/24/25 09:15) Medications ???Medication ???Instructions ???Recorded ???Confirmed ???Type amlodipine 5 mg-valsartan 320 mg 1 tab PO DAILY 09/27/14 02/24/25 H istory tablet (Exforge) nebivolol 10 mg tablet (Bystolic) 10 mg PO DAILY 09/27/14 02/24/25 History clonazepam 0.5 mg tablet 0.5 mg PO QHS 06/08/16 02/24/25 Hi story Have you fallen in the past year?: No [facility] Medical History Restless leg Hypertension Surgical History H/O knee surgery Social History household members: spouse Smoking Status: Never smoker alcohol intake: current alcohol intake frequency: 0-2 drinks per day substance use type: does not use HPI RIGHT SHOULDER Details: This documentation accurately reflects the service provided and the decisions made by me, Dr. Chris Burton, DO 02/24/25 0800. Part of today???s visit was documented by Sunitha Marie MA, acting as scribe. YOLANDA HATFIELD is a 79 year old M here today for right shoulder pain. Patient is having any pain in the right shoulder, and it goes down into the elbow. The pain is a constant pain. This has been millicent g on for a long time. Patient used to run and would always trip in the mensah. He fell 10 years ago and fell off 300ft myra. Patient denies any surgeries on his shoulder. Laying down makes the pain worse. Patient denies any injections, no physial therapy. Patient takes an Advil now and then. Patient denies and smoking or drugs. Patient denies any numbness or tingling. 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 The pain is over the top of the shoulder over the deltoid down into the elbow. He states he has fallen several times in his lifetime and landed mostly on this side. Denies any radiating pain up into the neck. Ortho Exam General General: Yes no acute distress and Yes well groomed Neurologic: Yes alert and Yes oriented x3 Psychologic: Yes reasonable and appropriate Right Shoulder Skin/Wound: Yes CDI, No ecchymosis, No erythema and No swelling Testing: Positive Hawkin's; Negative TTP AC Joint or Drop Arm SHOULDER: several scars on the back of the neck from trail running and falls - tenderness AC joint 95 forward flexion with pain and mild crepitation ABD 130 ER 40 IR 30 with pain + Mercado intact belly press 5 out of 5 rotator cuff strength no shoulder instability Office Procedures Ortho Injections Injections Yes Subacromial Injection Right Is this a patient provided medication?: No Details: Obtained consent for injection. Under sterile conditions, injected the patients right subacromial shoulder with 4.0mL Bupivacaine, 4.0mL Lidocaine and 1.0mL Depomedrol. The patient tolerated the injection well without any noted complication. Patient should call our office if redness develops, pain worsens or if they have any concerns. Office Meds Depo-Medrol 40 mg/mL suspension for injection Performing Provider: Chris Burton DO Performing Location: [facility] Administered by: Chris Burton DO on 02/24/25 10:09 Dose Route Admin Location Dispensed Lot Number Expiration Date NDC Man ufacturer 40 mg intra-articular Right Shoulder 1 mL [id number] 05/30/26 9707-3489-67 P [id number]-UPJHN Supplemental Info 02/24/2025 x-ray right shoulder there is severe glenohumeral arthrosis 04/14/2024 x-ray right knee: Advanced medial compartment arthrosis near [id number] there is a fractured osteophyte of the most proximal medial tibial plateau joint space narrowing medially with varus deformity there is also moderate spurring noted through the remainder of the knee 10/01/2021 x-ray right great toe mild/moderate arthritic changes with subchondral cysts 10/01/2021 x-ray right knee: moderate to severe medial and patellofemoral compartment arthrosis there is spurring noted in the lateral compartment as well Coding Level of Care Code Off vis,est,level 4 Diagnoses 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 [facility] Shoulder min 2 Viewson 02-24 Shoulder min 2 Views [facility] Imaging Services [address] [place], [place] [address] Shoulder min 2 Views MR#: [id number] Acct: [id number] Name: YOLANDA HATFIELD II Rep #: [id number] : 1945 M 79 From: Mic Mcdaniels MD PCP: Dr. Linda Ibarra MD Status: DEP AMB Study: Shoulder min 2 Views Date of Exam: 02/24/25 Exam# [id number] Ordering Dr: Crhis Burton DO PROCEDURE: SHOULDER MIN 2 VIEWS 02/24/2025 REASON FOR EXAM: CHRONIC PAIN TECHNIQUE: Four views of the right shoulder COMPARISON: None FINDINGS: There is severe osteoarthritis of the glenohumeral articulation with flattening of the articular surfaces, subcortical cyst formation, joint space narrowing, and marginal osteophytes. The AC joint is aligned. Osteopenia is noted. There is no visible soft tissue abnormality. RAD/Shoulder min 2 Views IMPRESSION: There is severe osteoarthritis of the glenohumeral articulation with flattening of the articular surfaces, subcortical cyst formation, joint space narrowing, and marginal osteophytes. Reading Location: [facility] CC: Dr. Linda Ibarra MD; Dr. Chris Burton DO Audiovisual Equipment Operator: Signed [facility] Orthopedic Visit Reporton Orthopedic Visit Report [facility] [address] [place] [address] OFFICE VISIT Date of Service: 02/17/25 MR#: [id number] Acct: [id number] Name: YOLANDA HATFIELD II Rep #: [id number] : 1945 Provider: Dr. Chris díaz DO Age/Sex: 79/M Location: [facility] [place] Status: Signed with Addenda ADDENDUM by Dr. Chris Burton DO on 02/26/25 at 1506 Assessment and Plan Assessment and Plan (1) Primary osteoarthritis of right knee: Status: Acute Plan: First right knee Euflexxa injection given today patient tolerated well follow-up in 1 week for next Orders: Orders Euflexxa Injection 02/17/25 02/26/25 1506 Date Chris Burton DO cc: * Signed ADDENDUM by SAV Cook on 02/17/25 at 0923 Office Procedure Documentation entered by Sunitha Cook MA 02/17/25 09:23: Euflexxa Procedure Details:: Obtained consent for injection. Under sterile conditions, injected the patients 3rd Euflexxa right knee with 20ml 3rd Euflexxa. The patient tolerated the injection well without any noted compl ication. Patient should call our office if redness develops, pain worsens or if they have any concerns. Is this Buy Bill?: Yes Office Meds Euflexxa 10 mg/mL (mw 2.4-3.6 million) intra-articular syringe Performing Provider: Chris Burton DO Performing Location: [facility] Administered by: Chris Burton DO on 02/17/25 09:22 Dose Route Admin Location Dispensed Lot Number Expiration Date NDC Man ufacturer 20 mg intra-articular Right knee 2 mL [id number] 10/19/25 [address]-9 ANA [employer]STINA [employer] Date cc: * Signed Intake Vital Signs 10/20/24 12:19 02/10/25 10:57 02/17/25 09:00 Height 5 ft 10 in 5 ft 10 in 5 ft 10 in Weight: 180 lb 180 lb BMI 25.8 25.8 Intake Visit Reasons: RIGHT KNEE Chief Complaint: 3rd Euflexxa Accompanied by: Self Is patient in pain?: Yes Pain scale (1-10): 2 Allergies No Known Allergies Allergy (Verified 02/17/25 09:04) Medications ???Medication ???Instructions ???Recorded ???Confirmed ???Type amlodipine 5 mg-valsartan 320 mg 1 tab PO DAILY 09/27/14 02/17/25 H istory tablet (Exforge) nebivolol 10 mg tablet (Bystolic) 10 mg PO DAILY 09/27/14 02/17/25 History clonazepam 0.5 mg tablet 0.5 mg PO QHS 06/08/16 02/17/25 Hi story Have you fallen in the past year?: No PFSH Medical History Restless leg Hypertension Surgical History H/O knee surgery Social History household members: spouse Smoking Status: Never smoker alcohol intake: current alcohol intake frequency: 0-2 drinks per day substance use type: does not use HPI RIGHT KNEE Details: This documentation accurately reflects the service provided and the decisions made by me, Dr. Chris Burton, DO 02/17/25 0747. Part of today???s visit was documented by Sunitha Marie MA, acting as scribe. YOLANDA HATFIELD is a 79 year old M here today for 3rd Euflexxa right knee injection. Ortho Exam General General: Yes no acute distress Neurologic: Yes alert and Yes oriented x3 Psychologic: Yes reasonable and appropriate Right Knee Skin/Wound: Yes CDI, No erythema, No ecchymosis and No swelling Homans Sign: No Knee ROM: Yes ROM-Extension -20 to 0 (-8) and Yes ROM-Flexion 0-140 (120) Examination: No Med jt line tenderness and No Lat jt line tenderness Stability: NML: Anterior Drawer, NML: Posterior Drawer, NML: Valgus 0, NML: Varus 0 and NML: Varus 30 and 1+: Valgus 30 (gapping medial ) Apprehension with Lateral Translation: No KNEE: varus deformity. Supplemental Info 04/14/2024 x-ray right knee: Advanced medial compartment arthrosis near [id number] there is a fractured osteophyte of the most proximal medial tibial plateau joint space narrowing medially with varus deformity there is also moderate spurring noted through the remainder of the knee 10/01/2021 x-ray right great toe mild/moderate arthritic changes with subchondral cysts 10/01/2021 x-ray right knee: moderate to severe medial and patellofemoral compartment arthrosis there is spurring noted in the lateral compartment as well Coding Level of Care Code Off vis,est,level 3 Diagnoses Viral URI J06.9 Assessment and Plan Assessment and Plan (1) Viral URI: Status: Acute Plan Third right knee Euflexxa injection given today patient tolerated well . Clinical Quality Measures Falls Risk Screening/Assistive Devices Have you fallen in the past year?: No 02/17/25 0920 (more content not included)... [facility] Orthopedic Visit Reporton Orthopedic Visit Report [facility] [facility] [address] [place] [address] OFFICE VISIT Date of Service: 02/10/25 MR#: [id number] Acct: [id number] Name: YOLANDA HATFIELD II Rep #: [id number] : 1945 Provider: Dr. Chris díaz DO Age/Sex: 79/M [facility] [facility] [place] Status: Signed with Addenda ADDENDUM by Dr. Chris Burton DO on 02/18/25 at 0709 Assessment and Plan Assessment and Plan (1) Primary osteoarthritis of right knee: Status: Acute Plan: First right knee Euflexxa injection given today patient tolerated well follow-up in 1 week for next Orders: Orders Euflexxa Injection 02/10/25 02/18/25 0709 Date Chris Burton DO cc: * Signed Intake Vital Signs 10/20/24 12:19 02/10/25 10:57 Height 5 ft 10 in 5 ft 10 in Weight: 180 lb BMI 25.8 Intake Visit Reasons: RIGHT KNEE Chief Complaint: 2nd Euflexxa in right knee Accompanied by: Self Is patient in pain?: No Allergies No Known Allergies Allergy (Verified 02/10/25 11:01) Medications ???Medication ???Instructions ???Recorded ???Confirmed ???Type amlodipine 5 mg-valsartan 320 mg 1 tab PO DAILY 09/27/14 02/10/25 H istory tablet (Exforge) nebivolol 10 mg tablet (Bystolic) 10 mg PO DAILY 09/27/14 02/10/25 History clonazepam 0.5 mg tablet 0.5 mg PO QHS 06/08/16 02/10/25 Hi story Have you fallen in the past year?: No PFSH Medical History Restless leg Hypertension Surgical History H/O knee surgery Social History household members: spouse Smoking Status: Never smoker alcohol intake: current alcohol intake frequency: 0-2 drinks per day substance use type: does not use HPI RIGHT KNEE Details: This documentation accurately reflects the service provided and the decisions made by me, Dr. Chris Burton DO 02/10/25 0813. Part of today???s visit was documented by Sunitha Marie MA, acting as scribe. YOLANDA HATFIELD is a 79 year old M here today for 2nd Euflexxa injection in the right knee. Ortho Exam General General: Yes no acute distress Neurologic: Yes alert and Yes oriented x3 Psychologic: Yes reasonable and appropriate Right Knee Skin/Wound: Yes CDI, No erythema, No ecchymosis and No swelling Homans Sign: No Knee ROM: Yes ROM-Extension -20 to 0 (-8) and Yes ROM-Flexion 0-140 (120) Examination: No Med jt line tenderness and No Lat jt line tenderness Stability: NML: Anterior Drawer, NML: Posterior Drawer, NML: Valgus 0, NML: Varus 0 and NML: Varus 30 and 1+: Valgus 30 (gapping medial ) Apprehension with Lateral Translation: No KNEE: varus deformity. Office Procedures Euflexxa Procedure Details:: Obtained consent for injection. Under sterile conditions, injected the patients 2nd Euflexxa in right knee with 20 ml. The patient tolerated the injection well without any noted complication. Patient should call our office if redness develops, pain worsens or if they have any concerns. Is this Buy Bill?: Yes Office Meds Euflexxa 10 mg/mL (mw 2.4-3.6 million) intra-articular syringe Performing Provider: Chris Burton DO Performing Location: [facility] Administered by: Chris Burton DO on 02/10/25 11:07 Dose Route Admin Location Dispensed Lot Number Expiration Date NDC Man ufacturer 20 mg intra-articular Right knee 2 mL [id number] 10/19/25 [address]-7 ANA [employer]STINA [employer] Supplemental Info 04/14/2024 x-ray right knee: Advanced medial compartment arthrosis near [id number] there is a fractured osteophyte of the most proximal medial tibial plateau joint space narrowing medially with varus deformity there is also moderate spurring noted through the remainder of the knee 10/01/2021 x-ray right great toe mild/moderate arthritic changes with subchondral cysts 10/01/2021 x-ray right knee: moderate to severe medial and patellofemoral compartment arthrosis there is spurring noted in the lateral compartment as well Coding Level of Care Code Off vis,est,level 3 Diagnoses Viral URI J06.9 Assessment and Plan Assessment and Plan (1) Viral URI: Status: Acute Orders: Orders Euflexxa Injection Today Plan Second right knee Euflexxa injection given today patient tolerated well follow-up in 1 week for third Clinical Quality Measures Falls Risk Screening/Assistive Devices Have you fallen in the past year?: No 02/10/25 1128 Date Chris Stephenson Signature: Date (if applicable) (more content not included)... [facility] Orthopedic Visit Reporton Orthopedic Visit Report [facility] [address] [place], [place] [id number] OFFICE VISIT Date of Service: 02/03/25 MR#: [id number] Acct: [id number] Name: YOLANDA HATFIELD II Rep #: [id number] : 1945 Provider: Dr. Chris díaz DO Age/Sex: 79/M Location: [facility] [place] Status: Signed Intake Vital Signs 10/20/24 12:19 Height 5 ft 10 in Intake Visit Reasons: RIGHT KNEE Allergies No Known Allergies Allergy (Verified 02/03/25 11:03) Medications ???Medication ???Instructions ???Recorded ???Confirmed ???Type amlodipine 5 mg-valsartan 320 mg 1 tab PO DAILY 09/27/14 02/03/25 H istory tablet (Exforge) nebivolol 10 mg tablet (Bystolic) 10 mg PO DAILY 09/27/14 02/03/25 History clonazepam 0.5 mg tablet 0.5 mg PO QHS 06/08/16 02/03/25 Hi story Have you fallen in the past year?: No PFSH Medical History Restless leg Hypertension Surgical History H/O knee surgery Social History household members: spouse Smoking Status: Never smoker alcohol intake: current alcohol intake frequency: 0-2 drinks per day substance use type: does not use HPI RIGHT KNEE Details: This documentation accurately reflects the service provided and the decisions made by me, Dr. Chris Burton, DO 02/03/25 0752. Part of today???s visit was documented by Mariza LEBRON, acting as scribe. YOLANDA HATFIELD is a 79 year old M here today for 1st right knee Euflexxa injection. Ortho Exam General General: Yes no acute distress Neurologic: Yes alert and Yes oriented x3 Psychologic: Yes reasonable and appropriate Right Knee Skin/Wound: Yes CDI, No erythema, No ecchymosis and No swelling Homans Sign: No Knee ROM: Yes ROM-Extension -20 to 0 (-8) and Yes ROM-Flexion 0-140 (120) Examination: No Med jt line tenderness and No Lat jt line tenderness Stability: NML: Anterior Drawer, NML: Posterior Drawer, NML: Valgus 0, NML: Varus 0 and NML: Varus 30 and 1+: Valgus 30 (gapping medial ) Apprehension with Lateral Translation: No KNEE: varus deformity. Office Procedures Euflexxa Procedure Details:: Obtained consent for injection. Under sterile conditions, injected the patients right knee with 20mg/2mL of Euflexxa. The patient tolerated the injection well without any noted complication. Patient should call our office if redness develops, pain worsens or if they have any concerns. Is this Buy Bill?: Yes Office Meds Euflexxa 10 mg/mL (mw 2.4-3.6 million) intra-articular syringe Performing Provider: Chris Burton DO Performing Location: [facility] Administered by: Chris Burton DO on 02/03/25 11:07 Dose Route Admin Location Dispensed Lot Number Expiration Date NDC Zeyad ufacturer 20 mg intra-articular right knee 2 mL [id number] 10/19/25 [address]-7 [employer] Supplemental Info 04/14/2024 x-ray right knee: Advanced medial compartment arthrosis near [id number]-pypi there is a fractured osteophyte of the most proximal medial tibial plateau joint space narrowing medially with varus deformity there is also moderate spurring noted through the remainder of the knee 10/01/2021 x-ray right great toe mild/moderate arthritic changes with subchondral cysts 10/01/2021 x-ray right knee: moderate to severe medial and patellofemoral compartment arthrosis there is spurring noted in the lateral compartment as well Coding Level of Care Code Off vis,est,level 3 Diagnoses Primary osteoarthritis of right knee M17.11 Assessment and Plan Assessment and Plan (1) Primary osteoarthritis of right knee: Status: Acute Plan: First right knee Euflexxa injection given today patient tolerated well follow-up in 1 week for next Orders: Orders Euflexxa Injection Today M17.11 - Unilateral primary osteoarthritis, right knee Medications: New Euflexxa (sodium hyaluronate (viscosup)) 20 mg (2 mL) intra-articular ONCE 2 mL 0RF NS M17.11 - Unilateral primary osteoarthritis, right knee Clinical Quality Measures Falls Risk Screening/Assistive Devices Have you fallen in the past year?: No 02/03/25 1117 Date Chris Burton DO Cosigner Signature: Date (if applicable) CC: Normal [facility] Absolute lymphocyte countOrd ered By: Linda Ibarra on 01-27-2025 Lymphocytes Auto (Unsp spec) [#/Vol] 1.03 10*3/uL 0.83-4.51 [facility] Absolute neutrophil countOrd ered By: Linda Ibarra on 01-27-2025 Neutrophils (Bld) [#/Vol] 5.4 10*3/uL 2.0-7.7 [facility] Automated lymphocyte count a s percentage of total leukocytesOrdered By: Linda Ibarra on 01-27-2025 Lymphocytes/100 WBC Auto (Unsp spec) 13.6 % Low 19-41 [facility] Basophil percentageOrdered B y: Linda Ibarra on 01-27-2025 Basophils/100 WBC (Bld) 1.2 % High 0-1 [facility] CBC W/Diff, Automatedon 12-30 Absolute Lymph 1.03 X10 3/uL Normal 0.83-4.51 [facility] Comment on above: Performed By: #### L 506.0200, L503.0106, L100.0100 ####[facility] [address] [place], [address] Absolute Neut 5.4 X10 3/uL Normal 2.0-7.7 [facility] Comment on above: Performed By: #### L 506.0200, L503.0106, L100.0100 ####[facility] [address] [place], [address] Basophils/100 WBC (Bld) 1.2 % High 0-1 [facility] Comment on above: Performed By: #### L 506.0200, L503.0106, L100.0100 ####[facility] [address] [place], [address] Eosinophils/100 WBC (Bld) 2.5 % Normal 0-5 [facility] Comment on above: Performed By: #### L 506.0200, L503.0106, L100.0100 ####[facility] [address] [place], [address] Erythrocyte distribution width (RBC) [Ratio] 13.5 % Normal 11.6-14.6 [facility] Comment on above: Performed By: #### L 506.0200, L503.0106, L100.0100 ####[facility] [address] [place], [address] Hematocrit (Bld) [Volume fraction] 40.3 % Normal 40-54 [facility] Comment on above: Performed By: #### L 506.0200, L503.0106, L100.0100 ####[facility] [address] [place], [address] Hemoglobin (Bld) [Mass/Vol] 13.8 g/dL Normal 13.0-16.5 [facility] Comment on above: Performed By: #### L 506.0200, L503.0106, L100.0100 ####[facility] [address] [place], [address] IG% 0.500 Normal 0.0-0.9 [facility] Comment on above: Result Comment: IG% - Immature Granulocytes (promyelocytes, myelocytes and metamyelocytes) > 1% indicates that a LEFT SHIFT is Present. Performed By: #### L 506.0200, L503.0106, L100.0100 ####[facility] [address] [place], [address] Lymphocytes/100 WBC (Bld) 13.6 % Low 19-41 [facility] Comment on above: Performed By: #### L 506.0200, L503.0106, L100.0100 ####[facility] [address] [place], [address] MCH (RBC) [Entitic mass] 31.9 pg Normal 27.0-32.0 [facility] Comment on above: Performed By: #### L 506.0200, L503.0106, L100.0100 ####[facility] [address] [place], [address] MCHC (RBC) [Mass/Vol] 34.2 g/dL Normal 32-36 [facility] Comment on above: Performed By: #### L 506.0200, L503.0106, L100.0100 ####[facility] [address] [place], [address] MCV (RBC) [Entitic vol] 93.1 fL Normal 80-94 [facility] Comment on above: Performed By: #### L 506.0200, L503.0106, L100.0100 ####[facility] [address] [place], [address] Monocytes/100 WBC (Bld) 10.6 % High 0-10 [facility] Comment on above: Performed By: #### L 506.0200, L503.0106, L100.0100 ####[facility] [address] [place], [address] Neutrophils/100 WBC (Bld) 71.6 % High 47-70 [facility] Comment on above: Performed By: #### L 506.0200, L503.0106, L100.0100 ####[facility] [address] [place], [address] Nucleated RBC (Bld) [#/Vol] 0 10*3/uL Normal 0-5 [facility] Comment on above: Performed By: #### L 506.0200, L503.0106, L100.0100 ####[facility] [address] [place], [address] Platelet mean volume (Bld) [Entitic vol] 10.5 fL Normal 6.2-12.0 [facility] Comment on above: Performed By: #### L 506.0200, L503.0106, L100.0100 ####[facility] [address] [place], [address] Platelets (Bld) [#/Vol] 346 10*3/uL Normal 150-450 [facility] Comment on above: Performed By: #### L 506.0200, L503.0106, L100.0100 ####[facility] [address] [place], [address] RBC (Bld) [#/Vol] 4.33 10*6/uL Low 4.6-6.2 [facility] Comment on above: Performed By: #### L 506.0200, L503.0106, L100.0100 ####[facility] [address] [place], [address] RDW SD 46.3 fl High 35.1-43.9 [facility] Comment on above: Performed By: #### L 506.0200, L503.0106, L100.0100 ####[facility] [address] [place], [address] WBC (Bld) [#/Vol] 7.6 10*3/uL Normal 4.4-11.0 [facility] Comment on above: Performed By: #### L 506.0200, L503.0106, L100.0100 ####[facility] [address] [place], [address] Eosinophil percentageOrdered By: Linda Ibarra on 01-27-2025 Eosinophils/100 WBC (Bld) 2.5 % 0-5 [facility] Erythrocyte distribution wid th (RBC) [Ratio]Ordered By: Linda Ibarra on 01-27-2025 Erythrocyte distribution width (RBC) [Entitic vol] 46.3 fL High 35.1-43.9 [facility] Erythrocyte distribution wid th ratioOrdered By: Linda Eddie on 01-27-2025 Erythrocyte distribution width (RBC) [Ratio] 13.5 % 11.6-14.6 [facility] Erythrocyte distribution wid th standard deviationOrdered By: Linda Ibarra on 01-27-2025 Erythrocyte distribution width (RBC) [Ratio] 46.3 fl High 35.1-43.9 [facility] FOLATES,SERUM (FOLIC ACID)on 01-27-2025 FOLATES,SERUM 12.90 ng/mL Normal 4.60-34.80 [facility] Comment on above: Order Comment: N Result Comment: Hemo lysis, Results will be affected, Requires Recollection. Performed By: #### L 506.0200, L503.0106, L100.0100 ####[facility] [address] [place], [place], [id number] Folate [Mass/Vol]Ordered By: Linda Ibarra on 01-27-2025 Serum Folate 12.90 ng/mL 4.60-34.80 [facility] Comment on above: Hemolysis, Results w ill be affected, Requires Recollection. Folate [Mass/volume] in Seru m or PlasmaOrdered By: Linda Ibarra on 01-27-2025 Folate [Mass/Vol] 12.90 ng/mL 4.60-34.80 [facility] Comment on above: Hemolysis, Results w ill be affected, Requires Recollection. Hematocrit Auto (Bld) [Volum e fraction]Ordered By: Linda Ibarra on 01-27-2025 Hematocrit (Bld) [Volume fraction] 40.3 % 40-54 [facility] Hemoglobin measurementOrdere d By: Linda Ibarra on 01-27-2025 Hemoglobin (Bld) [Mass/Vol] 13.8 g/dL 13.0-16.5 [facility] Immature granulocytes/100 WB C Auto (Bld)Ordered By: Linda Ibarra on 01-27-2025 Immature granulocytes/100 WBC (Bld) 0.500 % 0.0-0.9 [facility] Comment on above: IG% - Immature Granu locytes (promyelocytes, myelocytes and metamyelocytes) > 1% indicates that a LEFT SHIFT is Present. L503.0106on 01-27-2025 Cobalamin (Vitamin B12) [Mass/Vol] 564 pg/mL Normal 180-914 [facility] Comment on above: Performed By: #### L 506.0200, L503.0106, L100.0100 ####[facility] [address] [place], [address] Lymphocytes Auto (Unsp spec) [#/Vol]Ordered By: Linda Ibarra on 01-27-2025 Lymphocytes (Bld) [#/Vol] 1.03 10*3/uL 0.83-4.51 [facility] Lymphocytes/100 WBC Auto (Un sp spec)Ordered By: Linda Ibarra on 01-27-2025 Lymphocytes/100 WBC (Bld) 13.6 % Low 19-41 [facility] MCV (mean corpuscular volume ) determinationOrdered By: Linda Ibarra on 01-27-2025 MCV (RBC) [Entitic vol] 93.1 fL 80-94 [facility] Mean corpuscular hemoglobin (MCH) determinationOrdered By: [facility] I[facility] on 01-27-2025 MCH (RBC) [Entitic mass] 31.9 pg 27.0-32.0 [facility] Mean corpuscular hemoglobin concentration (MCHC) determinationOrdered By: [facility] Ibarra on 01-27-2025 MCHC (RBC) [Mass/Vol] 34.2 g/dL 32-36 [facility] Mean platelet volume determi nationOrdered By: Linda Ibarra on 01-27-2025 Platelet mean volume (Bld) [Entitic vol] 10.5 fL 6.2-12.0 [facility] Monocyte percentageOrdered B y: Linda Ibarra on 01-27-2025 Monocytes/100 WBC (Bld) 10.6 % High 0-10 [facility] Neutrophil percentageOrdered By: Linda Ibarra on 01-27-2025 Neutrophils/100 WBC (Bld) 71.6 % High 47-70 [facility] Nucleated red blood cell per centageOrdered By: Linda Ibarra on 01-27-2025 Nucleated RBC/100 WBC (Bld) [Ratio] 0 % 0-5 [facility] Platelet countOrdered By: Marianne Ibarra on 01-27-2025 Platelets (Bld) [#/Vol] 346 10*3/uL 150-450 [facility] RBC Auto (Bld) [#/Vol]Ordere d By: Janettangelic Eddie on 01-27-2025 RBC (Bld) [#/Vol] 4.33 10*6/uL Low 4.6-6.2 [facility] Vitamin B12 ser/plasOrdered By: Linda Ibarra on 01-27-2025 Cobalamin (Vitamin B12) [Mass/Vol] 564 pg/mL 180-914 [facility] White blood cell (WBC) count Ordered By: Linda Ibarra on 01-27-2025 WBC (Bld) [#/Vol] 7.6 10*3/uL 4.4-11.0 [facility] Orthopedic Visit Reporton Orthopedic Visit Report [facility] [address] [place] [id number] OFFICE VISIT Date of Service: 01/13/25 MR#: [id number] Acct: [id number] Name: YOLANDA HATFIELD II Rep #: [id number] : 1945 Provider: Dr. 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 Accompanied by: Self Is patient in pain?: Yes Pain scale (1-10): 2 Allergies No Known Allergies Allergy (Verified 01/13/25 09:40) Medications ???Medication ???Instructions ???Recorded ???Confirmed ???Type amlodipine 5 mg-valsartan 320 mg 1 tab PO DAILY 09/27/14 01/13/25 H istory tablet (Exforge) nebivolol 10 mg tablet (Bystolic) 10 mg PO DAILY 09/27/14 01/13/25 History clonazepam 0.5 mg tablet 0.5 mg PO QHS 06/08/16 01/13/25 Hi story Have you fallen in the past year?: No PFSH Medical History Restless leg Hypertension Surgical History H/O knee surgery Social History (Updated 01/13/25 @ 09:42 by Bethany Nicole) household members: spouse Smoking Status: Never smoker alcohol intake: current alcohol intake frequency: 0-2 drinks per day substance use type: does not use HPI RIGHT KNEE Details: This documentation accurately reflects the service provided and the decisions made by me, Dr. Chris Burton, DO 01/13/25 0757. Part of today???s visit was documented by [ ], acting as scribe. YOLANDA HATFIELD is a 79 year old M 01/13/2025 :here today for right knee pain and swelling. Rates pain 2 out of ten. Reports pain stable at a 2-3/10 most of the time. Denies radiculopathy, weakness, numbness or tingling. Ibuprofen taken occasionally for pain. 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 Hx Euflexxa injections completed 07/12/2024. Right knee steroid injection right knee 10/07/2024 reporting pain relief did not last as long as other times. Denies history of surgery on right knee. Denies hx physical therapy. Does not use assistive devices. 05/27/2024:right knee pain. Patient notes that he has had knee pain off and on for his entire life. He states that in March, he stood from the couch and a blanket was wrapped around his knee, and he fell on his knee and his knee hit a marble coffee table. Patient denies any bruising or swelling. He went to the ED the next day due to his pain, and he had a steroid injection. Patient notes that he is 95% better. He notes that he still has pain with ambulation. Patient complains of pain over his anterior knee when he ambulates. He rates his pain at a 3/10. Patient denies any pain medications. Patient has a knee sleeve which he uses at times. He denies any physical therapy. Patient had a knee [place] [address] Koehler. 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 Plan:Very pleasant 78-year old active male recent runner up to 2 years ago seen with his today Educated the patient about the anatomy of the knee and etiology of his pain. Spoke with the patient about have having a chip of his medial tibial plateau. 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 Spoke with the patient about his options- repeat steroid injections every 3 months, viscosupplementation injections, physical therapy for strengthening, medial card reader bracing, oral anti-inflammatory or a total knee arthroplasty. Due to patients pain at this time, he should try conservative treatment. He should not do regular running after a total knee arthroplasty. Patient is not able to have a knee replacement for 3 months after any injection. If he aggravates his knee with activities, he should take an oral anti-inflammatory and ice. Patient mat take up to 600mg ibuprofen three times a day. We will get the viscosupplementation injections approved with her insurance. We will order a medial card reader brace and send his information to [facility]. 10/01/2021: 75 year old M here today for right knee pain. He states that he has been having some increased knee pain over the last month. He is a runner. He has posterior lateral knee pain. He states that he has increased pain at the end of the day. He states that he stand a lot at work. He had a right knee scope with Dr. Koehler which was Right knee partial medial and lateral meniscectomies, intercondylar osteophyte debridement in the notch, patellofemoral chondroplasty, according to operative report there was grade 4 kissing lesions of the medial compartment. He states that he has been taking ibuprofen occasionally for the pain. Denies any injections of the right knee. He is also complaining of right buttock pain and plantar fasciitis. (more content not included)... Normal [facility] 05-XR-Fbkmsrt DOrdered By: Serafin Ibarra on 11-28-2024 Vitamin D 25-Hydroxy 79.9 ng/mL [facility] Comment on above: Vitamin D 25(OH) Sta tus Range Deficiency <20 ng/mL (50nmol/L) Insufficiency 20 - 30 ng/mL (50 - 75 nmol/L) Sufficiency 30 - 100 ng/mL (75 - 250 nmol/L) Toxicity >100 ng/mL (>250 nmol/L) Absolute neutrophil countOrd ered By: Linda Ibarra on 11-28-2024 Neutrophils (Bld) [#/Vol] 10.4 10*3/uL High 2.0-7.7 [facility] Albumin to globulin ratioOrd ered By: Linda Ibarra on 11-28-2024 Albumin/Globulin [Mass ratio] 0.8 {ratio} Low 0.9-2.4 [facility] Basophil percentageOrdered B y: Linda Ibarra on 11-28-2024 Basophils/100 WBC (Bld) 0.5 % 0-1 [facility] Bilirubin, totalOrdered By: Linda Ibarra on 11-28-2024 Bilirubin [Mass/Vol] 0.60 mg/dL 0.20-1.00 [facility] Comment on above: For patients on eltr ombopag therapy, use of Dimension Rheems TBIL is not recommended. Blood urea nitrogen (BUN)/cr eatinine ratioOrdered By: Linda Ibarra on 11-28-2024 Urea nitrogen/Creatinine [Mass ratio] 14.5 mg/mg 10-20 [facility] CBC W/Diff, Automatedon 11-01 Absolute Lymph 0.94 X10 3/uL Normal 0.83-4.51 [facility] Comment on above: Order Comment: PER P T-NOT TO DO PSA-MEDITECH FLAGGED ALREADY DONE OCT Performed By: #### L 500.4050, L506.1000, L500.4100, L501.9520, L100.0100 ####[facility] [address] [place], [address] Absolute Neut 10.4 X10 3/uL High 2.0-7.7 [facility] Comment on above: Order Comment: PER P T-NOT TO DO PSA-MEDITECH FLAGGED ALREADY DONE OCT Performed By: #### L 500.4050, L506.1000, L500.4100, L501.9520, L100.0100 ####[facility] [address] [place], [address] Basophils/100 WBC (Bld) 0.5 % Normal 0-1 [facility] Comment on above: Order Comment: PER P T-NOT TO DO PSA-MEDITECH FLAGGED ALREADY DONE OCT Performed By: #### L 500.4050, L506.1000, L500.4100, L501.9520, L100.0100 ####[facility] [address] [place], [address] Eosinophils/100 WBC (Bld) 2.3 % Normal 0-5 [facility] Comment on above: Order Comment: PER P T-NOT TO DO PSA-MEDITECH FLAGGED ALREADY DONE OCT Performed By: #### L 500.4050, L506.1000, L500.4100, L501.9520, L100.0100 ####[facility] [address] [place], [address] Erythrocyte distribution width (RBC) [Ratio] 12.9 % Normal 11.6-14.6 [facility] Comment on above: Order Comment: PER P T-NOT TO DO PSA-MEDITECH FLAGGED ALREADY DONE OCT Performed By: #### L 500.4050, L506.1000, L500.4100, L501.9520, L100.0100 ####[facility] [address] [place], [address] Hematocrit (Bld) [Volume fraction] 38.3 % Low 40-54 [facility] Comment on above: Order Comment: PER P T-NOT TO DO PSA-MEDITECH FLAGGED ALREADY DONE OCT Performed By: #### L 500.4050, L506.1000, L500.4100, L501.9520, L100.0100 ####[facility] [address] [place], [address] Hemoglobin (Bld) [Mass/Vol] 12.5 g/dL Low 13.0-16.5 [facility] Comment on above: Order Comment: PER P T-NOT TO DO PSA-MEDITECH FLAGGED ALREADY DONE OCT Performed By: #### L 500.4050, L506.1000, L500.4100, L501.9520, L100.0100 ####[facility] [address] [place], [address] IG% 0.800 Normal 0.0-0.9 [facility] Comment on above: Order Comment: PER P T-NOT TO DO PSA-MEDITECH FLAGGED ALREADY DONE OCT Result Comment: IG% - Immature Granulocytes (promyelocytes, myelocytes and metamyelocytes) > 1% indicates that a LEFT SHIFT is Present. Performed By: #### L 500.4050, L506.1000, L500.4100, L501.9520, L100.0100 ####[facility] [address] [place], [address] Lymphocytes/100 WBC (Bld) 7.3 % Low 19-41 [facility] Comment on above: Order Comment: PER P T-NOT TO DO PSA-MEDITECH FLAGGED ALREADY DONE OCT Performed By: #### L 500.4050, L506.1000, L500.4100, L501.9520, L100.0100 ####[facility] [address] [place], [address] MCH (RBC) [Entitic mass] 30.8 pg Normal 27.0-32.0 [facility] Comment on above: Order Comment: PER P T-NOT TO DO PSA-MEDITECH FLAGGED ALREADY DONE OCT Performed By: #### L 500.4050, L506.1000, L500.4100, L501.9520, L100.0100 ####[facility] [address] [place], [address] MCHC (RBC) [Mass/Vol] 32.6 g/dL Normal 32-36 [facility] Comment on above: Order Comment: PER P T-NOT TO DO PSA-MEDITECH FLAGGED ALREADY DONE OCT Performed By: #### L 500.4050, L506.1000, L500.4100, L501.9520, L100.0100 ####[facility] [address] [place], [address] MCV (RBC) [Entitic vol] 94.3 fL High 80-94 [facility] Comment on above: Order Comment: PER P T-NOT TO DO PSA-MEDITECH FLAGGED ALREADY DONE OCT Performed By: #### L 500.4050, L506.1000, L500.4100, L501.9520, L100.0100 ####[facility] [address] [place], [address] Monocytes/100 WBC (Bld) 7.8 % Normal 0-10 [facility] Comment on above: Order Comment: PER P T-NOT TO DO PSA-MEDITECH FLAGGED ALREADY DONE OCT Performed By: #### L 500.4050, L506.1000, L500.4100, L501.9520, L100.0100 ####[facility] [address] [place], [address] Neutrophils/100 WBC (Bld) 81.3 % High 47-70 [facility] Comment on above: Order Comment: PER P T-NOT TO DO PSA-MEDITECH FLAGGED ALREADY DONE OCT Performed By: #### L 500.4050, L506.1000, L500.4100, L501.9520, L100.0100 ####[facility] [address] [place], [address] Nucleated RBC (Bld) [#/Vol] 0 10*3/uL Normal 0-5 [facility] Comment on above: Order Comment: PER P T-NOT TO DO PSA-MEDITECH FLAGGED ALREADY DONE OCT Performed By: #### L 500.4050, L506.1000, L500.4100, L501.9520, L100.0100 ####[facility] [address] [place], [address] Platelet mean volume (Bld) [Entitic vol] 10.3 fL Normal 6.2-12.0 [facility] Comment on above: Order Comment: PER P T-NOT TO DO PSA-MEDITECH FLAGGED ALREADY DONE OCT Performed By: #### L 500.4050, L506.1000, L500.4100, L501.9520, L100.0100 ####[facility] [address] [place], [address] Platelets (Bld) [#/Vol] 395 10*3/uL Normal 150-450 [facility] Comment on above: Order Comment: PER P T-NOT TO DO PSA-MEDITECH FLAGGED ALREADY DONE OCT Performed By: #### L 500.4050, L506.1000, L500.4100, L501.9520, L100.0100 ####[facility] [address] [place], [address] RBC (Bld) [#/Vol] 4.06 10*6/uL Low 4.6-6.2 [facility] Comment on above: Order Comment: PER P T-NOT TO DO PSA-MEDITECH FLAGGED ALREADY DONE OCT Performed By: #### L 500.4050, L506.1000, L500.4100, L501.9520, L100.0100 ####[facility] [address] [place], [address] RDW SD 44.7 fl High 35.1-43.9 [facility] Comment on above: Order Comment: PER P T-NOT TO DO PSA-MEDITECH FLAGGED ALREADY DONE OCT Performed By: #### L 500.4050, L506.1000, L500.4100, L501.9520, L100.0100 ####[facility] [address] [place], [address] WBC (Bld) [#/Vol] 12.8 10*3/uL High 4.4-11.0 [facility] Comment on above: Order Comment: PER P T-NOT TO DO PSA-MEDITECH FLAGGED ALREADY DONE OCT Performed By: #### L 500.4050, L506.1000, L500.4100, L501.9520, L100.0100 ####[facility] [address] [place], [address] Carbon dioxide measurementOr dered By: iLnda Ibarra on 11-28-2024 CO2 [Moles/Vol] 25.0 mmol/L 21.0-32.0 [facility] Chloride measurementOrdered By: Linda Ibarra on 11-28-2024 Chloride [Moles/Vol] 104 mmol/L 98-107 [facility] Comprehensive Metabolic Prof ilon 11-28-2024 Albumin [Mass/Vol] 3.2 g/dL Normal 3.2-5.0 [facility] Comment on above: Order Comment: PER P T-NOT TO DO PSA-MEDITECH FLAGGED ALREADY DONE OCT Performed By: #### L 500.4050, L506.1000, L500.4100, L501.9520, L100.0100 ####[facility] [address] [place], [address] Albumin/Globulin [Mass ratio] 0.8 {ratio} Low 0.9-2.4 [facility] Comment on above: Order Comment: PER P T-NOT TO DO PSA-MEDITECH FLAGGED ALREADY DONE OCT Performed By: #### L 500.4050, L506.1000, L500.4100, L501.9520, L100.0100 ####[facility] [address] [place], [address] ALK P 112 U/L Normal 45-117 [facility] Comment on above: Order Comment: PER P T-NOT TO DO PSA-MEDITECH FLAGGED ALREADY DONE OCT Performed By: #### L 500.4050, L506.1000, L500.4100, L501.9520, L100.0100 ####[facility] [address] [place], [address] ALT [Catalytic activity/Vol] 17 U/L Normal 16-61 [facility] Comment on above: Order Comment: PER P T-NOT TO DO PSA-MEDITECH FLAGGED ALREADY DONE OCT Performed By: #### L 500.4050, L506.1000, L500.4100, L501.9520, L100.0100 ####[facility] [address] [place], [address] AST [Catalytic activity/Vol] 9 U/L Low 15-37 [facility] Comment on above: Order Comment: PER P T-NOT TO DO PSA-MEDITECH FLAGGED ALREADY DONE OCT Performed By: #### L 500.4050, L506.1000, L500.4100, L501.9520, L100.0100 ####[facility] [address] [place], [address] Bilirubin [Mass/Vol] 0.60 mg/dL Normal 0.20-1.00 [facility] Comment on above: Order Comment: PER P T-NOT TO DO PSA-MEDITECH FLAGGED ALREADY DONE OCT Result Comment: For patients on eltrombopag therapy, use of Dimension Rheems TBIL is not recommended. Performed By: #### L 500.4050, L506.1000, L500.4100, L501.9520, L100.0100 ####[facility] [address] [place], [address] BUN/CRE 14.5 RATIO Normal 10-20 [facility] Comment on above: Order Comment: PER P T-NOT TO DO PSA-MEDITECH FLAGGED ALREADY DONE OCT Performed By: #### L 500.4050, L506.1000, L500.4100, L501.9520, L100.0100 ####[facility] [address] [place], [address] CA,Total 10.0 mg/dL Normal 8.5-10.1 [facility] Comment on above: Order Comment: PER P T-NOT TO DO PSA-MEDITECH FLAGGED ALREADY DONE OCT Performed By: #### L 500.4050, L506.1000, L500.4100, L501.9520, L100.0100 ####[facility] [address] [place], [address] Chloride [Moles/Vol] 104 mmol/L Normal 98-107 [facility] Comment on above: Order Comment: PER P T-NOT TO DO PSA-MEDITECH FLAGGED ALREADY DONE OCT Performed By: #### L 500.4050, L506.1000, L500.4100, L501.9520, L100.0100 ####[facility] [address] [place], [address] CO2 [Moles/Vol] 25.0 mmol/L Normal 21.0-32.0 [facility] Comment on above: Order Comment: PER P T-NOT TO DO PSA-MEDITECH FLAGGED ALREADY DONE OCT Performed By: #### L 500.4050, L506.1000, L500.4100, L501.9520, L100.0100 ####[facility] [address] [place], [address] Creatinine [Mass/Vol] 1.17 mg/dL Normal 0.70-1.30 [facility] Comment on above: Order Comment: PER P T-NOT TO DO PSA-MEDITECH FLAGGED ALREADY DONE OCT Result Comment: The validity of the calculated GFR GFRAA in patients over 70 years has not been determined. Clinical correlation is essential. Performed By: #### L 500.4050, L506.1000, L500.4100, L501.9520, L100.0100 ####[facility] [address] [place], [address] EST GFR - AA 78 mL/min Normal >60 [facility] Comment on above: Order Comment: PER P T-NOT TO DO PSA-MEDITECH FLAGGED ALREADY DONE OCT Result Comment: Afri can Greek GFR Calc Performed By: #### L 500.4050, L506.1000, L500.4100, L501.9520, L100.0100 ####[facility] [address] [place], [address] GAP 8 Normal 5-15 [facility] Comment on above: Order Comment: PER P T-NOT TO DO PSA-MEDITECH FLAGGED ALREADY DONE OCT Performed By: #### L 500.4050, L506.1000, L500.4100, L501.9520, L100.0100 ####[facility] [address] [place], [address] GFR/1.73 sq M.predicted among non-blacks MDRD (S/P/Bld) [Vol rate/Area] 64 mL/min/{1.73_m2} Normal >60 [facility] Comment on above: Order Comment: PER P T-NOT TO DO PSA-MEDITECH FLAGGED ALREADY DONE OCT Result Comment: Non- GFR Calc Performed By: #### L 500.4050, L506.1000, L500.4100, L501.9520, L100.0100 ####[facility] [address] [place], [address] Globulin (S) [Mass/Vol] 4.0 g/dL Normal 2.2-4.2 [facility] Comment on above: Order Comment: PER P T-NOT TO DO PSA-MEDITECH FLAGGED ALREADY DONE OCT Performed By: #### L 500.4050, L506.1000, L500.4100, L501.9520, L100.0100 ####[facility] [address] [place], [address] Glucose [Mass/Vol] 86 mg/dL Normal 74-106 [facility] Comment on above: Order Comment: PER P T-NOT TO DO PSA-MEDITECH FLAGGED ALREADY DONE OCT Performed By: #### L 500.4050, L506.1000, L500.4100, L501.9520, L100.0100 ####[facility] [address] [place], [address] Potassium [Moles/Vol] 4.0 mmol/L Normal 3.5-5.1 [facility] Comment on above: Order Comment: PER P T-NOT TO DO PSA-MEDITECH FLAGGED ALREADY DONE OCT Performed By: #### L 500.4050, L506.1000, L500.4100, L501.9520, L100.0100 ####[facility] [address] [place], [address] Sodium [Moles/Vol] 138 mmol/L Normal 136-145 [facility] Comment on above: Order Comment: PER P T-NOT TO DO PSA-MEDITECH FLAGGED ALREADY DONE OCT Performed By: #### L 500.4050, L506.1000, L500.4100, L501.9520, L100.0100 ####[facility] [address] [place], [address] T PROT 7.2 g/dL Normal 6.4-8.2 [facility] Comment on above: Order Comment: PER P T-NOT TO DO PSA-MEDITECH FLAGGED ALREADY DONE OCT Performed By: #### L 500.4050, L506.1000, L500.4100, L501.9520, L100.0100 ####[facility] [address] [place], [address] Urea nitrogen [Mass/Vol] 17 mg/dL Normal 7-18 [facility] Comment on above: Order Comment: PER P T-NOT TO DO PSA-MEDITECH FLAGGED ALREADY DONE OCT Performed By: #### L 500.4050, L506.1000, L500.4100, L501.9520, L100.0100 ####[facility] [address] [place], [address] Eosinophil percentageOrdered By: Linda Ibarra on 11-28-2024 Eosinophils/100 WBC (Bld) 2.3 % 0-5 [facility] Erythrocyte distribution wid th (RBC) [Ratio]Ordered By: Linda Ibarra on 11-28-2024 Erythrocyte distribution width (RBC) [Entitic vol] 44.7 fL High 35.1-43.9 [facility] Erythrocyte distribution wid th ratioOrdered By: Linda Ibarra on 11-28-2024 Erythrocyte distribution width (RBC) [Ratio] 12.9 % 11.6-14.6 [facility] Estimated glomerular filtrat ion rate (GFR) AmericanOrdered By: Linda Ibarra on 11-28-2024 Estimated GFR (MDRD) Amer 78 mL/min >60 [facility] Comment on above: GFR Calc Glomerular filtration rate ( GFR) estimationOrdered By: Linda Ibarra on 11-28-2024 Estimated GFR (MDRD) Non-Af Amer 64 mL/min >60 [facility] Comment on above: Non- GFR Calc Glucose measurementOrdered B y: Linda Ibarra on 11-28-2024 Glucose [Mass/Vol] 86 mg/dL 74-106 [facility] Hematocrit Auto (Bld) [Volum e fraction]Ordered By: Linda Ibarra on 11-28-2024 Hematocrit (Bld) [Volume fraction] 38.3 % Low 40-54 [facility] Hemoglobin measurementOrdere d By: Linda Ibarra on 11-28-2024 Hemoglobin (Bld) [Mass/Vol] 12.5 g/dL Low 13.0-16.5 [facility] High density lipoprotein (HD L) measurementOrdered By: Linda Ibarra on 11-28-2024 Cholesterol in HDL [Mass/Vol] 59 mg/dL >40 [facility] Comment on above: The drugs N-Acetylcy steine and Metamizole may falsely depress this assay. Reference Range HDL <40 mg/dL Low HDL Cholesterol HDL >or= 60 mg/dL High HDL Cholesterol Immature granulocytes/100 WB C Auto (Bld)Ordered By: Linda Ibarra on 11-28-2024 Immature granulocytes/100 WBC (Bld) 0.800 % 0.0-0.9 [facility] Comment on above: IG% - Immature Granu locytes (promyelocytes, myelocytes and metamyelocytes) > 1% indicates that a LEFT SHIFT is Present. Laboratory - Chemistry and C hemistry - challengeOrdered By: Linda Ibarra on 11-28-2024 AST [Catalytic activity/Vol] 9 U/L Low 15-37 [facility] Lipid Profileon 11-28-2024 Cholesterol [Mass/Vol] 187 mg/dL Normal 200 [facility] Comment on above: Order Comment: PER P T-NOT TO DO PSA-MEDITECH FLAGGED ALREADY DONE OCT Result Comment: <200 mg/dL Desirable 200-240 mg/dL Borderline >240 mg/dL High Risk Performed By: #### L 500.4050, L506.1000, L500.4100, L501.9520, L100.0100 ####[facility] [address] [place], [address] Cholesterol in HDL [Mass/Vol] 59 mg/dL Normal [facility] Comment on above: Order Comment: PER P T-NOT TO DO PSA-MEDITECH FLAGGED ALREADY DONE OCT Result Comment: The drugs N-Acetylcysteine and Metamizole may falsely depress this assay. Reference Range HDL <40 mg/dL Low HDL Cholesterol HDL >or= 60 mg/dL High HDL Cholesterol Performed By: #### L 500.4050, L506.1000, L500.4100, L501.9520, L100.0100 ####[facility] [address] [place], [address] Cholesterol in LDL [Mass/Vol] 111 mg/dL Normal 0-130 [facility] Comment on above: Order Comment: PER P T-NOT TO DO PSA-MEDITECH FLAGGED ALREADY DONE OCT Performed By: #### L 500.4050, L506.1000, L500.4100, L501.9520, L100.0100 ####[facility] [address] [place], [address] Cholesterol in VLDL [Mass/Vol] 17 mg/dL Normal 5-40 [facility] Comment on above: Order Comment: PER P T-NOT TO DO PSA-MEDITECH FLAGGED ALREADY DONE OCT Performed By: #### L 500.4050, L506.1000, L500.4100, L501.9520, L100.0100 ####[facility] [address] [place], [address] Triglyceride [Mass/Vol] 84 mg/dL Normal [facility] Comment on above: Order Comment: PER P T-NOT TO DO PSA-MEDITECH FLAGGED ALREADY DONE OCT Result Comment: The drugs N-Acetylcysteine and Metamizole may falsely depress this assay. Serum Triglycerides Reference Interval Normal <150 mg/dL Borderline high 150 - 199 mg/dL High 200 - 499 mg/dL Very High > or = 500 mg/dL Performed By: #### L 500.4050, L506.1000, L500.4100, L501.9520, L100.0100 ####[facility] [address] [place], [place], [address] Low density lipoprotein (LDL ) cholesterol measurementOrdered By: Linda Ibarra on 11-28-2024 Cholesterol in LDL [Mass/Vol] 111 mg/dL 0-130 [facility] Lymphocytes Auto (Unsp spec) [#/Vol]Ordered By: Linda Ibarra on 11-28-2024 Lymphocytes (Bld) [#/Vol] 0.94 10*3/uL 0.83-4.51 [facility] Lymphocytes/100 WBC Auto (Un sp spec)Ordered By: Linda Ibarra on 11-28-2024 Lymphocytes/100 WBC (Bld) 7.3 % Low 19-41 [facility] MCV (mean corpuscular volume ) determinationOrdered By: Linda Ibarra on 11-28-2024 MCV (RBC) [Entitic vol] 94.3 fL High 80-94 [facility] Mean corpuscular hemoglobin (MCH) determinationOrdered By: Linda bIarra on 11-28-2024 MCH (RBC) [Entitic mass] 30.8 pg 27.0-32.0 [facility] Mean corpuscular hemoglobin concentration (MCHC) determinationOrdered By: Linda Ibarra on 11-28-2024 MCHC (RBC) [Mass/Vol] 32.6 g/dL 32-36 [facility] Mean platelet volume determi nationOrdered By: Linda Ibarra on 11-28-2024 Platelet mean volume (Bld) [Entitic vol] 10.3 fL 6.2-12.0 [facility] Monocyte percentageOrdered B y: Linda Ibarra on 11-28-2024 Monocytes/100 WBC (Bld) 7.8 % 0-10 [facility] Neutrophil percentageOrdered By: Linda Ibarra on 11-28-2024 Neutrophils/100 WBC (Bld) 81.3 % High 47-70 [facility] Nucleated red blood cell per centageOrdered By: Linda Ibarra on 11-28-2024 Nucleated RBC/100 WBC (Bld) [Ratio] 0 % 0-5 [facility] Platelet countOrdered By: Marianne Ibarra on 11-28-2024 Platelets (Bld) [#/Vol] 395 10*3/uL 150-450 [facility] Potassium measurementOrdered By: Linda Ibarra on 11-28-2024 Potassium [Moles/Vol] 4.0 mmol/L 3.5-5.1 [facility] RBC Auto (Bld) [#/Vol]Ordere d By: Linda Ibarra on 11-28-2024 RBC (Bld) [#/Vol] 4.06 10*6/uL Low 4.6-6.2 [facility] Serum anion gap measurementO rdered By: Linda Ibarra on 11-28-2024 Anion gap [Moles/Vol] 8 mmol/L 5-15 [facility] Serum globulin measurementOr dered By: Linda Ibarra on 11-28-2024 Globulin (S) [Mass/Vol] 4.0 g/dL 2.2-4.2 [facility] Serum or plasma alanine staton otransferase (ALT) measurementOrdered By: Linda Ibarra on 11-28-2024 ALT [Catalytic activity/Vol] 17 U/L 16-61 [facility] Serum or plasma albumin isaac urement (mass/volume)Ordered By: Linda Ibarra on 11-28-2024 Albumin [Mass/Vol] 3.2 g/dL 3.2-5.0 [facility] Serum or plasma alkaline mic sphatase measurementOrdered By: Linda Ibarra on 11-28-2024 ALP [Catalytic activity/Vol] 112 U/L 45-117 [facility] Serum or plasma calcium isaac urement (mass/volume)Ordered By: Linda Ibarra on 11-28-2024 Calcium [Mass/Vol] 10.0 mg/dL 8.5-10.1 [facility] Serum or plasma cholesterol measurement (mass/volume)Ordered By: Linda Ibarra on 11-28-2024 Cholesterol [Mass/Vol] 187 mg/dL <200 [facility] Comment on above: <200 mg/dL Desirable 200-240 mg/dL Borderline >240 mg/dL High Risk Serum or plasma creatinine m easurement (mass/volume)Ordered By: Linda Ibarra on 11-28-2024 Creatinine [Mass/Vol] 1.17 mg/dL 0.70-1.30 [facility] Comment on above: The validity of the calculated GFR & GFRAA in patients over 70 years has not been determined. Clinical correlation is essential. Serum or plasma urea nitroge n measurement (mass/volume)Ordered By: Linda Ibarra on 11-28-2024 Urea nitrogen [Mass/Vol] 17 mg/dL 7-18 [facility] Sodium levelOrdered By: Janett Ibarra on 11-28-2024 Sodium [Moles/Vol] 138 mmol/L 136-145 [facility] TSH QnOrdered By: Linda Underwood e on 11-28-2024 Thyroid Stimulating Hormone (TSH) 2.160 uIU/mL 0.358-3.74 0 [facility] Thyroid Stim Hormone (TSH)on 11-28-2024 TSH 2.160 uIU/mL Normal 0.358-3.74 0 [facility] Comment on above: Order Comment: PER P T-NOT TO DO PSA-CloudmeterTECH FLAGGED ALREADY DONE OCT Performed By: #### L 500.4050, L506.1000, L500.4100, L501.9520, L100.0100 ####[facility] [address] [place], [place], [id number] Total proteinOrdered By: Anika Ibarra on 11-28-2024 Protein [Mass/Vol] 7.2 g/dL 6.4-8.2 [facility] Triglycerides measurementOrd ered By: Linda Ibarra on 11-28-2024 Triglyceride [Mass/Vol] 84 mg/dL <199 [facility] Comment on above: The drugs N-Acetylcy steine and Metamizole may falsely depress this assay.Serum Triglycerides Reference Interval Normal <150 mg/dL Borderline high 150 - 199 mg/dL High 200 - 499 mg/dL Very High > or = 500 mg/dL Very low density lipoprotein (VLDL) cholesterol measurementOrdered By: Linda Ibarra on 11-28-2024 VLDL Cholesterol 17 mg/dL 5-40 [facility] Vitamin D,25 Hydroxyon 11-28 Vitamin D 25-OH 79.9 ng/mL Normal [facility] Comment on above: Order Comment: PER P T-NOT TO DO PSA-MEDITECH FLAGGED ALREADY DONE OCT Result Comment: Maryjane min D 25(OH) Status Range Deficiency <20 ng/mL (50nmol/L) Insufficiency 20 - 30 ng/mL (50 - 75 nmol/L) Sufficiency 30 - 100 ng/mL (75 - 250 nmol/L) Toxicity >100 ng/mL (>250 nmol/L) Performed By: #### L 500.4050, L506.1000, L500.4100, L501.9520, L100.0100 ####[facility] [address] [place], [place], [id number] White blood cell (WBC) count Ordered By: Linda Iabrra on 11-28-2024 WBC (Bld) [#/Vol] 12.8 10*3/uL High 4.4-11.0 [facility] Urine Cultureon 10-23-2024 URC Pseudomonas aerugino sa [place] Count 80,000-100,000 Pseudomonas aeruginosa: REACTION Cefepime Islt SANTOS 2 Ciprofloxacin Islt SANTOS 0.12 S levoFLOXacin Islt SANTOS 0.5 S Meropenem Islt SANTOS <=0.25 S Pip+Tazo Islt SANTOS 8 S Normal [facility] Comment on above: Performed By: #### M 100.2200 ####[facility] [address] [place], [place], [id number] Laboratory - Chemistry and C hemistry - challengeon 10-21-2024 Bilirubin Ql (U) Negative [facility] Glucose Ql (U) Negative [facility] Ketones Ql (U) Trace (5) [facility] pH (U) 5.0 [pH] [facility] Specific gravity (U) [Rel density] 1.005 [facility] Urobilinogen (U) [Mass/Vol] 0.1591718 mg/dL [facility] Laboratory - Hematology and Cell countson 10-21-2024 Hemoglobin Ql (U) Trace [facility] Laboratory - Specimen inform ationon 10-21-2024 Clarity (U) Cloudy [facility] Color (U) JASVIR [facility] Laboratory - Urinalysison Nitrite Ql (U) Negative [facility] Protein Ql (U) Trace [facility] No Panel Informationon 10-21 Urine Leukocytes Positive [facility] Urine Non-Hemolyzed Blood Trace [facility] Urgent Care Visit Reporton 1 12-22-2023 Urgent Care Visit Report [facility] [address], [address] [place] [address] OFFICE VISIT Date of Service: 10/21/24 MR#: [id number] Acct: [id number] Name: YOLANDA HATFIELD II Rep #: [id number] : 1945 Provider: LUANA Abad Age/Sex: 79/M Location: [facility] Status: Signed Intake Vital Signs 10/20/24 12:19 10/21/24 08:15 Height 5 ft 10 in BP 112/70 Blood Pressure Location Rt brachial Position Sitting Respiration 12 Pulse 95 Pulse Source NIBP Temp 98.2 F Temp Source Oral Pulse Oximetry (%) 100 Oxygen Delivery Method room air Intake Visit Reasons: COUGH/SINUS- GETTING WORSE/HERE 10/07 Chief Complaint: runny nose, urgency and burning with urination, vomiting Fundraising Assistant Required: No Is patient in pain?: No Allergies No Known Allergies Allergy (Verified 10/07/24 08:36) Medications ???Medication ???Instructions ???Recorded ???Confirmed ???Type amlodipine 5 mg-valsartan 320 mg 1 tab PO DAILY 09/27/14 10/21/24 History tablet (Exforge) nebivolol 10 mg tablet (Bystolic) 10 mg PO DAILY 09/27/14 10/21/24 History atorvastatin 10 mg tablet 10 mg PO QHS 06/08/16 10/21/24 History clonazepam 0.5 mg tablet 0.5 mg PO QHS 06/08/16 10/21/24 History ciprofloxacin HCl 500 mg tablet 500 mg PO BID #10 tabs 10/21/24 10/21/24 Rx Have you fallen in the past year?: No Nurse's Note: patient here for frequent urgency with urination every 5 -10 minutes, vomiting, has not eaten in 3 days, symptoms started on monday. PFSH Medical History Restless leg Hypertension Surgical History H/O knee surgery Social History household members: spouse Smoking Status: Never smoker alcohol intake: current HPI HPI Chief Complaint: runny nose, urgency and burning with urination, vomiting Details: YOLANDA HATFIELD, is a 79 M who presents to the office today for initial evaluation at the [facility] for approximately 3 day history of dysuria and urinary frequency with suprapubic pressure. No complaints of fever, chills, sweats, lightheadedness/dizzines s, or chest pain/shortness of breath/dyspnea on exertion/back pain - though persistent nausea appreciated. No changes in color/ character of urine or stool. No iads-ypn-zxrgrev products taken to assist. No other associated symptoms and no alleviating/aggravating factors. ROS Const Constitutional: No other (As above) Exam Const General: cooperative, healthy appearing and no acute distress Orientation: alert, awake and oriented x3 Chest Chest palpation inspection: normal inspection of the chest Resp Effort Inspection: normal respiratory effort and able to speak in complete sentences Auscultation: Bilateral: Clear to Auscultation Cardio Palpation: normal PMI Rate: regular rate Rhythm: regular rhythm Heart Sounds: S1 normal, S2 normal, no gallops, no murmurs and no rubs Pulses: radial pulses present GI Inspection: normal to inspection Palpation: soft and tender suprapubic (Patient describes upon self-palpation) General: No CVA tenderness Skin General: no rashes or lesions noted Neuro General: patient alert, patient awake and patient oriented x3 Cognition: normal cognition Speech: speech normal Psych Appearance: grossly normal Mental Status: mental status grossly normal Mood: congruent mood Affect: normal affect Speech and Movement: speech and movement normal Attitude: cooperative Diagnoses Urinary tract infection N39.0 Assessment and Plan Assessment and Plan (1) Urinary tract infection: Status: Acute Plan: See POC results; urine sent to lab for UA and C/S. Cipro as prescribed today. Supportive measures as instructed today. Follow-up with PCP in 3 to 5 days should symptoms not improve, sooner should symptoms only worsen or any other concerns develop. Patient states acknowledging understanding all the above. Results POC Urinalysis Dip (Clinic) Office Urine Color JASVIR Last Edit by Kym Gutierrez on 10/21/24 08:25 Office Urine Clarity Cloudy Last Edit by Kym Gutierrez on 10/21/24 08:25 Office Urine Glucose Negative Last Edit by Kym Gutierrez on 10/21/24 08:25 Office Urine Ketones Trace (5) Last Edit by Kym Gutierrez on 10/21/24 08:25 Off Ur Spec [place] 1.005 Last Edit by Kym Gutierrez on 10/21/24 08:25 Office Urine pH 5.0 Last Edit by Kym Gutierrez on 10/21/24 08:25 Office Urine Bilirubin Negative Last Edit by Kym Gutierrez on 10/21/24 08:25 Office Urine Urobilinogen 0.2 mg/dL Last Edit by Kym Gutierrez on 10/21/24 08:25 Office Urine Blood Trace Last Edit by Kym Gutierrez on 10/21/24 08:25 Office Urine Blood Hemolyzed Trace Last Edit b (more content not included)... Normal [facility] Urine cultureOrdered By: Tim Hagan on 10-21-2024 Bacteria identified Cx Nom (U) Pseudomonas aeruginosa Abnormal [facility] Orthopedic Visit Reporton Orthopedic Visit Report [facility] [address] [place] [address] OFFICE VISIT Date of Service: 10/07/24 MR#: [id number] Acct: [id number] Name: YOLANDA HATFIELD II Rep #: [id number] : 1945 Provider: Dr. Chris díaz DO Age/Sex: 79/M Location[place] [facility] [place] Status: Signed Intake Vital Signs 05/27/24 08:48 10/07/24 06:17 Height 5 ft 10 in 5 ft 10 in Intake Visit Reasons: RIGHT KNEE Allergies No Known Allergies Allergy (Verified 10/07/24 08:36) Medications ???Medication ???Instructions ???Recorded ???Confirmed ???Type amlodipine 5 mg-valsartan 320 mg 1 tab PO DAILY 09/27/14 10/07/24 History tablet (Exforge) nebivolol 10 mg tablet (Bystolic) 10 mg PO DAILY 09/27/14 10/07/24 History atorvastatin 10 mg tablet 10 mg PO QHS 06/08/16 10/07/24 History clonazepam 0.5 mg tablet 0.5 mg PO QHS 06/08/16 10/07/24 History amoxicillin 500 mg tablet 500 mg PO TID #30 tabs 10/07/24 10/07/24 Rx Have you fallen in the past year?: Yes PFSH Medical History Restless leg Hypertension Surgical History H/O knee surgery Social History household members: spouse Smoking Status: Never smoker alcohol intake: current HPI RIGHT KNEE Details: This documentation accurately reflects the service provided and the decisions made by me, Dr. Chris Burton, 10/07/24 0748. Part of today???s visit was documented by Mariza LEBRON, acting as scribe. YOLANDA HATFIELD is a 79 year old M here today for right knee pain. He is wanting a steroid injection in the knee today. Ortho Exam General General: Yes no acute distress Neurologic: Yes alert and Yes oriented x3 Psychologic: Yes reasonable and appropriate Right Knee Skin/Wound: Yes CDI, No erythema, No ecchymosis and No swelling Knee ROM: Yes ROM-Extension -20 to 0 (-10) and Yes ROM-Flexion 0-140 (120) Examination: No Med jt line tenderness Stability: NML: Anterior Drawer, NML: Posterior Drawer, NML: Varus 0 and NML: Varus 30 and 1+: Valgus 0 and 1+: Valgus 30 (3mm medial gapping due to joint space narrowing) KNEE: no effusion Office Procedures Ortho Injections Injections Yes Knee Right Is this a patient provided medication?: No Details: Obtained consent for injection. Under sterile conditions, injected the patients right knee with 1.5cc bupivacaine 1.5cc lidocaine 1cc depo medrol. The patient tolerated the injection well without any noted complication. Patient should call our office if redness develops, pain worsens or if they have any concerns. Office Meds Depo-Medrol 40 mg/mL suspension for injection Performing Provider: Chris Burton DO Performing Location: [facility] Administered by: Anne-Marie Rausch on 10/07/24 08:50 Dose Route Admin Location Dispensed Lot Number Expiration Date NDC Man ufacturer 40 mg intra-articular right knee 1 mL [id number] 05/30/26 4937-9792-97 [employer]PH[employer] Supplemental Info 04/14/2024 x-ray right knee: Advanced medial compartment arthrosis near [id number] there is a fractured osteophyte of the most proximal medial tibial plateau joint space narrowing medially with varus deformity there is also moderate spurring noted through the remainder of the knee 10/01/2021 x-ray right great toe mild/moderate arthritic changes with subchondral cysts 10/01/2021 x-ray right knee: moderate to severe medial and patellofemoral compartment arthrosis there is spurring noted in the lateral compartment as well Coding Level of Care Code Off vis,est,level 3 Diagnoses Primary osteoarthritis of right knee M17.11 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 He does wish to proceed with viscosupplementation and we will proceed with these once approved. Clinical Quality Measures Falls Risk Screening/Assistive Devices Have you fallen in the past year?: Yes 10/07/24 0901 Date Chris Kleindirkolivia Signature: Date (if applicable) CC: Normal [facility] Urgent Care Visit Reporton 1 12-08-2023 Urgent Care Visit Report [facility] [address] , [address] [place] [address] OFFICE VISIT Date of Service: 10/07/24 MR#: [id number] Acct: [id number] Name: YOLANDA HATFIELD II Rep #: [id number] : 1945 Provider: LUANA Abad Age/Sex: 79/M Location[place] [facility] [place] Status: Signed Intake Vital Signs 05/27/24 08:48 10/07/24 06:17 Height 5 ft 10 in 5 ft 10 in BP 142/82 H Blood Pressure Location Lt brachial Position Sitting Respiration 16 Pulse 66 Pulse Source Monitor Temp 97.9 F Temp Source Temporal Pulse Oximetry (%) 97 Oxygen Delivery Method room air Intake Visit Reasons: COUGH/SINUS COMPLAINT Chief Complaint: cough and sinus congestion Fundraising Assistant Required: No Accompanied by: Self Is patient in pain?: No Allergies No Known Allergies Allergy (Verified 10/07/24 08:36) Medications ???Medication ???Instructions ???Recorded ???Confirmed ???Type amlodipine 5 mg-valsartan 320 mg 1 tab PO DAILY 09/27/14 10/07/24 History tablet (Exforge) nebivolol 10 mg tablet (Bystolic) 10 mg PO DAILY 09/27/14 10/07/24 History atorvastatin 10 mg tablet 10 mg PO QHS 06/08/16 10/07/24 History clonazepam 0.5 mg tablet 0.5 mg PO QHS 06/08/16 10/07/24 History amoxicillin 500 mg tablet 500 mg PO TID #30 tabs 10/07/24 10/07/24 Rx Have you fallen in the past year?: No Nurse's Note: sinus and chest congestion, moist cough with thick clear sputum for 1 week. Denies fever or chills. Reports recently completed 30 day fluorouracil topical treatment for skin cancer on nose. Declines COVID19 testing. [facility] Medical History Restless leg Hypertension Surgical History H/O knee surgery Social History household members: spouse Smoking Status: Never smoker alcohol intake: current HPI HPI Chief Complaint: cough and sinus congestion Details: YOLANDA HATFIELD, is a 79 M who presents to the office today for [facility] evaluation at the [facility] for approximately 2-week history of progressively worsening facial pressure/congestion with purulent postnasal drip/cough. No complaints of fever, chills, myalgias, fatigue, runny nose, or nausea/vomiting/diarrhea . No complaints of chest pain/shortness of breath/dyspnea on exertion. Declining all POC screening upon offering. Non-smoker. No close contacts with similar complaints. No other associated symptoms and no other alleviating/aggravating factors. ROS Const Constitutional: No other (as above) Exam Const General: cooperative, healthy appearing and no acute distress Nutritional Appearance: average body habitus Orientation: alert, awake and oriented x3 HENMT Head: normal to inspection Ears: hearing grossly normal bilaterally, external ears normal, TM's normal bilaterally and EAC's normal Nose: external nose normal except several erythematous base flat lesions with honey colored crusting (status post chemotherapy patient so states, having completed treatment on 2024), nares normal, septum normal and no nasal discharge Face and sinus: normal facial exam, sinuses nontender (Though bilateral maxillary fullness to palpation) and face symmetric Mouth: oral mucosae normal, lip normal, tongue normal and oropharynx normal Throat: posterior oropharynx normal, tonsils normal, uvula midline and postnasal drainage (Purulent) Eyes General: appearance normal, both eyes and all related structures Neck Neck: normal visual inspection, full ROM, no meningeal signs, supple and lymphadenopathy (Bilateral anterior cervical lymph node swelling/tender to palpation) Neck mass: No Thyroid: thyroid normal Chest Chest palpation inspection: normal inspection of the chest Resp Effort Inspection: normal respiratory effort and able to speak in complete sentences Auscultation: Bilateral: Clear to Auscultation Cardio Palpation: normal PMI Rate: regular rate Rhythm: regular rhythm Heart Sounds: S1 normal, S2 normal, no gallops, no murmurs and no rubs Pulses: radial pulses present GI Inspection: normal to inspection Skin General: no rashes or lesions noted Neuro General: patient alert, patient awake and patient oriented x3 Cognition: normal cognition Speech: speech normal Psych Appearance: grossly normal Mental Status: mental status grossly normal Mood: congruent mood Affect: normal affect Speech and Movement: speech and movement normal Attitude: cooperative Diagnoses Acute maxillary sinusitis, unspecified J01.00 Assessment and Plan Assessment and Plan (1) Acute maxillary sinusitis, unspecified: Status: Acute Plan: Amoxicillin as prescribed today. Supportive measures as instructed today. Follow-up with PCP i (more content not included)... Normal [facility] CBC W/Diff, Automatedon 10-0 -2023 Absolute Lymph 0.98 X10 3/uL Normal 0.83-4.51 [facility] Comment on above: Performed By: #### L 500.4050, L501.9910, L500.4100, L100.0100 ####[facility] [address] [place], [address] Absolute Neut 4.9 X10 3/uL Normal 2.0-7.7 [facility] Comment on above: Performed By: #### L 500.4050, L501.9910, L500.4100, L100.0100 ####[facility] [address] [place], [address] Basophils/100 WBC (Bld) 0.9 % Normal 0-1 [facility] Comment on above: Performed By: #### L 500.4050, L501.9910, L500.4100, L100.0100 ####[facility] [address] [place], [address] Eosinophils/100 WBC (Bld) 2.2 % Normal 0-5 [facility] Comment on above: Performed By: #### L 500.4050, L501.9910, L500.4100, L100.0100 ####[facility] [address] [place], [address] Erythrocyte distribution width (RBC) [Ratio] 12.8 % Normal 11.6-14.6 [facility] Comment on above: Performed By: #### L 500.4050, L501.9910, L500.4100, L100.0100 ####[facility] [address] [place], [address] Hematocrit (Bld) [Volume fraction] 40.3 % Normal 40-54 [facility] Comment on above: Performed By: #### L 500.4050, L501.9910, L500.4100, L100.0100 ####[facility] [address] [place], [address] Hemoglobin (Bld) [Mass/Vol] 13.4 g/dL Normal 13.0-16.5 [facility] Comment on above: Performed By: #### L 500.4050, L501.9910, L500.4100, L100.0100 ####[facility] [address] [place], [address] IG% 0.700 Normal 0.0-0.9 [facility] Comment on above: Result Comment: IG% - Immature Granulocytes (promyelocytes, myelocytes and metamyelocytes) > 1% indicates that a LEFT SHIFT is Present. Performed By: #### L 500.4050, L501.9910, L500.4100, L100.0100 ####[facility] [address] [place], [address] Lymphocytes/100 WBC (Bld) 14.1 % Low 19-41 [facility] Comment on above: Performed By: #### L 500.4050, L501.9910, L500.4100, L100.0100 ####[facility] [address] [place], [address] MCH (RBC) [Entitic mass] 31.4 pg Normal 27.0-32.0 [facility] Comment on above: Performed By: #### L 500.4050, L501.9910, L500.4100, L100.0100 ####[facility] [address] [place], [address] MCHC (RBC) [Mass/Vol] 33.3 g/dL Normal 32-36 [facility] Comment on above: Performed By: #### L 500.4050, L501.9910, L500.4100, L100.0100 ####[facility] [address] [place], [address] MCV (RBC) [Entitic vol] 94.4 fL High 80-94 [facility] Comment on above: Performed By: #### L 500.4050, L501.9910, L500.4100, L100.0100 ####[facility] [address] [place], [address] Monocytes/100 WBC (Bld) 11.9 % High 0-10 [facility] Comment on above: Performed By: #### L 500.4050, L501.9910, L500.4100, L100.0100 ####[facility] [address] [place], [address] Neutrophils/100 WBC (Bld) 70.2 % High 47-70 [facility] Comment on above: Performed By: #### L 500.4050, L501.9910, L500.4100, L100.0100 ####[facility] [address] [place], [address] Nucleated RBC (Bld) [#/Vol] 0 10*3/uL Normal 0-5 [facility] Comment on above: Performed By: #### L 500.4050, L501.9910, L500.4100, L100.0100 ####[facility] [address] [place], [address] Platelet mean volume (Bld) [Entitic vol] 10.4 fL Normal 6.2-12.0 [facility] Comment on above: Performed By: #### L 500.4050, L501.9910, L500.4100, L100.0100 ####[facility] [address] [place], [address] Platelets (Bld) [#/Vol] 324 10*3/uL Normal 150-450 [facility] Comment on above: Performed By: #### L 500.4050, L501.9910, L500.4100, L100.0100 ####[facility] [address] [place], [address] RBC (Bld) [#/Vol] 4.27 10*6/uL Low 4.6-6.2 [facility] Comment on above: Performed By: #### L 500.4050, L501.9910, L500.4100, L100.0100 ####[facility] [address] [place], [address] RDW SD 44.3 fl High 35.1-43.9 [facility] Comment on above: Performed By: #### L 500.4050, L501.9910, L500.4100, L100.0100 ####[facility] [address] [place], [address] WBC (Bld) [#/Vol] 7.0 10*3/uL Normal 4.4-11.0 [facility] Comment on above: Performed By: #### L 500.4050, L501.9910, L500.4100, L100.0100 ####[facility] [address] [place], [address] Comprehensive Metabolic Prof ilon 08-05-2024 Albumin [Mass/Vol] 3.7 g/dL Normal 3.2-5.0 [facility] Comment on above: Performed By: #### L 500.4050, L501.9910, L500.4100, L100.0100 ####[facility] [address] [place], [address] Albumin/Globulin [Mass ratio] 1.1 {ratio} Normal 0.9-2.4 [facility] Comment on above: Performed By: #### L 500.4050, L501.9910, L500.4100, L100.0100 ####[facility] [address] [place], [address] ALK P 105 U/L Normal 45-117 [facility] Comment on above: Performed By: #### L 500.4050, L501.9910, L500.4100, L100.0100 ####[facility] [address] [place], [address] ALT [Catalytic activity/Vol] 22 U/L Normal 16-61 [facility] Comment on above: Performed By: #### L 500.4050, L501.9910, L500.4100, L100.0100 ####[facility] [address] [place], [address] AST [Catalytic activity/Vol] 15 U/L Normal 15-37 [facility] Comment on above: Performed By: #### L 500.4050, L501.9910, L500.4100, L100.0100 ####[facility] [address] [place], [address] Bilirubin [Mass/Vol] 2.20 mg/dL High 0.20-1.00 [facility] Comment on above: Result Comment: For patients on eltrombopag therapy, use of Dimension Rheems TBIL is not recommended. Performed By: #### L 500.4050, L501.9910, L500.4100, L100.0100 ####[facility] [address] [place], [address] BUN/CRE 10.3 RATIO Normal 10-20 [facility] Comment on above: Performed By: #### L 500.4050, L501.9910, L500.4100, L100.0100 ####[facility] [address] [place], [address] CA,Total 9.5 mg/dL Normal 8.5-10.1 [facility] Comment on above: Performed By: #### L 500.4050, L501.9910, L500.4100, L100.0100 ####[facility] [address] [place], [address] Chloride [Moles/Vol] 105 mmol/L Normal 98-107 [facility] Comment on above: Performed By: #### L 500.4050, L501.9910, L500.4100, L100.0100 ####[facility] [address] [place], [address] CO2 [Moles/Vol] 26.0 mmol/L Normal 21.0-32.0 [facility] Comment on above: Performed By: #### L 500.4050, L501.9910, L500.4100, L100.0100 ####[facility] [address] [place], [address] Creatinine [Mass/Vol] 1.16 mg/dL Normal 0.70-1.30 [facility] Comment on above: Result Comment: The validity of the calculated GFR GFRAA in patients over 70 years has not been determined. Clinical correlation is essential. Performed By: #### L 500.4050, L501.9910, L500.4100, L100.0100 ####[facility] [address] [place], [address] EST GFR - AA 79 mL/min Normal >60 [facility] Comment on above: Result Comment: Afri can Greek GFR Calc Performed By: #### L 500.4050, L501.9910, L500.4100, L100.0100 ####[facility] [address] [place], [address] GAP 5 Normal 5-15 [facility] Comment on above: Performed By: #### L 500.4050, L501.9910, L500.4100, L100.0100 ####[facility] [address] [place], [address] GFR/1.73 sq M.predicted among non-blacks MDRD (S/P/Bld) [Vol rate/Area] 65 mL/min/{1.73_m2} Normal >60 [facility] Comment on above: Result Comment: Non- GFR Calc Performed By: #### L 500.4050, L501.9910, L500.4100, L100.0100 ####[facility] [address] [place], [address] Globulin (S) [Mass/Vol] 3.4 g/dL Normal 2.2-4.2 [facility] Comment on above: Performed By: #### L 500.4050, L501.9910, L500.4100, L100.0100 ####[facility] [address] [place], [address] Glucose [Mass/Vol] 95 mg/dL Normal 74-106 [facility] Comment on above: Performed By: #### L 500.4050, L501.9910, L500.4100, L100.0100 ####[facility] [address] [place], [address] Potassium [Moles/Vol] 4.1 mmol/L Normal 3.5-5.1 [facility] Comment on above: Performed By: #### L 500.4050, L501.9910, L500.4100, L100.0100 ####[facility] [address] [place], [address] Sodium [Moles/Vol] 136 mmol/L Normal 136-145 [facility] Comment on above: Performed By: #### L 500.4050, L501.9910, L500.4100, L100.0100 ####[facility] [address] [place], [address] T PROT 7.1 g/dL Normal 6.4-8.2 [facility] Comment on above: Performed By: #### L 500.4050, L501.9910, L500.4100, L100.0100 ####[facility] [address] [place], [address] Urea nitrogen [Mass/Vol] 12 mg/dL Normal 7-18 [facility] Comment on above: Performed By: #### L 500.4050, L501.9910, L500.4100, L100.0100 ####[facility] [address] [place], [address] Lipid Profileon 08-05-2024 Cholesterol [Mass/Vol] 212 mg/dL High 200 [facility] Comment on above: Result Comment: <200 mg/dL Desirable 200-240 mg/dL Borderline >240 mg/dL High Risk Performed By: #### L 500.4050, L501.9910, L500.4100, L100.0100 ####[facility] [address] [place], [address] Cholesterol in HDL [Mass/Vol] 61 mg/dL Normal [facility] Comment on above: Result Comment: The drugs N-Acetylcysteine and Metamizole may falsely depress this assay. Reference Range HDL <40 mg/dL Low HDL Cholesterol HDL >or= 60 mg/dL High HDL Cholesterol Performed By: #### L 500.4050, L501.9910, L500.4100, L100.0100 ####[facility] [address] [place], [address] Cholesterol in LDL [Mass/Vol] 118 mg/dL Normal 0-130 [facility] Comment on above: Performed By: #### L 500.4050, L501.9910, L500.4100, L100.0100 ####[facility] [address] [place], [address] Cholesterol in VLDL [Mass/Vol] 33 mg/dL Normal 5-40 [facility] Comment on above: Performed By: #### L 500.4050, L501.9910, L500.4100, L100.0100 ####[facility] [address] [place], [address] Triglyceride [Mass/Vol] 164 mg/dL Normal [facility] Comment on above: Result Comment: The drugs N-Acetylcysteine and Metamizole may falsely depress this assay. Serum Triglycerides Reference Interval Normal <150 mg/dL Borderline high 150 - 199 mg/dL High 200 - 499 mg/dL Very High > or = 500 mg/dL Performed By: #### L 500.4050, L501.9910, L500.4100, L100.0100 ####[facility] [address] [place], [address] PSA,Total - Annual Screenon 08-05-2024 PSA,TOT SCREEN 3.00 ng/mL Normal 0.00-4.00 [facility] Comment on above: Result Comment: This test was performed using the TPSA assay method for the [employer] chemistry system. Values obtained with different assay methods cannot be used interchangably. When changing PSA assays in the course of monitoring a patient, additional sequential testing should be carried out to confirm baseline values. Performed By: #### L 500.4050, L501.9910, L500.4100, L100.0100 ####[facility] [address] [place], [address] Orthopedic Visit Reporton Orthopedic Visit Report [facility] [address] [place] [address] [address] [place] [address] OFFICE VISIT Date of Service: 07/12/24 MR#: [id number] Acct: [id number] Name: YOLANDA HATFIELD II Rep #: : [id number] Provider: Dr. Chris díaz DO Age/Sex: 78/M Location[place] [facility] [place] Status: Signed Intake Vital Signs 05/27/24 08:48 Height 5 ft 10 in Weight: 186 lb BMI 26.6 Intake Visit Reasons: RIGHT KNEE Chief Complaint: 3rd euflexxa injection Accompanied by: Self Is patient in pain?: No Allergies No Known Allergies Allergy (Verified 07/05/24 08:04) Medications ???Medication ???Instructions ???Recorded ???Confirmed ???Type amlodipine 5 mg-valsartan 320 mg 1 tab PO DAILY 09/27/14 07/12/24 History tablet (Exforge) nebivolol 10 mg tablet (Bystolic) 10 mg PO DAILY 09/27/14 07/12/24 History atorvastatin 10 mg tablet 10 mg PO QHS 06/08/16 07/12/24 History clonazepam 0.5 mg tablet 0.5 mg PO QHS 06/08/16 07/12/24 History Have you fallen in the past year?: No PFSH Medical History Restless leg Hypertension Surgical History H/O knee surgery Social History household members: spouse Smoking Status: Never smoker alcohol intake: current HPI RIGHT KNEE Details: This documentation accurately reflects the service provided and the decisions made by me, Dr. Chris Burton, DO 07/12/24723. Part of today???s visit was documented by [ ], acting as scribe. YOLANDA HATFIELD is a 78 year old M here today for 3rd Euflexxa injection. Patient states no reaction to the other 2 injections. He has had some improvement already Ortho Exam General General: Yes no acute distress Neurologic: Yes alert and Yes oriented x3 Psychologic: Yes reasonable and appropriate Right Knee Skin/Wound: Yes CDI, No erythema, No ecchymosis and No swelling Knee ROM: Yes ROM-Extension -20 to 0 (-10) and Yes ROM-Flexion 0-140 (120) Examination: No Med jt line tenderness Stability: NML: Anterior Drawer, NML: Posterior Drawer, NML: Varus 0 and NML: Varus 30 and 1+: Valgus 0 and 1+: Valgus 30 (3mm medial gapping due to joint space narrowing) KNEE: ttp anterior of medial femoral condyle Office Procedures Euflexxa Procedure Details:: Obtained consent for injection. Under sterile conditions, injected the patients Right knee with 2ml Euflexxa 3rd injection. The patient tolerated the injection well without any noted complication. Patient should call our office if redness develops, pain worsens or if they have any concerns. Is this Buy Bill?: Yes Office Meds Euflexxa 10 mg/mL (mw 2.4-3.6 million) intra-articular syringe Performing Provider: Chris Burton DO Performing Location: [facility] Administered by: Chris Burton DO on 07/12/24 08:47 Dose Route Admin Location Dispensed Lot Number Expiration Date [facility] [place] Zeyad ufacturer 20 mg intra-articular Right knee 2 mL [id number] 03/25/25 [address]-5 [employer] Supplemental Info 04/14/2024 x-ray right knee: Advanced medial compartment arthrosis near [id number] there is a fractured osteophyte of the most proximal medial tibial plateau joint space narrowing medially with varus deformity there is also moderate spurring noted through the remainder of the knee 10/01/2021 x-ray right great toe mild/moderate arthritic changes with subchondral cysts 10/01/2021 x-ray right knee: moderate to severe medial and patellofemoral compartment arthrosis there is spurring noted in the lateral compartment as well Coding Level of Care Code Off vis,est,level 3 Diagnoses Primary osteoarthritis of right knee M17.11 Assessment and Plan Assessment and Plan (1) Primary osteoarthritis of right knee: Status: Acute Orders: Orders Euflexxa Injection Today M17.11 - Unilateral primary osteoarthritis, right knee Plan Third Euflexxa injection given today right knee. Patient tolerated well can repeat in 6 months if needed. Follow-up as needed Clinical Quality Measures Falls Risk Screening/Assistive Devices Have you fallen in the past year?: No 07/12/24 0911 Date Chris Burton DO Cosigner Signature: Date (if applicable) CC: Normal [facility] Orthopedic Visit Reporton Orthopedic Visit Report [facility] [address] [place] [address] OFFICE VISIT Date of Service: 07/05/24 MR#: [id number] Acct: [id number] Name: YOLANDA HATFIELD II Rep #: [id number] : 1945 Provider: Dr. Chris díaz DO Age/Sex: 78/M Location: [facility] [place] Status: Signed Intake Vital Signs 05/27/24 08:48 Height 5 ft 10 in Weight: 186 lb BMI 26.6 Intake Visit Reasons: RIGHT KNEE Chief Complaint: 2nd euflexxa injection Accompanied by: Self Allergies No Known Allergies Allergy (Verified 07/05/24 08:04) Medications ???Medication ???Instructions ???Recorded ???Confirmed ???Type amlodipine 5 mg-valsartan 320 mg 1 tab PO DAILY 09/27/14 07/05/24 History tablet (Exforge) nebivolol 10 mg tablet (Bystolic) 10 mg PO DAILY 09/27/14 07/05/24 History atorvastatin 10 mg tablet 10 mg PO QHS 06/08/16 07/05/24 History clonazepam 0.5 mg tablet 0.5 mg PO QHS 06/08/16 07/05/24 History Have you fallen in the past year?: No PFSH Medical History Restless leg Hypertension Surgical History H/O knee surgery Social History household members: spouse Smoking Status: Never smoker alcohol intake: current HPI RIGHT KNEE Details: This documentation accurately reflects the service provided and the decisions made by me, Dr. Chris Burton DO 07/05/24 0742. Part of today???s visit was documented by Mariza LEBRON, acting as scribe. YOLANDA HATFIELD is a 78 year old M here today for 2nd right knee Euflexxa injection. No issues with the first 1 Ortho Exam General General: Yes no acute distress Neurologic: Yes alert and Yes oriented x3 Psychologic: Yes reasonable and appropriate Right Knee Skin/Wound: Yes CDI, No erythema, No ecchymosis and No swelling Knee ROM: Yes ROM-Extension -20 to 0 (-10) and Yes ROM-Flexion 0-140 (120) Examination: No Med jt line tenderness Stability: NML: Anterior Drawer, NML: Posterior Drawer, NML: Varus 0 and NML: Varus 30 and 1+: Valgus 0 and 1+: Valgus 30 (3mm medial gapping due to joint space narrowing) Patella Translation: 1 KNEE: ttp anterior of medial femoral condyle Left Knee Patella Translation: 1 Office Procedures Euflexxa Procedure Details:: Obtained consent for injection. Under sterile conditions, injected the patients right knee with 20mg/2mL of Euflexxa. The patient tolerated the injection well without any noted complication. Patient should call our office if redness develops, pain worsens or if they have any concerns. Is this Buy Bill?: Yes Office Meds Euflexxa 10 mg/mL (mw 2.4-3.6 million) intra-articular syringe Performing Provider: Chris Burton DO Performing Location: [facility] Administered by: Chris Burton DO on 07/05/24 08:06 Dose Route Admin Location Dispensed Lot Number Expiration Date NDC Man ufacturer 20 mg intra-articular right knee 2 mL [id number] 03/25/25 [address]-5 [employer] Supplemental Info 04/14/2024 x-ray right knee: Advanced medial compartment arthrosis near [id number] there is a fractured osteophyte of the most proximal medial tibial plateau joint space narrowing medially with varus deformity there is also moderate spurring noted through the remainder of the knee 10/01/2021 x-ray right great toe mild/moderate arthritic changes with subchondral cysts 10/01/2021 x-ray right knee: moderate to severe medial and patellofemoral compartment arthrosis there is spurring noted in the lateral compartment as well Coding Level of Care Code Off vis,est,level 3 Diagnoses Primary osteoarthritis of right knee M17.11 Assessment and Plan Assessment and Plan (1) Primary osteoarthritis of right knee: Status: Acute Plan Second right knee Euflexxa injection given today patient tolerated well follow-up in 1 week for third Clinical Quality Measures Falls Risk Screening/Assistive Devices Have you fallen in the past year?: No 07/05/24824 Date Chris Burton DO Cosigner Signature: Date (if applicable) CC: Normal [facility] Orthopedic Visit Reporton Orthopedic Visit Report [facility] [address] [place] [address] OFFICE VISIT Date of Service: 06/28/24 MR#: [id number] Acct: [id number] Name: YOLANDA HATFIELDGHISELA QUINTANILLA Rep #: [id number] : 1945 Provider: Dr. Chris díaz DO Age/Sex: 78/M Location: [facility] [place] Status: Signed Intake Vital Signs 05/27/24 08:48 Height 5 ft 10 in Weight: 186 lb BMI 26.6 Intake Visit Reasons: RIGHT KNEE Chief Complaint: 1st euflexxa injection Allergies No Known Allergies Allergy (Verified 06/28/24 08:00) Medications ???Medication ???Instructions ???Recorded ???Confirmed ???Type amlodipine 5 mg-valsartan 320 mg 1 tab PO DAILY 09/27/14 06/28/24 History tablet (Exforge) nebivolol 10 mg tablet (Bystolic) 10 mg PO DAILY 09/27/14 06/28/24 History atorvastatin 10 mg tablet 10 mg PO QHS 06/08/16 06/28/24 History clonazepam 0.5 mg tablet 0.5 mg PO QHS 06/08/16 06/28/24 History Have you fallen in the past year?: No PFSH Medical History (Updated 04/22/24 @ 00:02 by Bethany Mesa) Restless leg Hypertension Surgical History (Updated 05/27/24 @ 08:56 by Linda Del Rio) H/O knee surgery Social History (Updated 05/27/24 @ 08:56 by Linda Del Rio) household members: spouse Smoking Status: Never smoker alcohol intake: current HPI RIGHT KNEE Details: This documentation accurately reflects the service provided and the decisions made by me, Dr. Chris Burton, DO 06/28/24 0750. Part of today???s visit was documented by Mariza LEBRON, acting as scribe. YOLANDA HATFIELD is a 78 year old M here today for his first Euflexxa injection in the right knee. Patient denies any chages. Ortho Exam General General: Yes no acute distress Neurologic: Yes alert and Yes oriented x3 Psychologic: Yes reasonable and appropriate Right Knee Skin/Wound: Yes CDI, No erythema, No ecchymosis and No swelling Knee ROM: Yes ROM-Extension -20 to 0 (-10) and Yes ROM-Flexion 0-140 (120) Examination: No Med jt line tenderness Stability: NML: Anterior Drawer, NML: Posterior Drawer, NML: Varus 0 and NML: Varus 30 and 1+: Valgus 0 and 1+: Valgus 30 (3mm medial gapping due to joint space narrowing) Patella Translation: 1 KNEE: ttp anterior of medial femoral condyle Left Knee Patella Translation: 1 Office Procedures Euflexxa Procedure Details:: Obtained consent for injection. Under sterile conditions, injected the patients right knee with 20mg/2mL of Euflexxa. The patient tolerated the injection well without any noted complication. Patient should call our office if redness develops, pain worsens or if they have any concerns. Is this Buy Bill?: Yes Office Meds Euflexxa 10 mg/mL (mw 2.4-3.6 million) intra-articular syringe Performing Provider: Chris Burton DO Performing Location: [facility] Administered by: Chris Burton DO on 06/28/24 08:15 Dose Route Admin Location Dispensed Lot Number Expiration Date [employer] Man ufacturer 20 mg intra-articular right knee 2 mL [id number] 03/25/25 [address]-4 [employer] Supplemental Info 04/14/2024 x-ray right knee: Advanced medial compartment arthrosis near [id number] there is a fractured osteophyte of the most proximal medial tibial plateau joint space narrowing medially with varus deformity there is also moderate spurring noted through the remainder of the knee 10/01/2021 x-ray right great toe mild/moderate arthritic changes with subchondral cysts 10/01/2021 x-ray right knee: moderate to severe medial and patellofemoral compartment arthrosis there is spurring noted in the lateral compartment as well Coding Level of Care Code Off vis,est,level 3 Diagnoses Primary osteoarthritis of right knee M17.11 CPT Codes Euflexxa Procedure ([id number]) Assessment and Plan Assessment and Plan (1) Primary osteoarthritis of right knee: Status: Acute Plan Euflexxa injection #1 given today right knee. Patient tolerated well follow-up in 1 week for next Clinical Quality Measures Falls Risk Screening/Assistive Devices Have you fallen in the past year?: No 06/28/24 0834 Date Chris Burton DO Cosigner Signature: Date (if applicable) CC: Normal [facility] Absolute lymphocyte countOrd ered By: Jin Richard on 11-14-2023 Lymphocytes Auto (Unsp spec) [#/Vol] 0.85 10*3/uL 0.83-4.51 [facility] Automated lymphocyte count a s percentage of total leukocytesOrdered By: Jin Richard on 11-14-2023 Lymphocytes/100 WBC Auto (Unsp spec) 4.3 % 19-41 [facility] Basophil percentageOrdered B y: Jin Richard on 11-14-2023 Basophils/100 WBC (Bld) 0.5 % 0-1 [facility] Bilirubin [Mass/Vol] 1.00 mg/dL 0.20-1.00 [facility] Comment on above: For patients on eltr ombopag therapy, use of Dimension Rheems TBIL is not recommended. Chloride [Moles/Vol] 108 mmol/L 98-107 [facility] Eosinophils/100 WBC (Bld) 0.3 % 0-5 [facility] Glucose [Mass/Vol] 100 mg/dL 74-106 [facility] Comment on above: Fasting Glucose resu lt from 100 to 125 mg/dL suggests IMPAIRED HOMEOSTASIS per A.D.A. criteria. Hemoglobin (Bld) [Mass/Vol] 13.1 g/dL 13.0-16.5 [facility] Monocytes/100 WBC (Bld) 7.9 % 0-10 [facility] Neutrophils (Bld) [#/Vol] 16.6 10*3/uL 2.0-7.7 [facility] Neutrophils/100 WBC (Bld) 84.5 % 47-70 [facility] Potassium [Moles/Vol] 4.1 mmol/L 3.5-5.1 [facility] Protein [Mass/Vol] 7.2 g/dL 6.4-8.2 [facility] Sodium [Moles/Vol] 140 mmol/L 136-145 [facility] WBC (Bld) [#/Vol] 19.7 10*3/uL 4.4-11.0 [facility] Blood manual differential co mment interpretation (narrative result)Ordered By: Jin Richard on 11-14-2023 Manual differential comment Luc (Bld) [Interp] COMMENT [facility] Comment on above: MONOCYTOSIS. Determination of erythrocyte mean corpuscular volume (MCV)Ordered By: Jin Richard on 11-14-2023 MCV (RBC) [Entitic vol] 95.8 fL 80-94 [facility] Erythrocyte distribution wid th ratioOrdered By: Jin Richard on 11-14-2023 Erythrocyte distribution width (RBC) [Ratio] 13.2 % 11.6-14.6 [facility] Erythrocyte distribution wid th standard deviationOrdered By: Jin Richard on 11-14-2023 Erythrocyte distribution width (RBC) [Entitic vol] 46.9 fL 35.1-43.9 [facility] Hematocrit Auto (Bld) [Volum e fraction]Ordered By: Jin Richard on 11-14-2023 Hematocrit (Bld) [Volume fraction] 40.9 % 40-54 [facility] Immature granulocytes/100 WB C Auto (Bld)Ordered By: Jin Richard on 11-14-2023 Immature granulocytes/100 WBC (Bld) 2.500 % 0.0-0.9 [facility] Comment on above: IG% - Immature Granu locytes (promyelocytes, myelocytes and metamyelocytes) > 1% indicates that a LEFT SHIFT is Present. Laboratory - Chemistry and C hemistry - challengeOrdered By: iJn Richard on 11-14-2023 Albumin/Globulin [Mass ratio] 0.9 {ratio} 0.9-2.4 [facility] ALP [Catalytic activity/Vol] 107 U/L 45-117 [facility] ALT [Catalytic activity/Vol] 34 U/L 16-61 [facility] CO2 [Moles/Vol] 26.0 mmol/L 21.0-32.0 [facility] Globulin (S) [Mass/Vol] 3.8 g/dL 2.2-4.2 [facility] Urea nitrogen/Creatinine [Mass ratio] 18.4 mg/mg 10-20 [facility] Laboratory - Hematology and Cell countsOrdered By: Jin Richard 11-14-2023 MCH (RBC) [Entitic mass] 30.7 pg 27.0-32.0 [facility] MCHC (RBC) [Mass/Vol] 32.0 g/dL 32-36 [facility] Nucleated RBC/100 WBC (Bld) [Ratio] 0 % 0-5 [facility] Platelets (Bld) [#/Vol] 451 10*3/uL 150-450 [facility] No Panel InformationOrdered By: Jin Richard on 11-14-2023 Estimated GFR (MDRD) Amer 90 mL/min >60 [facility] Comment on above: GFR Calc Estimated GFR (MDRD) Non-Af Amer 75 mL/min >60 [facility] Comment on above: Non- GFR Calc Vitamin D 25-Hydroxy 45.5 ng/mL [facility] Comment on above: Vitamin D 25(OH) Sta tus Range Deficiency <20 ng/mL (50nmol/L) Insufficiency 20 - 30 ng/mL (50 - 75 nmol/L) Sufficiency 30 - 100 ng/mL (75 - 250 nmol/L) Toxicity >100 ng/mL (>250 nmol/L) Platelet mean volume Laz-Ec ker (Bld) [Entitic vol]Ordered By: Jin Richard on 11-14-2023 Platelet mean volume (Bld) [Entitic vol] 10.4 fL 6.2-12.0 [facility] RBC Auto (Bld) [#/Vol]Ordere d By: Jin Richard on 11-14-2023 RBC (Bld) [#/Vol] 4.27 10*6/uL 4.6-6.2 [facility] Review by pathologistOrdered By: Jin Richard on 11-14-2023 Pathologist review Luc (Unsp spec) [Interp] Reviewed [facility] Comment on above: Previous reported re sult: February foll Edited by: RGOOD on 11/16/23:0933Neutrophilic leukocytosis with left shift.Macrocytosis.Clinical correlation necessary.Curtis Tariq M.D. 11/16/23 AMENDED REPORT 11/16/23 0933 PATH REV previously reported as: February foll Serum or plasma calcium isaac urement (mass/volume)Ordered By: Jin Richard on 11-14-2023 Calcium [Mass/Vol] 9.3 mg/dL 8.5-10.1 [facility] Serum or plasma creatinine m easurement (mass/volume)Ordered By: Jin Richard on 11-14-2023 Creatinine [Mass/Vol] 1.03 mg/dL 0.70-1.30 [facility] Comment on above: The validity of the calculated GFR & GFRAA in patients over 70 years has not been determined. Clinical correlation is essential. Serum or plasma thyroid stim ulating hormone (TSH) measurement (units/volume)Ordered By: Jin Richard on 11-14-2023 TSH Qn 2.07 uIU/mL 0.358-3.74 [facility] Serum or plasma urea nitroge n measurement (mass/volume)Ordered By: Jin Richard on 11-14-2023 Urea nitrogen [Mass/Vol] 19 mg/dL 7-18 [facility] Thin prep Papanicolaou smear with manual screeningOrdered By: Jin Richard on 11-14-2023 Thin prep Papanicolaou smear with manual screening 3.4 g/dL 3.2-5.0 [facility] Thin prep Papanicolaou smear with manual screening 12 U/L 15-37 [facility] Thin prep Papanicolaou smear with manual screening 6 5-15 [facility] Laboratory - Microbiology an d Antimicrobial susceptibilityOrdered By: Jin Richard on 11-06-2023 SARS-CoV-2 (COVID-19) RNA LEDY+probe Ql (Unsp spec) [facility] COVID-19 virus antigen assay Ordered By: Dr. Richard on 03-06-2023 SARS-CoV-2 (COVID-19) Ag IA.rapid Ql (Resp) Negative Not Detect [facility] Comment on above: Normal Reference Ran ge: Not DetectedMethod:(RT-PCR) real-time reverse transcriptase PCRLuminex MAILE Instrument*The Food and Drug Administration (FDA) has issued an Emergency Use Authorization (EAU) for the [employer] SARS-CoV-2 Assay for the rapid detection of the virus that causes COVID-19. This test has been validated, but the FDAs independent review of this validation is pending.*Negative results do not preclude infection and should not be used as the sole basis for treatment or patient management. Optimum specimen types and timing for peak viral levels during infections caused by SARS-CoV-2 have not been determined. Collection of multiple specimens from the same patient may be necessary to detect the virus. The possibility of a false negative result should be considered if the patient has clinical presentation or has had recent exposure. No Panel InformationOrdered By: Dr. Richard on 03-06-2023 Influenza Types A,B Direct FA (SANTOS) [facility] RSV Ag Immune stain Ql (Tiss )Ordered By: Dr. 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 Agustin and had some stitches removed. Otherwise happy with outcome of repair. Did note some wax issues Staff note Above resident note reviewed and confirmed I saw and examined the patient. I personally obtained the charlton and critical portions of the history and physical exam or was physically present for the charlton and critical portions performed by the resident/fellow. I reviewed the resident/fellow's documentation and discussed the patient with the resident/fellow. I agree with the resident/fellow's medical decision making as documented in the resident's note. 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 EXPECTORATE AFTER RINSING, DO NOT SWALLOW clonazePAM 0.5 MG Oral Tablet Exforge TABS Hibiclens 4 % External Liquiduse as a preoperative shower Lipitor TABS Vitals Vital Signs Recorded: [id number] 08:54AM Eccygsmdmai83 F Height5 ft 10 in Lmowjb790 lb 9.6 oz BMI Cruhuombip67.49 kg/m2 BSA Calculated2.02 Tobacco Useb) No PHQ-2 #1. Over the last 2 weeks have you felt down, depressed or hopeless? (If yes, answer PHQ-9 below)No PHQ-2 #2. Over the last 2 weeks have you felt little interest or pleasure in doing things? (If yes, answer PHQ-9 below)No Falls Screening (Age 18+)a) No falls within the last year Physical Exam PE: CONSTITUTIONAL: Vitals -reviewed from intake field, well developed, well nourished. VOICE: RESPIRATION: Breathing comfortably, no stridor. CV: No clubbing/cyanosis/edema in hands. EYES: EOM Intact, sclera normal. NEURO: Alert and oriented times 3, Cranial nerves II-XII intact and symmetric bilaterally. HEAD AND FACE: mildy asymmetric facial features, no masses or lesions, sinuses nontender to palpation. SALIVARY GLANDS: Parotid and submandibular glands normal bilaterally. EARS: Normal external ears, external auditory canals, and TMs to otoscopy, normal hearing to whispered voice. NOSE: External nose midline, anterior rhinoscopy is normal with limited visualization to the anterior aspect of the interior turbinates. No lesions noted. ORAL CAVITY/OROPHARYNX/LIPS: Normal mucous membranes, normal floor of mouth/tongue/OP, no masses or lesions are noted. PHARYNGEAL CUETO AND NASOPHARYNX: No masses noted. Mucosa appears clean and moist NECK/LYMPH: No LAD, no thyroid masses. Trachea palpably midline SKIIN, incisions are healing well PSYCH: Alert and oriented with appropriate mood and affect Signatures Electronically signed by : Susan Farley MD; Dec 27 2022 5:24PM EST (Author) Normal [employer] Tobacco Screening.on 023 Adult depression screening assessment No [facility] Work Phone: Fall risk assessment a) No falls within the last year [facility] Work Phone: Tobacco use status CPHS b) No [facility] Work Phone: Absolute lymphocyte counton 09-30-2022 Lymphocytes Auto (Unsp spec) [#/Vol] 1.01 10*3/uL 0.83-4.51 [facility] Work Phone: [phone] Basophil percentageon 2021 Basophils/100 WBC (Bld) 0.7 % 0-1 [facility] Work Phone: [phone] Bilirubin [Mass/Vol] 1.60 mg/dL 0.20-1.00 [facility] Work Phone: [phone] Comment on above: For patients on eltr ombopag therapy, use of Dimension Rheems TBIL is not recommended. Chloride [Moles/Vol] 103 mmol/L 98-107 [facility] Work Phone: [phone] Eosinophils/100 WBC (Bld) 2.7 % 0-5 [facility] Work Phone: [phone] Glucose [Mass/Vol] 93 mg/dL 74-106 [facility] Work Phone: [phone] Neutrophils (Bld) [#/Vol] 4.8 10*3/uL 2.0-7.7 [facility] Work Phone: [phone] Neutrophils/100 WBC (Bld) 68.6 % 47-70 [facility] Work Phone: [phone] Potassium [Moles/Vol] 4.0 mmol/L 3.5-5.1 [facility] Work Phone: [phone] Protein [Mass/Vol] 7.2 g/dL 6.4-8.2 [facility] Work Phone: [phone] Sodium [Moles/Vol] 139 mmol/L 136-145 [facility] Work Phone: [phone] WBC (Bld) [#/Vol] 7.0 10*3/uL 4.4-11.0 [facility] Work Phone: [phone] Blood erythrocytes count (nu mber/volume)on 09-30-2022 RBC (Bld) [#/Vol] 4.17 10*6/uL 4.6-6.2 [facility] Work Phone: Blood hemoglobin measurement (mass/volume)on 09-30-2022 Hemoglobin (Bld) [Mass/Vol] 13.1 g/dL 13.0-16.5 [facility] Work Phone: Blood lymphocytes/100 leukoc yteson 09-30-2022 Lymphocytes/100 WBC (Bld) 14.4 % 19-41 [facility] Work Phone: Blood monocytes/100 leukocyt eson 09-30-2022 Monocytes/100 WBC (Bld) 13.0 % 0-10 [facility] Work Phone: Blood platelet mean volumeon 09-30-2022 Platelet mean volume (Bld) [Entitic vol] 10.6 fL 6.2-12.0 [facility] Work Phone: Determination of erythrocyte mean corpuscular volume (MCV)on 09-30-2022 MCV (RBC) [Entitic vol] 96.4 fL 80-94 [facility] Work Phone: Hematocrit Auto (Bld) [Volum e fraction]on 09-30-2022 Hematocrit (Bld) [Volume fraction] 40.2 % 40-54 [facility] Work Phone: Laboratory - Chemistry and C hemistry - challengeon 09-30-2022 ALP [Catalytic activity/Vol] 94 U/L 45-117 [facility] Work Phone: ALT [Catalytic activity/Vol] 33 U/L 16-61 [facility] Work Phone: CO2 [Moles/Vol] 29.0 mmol/L 21.0-32.0 [facility] Work Phone: Globulin (S) [Mass/Vol] 3.3 g/dL 2.2-4.2 [facility] Work Phone: Urea nitrogen/Creatinine [Mass ratio] 13.7 mg/mg 10-20 [facility] Work Phone: Laboratory - Hematology and Cell countson 09-30-2022 Erythrocyte distribution width (RBC) [Entitic vol] 46.5 fL 35.1-43.9 [facility] Work Phone: Erythrocyte distribution width (RBC) [Ratio] 13.1 % 11.6-14.6 [facility] Work Phone: Immature granulocytes/100 WBC (Bld) 0.600 % 0.0-0.9 [facility] Work Phone: Comment on above: IG% - Immature Granu locytes (promyelocytes, myelocytes and metamyelocytes) > 1% indicates that a LEFT SHIFT is Present. MCH (RBC) [Entitic mass] 31.4 pg 27.0-32.0 [facility] Work Phone: Nucleated RBC/100 WBC (Bld) [Ratio] 0 % 0-5 [facility] Work Phone: MCHC Auto (RBC) [Mass/Vol]on 09-30-2022 MCHC (RBC) [Mass/Vol] 32.6 g/dL 32-36 [facility] Work Phone: No Panel Informationon 09-30 Estimated GFR (MDRD) Amer 78 mL/min >60 [facility] Work Phone: Comment on above: GFR Calc Estimated GFR (MDRD) Non-Af Amer 65 mL/min >60 [facility] Work Phone: Comment on above: Non- GFR Calc Thyroid Stimulating Hormone (TSH) 3.15 uIU/mL 0.358-3.74 [facility] Work Phone: Vitamin D 25-Hydroxy 17.2 ng/mL [facility] Work Phone: Comment on above: Vitamin D 25(OH) Sta tus Range Deficiency <20 ng/mL (50nmol/L) Insufficiency 20 - 30 ng/mL (50 - 75 nmol/L) Sufficiency 30 - 100 ng/mL (75 - 250 nmol/L) Toxicity >100 ng/mL (>250 nmol/L) Platelets bldon 09-30-2022 Platelets (Bld) [#/Vol] 295 10*3/uL 150-450 [facility] Work Phone: Serum or plasma albumin isaac urement (mass/volume)on 09-30-2022 Albumin [Mass/Vol] 3.9 g/dL 3.2-5.0 [facility] Work Phone: Serum or plasma albumin/glob ulin mass ratioon 09-30-2022 Albumin/Globulin [Mass ratio] 1.2 {ratio} 0.9-2.4 [facility] Work Phone: Serum or plasma calcium isaac urement (mass/volume)on 09-30-2022 Calcium [Mass/Vol] 9.0 mg/dL 8.5-10.1 [facility] Work Phone: Serum or plasma creatinine m easurement (mass/volume)on 09-30-2022 Creatinine [Mass/Vol] 1.17 mg/dL 0.70-1.30 [facility] Work Phone: Comment on above: The validity of the calculated GFR & GFRAA in patients over 70 years has not been determined. Clinical correlation is essential. 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 I personally obtained the charlton and critical portions of the history and physical exam or was physically present for the charlton and critical portions performed by the resident/fellow. I reviewed the resident/fellow's documentation and discussed the patient with the resident/fellow. I agree with the resident/fellow's medical decision making as documented in the resident's note. Chief Complaint follow up History of Present IllnessCC: lip melanoma Consulted by: dr mederos HPI: had a spot on his lip getting darker no bleeding 04/22/22 doing ok eye feels a little blurry on the left 07/26/22 Still doing well, saw Dr. Agustin and had some stitches removed. Otherwise happy with outcome of repair. Did note some wax issues Staff note Above resident note reviewed and confirmed I saw and examined the patient. I personally obtained the charlton and critical portions of the history and physical exam or was physically present for the charlton and critical portions performed by the resident/fellow. I reviewed the resident/fellow's documentation and discussed the patient with the resident/fellow. I agree with the resident/fellow's medical decision making as documented in the resident's note. 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 EXPECTORATE AFTER RINSING, DO NOT SWALLOW clonazePAM 0.5 MG Oral Tablet Exforge TABS Hibiclens 4 % External Liquiduse as a preoperative shower Lipitor TABS Vitals Vital Signs Recorded: 26Jul2022 11:01AM Znyotmvzgez46.7 F Height5 ft 9 in Lsymtn934 lb 4 oz BMI Tojzclohdh87.73 kg/m2 BSA Calculated1.95 Tobacco Useb) No PHQ-2 #1. Over the last 2 weeks have you felt down, depressed or hopeless? (If yes, answer PHQ-9 below)No PHQ-2 #2. Over the last 2 weeks have you felt little interest or pleasure in doing things? (If yes, answer PHQ-9 below)No Falls Screening (Age 18+)a) No falls within the last year Physical Exam nicely healed incisions from WLE of upper lip melanoma and reconstruction bilateral ears with cerumen impactions cleaned using suction revealing bilateral TMs intact follow up in 4 months Attending Note Trainee role: Resident Trainee discussed patient with Dr. 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 Swelling expected. Flap with mild fullness, likely soft tissue fullness that could be reduced if patient opted for second stage RTC 6 months History of Present Illness IH 6.22.22 Here s/p melolabial flap and cervicofacial advancement flap for reconstruction of the upper lip after WLE and SLNB IH 9.19.22 Doing well. Reconstruction intact, flap viable. Swelling expected. Flap with mild fullness, likely soft tissue fullness that could be reduced if patient opted for second stage Doing well, no complaints Sutures removed RTC 2 months for scar observation. discussed scar and incision care in detail Chief Complaint: lip melanoma Referring Provider: Dr. Farley Location: upper lip, left Quality: melanoma Severity: severe Duration: months Timing: all times Context: no smoking, minimal etoh, mohs surgery prior. spot noticed on the left upper lip that got darker over time Modifying factors: none Associated signs and symptoms: as above, no ulceration Dr. Farley referred this patient. Review of his note was performed to gather information in regards to this visit. 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 All other systems have been reviewed and are negative for complaint unless documented above. Physical Exam: General: Well-developed and well-nourished in appearance. Skin: No rashes or concerning lesions on the visible portions of the skin. Eyes: Extraocular movements intact. Visual baez grossly normal. Ears: Pinna are normal in shape and position. External canals are patent. Nose: Dorsum is midline. Septum is midline and turbinates are normal on anterior rhinoscopy. Oral Cavity/Oropharynx: Dentition is intact. Mucous membranes moist. No masses or lesions. scar at upper lip with surrounding melanocytic changes Neck: Midline trachea without masses or lesions. Thyroid is normal in size. Lymphatics: No palpable cervical lymphadenopathy Respiratory: No respiratory distress. Quiet breathing without stertor or stridor. Cardiovascular: Regular rate and rhythm. Warm extremities with equal pulses. Psych: Normal mood and affect. Judgement and insight appropriate. Neuro: Alert and oriented. CN II-XII grossly intact. No focal deficits. Musculoskeletal: Gait intact. Moves all extremities well without apparent deformities. 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 EXPECTORATE AFTER RINSING, DO NOT SWALLOW clonazePAM 0.5 MG Oral Tablet Exforge TABS (Amlodipine Besylate-Valsartan) Hibiclens 4 % External Liquiduse as a preoperative shower Lipitor TABS (Atorvastatin Calcium) Vitals Vital Signs Recorded: [id number] 09:51AM Ytfgapexnhm20 F Height5 ft 9 in Iufwal668 lb 9.6 oz BMI Oxzeclfvlr02.23 kg/m2 BSA Calculated1.96 Tobacco Useb) No PHQ-2 #1. Over the last 2 weeks have you felt down, depressed or hopeless? (If yes, answer PHQ-9 below)No PHQ-2 #2. Over the last 2 weeks have you felt little interest or pleasure in doing things? 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) Provider Impressions stable progress will present at TB reviewed the path Chief Complaint post op History of Present IllnessCC: lip melanoma Consulted by: dr mederos HPI: had a spot on his lip getting darker no bleeding 04/22/22 doing ok eye feels a little blurry on the left Active Problems 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 EXPECTORATE AFTER RINSING, DO NOT SWALLOW clonazePAM 0.5 MG Oral Tablet Exforge TABS Hibiclens 4 % External Liquiduse as a preoperative shower Lipitor TABS oxyCODONE HCl - 5 MG Oral TabletTAKE 1 TABLET EVERY 4 HOURS NEEDED. Vitals Vital Signs Recorded: 22Apr2022 12:38PM Plwxlspoziu48.8 F Height5 ft 10 in Hydyxu993 lb 12.8 oz BMI Qrmqhzoxmj90.66 kg/m2 BSA Calculated1.99 Tobacco Useb) No Falls Screening (Age 18+)a) No falls within the last year Physical Exam nicely healed incisions expected edema, lateral to eye Signatures Electronically signed by : Susan Farley MD; Apr 22 2022 1:05PM EST (Author) [facility] Tobacco Screening.on 022 Fall risk assessment a) No falls within the last year [facility] Work Phone: Tobacco use status CPHS b) [facility] [place] [facility] Work Phone: Established Visit (Otolaryng ology)on 04-20-2022 Established Visit (Otolaryngology) Diagnoses/Problems 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 discussed scar and incision care in detail Chief Complaint: lip melanoma Referring Provider: Dr. Farley Location: upper lip, left Quality: melanoma Severity: severe Duration: months Timing: all times Context: no smoking, minimal etoh, mohs surgery prior. spot noticed on the left upper lip that got darker over time Modifying factors: none Associated signs and symptoms: as above, no ulceration Dr. Farley referred this patient. Review of his note was performed to gather information in regards to this visit. 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 All other systems have been reviewed and are negative for complaint unless documented above. Physical Exam: General: Well-developed and well-nourished in appearance. Skin: No rashes or concerning lesions on the visible portions of the skin. Eyes: Extraocular movements intact. Visual baez grossly normal. Ears: Pinna are normal in shape and position. External canals are patent. Nose: Dorsum is midline. Septum is midline and turbinates are normal on anterior rhinoscopy. Oral Cavity/Oropharynx: Dentition is intact. Mucous membranes moist. No masses or lesions. scar at upper lip with surrounding melanocytic changes Neck: Midline trachea without masses or lesions. Thyroid is normal in size. Lymphatics: No palpable cervical lymphadenopathy Respiratory: No respiratory distress. Quiet breathing without stertor or stridor. Cardiovascular: Regular rate and rhythm. Warm extremities with equal pulses. Psych: Normal mood and affect. Judgement and insight appropriate. Neuro: Alert and oriented. CN II-XII grossly intact. No focal deficits. Musculoskeletal: Gait intact. Moves all extremities well without apparent deformities. 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 EXPECTORATE AFTER RINSING, DO NOT SWALLOW clonazePAM 0.5 MG Oral Tablet Exforge TABS Hibiclens 4 % External Liquiduse as a preoperative shower Lipitor TABS oxyCODONE HCl - 5 MG Oral TabletTAKE 1 TABLET EVERY 4 HOURS NEEDED. Vitals Vital Signs Recorded: 20Apr2022 09:56AM Nbargtmduxm94.1 F Height5 ft 10 in Npdnfl427 lb BMI Dnirxuxnwr53.83 kg/m2 BSA Calculated2 Tobacco Useb) No Falls Screening (Age 18+)b) One or more falls in the last year 'Scores and Scales' Signatures Electronically signed by : Omar Salguero MD; Apr 20 2022 3:15PM EST (Author) [facility] Tobacco Screening.on 022 Fall risk assessment b) One or more fall s in the last year [facility] 7716 Work Phone: Tobacco use status CPHS b) No [facility] Work Phone: Dermatopathologyon 2 Dermatopathology Name YOLANDA HATFIELD Pathologist: BROOKS ARROYO MD Date of Procedure: 04/13/2022 Date Received: 04/14/2022 Date Reported 04/20/2022 Submitting Physician: SUSAN FARLEY M.D. Location: [facility] Other External # FINAL DIAGNOSIS A. 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 Note: Microscopic examination reveals a specimen that extends into skeletal muscle. In slides A2 through A5 there is an asymmetric proliferation of nested and single atypical melanocytes along the dermal-epidermal junction. The peripheral margin is involved in the 4 - 7 o'clock margin. A step section was performed. B. SKIN, ADDITIONAL LIP RESECTION INFERIOR, NOT INC MARGIN, EXCISION: ATYPICAL MELANOCYTIC HYPERPLASIA, SEE NOTE. Note: Microscopic examination reveals a specimen that extends into skeletal muscle. There are areas of increased single melanocytes, some of which have moderately enlarged nuclei along the dermal-epidermal junction. These melanocytes are approximately 1.25 mm from the peripheral margin. C. NODE, LEFT LEVEL 3 SENTINEL LYMPH NODE, COUNT 33, EXCISION FOCAL MELAN-A STAINING, SEE NOTE. Note: Microscopic examination reveals in the subcapsular to parenchymal space focal Melan-A staining that is not seen on the SOX-10 or HMB45 stains. All control slides stain appropriately. The previous melanoma, [id number], was reviewed and the findings are not diagnostic of metastatic melanoma. Therefore a benign lymph node is favored. D. NODE, ADDITIONAL LEFT LEVEL 3 SENTINEL LYMPH NODE, EXCISION: FOCAL MELAN-A STAINING, SEE NOTE. Note: Microscopic examination reveals a lymph node. In the parenchyma of the lymph node are individual areas of Melan-A staining in an apparent nucleus of cells approximately the size of lymphocytes. These cells are not seen on the SOX-10 or HMB45 stains. All control slides stain appropriately. These cells are compared to the primary melanoma in [id number] and are smaller. Therefore a benign lymph node is favored. Electronically Signed Out by BROOKS ARROYO M.D. Note One or more of the reagents used to perform assays on this specimen MAY have contained components considered to be analyte specific reagents (ASR's). ASR's have not been cleared or approved by the U.S. Food and Drug Administration. These assays were developed and their performance characteristics determined by the Department of Pathology at [facility]. The FDA does not require this test to go through premarket FDA review. This test is used for clinical purposes. It should not be regarded as investigational or for research. This laboratory is certified under the Clinical Laboratory Improvement Amendments (CLIA) as qualified to perform high complexity clinical laboratory testing. The assays were performed with appropriate positive and negative controls which stained appropriately. CANCER SUMMARY REPORT A. SKIN, LEFT UPPER LIP RESECTION, STITCH IS SUPERIOR: SPECIMEN Procedure: Re-excision Ethan node(s) biopsy Specimen Laterality: Left TUMOR Tumor Site: Skin of lip: Left upper lip Histologic Type: Lentigo maligna melanoma Maximum Tumor (Breslow) Thickness (Millimeters): 1.2 mm Macroscopic Satellite Nodule(s): Not identified Ulceration: Not identified Anatomic (Mane) Level: IV (Melanoma invades reticular dermis) Mitotic Rate: None identified Microsatellite(s): Not identified Lymphovascular Invasion: Not identified Neurotropism: Not identified Tumor-Infiltrating Lymphocytes: Present, nonbrisk Tumor Regression: Not identified MARGINS Margin Status for Invasive Melanoma: Cannot be determined: No invasive melanoma is present. Margin Status for Melanoma in situ: Melanoma in situ present at margin Margin(s) Involved by Melanoma in Situ: Peripheral: 4:00 -7:00 margin REGIONAL LYMPH NODES Regional Lymph Node Status: All regional lymph nodes negative for tumor Total Number of Lymph Nodes Examined: 2 Number of Ethan Nodes Examined: 2 DISTANT METASTASIS PATHOLOGIC STAGE CLASSIFICATION (pTNM, AJCC 8th Edition) Reporting of pT, pN, and (when applicable) pM categories is based on information available to the pathologist at the time the report is issued. As per the AJCC (Chapter 1, 8th Ed.) it is the managing physician?s responsibility to establish the final pathologic stage based upon all pertinent information, including but potentially not limited to this pathology report. pT Category: pT2a pN Category: pN0 ADDITIONAL FINDINGS Additional Findings: None ADDITIONAL TESTING Medical Device Sales Blocks: Normal Block: A1 Tumor Block: A2-5 Electronically Signed Out By BROOKS ARROYO MD/REYES By the signature on this report, the individual or group listed as making the Final Interpretation/Diagnosis certifies that they have reviewed t (more content not included)... 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 COMPARISON: None. ACCESSION NUMBER(S): [id number]; [id number] ORDERING CLINICIAN: SUSAN FARLEY TECHNIQUE: DIVISION OF NUCLEAR MEDICINE RADIONUCLIDE SENTINEL LYMPH NODE LYMPHOSCINTIGRAPHY A total of 0.25 millicuries of Tc-99m tilmanocept (LymphoseLaunchPoint) was injected intradermally in a circumferential pattern surrounding the patient's upper lip biopsy site. Initial dynamic images followed by static emission images were obtained. Subsequently, SPECT/CT of the head and neck was performed. FINDINGS: Focally intense radiotracer at the injection site is noted. Initial dynamic images demonstrate no significant migration of radiotracer, although blooming artifact limits evaluation of nearby sites. No definite focal abnormal accumulation within nodes is identified on static images. SPECT/CT demonstrates focal accumulation of radiotracer within a prominently sized left level III lymph node. Additional more mild activity within a tiny right level IV is also noted. Intense activity near the injection site limits evaluation of nearby adjacent structures. IMPRESSION: Successful sentinel lymph node localization to the left level III. Milder activity within a right level IV node is also noted. Medical Device Sales images were saved to the PACS system. I personally reviewed the images/study and I agree with the findings as stated. This study was interpreted at [facility], [place], [place]. Electronically signed by: SANDRA LEVINE MD Normal [facility] NM Lymph Glandon 04-13-2022 NM Lymph node Views Normal [facility]-Ot olaryngo [facility] 4100 Work Phone: NM Tumor Loc Spec/CTon 04-13 NM Tumor Loc Spec/CT Normal MG-O tolaryngo [facility] 4100 Work Phone: No Panel Informationon 04-13 MG-Otolaryngo [facility] 4100 Work Phone: Order Reconciliationon 04-13 Order Reconciliation Page 1 Discharge Reconciliation Document Reconciliation Type: Discharge requested on behalf of Jareth Dumas (Resident) done by Jareth Dumas ( (Resident)) Discharge - Partial Reconciliation: 13-Apr-2022 09:32 by: Jareth Dumas ( (Resident)) Discharge - Reconciliation: 13-Apr-2022 16:36 by: Jareth Dumas ( (Resident)) Discharge - Reset to Incomplete: 14-Apr-2022 11:27 by: Jareth Dumas ( (Resident)) Discharge - Reconciliation: 14-Apr-2022 11:28 by: Jareth Dumas ( (Resident)) Discharge - Reset to Incomplete: 14-Apr-2022 15:08 by: Jareth Dumas ( (Resident)) Discharge - Reconciliation: 14-Apr-2022 15:09 by: Jareth Dumas ( (Resident)) Home Medications EnteredHOME MEDICATIONS AT DISCHARGE DateReconciliation Comment/ Additional Information amlodipine-valsartan 5 mg-320 mg oral tablet 1 tab(s) oral once a day 30-Mar-2022 09:52 amlodipine-valsartan 5 mg-320 mg oral tablet 1 tab(s) oral once a day 30-Mar-2022 09:52 amlodipine-valsartan 5 mg-320 mg oral tablet is continued as amlodipine-valsartan 5 mg-320 mg oral tablet atorvastatin 10 mg oral tablet 1 tab(s) oral 30-Mar-2022 09:52 atorvastatin 10 mg oral tablet 1 tab(s) oral 30-Mar-2022 09:52 atorvastatin 10 mg oral tablet is continued as atorvastatin 10 mg oral tablet CeleXA 0 oral 30-Mar-2022 09:53 CeleXA 0 oral 30-Mar-2022 09:53 CeleXA is continued as CeleXA citalopram 10 mg oral tablet 1 tab(s) orally once a day 13-Apr-2022 10:46 citalopram 10 mg oral tablet 1 tab(s) orally once a day 13-Apr-2022 10:46 citalopram 10 mg oral tablet is continued as citalopram 10 mg oral tablet clonazePAM 1 oral once a day 30-Mar-2022 09:53 clonazePAM 1 oral once a day 30-Mar-2022 09:53 clonazePAM is continued as clonazePAM Flonase 50 mcg/inh nasal spray 1 spray(s) nasal once a day 26-Aug-2021 00:00 Discontinued; Discontinue from ORM Flonase 50 mcg/inh nasal spray is not required Nebivolol 0 tab(s) oral once a day 30-Mar-2022 09:54 Discontinued; Discontinue from ORM Nebivolol is not required Nebivolol 10 mg oral tablet 1 tab(s) orally once a day 13-Apr-2022 10:48 Nebivolol 10 mg oral tablet 1 tab(s) orally once a day 13-Apr-2022 10:48 Nebivolol 10 mg oral tablet is continued as Nebivolol 10 mg oral tablet Current OrdersDateHOME MEDICATIONS AT DISCHARGE DateReconciliation Comment/ Additional Information Acetaminophen Tablet (TYLENOL)DOSE = 650 mg Oral Every 4 Hours, PRN Pain - Mild (1-3) (PACU) when able to take OralStop After 1 DosesClinician Notes: Dorothea-operative order ONLY 13-Apr-2022 10:21 Acetaminophen is not required HYDROmorphone Injectable (DILAUDID)DOSE = 0.2 mg IntraVenous Push Every 5 Minutes, PRN Pain - Mod (4-6) (PACU) if unable to take oralClinician Notes: Dorothea-operative order ONLYMax total of 4 mg regardless of dose. 13-Apr-2022 10:21 HYDROmorphone Injectable is not required HYDROmorphone Injectable (DILAUDID)DOSE = 0.4 mg IntraVenous Push Every 5 Minutes, PRN Pain - Severe (7-10) (PACU)Clinician Notes: Dorothae-operative order ONLYMax total of 4 mg regardless of dose. 13-Apr-2022 10:21 HYDROmorphone Injectable is not required Lactated Ringers Infusion IV Bag Volume = 1,000 mL Run at: 50 mL/hr IntraVenous Clinician Notes: Dorothea-operative order ONLY 13-Apr-2022 10:21 Lactated Ringers Infusion is not required Ondansetron Injectable (ZOFRAN)DOSE = 4 mg IntraVenous Push Once, PRN PONV, first lineClinician Notes: Dorothea-operative order ONLY 13-Apr-2022 10:21 Ondansetron Injectable is not required oxyCODONE Immediate Release Tablet (OXYIR, ROXICODONE)DOSE = 5 mg Oral Every 4 Hours, PRN Pain - Mod (4-6) (PACU) when able to take OralStop After 1 DosesClinician Notes: Dorothea-operative order ONLY 13-Apr-2022 10:21 oxyCODONE Immediate Release is not required Promethazine IV Piggy Back in Sodium Chloride 0.9% 50 mL (PHENERGAN)DOSE = 6.25 mg Once, PRN persistent PONV if first line ineffectiveRecommended Infusion Time: 15 minute(s)Clinician Notes: Dorothea-operative order ONLY 13-Apr-2022 10:21 Promethazine IV Piggy Back is not required Home Medications Added During Discharge Reconciliation oxyCODONE 5 mg oral tablet 1 tab(s) orally every 6 hours x 5 days, As Needed -for severe pain g89.18 - Discontinued; Discontinue from ORM Activity as Tolerated 13-Apr-2022, Routine, Assistance Level: None, Restrictions: None, Limit your activities and rest today. Additional Patient Instructions Do not consume alcoholic beverages for 24 hours. Additional Patient Instructions Do not engage in sports, heavy work or lifting. Additional Patient Instructions Do not smoke for 24 hours. Additional Patient Instructions Keep Surgical incision dry and clean. Additional Patient Instructions The pressure bandage (Jaw Bra) should be worn continuously for about 48 hours. After 48 hours, the bandage may be used as a jaw support as needed. Many patients find that it (more content not included)... Normal [facility] Patient Profile - Preop v3on 04-13-2022 Patient Profile - Preop v3 Patient Profile - Preop: Initial Info: Patient DemographicsName: YOLANDA HATFIELD Date: 1945 Address: [address] [place] [address], [place] [address] Primary Phone [phone] How to be Addressedrobert Spoken Language PreferredEnglish Source of Informationpatient Stated Reason for Admissionexcision on my upper lip Primary Contact Name and Numbergeetha () [phone] Medications Brought to Hospitalno General Health: Patient or Family Member Reaction to Anesthesiano previous reaction Blood Avoidance/Restrictionsno ne Previous Transfusion Reactionnot applicable Health Mgmt: Symptoms/Conditions Managed at Homecardiovascular; behavioral health; cancer Behavioral Health Symptoms/Conditionsanxie ty Cancer Symptoms/Conditionsmelan yessi Cardiovascular Symptoms/Conditionshyper tension Barriers to Managing Healthnone Relationship/Environ: Lives Withspouse Living Arrangementshouse Resource/Environmental Concernsnone Anticipated Transition [facility] Anticipated at Transitionnone Tobacco Use: Tobacco Useno Pre-op Checklist: Arrival [id number] Arrival Time09:59 Procedure Typewide excision upper lip local sentinal lymph node biopsy NPOyes Last Food [id number] 00:00 Last Clear Fluid [id number] 00:00 ID Band On Patientpatient ID (name) Consent Signedpending H&P Completepending Anesthesia Assessment Completedpending EKG Performedsee results tab Chest X-Ray Performedsee results tab Preop Antibioticsnot ordered Beta-spring Last Dose Date/[id number] 00:00 COVID 19 Results in Last 7 daysneg Glucose Resultna Type and Screen Resultedyes Chlorhexadine Bath Givencompleted at home Nasal Antiseptic Appliednot applicable Soap and Water Bath the Night Before Surgeryyes Hair Washed with Shampooyes Bowel Prepno Surgical Site Infection Preventionyes Pain Scales and Managementyes Additional Information: Information Review: Allergies, Home Meds and Significant Events have been Reviewed and Verified with Patient/Familyyes Allergy, Intolerance, Adverse Event: Allergies: No Known Allergies: Active Significant Events: 13-Apr-2022 melanoma: Past Medical History, Active 13-Apr-2022 anxiety: Past Medical History, Active 13-Apr-2022 HLD: Past Medical History, Active 13-Apr-2022 HTN: Past Medical History, Active Electronic Signatures: Gerry Pandey) (Signed 13-Apr-2022 10:36) Authored: Initial Info, General Health, Health Mgmt, Relationship/Environ, Tobacco Use, Pre-op Checklist, Additional Information Last Updated: 13-Apr-2022 10:36 by Gerry Pandey) Normal [facility] TUMOR LOC SPECT/CTon 06-15-2 022 TUMOR LOC SPECT/CT Patient Name: YOLANDA HATFIELD STUDY: LYMPH GLAND; TUMOR LOC SPECT/CT; 04/13/2022 10:04 am 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 COMPARISON: None. ACCESSION NUMBER(S): [id number]; [id number] ORDERING CLINICIAN: SUSAN FARLEY TECHNIQUE: DIVISION OF NUCLEAR MEDICINE RADIONUCLIDE SENTINEL LYMPH NODE LYMPHOSCINTIGRAPHY A total of 0.25 millicuries of Tc-99m tilmanocept ([employer]) was injected intradermally in a circumferential pattern surrounding the patient's upper lip biopsy site. Initial dynamic images followed by static emission images were obtained. Subsequently, SPECT/CT of the head and neck was performed. FINDINGS: Focally intense radiotracer at the injection site is noted. Initial dynamic images demonstrate no significant migration of radiotracer, although blooming artifact limits evaluation of nearby sites. No definite focal abnormal accumulation within nodes is identified on static images. SPECT/CT demonstrates focal accumulation of radiotracer within a prominently sized left level III lymph node. Additional more mild activity within a tiny right level IV is also noted. Intense activity near the injection site limits evaluation of nearby adjacent structures. IMPRESSION: Successful sentinel lymph node localization to the left level III. Milder activity within a right level IV node is also noted. [employer] images were saved to the PACS system. I personally reviewed the images/study and I agree with the findings as stated. This study was interpreted at [place], [place]. Electronically signed by: SANDRA LEVINE MD Normal [facility] CORONAVIRUS 2019, SCREEN ASY MPTOMATICon 04-11-2022 SARS-CoV-2 (COVID-19) RNA LEDY+probe Ql (Unsp spec) Not detected Normal Not Detected [facility] Comment on above: Result Comment: . This assay is designed to detect the N, ORF1ab and/or S genes of SARS-CoV-2 via nucleic acid amplification. A Negative (NOT DETECTED) result does not preclude 2019-nCoV infection since the adequacy of sample collection and/or low viral burden may result in presence of viral nucleic acids below the clinical sensitivity of this test method. Negative (NOT DETECTED) result should not be used as the sole basis for treatment or other patient management decisions. Rather negative results should be combined with clinical observations, patient history, and epidemiological information to make patient management decisions. Fact sheet for providers: https://www.fda.gov/media/939207/download Fact sheet for patients: https://www.fda.gov/media/727045/download This test has received FDA Emergency Use Authorization (EUA) and has been verified by [facility] ([facility]). This test is only authorized for the duration of time that circumstances exist to justify the authorization of the emergency use of in vitro diagnostic tests for the detection of SARS-CoV-2 virus and/or diagnosis of COVID-19 infection under section 564(b)(1) of the Act, 21 U.S.C. 360bbb-3(b)(1), unless the authorization is terminated or revoked sooner. [facility] is certified under CLIA-88 as qualified to perform high complexity testing. Testing is performed in the [facility] laboratories located at [address] [place] [address]. Performed By: #### C OVSC #### [place] [address] Lab Specimen Source Nasal, Nasopharyngeal Normal [facility] Comment on above: Performed By: #### C OVSC #### [place] [address] Coronavirus 2019 RNA by PCR, Screening Asymptomticon 04-11-2022 Coronavirus 2019 RNA by PCR, Screening Asymptomtic Not detected Normal See Below [facility] Work Phone: Comment on above: SOURCE: Nasal, Nasop haryngealReference Range: Not Detected.This assay is designed to detect the N, ORF1ab and/or S genes of SARS-CoV-2 via nucleic acid amplification. A Negative (NOT DETECTED) result does not preclude 2019-nCoV infection since the adequacy of sample collection and/or low viral burden may result in presence of viral nucleic acids below the clinical sensitivity of this test method. Negative (NOT DETECTED) result should not be used as the sole basis for treatment or other patient management decisions. Rather negative results should be combined with clinical observations, patient history, and epidemiological information to make patient management decisions.Fact sheet for providers: https://www.fda.gov/media/781928/downloadFact sheet for patients: https://www.fda.gov/media/131667/downloadThis test has received FDA Emergency Use Authorization (EUA) and has been verified by [facility] ([facility]). This test is only authorized for the duration of time that circumstances exist to justify the authorization of the emergency use of in vitro diagnostic tests for the detection of SARS-CoV-2 virus and/or diagnosis of COVID-19 infection under section 564(b)(1) of the Act, 21 U.S.C. 360bbb-3(b)(1), unless the authorization is terminated or revoked sooner. [facility] is certified under CLIA-88 as qualified to perform high complexity testing. Testing is performed in the [facility] laboratories located at [address] [place] [address]. Covid 19 Resultson 2 SARS-CoV-2 (COVID-19) RNA LEDY+probe Ql (Unsp spec) NEGATIVE COVID-19 Test Coronaviruses are common world-wide and are the cause of many common colds. SARS-COV2 is a new coronavirus that began circulating worldwide in 2019 so we are calling it COVID-19. It has been estimated that four out of five patients with COVID-19 will recover at home without the need for medical attention. Symptoms of COVID-19 may include cough, fever, shortness of breath, loss of taste or smell and other flu-like symptoms including chills, sore muscles, sore throat, and headache. Severe illness is more common in older people and people with other health problems such as high blood pressure, obesity, and immune system problems. If the test is positive, you have COVID-19. You will be contacted by the ordering physicians office and instructed to remain on home isolation, in accordance with CDC guidelines. You may also be contacted by the [facility] to see if any of your close contacts may have been exposed to the virus and need to quarantine. If the test is negative, you likely do not have COVID-19 at this time, but you still may have a different illness that can spread to other people (like Influenza, or the Flu) and could still be at risk for getting COVID-19. We recommend that you stay away from other people to limit the spread of illness until your symptoms are improving and you are fever-free for 24 hours without the use of fever lowering medications such as acetaminophen or ibuprofen. No test is 100% accurate so if you are still concerned you may have COVID-19, talk to your doctor about the need to continue to stay away from others. Medicines Unless your provider told you not to use the following: Acetaminophen (Tylenol and others) is generally safe. Anti-inflammatory medications, such as Ibuprofen (Advil or Motrin) or Naproxen (Aleve) can also be used. Foyb-xiz-rbeayun cough and cold medicines can be used according to the instructions on the package. Some eisq-gee-qgcfqer medicines also contain acetaminophen. Make sure you are not taking more than your recommended dose. For those not hospitalized, there is no specific treatment available for this illness. Antibiotics do not treat Coronaviruses. Follow-Up Follow up with your doctor by scheduling a virtual visit or consider follow-up at one of our urgent care fever clinics. If you are having difficulty breathing, or are very weak and having difficulty standing, this is a medical emergency. Call 911 or have someone take you to the nearest emergency room immediately. If possible, wear a facemask. Additional guidance from the CDC for patients who tested POSITIVE for COVID-19 How to isolate: Isolate yourself in a specific room at home and limit your contact with others. Use a separate bathroom from other members of the household, when possible. Leave home only to get essential medical care. Do not go to work, school or public areas. Avoid using public transportation, ride-sharing, or taxis. Restrict contact with pets and other animals. If you must care for your pet or be around animals while you are sick, wash your hands before and after your interaction and wear a facemask. Make sure that shared spaces in the home have good airflow, such as by an air conditioner or an opened window, weather permitting. Personal Hygiene Procedures: Wear a face mask when in the same room as other people or pets. If a face mask interferes with your breathing, others should wear a mask when sharing space with you. Frequent hand-washing: wash your hands with soap and water for at least 20 seconds. If soap and water are not available, use alcohol-based hand pump erector helper. Avoid touching your eyes, nose, and mouth with unwashed hands. Household Hygiene Procedures: Avoid sharing personal household items such as dishes, glassware, cups, eating utensils, towels or bedding with other people or pets in your home. After use, these items should be washed with soap and hot water. Disinfect all high-touch surfaces every day with antibacterial cleaning solutions such as Lysol wipes, bleach, cleansers, etc. High-touch surfaces include tabletops, doorknobs, bathroom fixtures, toilets, phones, keyboards, tablets and bedside tables. Immediately clean any surfaces that may have blood, poop or body fluids on them, using antibacterial cleaning solutions such as Lysol wipes, bleach, cleansers, etc. If clothing or bedding come into contact with blood, poop or body fluids, they should be washed immediately. Follow the directions on the laundry detergent and clothing labels but hot water is recommended when possible. Stopping home isolation precautions: If possible, consult your doctor before stopping home isolation precautions. According to the CDC, you can discontinue home isolation precautions when you have met both of these criteria: Your fever and respiratory symptoms have been gone for 24 paul (more content not included)... Normal [facility] CORONAVIRUS PCR - [facility] 04-05-2022 SARS-CoV-2 (COVID-19) RNA LEDY+probe Ql (Unsp spec) Negative Normal NORMAL: NEGATIVE [facility] Comment on above: Performed By: #### [id number] #### [facility],[address] [place] [address] SEND TO IC? YES Normal [facility] Comment on above: Result Comment: RESU LTS FAXED TO INFECTION CONTROL. SARS-CoV-2 THIS TEST IS BEING USED UNDER THE FDA EUA PROCEDURE. THIS ASSAY HAS BEEN VALIDATED IN THE [facility] FOR USE WITH NASOPHARYNGEAL SPECIMENS IN [facility] ([facility])[3]. INTERPRETIVE DATA LABORATORY TEST RESULTS SHOULD ALWAYS BE CONSIDERED IN THE CONTEXT OF CLINICAL OBSERVATIONS AND EPIDEMIOLOGICAL DATA IN MAKING FINAL DIAGNOSIS AND PATIENT MANAGEMENT DECISIONS. PATIENT MANAGEMENT SHOULD FOLLOW CURRENT CDC GUIDELINES. A POSITIVE TEST RESULT FOR COVID-19 INDICATES THAT RNA FROM SARS-CoV-2 WAS DETECTED, AND THE PATIENT IS INFECTED WITH THE VIRUS AND PRESUMED TO BE CONTAGIOUS. A NEGATIVE TEST RESULT FOR THIS TEST MEANS THAT SARS-CoV-2 RNA WAS NOT PRESENT IN THE SPECIMEN ABOVE THE LIMIT OF DETECTION. HOWEVER, A NEGATVIE RESULT DOES NOT RULE OUT COVID-19 AND SHOULD NOT BE USED THE SOLE BASIS FOR TREATMENT OR PATIENT MANAGEMENT DECISIONS. A NEGATIVE RESULT DOES NOT EXCLUDE THE POSSIBILITY OF COVID-19. WHEN DIAGNOSTIC TESTING IS NEGATIVE, THE POSSIBLILTY OF A FALSE NEGATIVE RESULT SHOULD BE CONSIDERED IN THE CONTEXT OF A PATIENT'S RECENT EXPOSURES AND THE PRESENCE OF CLINICAL SIGNS AND SYMPTOMS CONSISTENT WITH COVID-19. THE POSSIBILITY OF A FALSE NEGATIVE RESULT SHOULD ESPECIALLY BE CONSIDERED IF THE PATIENT'S RECENT EXPOSURES OR CLINICAL PRESENTATION INDICATE THAT COVID-19 IS LIKELY, AND DIAGNOSTIC TESTS FOR OTHER CAUSES OF ILLNESS (e.g., OTHER RESPIRATORY ILLNESS) ARE NEGATIVE. IF COVID-19 IS STILL SUSPECTED BASED ON EXPOSURE HISTORY TOGETHER WITH OTHER CLINICAL FINDINGS, RE-TESTED SHOULD BE CONSIDERED BY HEALTHCARE PROVIDERS IN CONSULTATION WITH PUBLIC HEALTH AUTHORITIES. Performed By: #### [id number] #### [facility],[address] [place] [address] BASIC METABOLIC PANELon 06-0 Anion gap [Moles/Vol] 15 mmol/L Normal 10 - 20 [facility] Comment on above: Performed By: #### B MP #### [facility] [address] [place] [address] Calcium [Mass/Vol] 9.5 mg/dL Normal 8.6 - 10.6 [facility] Comment on above: Performed By: #### B MP #### [facility] [address] [place] [address] Chloride [Moles/Vol] 104 mmol/L Normal 98 - 107 [facility] Comment on above: Performed By: #### B MP #### [facility] [address] [place] [address] Creatinine [Mass/Vol] 0.94 mg/dL Normal 0.50 - 1.30 [facility] Comment on above: Performed By: #### B MP #### [facility] [address] [place] [address] GFR/1.73 sq M.predicted among non-blacks MDRD (S/P/Bld) [Vol rate/Area] 85 mL/min/{1.73_m2} Normal >90 [facility] Comment on above: Result Comment: CALC ULATIONS OF ESTIMATED GFR ARE PERFORMED USING THE 2020 CKD-EPI STUDY REFIT EQUATION WITHOUT THE RACE VARIABLE FOR THE IDMS-TRACEABLE CREATININE METHODS. https://jasn.asnjournals.org/content//ASN.2020 245110 Performed By: #### B MP #### [facility] [address] [place] [address] Glucose [Mass/Vol] 88 mg/dL Normal 74 - 99 [facility] Comment on above: Performed By: #### B MP #### [facility] [address] [place] [address] HCO3 (Bld) [Moles/Vol] 27 mmol/L Normal 21 - 32 [facility] Comment on above: Performed By: #### B MP #### [facility] [address] [place] [address] Potassium [Moles/Vol] 4.5 mmol/L Normal 3.5 - 5.3 [facility] Comment on above: Performed By: #### B MP #### [facility] [address] [place] [address] Sodium [Moles/Vol] 141 mmol/L Normal 136 - 145 [facility] Comment on above: Performed By: #### B MP #### [facility] [address] [place] [address] Urea nitrogen [Mass/Vol] 16 mg/dL Normal 6 - 23 [facility] Comment on above: Performed By: #### B MP #### [facility] [address] [place] [address] CBCon 03-30-2022 Erythrocyte distribution width (RBC) [Ratio] 13.2 % Normal 11.5 - 14.5 [facility] Comment on above: Performed By: #### C BC #### [facility] [address] [place] [address] Hematocrit (Bld) [Volume fraction] 40.8 % Low 41.0 - 52.0 [facility] Comment on above: Performed By: #### C BC #### [facility] [address] [place] [address] Hemoglobin (Bld) [Mass/Vol] 13.5 g/dL Normal 13.5 - 17.5 [facility] Comment on above: Performed By: #### C BC #### [facility] [address] [place] [address] MCHC (RBC) [Mass/Vol] 33.1 g/dL Normal 32.0 - 36.0 [facility] Comment on above: Performed By: #### C BC #### [facility] [address] [place] [address] MCV (RBC) [Entitic vol] 95 fL Normal 80 - 100 [facility] Comment on above: Performed By: #### C BC #### [facility] [address] [place] [address] NUCLEATED RBC 0.0 /100 WBC Normal 0.0-0.0 [facility] Comment on above: Performed By: #### C BC #### [facility] [address] [place] [address] Platelets (Bld) [#/Vol] 299 10*3/uL Normal 150 - 450 [facility] Comment on above: Performed By: #### C BC #### [facility] [address] [place] [address] RBC 4.31 x10E12/L Low 4.50 - 5.90 [facility] Comment on above: Performed By: #### C BC #### [facility] [address] [place] [address] WBC (Bld) [#/Vol] 6.0 10*3/uL Normal 4.4 - 11.3 [facility] Comment on above: Performed By: #### C BC #### [facility] [address] [place] [address] COAGULATION SCREENon 022 aPTT Coag (Bld) [Time] 30 s Normal 26 - 39 [facility] Comment on above: Result Comment: THE APTT IS NO LONGER USED FOR MONITORING UNFRACTIONATED HEPARIN THERAPY. FOR MONITORING HEPARIN THERAPY, USE THE HEPARIN ASSAY. Performed By: #### C OAGS ####[id number] [place] [address] PT Coag (PPP) [Time] 11.3 s Normal 9.8 - 13.4 [facility] Comment on above: Performed By: #### C OAGS ####[id number] [place] [address] PT, INR 1.0 Normal 0.9 - 1.1 [facility] Comment on above: Performed By: #### C OAGS ####[id number] [place] [address] Electrocardiogram 12 Leadon 03-30-2022 Electrocardiogram 12 Lead Ventricular Rate 61 Atrial Rate 61 P-R Interval 170 QRS Duration 90 Q-T Interval 418 QTC Calculation(Bazett) 420 P Waldwick 65 R Waldwick -36 T Waldwick -5 QRS Count 10 Q Onset 223 P Onset 138 P Offset 200 T Offset 432 QTC Fredericia 420 Diagnosis Class Abnormal Diagnosis Normal sinus rhythm Left axis deviation Cannot rule out Anterior infarct , age undetermined Abnormal ECG No previous ECGs available Confirmed by Luis Carlos Page ([id number]) on 03/31/2022 9:51:00 PM Normal [facility] Established Visit (Otolaryng ology)on 03-30-2022 Established Visit (Otolaryngology) Diagnoses/Problems 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 Farley planning for WLE with appropriate margins + SLNB. Reconstructive effort discussed extensively including possible skin graft, local and regional flap options. The patient understands there may be need for staged reconstruction and revision at a later time. Risks include flap failure, scar, cosmetic deformity, microstomia, further procedures, recurrence of disease. Consent obtained in clinic today. History of Present Illness Chief Complaint: lip melanoma Referring Provider: Dr. Farley Location: upper lip, left Quality: melanoma Severity: severe Duration: months Timing: all times Context: no smoking, minimal etoh, mohs surgery prior. spot noticed on the left upper lip that got darker over time Modifying factors: none Associated signs and symptoms: as above, no ulceration Dr. Farley referred this patient. Review of his note was performed to gather information in regards to this visit. 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 All other systems have been reviewed and are negative for complaint unless documented above. Physical Exam: General: Well-developed and well-nourished in appearance. Skin: No rashes or concerning lesions on the visible portions of the skin. Eyes: Extraocular movements intact. Visual baez grossly normal. Ears: Pinna are normal in shape and position. External canals are patent. Nose: Dorsum is midline. Septum is midline and turbinates are normal on anterior rhinoscopy. Oral Cavity/Oropharynx: Dentition is intact. Mucous membranes moist. No masses or lesions. scar at upper lip with surrounding melanocytic changes Neck: Midline trachea without masses or lesions. Thyroid is normal in size. Lymphatics: No palpable cervical lymphadenopathy Respiratory: No respiratory distress. Quiet breathing without stertor or stridor. Cardiovascular: Regular rate and rhythm. Warm extremities with equal pulses. Psych: Normal mood and affect. Judgement and insight appropriate. Neuro: Alert and oriented. CN II-XII grossly intact. No focal deficits. Musculoskeletal: Gait intact. Moves all extremities well without apparent deformities. 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 EXPECTORATE AFTER RINSING, DO NOT SWALLOW clonazePAM 0.5 MG Oral Tablet Exforge TABS Hibiclens 4 % External Liquiduse as a preoperative shower Lipitor TABS Vitals Vital Signs Recorded: 30Mar2022 10:53AM Height5 ft 10 in Tobacco Useb) No Fall Screeninga) No falls within the last year 'Scores and Scales' Signatures Electronically signed by : Omar Salguero MD; Mar 31 2022 12:40PM EST (Author) Normal [facility] - Blood bankon ABO group Nom (Bld) O [facility] Work Phone: [phone] Blood group antibody screen Ql Negative [facility] Work Phone: [phone] Rh immune globulin screen (Bld) [Interp] Positive [facility]Otolary sheets [facility] Work Phone: [phone] Laboratory - Chemistry and C hemistry - challengeon 03-30-2022 Anion gap [Moles/Vol] 15 mmol/L 10 - 20 [facility] Work Phone: [phone] Calcium [Mass/Vol] 9.5 mg/dL 8.6 - 10.6 [facility] Work Phone: Chloride [Moles/Vol] 104 mmol/L 98 - 107 [facility] tolaryngo [facility] Work Phone: CO2 [Moles/Vol] 27 mmol/L 21 - 32 [facility]Otolar yngo [facility] Work Phone: Creatinine [Mass/Vol] 0.94 mg/dL See Below [facility] Work Phone: Comment on above: Reference Range: 0.5 0 - 1.30 Glucose [Mass/Vol] 88 mg/dL 74 - 99 [facility] l[facility]o [facility] Work Phone: Potassium [Moles/Vol] 4.5 mmol/L 3.5 - 5.3 [facility] Work Phone: Sodium [Moles/Vol] 141 mmol/L 136 - 145 [facility] Work Phone: Urea nitrogen [Mass/Vol] 16 mg/dL 6 - 23 [facility] Work Phone: Laboratory - Coagulationon 0 03-30-2022 aPTT Coag (PPP) [Time] 30 s 26 - 39 [employer] Work Phone: Comment on above: THE APTT IS NO LONGE R USED FOR MONITORING UNFRACTIONATED HEPARIN THERAPY. FOR MONITORING HEPARIN THERAPY, USE THE HEPARIN ASSAY. INR Coag (PPP) [Relative time] 1.0 {INR} 0.9 - 1.1 [facility] [employer] Work Phone: PT Coag (PPP) [Time] 11.3 s 9.8 - 13.4 [facility] Work Phone: Laboratory - Hematology and Cell countson 03-30-2022 Erythrocyte distribution width (RBC) [Ratio] 13.2 % See Below [employer] Work Phone: Comment on above: Reference Range: 11. 5 - 14.5 Hematocrit (Bld) [Volume fraction] 40.8 % below low threshold See Below [employer] Work Phone: Comment on above: Reference Range: 41. 0 - 52.0 Hemoglobin (Bld) [Mass/Vol] 13.5 g/dL See Below [employer] Work Phone: Comment on above: Reference Range: 13. 5 - 17.5 MCHC (RBC) [Mass/Vol] 33.1 g/dL See Below [employer] Work Phone: Comment on above: Reference Range: 32. 0 - 36.0 MCV (RBC) [Entitic vol] 95 fL 80 - 100 M [employer] Work Phone: Platelets (Bld) [#/Vol] 299 10*3/uL 150 - 450 [facility] Work Phone: RBC (Bld) [#/Vol] 4.31 {x10E12/L} below low threshold See Below [facility] Work Phone: Comment on above: Reference Range: 4.5 0 - 5.90 WBC (Bld) [#/Vol] 6.0 10*3/uL 4.4 - 11.3 [facility] Work Phone: MRSA Screenon 03-30-2022 Staphylococcus sp identified Org specific cx Nom (Unsp spec) [facility] Work Phone: No Panel Informationon 03-30 85 {mL/min/1.73m2} >90 [facility] l[facility] Work Phone: Comment on above: CALCULATIONS OF MISTY MATED GFR ARE PERFORMED USING THE 2020 CKD-EPI STUDY REFIT EQUATION WITHOUT THE RACE VARIABLE FOR THE IDMS-TRACEABLE CREATININE METHODS.https://jasn.asnjournals.org/content/early/ ASN.1704545844 0.0 {/100_WBC} 0.0-0.0 [facility]tol[facility] sheets [facility] Work Phone: https://UHMUSEXPRDWE B01: 8080/musescripts/museweb .dll?RetrieveTestByDateT christiano?ZfopmpbIV=[email or web address]& Date=11-04-2021&Time=10% 3a15%3a18%3a00&TestType= ECG&Site=1&OutputType=PD F&Ext=PDF [facility] Work Phone: Normal sinus rhythm [facility] Work Phone: Abnormal [facility] Work Phone: [phone] [facility] Work Phone: [phone] [facility] Work Phone: 200 1 [facility] Work Phone: [phone] [facility] Work Phone: [phone] [facility] Work Phone: [phone] 10 1 [facility] Work Phone: [phone] [facility] Work Phone: [phone] [facility] Work Phone: [phone] [facility] Work Phone: [phone] [facility] Work Phone: [phone] [facility] Work Phone: 1 [facility] Work Phone: [facility] Work Phone: Office Visit Presurgicalon 0 03-30-2022 Office Visit Presurgical Diagnoses/Problems Assessed 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 Farley planning for WLE with appropriate margins + SLNB. Reconstructive effort discussed extensively including possible skin graft, local and regional flap options. The patient understands there may be need for staged reconstruction and revision at a later time. Risks include flap failure, scar, cosmetic deformity, microstomia, further procedures, recurrence of disease. Consent obtained in clinic today. History of Present Illness Chief Complaint: lip melanoma Referring Provider: Dr. Farley Location: upper lip, left Quality: melanoma Severity: severe Duration: months Timing: all times Context: no smoking, minimal etoh, mohs surgery prior. spot noticed on the left upper lip that got darker over time Modifying factors: none Associated signs and symptoms: as above, no ulceration Dr. Farley referred this patient. Review of his note was performed to gather information in regards to this visit. 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 All other systems have been reviewed and are negative for complaint unless documented above. Physical Exam: General: Well-developed and well-nourished in appearance. Skin: No rashes or concerning lesions on the visible portions of the skin. Eyes: Extraocular movements intact. Visual baez grossly normal. Ears: Pinna are normal in shape and position. External canals are patent. Nose: Dorsum is midline. Septum is midline and turbinates are normal on anterior rhinoscopy. Oral Cavity/Oropharynx: Dentition is intact. Mucous membranes moist. No masses or lesions. scar at upper lip with surrounding melanocytic changes Neck: Midline trachea without masses or lesions. Thyroid is normal in size. Lymphatics: No palpable cervical lymphadenopathy Respiratory: No respiratory distress. Quiet breathing without stertor or stridor. Cardiovascular: Regular rate and rhythm. Warm extremities with equal pulses. Psych: Normal mood and affect. Judgement and insight appropriate. Neuro: Alert and oriented. CN II-XII grossly intact. No focal deficits. Musculoskeletal: Gait intact. Moves all extremities well without apparent deformities. Active Problems Problems Melanoma of skin of lip (172.0) (C43.0) Preoperative clearance (V72.84) (Z01.818) Allergies Medication No Known Drug Allergies Recorded By: Lisset Arias; 03/15/2022 9:04:14 AM Current Meds Medication NameInstruction Bystolic TABS CeleXA TABS Chlorhexidine Gluconate 0.12 % Mouth/Throat SolutionRINSE MOUTH WITH 15ML (1 CAPFUL) FOR 30 SECONDS AM AND PM AFTER TOOTHBRUSHING. EXPECTORATE AFTER RINSING, DO NOT SWALLOW clonazePAM 0.5 MG Oral Tablet Exforge TABS Hibiclens 4 % External Liquiduse as a preoperative shower Lipitor TABS Vitals Vital Signs Recorded: 30Mar2022 10:53AM Height5 ft 10 in Tobacco Useb) No Fall Screeninga) No falls within the last year 'Scores and Scales' Signatures Electronically signed by : Omar Salguero MD; Mar 31 2022 12:40PM EST (Author) Normal [facility] STAPH/MRSA SCREENon 06-01-20 22 STAPH/MRSA SCREEN PATIENT: NOÉ HATFIELD LOCATION: [facility]#: [id number] : 49 AGE: SEX: M ORDERED BY: SUSAN FARLEY SOURCE: ANTERIOR NARES COLLECTED: 03/30/22 10:29 ANTIBIOTICS AT RONNI.: RECEIVED : 03/30/22 14:52 SITE: Nasal R E S U L T S STAPH/MRSA SCREEN FINAL 04/01/22 09:41 NO Staphylococcus aureus ISOLATED. Normal [facility] Comment on above: Performed By: #### S TAPH #### [facility] [id number] [place] [address] TYPE + SCREENon 03-30-2022 ABO TYPE O Normal [facility] Comment on above: Performed By: #### T +S #### [facility] [address] [place] [address] RH TYPE Positive Normal [facility] Comment on above: Performed By: #### T +S #### [facility] [id number] [place] [address] Tobacco Screening.on 022 Fall risk assessment a) No falls within the last year [facility] Work Phone: Tobacco use status HS b) No M [facility] Work Phone: Dermatopathologyon Dermatopathology Name: YOLANDA HATFIELD Pathologist: BROOKS ARROYO MD Date of Procedure: 03/25/2022 Date Received: 03/25/2022 Date Reported 03/29/2022 Submitting Physician: KIRK MORALES MD, Location: [facility] Copy To/Referring/Attending: LISA HAWKINS MD FINAL DIAGNOSIS 9 SLIDES, [facility], #[id number] (BX: 02/25/2022) SKIN, LEFT UPPER LIP, EXCISION: MALIGNANT MELANOMA, BRESLOW THICKNESS 1.2 MM, PRESENT ON THE PERIPHERAL MARGIN, SEE NOTE. Note: Microscopic examination reveals a specimen that extends into skeletal muscle. There is dense solar elastosis and there is an asymmetric proliferation of nested and single atypical melanocytes throughout all layers of the epidermis. In slide A2 there are also nests of atypical melanocytes in the dermis. Some of the melanocytes stain with antibodies against PRAME, while all of the melanocytes stain with antibodies against SOX-10. In slide A2 there are nested and single melanocytes that extend almost vertically downward into the deep dermis at a depth of 1.2 mm from the top of the granular layer. No adjacent hair follicle is seen in this area. Therefore, while the vertically oriented melanocytic proliferation into the dermis raises the possibility of adjacent follicular extension, the lack of visualization of a hair follicle prevents confirmation of follicular extension and a Breslow depth of 1.2 mm will be used. Electronically Signed Out by BROOKS ARROYO M.D. CANCER SUMMARY REPORT A. 9 SLIDES, [facility], #[id number] (BX: 02/25/2022): SPECIMEN Procedure: Excision Specimen Laterality: Left TUMOR Tumor Site: Skin of other and unspecified parts of face: Left upper lip Histologic Type: Lentigo maligna melanoma Maximum Tumor (Breslow) Thickness (Millimeters): 1.2 mm Ulceration: Not identified Anatomic (Mane) Level: IV (melanoma invades reticular dermis) Mitotic Rate: None identified Microsatellite(s): Not identified Lymphovascular Invasion: Not identified Neurotropism: Not identified Tumor-Infiltrating Lymphocytes: Present, nonbrisk Tumor Regression: Not identified MARGINS Margin Status for Invasive Melanoma: All margins negative for invasive melanoma Closest Margin(s) to Invasive Melanoma: Not possible Distance from Invasive Melanoma to Closest Peripheral Margin: 0.4 mm Distance from Invasive Melanoma to Deep Margin: 1.75 mm Margin Status for Melanoma in situ: Melanoma in situ present at margin Margin(s) Involved by Melanoma in Situ: Peripheral PATHOLOGIC STAGE CLASSIFICATION (pTNM, AJCC 8th Edition) Reporting of pT categories is based on information available to the pathologist at the time the report is issued. As per the AJCC (Chapter 1, 8th Ed.) it is the managing physician?s responsibility to establish the final pathologic stage based upon all pertinent information, including but potentially not limited to this pathology report. pT Category: pT2a ADDITIONAL FINDINGS Additional Findings: None ADDITIONAL TESTING Medical Device Sales Blocks: Normal Block: None Tumor Block: A1-3 with invasive melanoma present in A2 Clinical History: LEFT UPPER LIP - R/O LENTIGO; ATYPICAL MELANOCYTIC LESION Specimens Submitted As: A: 9 SLIDES, [facility], #[id number] (BX: 02/25/2022) Gross Description: Received for consultation from [facility] are nine slides labeled [id number] (BX: 02/25/2022) along with the corresponding pathology report. Slide/Block Description 9 SLIDES, [id number]. Keep Slides: N Slides Returned: N Personal Consult: N Normal [facility] Comment on above: Performed By: #### D ####Dermatopathology No Panel Informationon 03-25 [facility] Work Phone: Initial Visit (Otolaryngolog y)on 03-15-2022 Initial Visit (Otolaryngology) Diagnoses/Problems Melanoma of skin of lip (172.0) (C43.0) Chief Complaint melanoma upper lip History of Present IllnessCC: lip melanoma Consulted by: dr mederos HPI: had a spot on his lip getting darker no bleeding Past medical history: no DM, +HTN Past surgical history: MOHS surgery, Social history: no smoking, social drinking (nightcap), lives with family Family history: Reviewed and not relevant to the presenting complaint Current medications: Reviewed as noted in current orders Allergies: Reviewed and as noted in current orders ROS: All other systems have been reviewed and are negative for complaint. I personally reviewed the intake form that was scanned in today PE: CONSTITUTIONAL: Vitals -reviewed from intake field, well developed, well nourished. VOICE: RESPIRATION: Breathing comfortably, no stridor. CV: No clubbing/cyanosis/edema in hands. EYES: EOM Intact, sclera normal. NEURO: Alert and oriented times 3, Cranial nerves II-XII intact and symmetric bilaterally. HEAD AND FACE: Symmetric facial features, no masses or lesions, sinuses nontender to palpation. SALIVARY GLANDS: Parotid and submandibular glands normal bilaterally. EARS: Normal external ears, external auditory canals, and TMs to otoscopy, normal hearing to whispered voice. NOSE: External nose midline, anterior rhinoscopy is normal with limited visualization to the anterior aspect of the inferior turbinates. No lesions noted. ORAL CAVITY/OROPHARYNX/LIPS: Normal mucous membranes, normal floor of mouth/tongue/OP, no masses or lesions are noted. recent excisional scare present left upper lip with malanoctic chagnes to phlithrum and commisure, with additional pigmented area left oral lip mucosa PHARYNGEAL CUETO AND NASOPHARYNX: No masses noted. Mucosa appears clean and moist NECK/LYMPH: No LAD, no thyroid masses. Trachea palpably midline SKIN: Neck skin is without scar or injury PSYCH: Alert and oriented with appropriate mood and affect Radiology reviewed: I personally reviewed the pathology---> melanoma 1.3 mm depth, extends to lip A/P: left lip melanoma with + margin and wide area of surrounding melanocytic changes discussed the complex nature of his lesion and all management options Lengthy and detailed discussion utilizing diagrams and answering questions regarding the management options of melanoma including the concept of wide local excision and the rationale for such based on depth as well as stage reconstruction versus primary reconstruction as well as the concept and rationale for sentinel node biopsies also discussed in detail the role of MOHS in this situation as it can assiste with determining the width of removal prior to or in conjunction with SLNB Also discussed the indication for staged procedures including the indications for skin grafting at the primary setting versus sewing gauze in position and consideration of grafting in a secondary procedure once the sentinel node has been analyzed Discussed the potential need for therapeutic parotid ectomy and/or neck dissection as indicated by location of sentinel node has also been reviewed Multiple questions a been answered discused the mulltidisipinary nature of the case with him and the importance of obtained tumor board review Allergies No Known Drug Allergies Recorded By: Lisset Arias; 03/15/2022 9:04:14 AM Current Meds Medication NameInstruction Bystolic TABS CeleXA TABS Exforge TABS Lipitor TABS Vitals Vital Signs Recorded: 15Mar2022 08:53AM Ydchfkicoih95.4 F Height5 ft 10 in Oieczj197 lb BMI Bbwoyemxvl96.83 kg/m2 BSA Calculated2 Tobacco Useb) No Fall Screeninga) No falls within the last year 'Scores and Scales' Signatures Electronically signed by : Susan Farley MD; Mar 18 2022 5:22AM EST (Author) Normal [facility] Tobacco Screening.on 022 Fall risk assessment a) No falls within the last year [facility] Work Phone: Tobacco use status CPHS b) No M [facility] Work Phone: CORONAVIRUS 2019 BY PCRon SARS-CoV-2 (COVID-19) RNA LEDY+probe Ql (Unsp spec) Not detected Normal Not Detected [facility] Comment on above: Result Comment: . This assay is designed to detect the N, ORF1ab and/or S genes of SARS-CoV-2 via nucleic acid amplification. A Negative (NOT DETECTED) result does not preclude 2019-nCoV infection since the adequacy of sample collection and/or low viral burden may result in presence of viral nucleic acids below the clinical sensitivity of this test method. Negative (NOT DETECTED) result should not be used as the sole basis for treatment or other patient management decisions. Rather negative results should be combined with clinical observations, patient history, and epidemiological information to make patient management decisions. Fact sheet for providers: https://www.fda.gov/media/188761/download Fact sheet for patients: https://www.fda.gov/media/755283/download This test has received FDA Emergency Use Authorization (EUA) and has been verified by [facility] ([facility]). This test is only authorized for the duration of time that circumstances exist to justify the authorization of the emergency use of in vitro diagnostic tests for the detection of SARS-CoV-2 virus and/or diagnosis of COVID-19 infection under section 564(b)(1) of the Act, 21 U.S.C. 360bbb-3(b)(1), unless the authorization is terminated or revoked sooner. [facility] is certified under CLIA-88 as qualified to perform high complexity testing. Testing is performed in the [facility] laboratories located at [address] [place] [address]. Performed By: #### C OV19 #### [address] [place] [address] Covid 19 Resultson SARS-CoV-2 (COVID-19) RNA LEDY+probe Ql (Unsp spec) NEGATIVE COVID-19 Test Coronaviruses are common world-wide and are the cause of many common colds. SARS-COV2 is a new coronavirus that began circulating worldwide in 2019 so we are calling it COVID-19. It has been estimated that four out of five patients with COVID-19 will recover at home without the need for medical attention. Symptoms of COVID-19 may include cough, fever, shortness of breath, loss of taste or smell and other flu-like symptoms including chills, sore muscles, sore throat, and headache. Severe illness is more common in older people and people with other health problems such as high blood pressure, obesity, and immune system problems. If the test is positive, you have COVID-19. You will be contacted by the ordering physicians office and instructed to remain on home isolation, in accordance with CDC guidelines. You may also be contacted by the [facility] to see if any of your close contacts may have been exposed to the virus and need to quarantine. If the test is negative, you likely do not have COVID-19 at this time, but you still may have a different illness that can spread to other people (like Influenza, or the Flu) and could still be at risk for getting COVID-19. We recommend that you stay away from other people to limit the spread of illness until your symptoms are improving and you are fever-free for 24 hours without the use of fever lowering medications such as acetaminophen or ibuprofen. No test is 100% accurate so if you are still concerned you may have COVID-19, talk to your doctor about the need to continue to stay away from others. Medicines Unless your provider told you not to use the following: Acetaminophen (Tylenol and others) is generally safe. Anti-inflammatory medications, such as Ibuprofen (Advil or Motrin) or Naproxen (Aleve) can also be used. Khqz-lcb-ttdkypv cough and cold medicines can be used according to the instructions on the package. Some enqc-fvi-yvenawo medicines also contain acetaminophen. Make sure you are not taking more than your recommended dose. For those not hospitalized, there is no specific treatment available for this illness. Antibiotics do not treat Coronaviruses. Follow-Up Follow up with your doctor by scheduling a virtual visit or consider follow-up at one of our urgent care fever clinics. If you are having difficulty breathing, or are very weak and having difficulty standing, this is a medical emergency. Call 911 or have someone take you to the nearest emergency room immediately. If possible, wear a facemask. Additional guidance from the CDC for patients who tested POSITIVE for COVID-19 How to isolate: Isolate yourself in a specific room at home and limit your contact with others. Use a separate bathroom from other members of the household, when possible. Leave home only to get essential medical care. Do not go to work, school or public areas. Avoid using public transportation, ride-sharing, or taxis. Restrict contact with pets and other animals. If you must care for your pet or be around animals while you are sick, wash your hands before and after your interaction and wear a facemask. Make sure that shared spaces in the home have good airflow, such as by an air conditioner or an opened window, weather permitting. Personal Hygiene Procedures: Wear a face mask when in the same room as other people or pets. If a face mask interferes with your breathing, others should wear a mask when sharing space with you. Frequent hand-washing: wash your hands with soap and water for at least 20 seconds. If soap and water are not available, use alcohol-based hand pump erector helper. Avoid touching your eyes, nose, and mouth with unwashed hands. Household Hygiene Procedures: Avoid sharing personal household items such as dishes, glassware, cups, eating utensils, towels or bedding with other people or pets in your home. After use, these items should be washed with soap and hot water. Disinfect all high-touch surfaces every day with antibacterial cleaning solutions such as Lysol wipes, bleach, cleansers, etc. High-touch surfaces include tabletops, doorknobs, bathroom fixtures, toilets, phones, keyboards, tablets and bedside tables. Immediately clean any surfaces that may have blood, poop or body fluids on them, using antibacterial cleaning solutions such as Lysol wipes, bleach, cleansers, etc. If clothing or bedding come into contact with blood, poop or body fluids, they should be washed immediately. Follow the directions on the laundry detergent and clothing labels but hot water is recommended when possible. Stopping home isolation precautions: If possible, consult your doctor before stopping home isolation precautions. According to the CDC, you can discontinue home isolation precautions when you have met both of these criteria: Your fever and respiratory symptoms have been gone for 24 paul (more content not included)... Normal [facility] CORONAVIRUS 2019 BY PCRon DATE OF SYMPTOM ONSET [YYYYMMDD]? [id number] [facility] Comment on above: Performed By: #### C OV19 #### [facility] [address] [place] [address] Lab Specimen Source Nasal, Nasopharyngeal [facility] Comment on above: Performed By: #### C OV19 #### [facility] [address] [place] [address] Provider Note - ED v3on 07-31 Provider Note - ED v3 Provider Note: Chart Review: HISTORY OF PRESENTING ILLNESS YOLANDA is a 75 year old Male and was seen by me at 26-Aug-2021 08:46. The historian is the patient. Triage Information: Most recent Vital Sign Value Date PAST MEDICAL HISTORY ALLERGIES/INTOLERANCES: No Known Allergies HEALTH HISTORY: Medical History Name:HTN (hypertension) Code:I10 Name:Hyperlipidemia Code:E78.5 Name:Skin cancer Code:C44.90 Also has history of anxiety. Follows with PCP. Family history: no pertinent history. Social history: non-smoker. 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 . 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 OUTPATIENT MEDICATIONS: Home Medications Review Status for Reconciliation: Incomplete Med Status: Patient Currently Takes Medications Drug Name: lisinopril Instructions: null Drug Name: Exforge Instructions: null Drug Name: Lipitor Instructions: null Drug Name: Bystolic Instructions: null Drug Name: CeleXA Instructions: null Drug Name: clonazePAM Instructions: null Drug Name: Zithromax Z-Hang 250 mg oral tablet Instructions: 2 tab(s) by mouth at once on day 1, then 1 tablet once a day on days 2-5 Drug Name: Flonase 50 mcg/inh nasal spray Instructions: 1-2 spray(s) in each nostril once a day Drug Name: predniSONE 10 mg oral tablet Instructions: 1 tab(s) orally once a day x 3 days. Take with food. SIGNIFICANT EVENTS: Past Medical History Description:skin CA Description:high cholesterol No known significant events or known past surgical history. Has received 2 doses of the Moderna COVID vaccine. CRITICAL CARE VITAL SIGNS: T PRBP SpO2O2(LPM) %FiO2 Method 26-Aug-2021 09:56:00-37.1159/80 MDM MDM/ED COURSE: This note was generated with voice recognition software and may contain errors including spelling, grammar, syntax, and misrecognization of what was dictated CHIEF COMPLAINT nasal congestion, sore throat, mild cough HISTORY OF PRESENT ILLNESS Patient presents today with complaints of nasal congestion (thick, yellow mucus), fatigue, fever/chills (Tmax 101f this AM), body aches, sore throat, and mild, non-productive cough x 2-3 days. Has intermittent, mild headaches. States sinuses are a little tender; ears are mildly sore- reports is following with Audiology who is planning upcoming ear irrigation. Denies any abdominal pain, chest pain, wheezing/shortness of breath, rashes, urinary symptoms, nausea/vomiting, and diarrhea. Denies any lightheadedness or dizziness; no changes in mental status. Appetite is poor but is able to drink fluids without difficulty; denies any loss of sense of taste or smell. Reports feels like symptoms are unchanged since onset. Has been taking Afrin nasal spray and benadryl with some temporary relief; no other abqp-rjr-urlyzzv medications or home remedies for symptom management. Reports his young granddaughter is currently ill with similar sxs; no other known ill contacts. Has received 2 doses of the Moderna COVID vaccine, and also reports he had COVID infection in 10/2020. Follows closely with PCP. REVIEW OF SYSTEMS 10 systems reviewed negative with exception of history of present illness listed above PHYSICAL EXAMINATION General: Mildly ill-appearing, well nourished male; alert and oriented; in no acute distress. Sitting comfortably on exam table. Non-dyspneic. Eyes: Pupils equal, round and reactive to light. No conjunctival erythema; no scleral icterus. HENT: Mild maxillary but no frontal sinus tenderness; + audible nasal congestion. Airway patent, Unable to visualize either TM d/t cerumen impaction; no erythema of visible portions of canals. Nasal mucosa mildly injected and edematous. Oral mucosa moist. Posterior pharynx pink but without vesicles or oropharyngeal exudate aside from PND. Uvula is midline. Managing oral secretions without difficulty. Neck: Supple. No palpable lymphadenopathy bilat. Trachea is midline. Respiratory: Respirations easy and unlabored, Breath sounds equal. Lungs are clear to auscultation; no wheezes, rhonchi, or rales; has good air movement throughout. Mild, non-productive cough noted only upon request. Non-dyspneic with ambulation; able to maintain SpO2. Cardiovascular: Normal rate, Regular rhythm. Normal S1S2. No m/r/g. No peripheral edema. Gastrointestinal: Soft, non-tender, non-distended; no palpable masses or organomegaly. Bowel sounds normoactive. Musculoskeletal: Grossly normal; appropriate for age. Integumentary: [place], warm, dry, and Intact. No rashes or skin discoloration appreciated. Neurologic: Alert and oriented, no gross deficits. Cognition and Speech: Oriented, Speech clear and coherent. Psychiatric: Cooperative, Appropriate mood & affect. MEDICAL DECISION MAKING Course: Worsening; stable. Impressi (more content not included)... Normal [facility] CORONAVIRUS 2019 BY PCRon SARS-CoV-2 (COVID-19) RNA LEDY+probe Ql (Unsp spec) Not detected Normal Not Detected [facility] Comment on above: Result Comment: . This assay is designed to detect the ORF1ab and/or S genes of SARS-CoV-2 via nucleic acid amplification. A Not Detected result does not preclude 2019-nCoV infection since the adequacy of sample collection and/or low viral burden may result in presence of viral nucleic acids below the clinical sensitivity of this test method. Fact sheet for providers: www.fda.gov/media/496556/download Fact sheet for patients: www.fda.gov/media/397169/download This test has received FDA Emergency Use Authorization (EUA) and has been verified by [facility] ([facility]). This test is only authorized for the duration of time that circumstances exist to justify the authorization of the emergency use of in vitro diagnostic tests for the detection of SARS-CoV-2 virus and/or diagnosis of COVID-19 infection under section 564(b)(1) of the Act, 21 U.S.C. 360bbb-3(b)(1), unless the authorization is terminated or revoked sooner. [facility] is certified under CLIA-88 as qualified to perform high complexity testing. Testing is performed in the [facility] laboratories located at [id number] [place] [address]. Performed By: #### C OV19 #### [facility] [id number] [place] [address]. [place] [address] Covid 19 Resultson 1 SARS-CoV-2 (COVID-19) RNA LEDY+probe Ql (Unsp spec) NEGATIVE COVID-19 Test Coronaviruses are common world-wide and are the cause of many common colds. SARS-COV2 is a new coronavirus that began circulating worldwide in 2019 so we are calling it COVID-19. It has been estimated that four out of five patients with COVID-19 will recover at home without the need for medical attention. Symptoms of COVID-19 may include cough, fever, shortness of breath, loss of taste or smell and other flu-like symptoms including chills, sore muscles, sore throat, and headache. Severe illness is more common in older people and people with other health problems such as high blood pressure, obesity, and immune system problems. If the test is positive, you have COVID-19. You will be contacted by the ordering physicians office and instructed to remain on home isolation, in accordance with CDC guidelines. You may also be contacted by the [facility] to see if any of your close contacts may have been exposed to the virus and need to quarantine. If the test is negative, you likely do not have COVID-19 at this time, but you still may have a different illness that can spread to other people (like Influenza, or the Flu) and could still be at risk for getting COVID-19. We recommend that you stay away from other people to limit the spread of illness until your symptoms are improving and you are fever-free for 24 hours without the use of fever lowering medications such as acetaminophen or ibuprofen. No test is 100% accurate so if you are still concerned you may have COVID-19, talk to your doctor about the need to continue to stay away from others. Medicines Unless your provider told you not to use the following: Acetaminophen (Tylenol and others) is generally safe. Anti-inflammatory medications, such as Ibuprofen (Advil or Motrin) or Naproxen (Aleve) can also be used. Vhqx-iyf-lwwqsqf cough and cold medicines can be used according to the instructions on the package. Some gnea-uoy-cplqftz medicines also contain acetaminophen. Make sure you are not taking more than your recommended dose. For those not hospitalized, there is no specific treatment available for this illness. Antibiotics do not treat Coronaviruses. Follow-Up Follow up with your doctor by scheduling a virtual visit or consider follow-up at one of our urgent care fever clinics. If you are having difficulty breathing, or are very weak and having difficulty standing, this is a medical emergency. Call 911 or have someone take you to the nearest emergency room immediately. If possible, wear a facemask. Additional guidance from the CDC for patients who tested POSITIVE for COVID-19 How to isolate: Isolate yourself in a specific room at home and limit your contact with others. Use a separate bathroom from other members of the household, when possible. Leave home only to get essential medical care. Do not go to work, school or public areas. Avoid using public transportation, ride-sharing, or taxis. Restrict contact with pets and other animals. If you must care for your pet or be around animals while you are sick, wash your hands before and after your interaction and wear a facemask. Make sure that shared spaces in the home have good airflow, such as by an air conditioner or an opened window, weather permitting. Personal Hygiene Procedures: Wear a face mask when in the same room as other people or pets. If a face mask interferes with your breathing, others should wear a mask when sharing space with you. Frequent hand-washing: wash your hands with soap and water for at least 20 seconds. If soap and water are not available, use alcohol-based hand pump erector helper. Avoid touching your eyes, nose, and mouth with unwashed hands. Household Hygiene Procedures: Avoid sharing personal household items such as dishes, glassware, cups, eating utensils, towels or bedding with other people or pets in your home. After use, these items should be washed with soap and hot water. Disinfect all high-touch surfaces every day with antibacterial cleaning solutions such as Lysol wipes, bleach, cleansers, etc. High-touch surfaces include tabletops, doorknobs, bathroom fixtures, toilets, phones, keyboards, tablets and bedside tables. Immediately clean any surfaces that may have blood, poop or body fluids on them, using antibacterial cleaning solutions such as Lysol wipes, bleach, cleansers, etc. If clothing or bedding come into contact with blood, poop or body fluids, they should be washed immediately. Follow the directions on the laundry detergent and clothing labels but hot water is recommended when possible. Stopping home isolation precautions: If possible, consult your doctor before stopping home isolation precautions. According to the CDC, you can discontinue home isolation precautions when you have met both of these criteria: Your fever and respiratory symptoms have been gone for 24 paul (more content not included)... Normal [facility] CORONAVIRUS 2019 BY PCRon DATE OF SYMPTOM ONSET [YYYYMMDD]? [id number] [facility] Comment on above: Performed By: #### C OV19 #### [facility] [address] [place] [address] Lab Specimen Source Nasal, Nasopharyngeal Normal [facility] Comment on above: Performed By: #### C OV19 #### [facility] [address] [place] [address] GROUP A STREP,PCRon 05-14-20 21 GROUP A STREP,PCR Not detected Normal Not Detected [facility] Comment on above: Result Comment: This test was performed utilizing an FDA-cleared rapid nucleic acid amplification by PCR to qualitatively detect Group A Streptococci from throat swab specimens without the need for culture confirmation of negative results. Performed By: #### G APC1 #### [place] [address] Lab Specimen Source Throat Normal [facility] Comment on above: Performed By: #### G APC1 #### [place] [id number] Provider Note - ED v2on 04-29 Provider Note - ED v2 Provider Note - ED v2: Chart Review HISTORY OF PRESENTING ILLNESS YOLANDA is a 75 year old Male and was seen by me at 14-May-2021 08:30. The historian is the patient. Triage Information: Most recent Vital Sign Value Date PAST MEDICAL HISTORY ATTESTATION: I have reviewed and confirmed nurse's/medic's notes for patient's medications, allergies, and medical, surgical, family and social history ALLERGIES/INTOLERANCES: No Known Allergies HEALTH HISTORY: Medical History Name:HTN (hypertension) Code:I10 Name:Hyperlipidemia Code:E78.5 Name:Skin cancer Code:C44.90 No other known health issues. Follows closely with PCP. Family history: son currently with testicular CA Social history: Non-smoker. Works 11 hour days at [employer] (on his feet throughout most of shift). 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 OUTPATIENT MEDICATIONS: Home Medications Review Status for Reconciliation: Complete Med Status: Patient Currently Takes Medications Drug Name: lisinopril Instructions: null Drug Name: amoxicillin 875 mg oral tablet Instructions: 1 tab(s) orally 2 times a day x 10 days Drug Name: Claritin 10 mg oral tablet Instructions: 1 tab(s) orally once a day Drug Name: Exforge Instructions: null Drug Name: Lipitor Instructions: null SIGNIFICANT EVENTS: Past Medical History Description:skin CA Description:high cholesterol No other known significant events or other known past surgical history. Has received 2 doses of Moderna COVID-19 vaccine. Had COVID-19 in 10/2020. RESULTS/VITAL SIGNS VITAL SIGNS: T PRBP SpO2O2(LPM) %FiO2 Method 14-May-2021 08:23:[id number] 98 Recheck BP 172/83 MEDICAL DECISION MAKING/ED COURSE MDM/ED COURSE: This note was generated with voice recognition software and may contain errors including spelling, grammar, syntax, and misrecognization of what was dictated CHIEF COMPLAINT sore throat HISTORY OF PRESENT ILLNESS Presents today for evaluation of sore throat. He reports discomfort began at ~midnight last night; no known ill contacts. Throat feels like razor-blades. Also has mild nasal drainage (clear drainage; worst in the AM), but states this has been baseline since he had Rhinovirus and RSV in Winter 2018. Has had some generalized fatigue, and appetite has been poor over the past week (he attributes some of this to recent stressors and 11 hour days at work); states had lemonade early this AM and that triggered increase in throat discomfort. Otherwise, he has been drinking fluids (water) without difficulty. No loss of sense of taste or smell. Denies any headaches, fever, chills, nausea/vomiting, diarrhea, seasonal allergies, cough, ear pain, rash, body aches, malaise, and other constitutional symptoms. Has tried chloraseptic throat spray with some temporary relief; he also tried a steroid nasal spray for his runny nose in the past. Has not tried any other OTC medications or home remedies yet for symptom management. Reports is specifically concerned about Strep because he is planning to leave for [place] tomorrow AM to help his elderly in-laws move. He had COVID-19 infection in 10/2020, and had not had any residual problems prior to now. He received 2 doses of the Moderna COVID-19 vaccine, with second dose >2 weeks ago. Is a non-smoker; no known history of asthma, or any GI or renal issues. Reports significant life stressors right now - worries about his son, who is currently battling testicular CA, his daughter who is struggling with her brother's illness, and his in-laws - he is concerned that his current illness may prevent him from traveling to [place] this weekend to help them move. REVIEW OF SYSTEMS 10 systems reviewed negative with exception of history of present illness listed above PHYSICAL EXAMINATION General: Pleasant, well nourished, older male; alert and oriented; in no acute distress, although appears to be feeling mildly unwell, and seems overwhelmed and tearful at times when discussing recent stressors. Sitting comfortably on exam table. Non-dyspneic. Eyes: Pupils equal, round and reactive to light. No conjunctival erythema; no scleral icterus. HENT: Airway patent. No frontal or maxillary sinus tenderness, but mild audible nasal congestion and clear rhinorrhea. Nasal mucosa mildly injected and edematous. TMs and ear canals clear bilaterally. Oral mucosa moist. Posterior pharynx moderately erythematous but without any oropharyngeal exudate aside from PND. Uvula is midline. Is able to manage oral secretions without difficulty. Neck: Supple. No palpable lymphadenopathy. Respiratory: Respirations easy and unlabored, Breath sounds equal, and with good air movement throughout. Lungs are clear to auscultation; no wheezes, rhonchi, or rales. No cough noted during (more content not included)... Normal [facility] BASIC METABOLIC PANELon 01-3 Anion gap [Moles/Vol] 12 mmol/L Normal 10 - 20 [facility] Comment on above: Performed By: #### B MP #### [address] [address] Calcium [Mass/Vol] 8.6 mg/dL Normal 8.6 - 10.3 [facility] Comment on above: Performed By: #### B MP #### [address] [address] Chloride [Moles/Vol] 103 mmol/L Normal 98 - 107 [facility] Comment on above: Performed By: #### B MP #### [address] [address] Creatinine [Mass/Vol] 1.05 mg/dL Normal 0.50 - 1.30 [facility] Comment on above: Performed By: #### B MP #### [address] [address] GFR- AM. >60 Normal >60 [facility] Comment on above: Result Comment: CALC ULATIONS OF ESTIMATED GFR ARE PERFORMED USING THE MDRD STUDY EQUATION FOR THE IDMS-TRACEABLE CREATININE METHODS. CLIN CHEM 2007;53:766-72 Performed By: #### B MP #### [address] [address] GFR-NON AM. >60 Normal >60 [facility] Comment on above: Performed By: #### B MP #### [address] [address] Glucose [Mass/Vol] 98 mg/dL Normal 74 - 99 [facility] Comment on above: Performed By: #### B MP #### [address] [address] HCO3 (Bld) [Moles/Vol] 27 mmol/L Normal 21 - 32 [facility] Comment on above: Performed By: #### B MP #### [address] [address] Potassium [Moles/Vol] 4.0 mmol/L Normal 3.5 - 5.3 [facility] Comment on above: Performed By: #### B MP #### [address] [address] Sodium [Moles/Vol] 138 mmol/L Normal 136 - 145 [facility] Comment on above: Performed By: #### B MP #### [address] [address] Urea nitrogen [Mass/Vol] 15 mg/dL Normal 6 - 23 [facility] Comment on above: Performed By: #### B MP #### [address] [address] BLOOD CULTURE, BACTERIALon 0 11-28-2020 BLOOD CULTURE, BACTERIAL PATIENT: YOLANDA HATFIELD LOCATION: [facility]#: [id number] : 49 AGE: SEX: M ORDERED BY: KRUPA ZHANG SOURCE: Blood COLLECTED: 11/28/20 19:44 ANTIBIOTICS AT RONNI.: RECEIVED : 11/29/20 12:45 SITE: ANTECUBITAL R E S U L T S BLOOD CULTURE, BACTERIAL FINAL 12/04/20 13:42 No Growth at 1 days No Growth at 2 days No Growth at 3 days No Growth at 4 days NO GROWTH - FINAL REPORT [facility] Comment on above: Performed By: #### B LDC #### [facility] [address] [place] [address] BLOOD CULTURE, BACTERIAL PATIENT: YOLANDA HATFIELD LOCATION: [facility]#: [id number] : 49 AGE: SEX: M ORDERED BY: KRUPA ZHANG SOURCE: Blood COLLECTED: 11/28/20 19:44 ANTIBIOTICS AT RONNI.: RECEIVED : 11/29/20 12:47 SITE: R E S U L T S BLOOD CULTURE, BACTERIAL FINAL 12/04/20 13:42 No Growth at 1 days No Growth at 2 days No Growth at 3 days No Growth at 4 days NO GROWTH - FINAL REPORT [facility] Comment on above: Performed By: #### B LDC ####[id number] [place] [address] CBCon 11-28-2020 Erythrocyte distribution width (RBC) [Ratio] 13.3 % Normal 11.5 - 14.5 [facility] Comment on above: Performed By: #### C BC #### [address] [address] Hematocrit (Bld) [Volume fraction] 38.5 % Low 41.0 - 52.0 [facility] Comment on above: Performed By: #### C BC #### [address] [address] Hemoglobin (Bld) [Mass/Vol] 12.6 g/dL Low 13.5 - 17.5 [facility] Comment on above: Performed By: #### C BC #### [address] [address] MCHC (RBC) [Mass/Vol] 32.8 g/dL Normal 32.0 - 36.0 [facility] Comment on above: Performed By: #### C BC #### [address] [address] MCV (RBC) [Entitic vol] 95 fL Normal 80 - 100 [facility] Comment on above: Performed By: #### C BC #### [address] [address] Platelets (Bld) [#/Vol] 246 10*3/uL Normal 150 - 450 [facility] Comment on above: Performed By: #### C BC #### [address] [address] RBC 4.08 x10E12/L Low 4.50 - 5.90 [facility] Comment on above: Performed By: #### C BC #### [address] [address] WBC (Bld) [#/Vol] 5.2 10*3/uL Normal 4.4 - 11.3 [facility] Comment on above: Performed By: #### C BC #### [address] [address] CHEST 1 VIEWon 11-28-2020 CHEST 1 VIEW Patient Name: YOLANDA HATFIELD STUDY: CHEST 1 VIEW; 11/28/2020 7:58 pm INDICATION: fever. COMPARISON: None ACCESSION NUMBER(S): [id number] ORDERING CLINICIAN: KRUPA ZHANG FINDINGS: The cardiac silhouette size is within normal limits. There is no focal consolidation, edema or pneumothorax. No sizeable pleural effusion. No acute osseous abnormality. IMPRESSION: No radiographic evidence of acute cardiopulmonary process. Electronically signed by: LENNY MERAZ MD Normal [facility] CORONAVIRUS 2019 BY PCRon SARS-CoV-2 (COVID-19) RNA LEDY+probe Ql (Unsp spec) Detected Abnormal Not Detected [facility] Comment on above: Order Comment: Konstantin d- RB to SANTANAGÓMEZ SWENSON BY CHRYSTAL @2055 , 11/28/2020 20:57 Result Comment: . This test has received [facility] Emergency Use Authorization (EUA) and has been verified by [facility]. This test is only authorized for the duration of time that circumstances exist to justify the authorization of the emergency use of in vitro diagnostic tests for the detection of SARS-CoV-2 virus and/or diagnosis of COVID-19 infection under section 564(b)(1) of the Act, 21 U.S.C. 360bbb-3(b)(1), unless the authorization is terminated or revoked sooner. [facility] is certified under CLIA-88 as qualified to perform high complexity testing. Testing is performed in the [facility] laboratory located at [address] [place] [address]. SARS-CoV-2/Flu/RSV Multiplex Test: Fact sheet for providers: https://www.fda.gov/media/455867/download Fact sheet for patients: https://www.fda.gov/media/401777/download Called- RB to SANTANA SWENSON BY CHRYSTAL @2055 , 11/28/2020 20:57 Performed By: #### C OV19 #### [address] [place] [address] Lab Specimen Source Nasal, Nasopharyngeal Normal [facility] Comment on above: Order Comment: Konstantin shahid- RB to SANTANA SWENSON BY PJB @2055 , 11/28/2020 20:57 Performed By: #### C OV19 #### [address] [place] [address] DATE OF SYMPTOM ONSET [[id number]]? [id number] [facility] Comment on above: Order Comment: Konstantin shahid- RB to SANTANA SWENSON BY PJB @2055 , 11/28/2020 20:57 Performed By: #### C OV19 #### [address] [place] [address] Covid 19 Resultson 1 SARS-CoV-2 (COVID-19) RNA LEDY+probe Ql (Unsp spec) POSITIVE COVID-19 Test Coronaviruses are common world-wide and are the cause of many common colds. SARS-COV2 is a new coronavirus that began circulating worldwide in 2019 so we are calling it COVID-19. It has been estimated that four out of five patients with COVID-19 will recover at home without the need for medical attention. Symptoms of COVID-19 include cough, fever, shortness of breath, loss of taste or smell and other flu-like symptoms including chills, sore muscles, sore throat, and headache. Severe illness is more common in older people and people with other health problems such as high blood pressure, obesity, and immune system problems. If the test is positive, you have COVID-19. You will be contacted by the ordering physicians office and instructed to remain on home isolation, in accordance with CDC guidelines. You may also be contacted by the [facility] to see if any of your close contacts may have been exposed to the virus and need to quarantine. If the test is negative, you likely do not have COVID-19 at this time, but you still may have a different illness that can spread to other people (like Influenza, or the Flu) and could still be at risk for getting COVID-19. We recommend that you stay away from other people to limit the spread of illness until your symptoms are improving and you are fever-free for 24 hours without the use of fever lowering medications such as acetaminophen or ibuprofen. No test is 100% accurate so if you are still concerned you may have COVID-19, talk to your doctor about the need to continue to stay away from others. Medicines Acetaminophen (Tylenol and others) is generally safe. Anti-inflammatory medications, such as Ibuprofen (Advil or Motrin) or Naproxen (Aleve) can also be used. Bxai-emc-vukdtog cough and cold medicines can be used according to the instructions on the package. Some kowt-gnn-ekukzwp medicines also contain acetaminophen. Make sure you are not taking more than your recommended dose For those not hospitalized, there is no specific treatment available for this illness. Antibiotics do not treat Coronaviruses. Follow-Up Follow up with your doctor by scheduling a virtual visit or consider follow-up at one of our urgent care fever clinics. If you are having difficulty breathing, or are very weak and having difficulty standing, this is a medical emergency. Call 911 or have someone take you to the nearest emergency room immediately. If possible, wear a facemask. Additional guidance from the CDC for patients who tested POSITIVE for COVID-19 How to isolate: Isolate yourself in a specific room at home and limit your contact with others. Use a separate bathroom from other members of the household, when possible. Leave home only to get essential medical care. Do not go to work, school or public areas. Avoid using public transportation, ride-sharing, or taxis. Restrict contact with pets and other animals. If you must care for your pet or be around animals while you are sick, wash your hands before and after your interaction and wear a facemask. Make sure that shared spaces in the home have good airflow, such as by an air conditioner or an opened window, weather permitting. Personal Hygiene Procedures: Wear a face mask when in the same room as other people or pets. If a face mask interferes with your breathing, others should wear a mask when sharing space with you. Frequent hand-washing: wash your hands with soap and water for at least 20 seconds. If soap and water are not available, use alcohol-based hand pump erector helper. Avoid touching your eyes, nose, and mouth with unwashed hands. Household Hygiene Procedures: Avoid sharing personal household items such as dishes, glassware, cups, eating utensils, towels or bedding with other people or pets in your home. After use, these items should be washed with soap and hot water. Disinfect all high-touch surfaces every day with antibacterial cleaning solutions such as Lysol wipes, bleach, cleansers, etc. High-touch surfaces include tabletops, doorknobs, bathroom fixtures, toilets, phones, keyboards, tablets and bedside tables. Immediately clean any surfaces that may have blood, poop or body fluids on them, using antibacterial cleaning solutions such as Lysol wipes, bleach, cleansers, etc. If clothing or bedding come into contact with blood, poop or body fluids, they should be washed immediately. Follow the directions on the laundry detergent and clothing labels but hot water is recommended when possible. Stopping home isolation precautions: If possible, consult your doctor before stopping home isolation precautions. According to the CDC, you can discontinue home isolation precautions when you have met both of these criteria: Your fever and respiratory symptoms have been gone for 24 hours without the use of any medicines like ibuprofen (Motrin) (more content not included)... Normal [facility] Provider Note - ED v2on 11-01 Provider Note - ED v2 Provider Note - ED v2: Chart Review: ED NOTES ED NOTES: pt presented to the ER for fever, chills, and headache. 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 pt reported that he can smell and taste. He denies any nausea, vomiting, diarrhea or abdominal pain. Patient denies having cough, shortness of breath, congestion or sore throat. He was concerned bc his has a lung disease and he didn't want to get her sick. HISTORY OF PRESENTING ILLNESS YOLANDA is a 75 year old Male and was seen by me at 28-Nov-2020 18:56 for a chief complaint of headache (Patient states for 2 days he has had a Headache and fever. Has also had a dry cough. Denies SOB.)(1). Triage Information: Most recent Vital Sign Value Date Temp (F): 99.4 11-28-2020 18:44 Temp (C): 37.4 11-28-2020 18:44 Heart Rate (beats/min): 86 11-28-2020 18:44 Respirations (breaths/min): 20 11-28-2020 18:44 SpO2 (%): 96 11-28-2020 18:44 BP Systolic (mm Hg): 164 11-28-2020 18:44 BP Diastolic (mm Hg): 92 11-28-2020 18:44 PAST MEDICAL HISTORY ATTESTATION: I have reviewed and confirmed nurse's/medic's notes for patient's medications, allergies, and medical, surgical, family and social history ALLERGIES/INTOLERANCES: No Known Allergies HEALTH HISTORY: No documented data. OUTPATIENT MEDICATIONS: Home Medications Review Status for Reconciliation: N/A Med Status: N/A No documented data. SIGNIFICANT EVENTS: Past Medical History Description:skin CA Description:high cholesterol REVIEW OF SYSTEMS REVIEW OF SYSTEMS: Comments Gen.: reported chills, fever. Eyes: No vision loss, double vision, drainage, eye pain. ENT: No pharyngitis, congestion Cardiac: No chest pain, palpitations, syncope, near syncope. Pulmonary: No shortness of breath, cough Heme/lymph: No swollen glands, fever, bleeding. GI: Denies abdominal pain, nausea, vomiting, diarrhea, constipation Musculoskeletal: No limb pain, joint pain, joint swelling. Skin: No rashes. neuro: reported headache, but denies any dizziness, numbness, weakness to extremities, vertigo Review of systems is otherwise negative unless stated above or in history of present illness. RESULTS/VITAL SIGNS RESULTS: Recent Lab Results: I have reviewed these laboratory results: Complete Blood Count [Drawn 28-Nov-2020 19:44:00], Basic Metabolic Panel [Drawn 28-Nov-2020 19:44:00], Urinalysis [Drawn 28-Nov-2020 19:18:00], Urinalysis, Microscopic [Drawn 28-Nov-2020 19:18:00], Coronavirus 2019 by PCR [Drawn 28-Nov-2020 19:16:00]. Radiology Results: Xray Chest 1 View [Nov 28 2020 8:28PM] VITAL SIGNS: T PRBP SpO2O2(LPM) %FiO2 Method 28-Nov-2020 18:44:[id number] 96 room air, no respiratory support PHYSICAL EXAM Image Comments: Physical Exam: Appearance: Alert, oriented , cooperative, in no acute distress. Well nourished & well hydrated. Skin: Intact, dry skin, no lesions, rash, petechiae or purpura. Eyes: PERRLA, EOMs intact, Conjunctiva pink with no redness or exudates. Eyelids without lesions. No scleral icterus. ENT: Hearing grossly intact. External auditory canals patent, Nares patent, mucus membranes moist. Dentition without lesions. Pharynx clear, uvula midline. Neck: Supple, without meningismus. Thyroid not palpable. Trachea at midline. No lymphadenopathy. Pulmonary: Clear bilaterally with good chest wall excursion. No rales, rhonchi or wheezing. No accessory muscle use or stridor. Cardiac: Normal S1, S2 without murmur, rub, gallop or extrasystole. Abdomen: Soft, nontender, active bowel sounds. No palpable organomegaly. No rebound or guarding. Genitourinary: Exam deferred. Musculoskeletal: Full range of motion. no pain, edema, or deformity. Pulses full and equal. No cyanosis, clubbing, or edema. Neurological: Cranial nerves II through XII are grossly intact, finger-nose touch is normal, normal sensation, no weakness, no focal findings identified. Psychiatric: Appropriate mood and affect. MEDICAL DECISION MAKING/ED COURSE MDM/ED COURSE: pt's lab work and xray was unremarkable Covid test came back negative. Patient was updated on called about the results CLINICAL IMPRESSION Diagnosis/Annotation: ED Dx Name:JOSSELINEID-19 Code:U07.1 Disposition: discharged ATTESTATION CRITICAL CARE TIME Is this a critically ill patient: no Electronic Signatures: Krupa Zhang () (Signed 28-Nov-2020 21:19) Authored: ED Notes, HPI, PMH, ROS, PE, Results/Vital Signs, MDM/ED Course, Clinical Impression, Attestation, Chart Review, Scores Last Updated: 28-Nov-2020 21:19 by Krupa Zhang () References: 1. Data Referenced From Triage - ED 28-Nov-2020 18:44 Normal [facility] Risk Screen - Adult Emergenc yon 11-28-2020 Risk Screen - Adult Emergency Preferred Language: Preferred Language: Preferred Language for Discussing Health Care (patient/designee)Jasmin chapa Advanced Directives: Advance Directive/DNRno Family Violence Adult: Abuse Screen: Are you or have you been threatened or abused physically, emotionally, or sexually by anyoneno Learning Assessment (Patient): Learning Assessment (Patient): Patient is Able to be Assessed for Learningyes Factors Influencing Readiness to Learnacuteness of illness Factors that Impact Ability to Learnnone Devices/Methods Used to Communicatenone Learning Preferencesverbal instruction Cultural Considerationsnone Developmental Considerationsnone Jain Considerationsnone Learning Assessment (Other Learner): Learning Assessment (Other Learner): Other learner availableno Pressure Injury/TB/Substance: Pressure Injury: Do you have a coughyes... Has your cough lasted longer than 2 weeksno Substance Use Current or Former Historynever: Cigarette/Tobacco, e-Cigarette/Vaping, Street Drugs YES: Alcohol Alcohol Useoccasionally Admission Risk Screen: Significant IndicatorsComplete CAGE: CAGE: Is this an injured patient at a Trauma Center ([facility]/[place]): no Electronic Signatures: Santana Swenson (MARCI) (Signed 28-Nov-2020 18:51) Authored: Preferred Language, Advanced Directives, Family Violence Adult, Learning Assessment (Patient), Learning Assessment (Other Learner), Pressure Injury/TB/Substance, Pressure Injury, CAGE Last Updated: 28-Nov-2020 18:51 by Santana Swenson (MARCI) [facility] Triage - EDon 11-28-2020 Triage - ED Chart Review: PRIMARY ASSESSMENT YOLANDA HATFIELD's primary assessment is Within Defined Limits. The airway is open and patent. Breathing spontaneous and unlabored with clear breath sounds bilaterally. Circulation is normal with good peripheral pulses. Skin is warm and dry and color is normal for race. ARRIVAL INFORMATION Mode of Arrival: private vehicle CHIEF COMPLAINT YOLANDA HATFIELD is a Male patient with a chief complaint of headache (Patient states for 2 days he has had a Headache and fever. Has also had a dry cough. Denies SOB.). Triage Date/Time: 28-Nov-2020 18:44 Pain Rating (0-10): 6 = Moderate Vital Signs: Temperature: 99.4F ( 37.4C) taken oral Blood Pressure: 164/92 Mean: Heart Rate: 86 Respiratory Rate: 20 Pulse Oximetry: 96% on room air, no respiratory support. Height: 5 feet 10.00 inches. 177.8 CM Weight: 165.3 pounds. Calculated 75.0 kg. (stated) Calculated BMI (kg/m2): 23.724 Calculated BSA (m2) 1.92 Daja Coma Scale: Best Eye Response: (E4) spontaneous Best Motor Response: (M6) obeys commands Best Verbal Response: (V5) oriented Daja Score: 15 Cough lasting greater than 3 weeks: no Allergies: no Mask applied: yes Patient has homicidal thoughts: no JUANI: 3 Symptom Notes: . Symptoms Are POSITIVE For: nausea and neck pain. Symptoms Are Negative For: anorexia, anxiety, blurred vision, congestion, eye pain, facial pain and photophobia. Last Known Well: known Time Last Known Well Date/Time: 28-Nov-2020 Risk Screens Suicide Risk Screen In the Past Month: Have you wished you were or wished you could go to sleep and not wake up no In the Past Month: Have you had any actual thoughts of killing yourself no In Your Lifetime: Have you ever done anything, started to do anything, or prepared to do anything to end your life no So Fall Scale Screening Has the patient fallen before (or is the patient in the ED as a result of a fall) has not had a fall Does the patient have an impaired gait does not have impaired gait Is the patient cognitively impaired not cognitively impaired Interventions: So Fall Interventions: LOW INTERVENTIONS: *patient oriented to surroundings and call system, * patient/family falls education completed and documented, *patients fall status communicated during bedside handoff, *whiteboard updated, *mode of toileting discussed with patient, *bed in low position with brakes locked, *call light in reach, * non-skid footwear TRAVEL HISTORY Travel History Coronavirus Screening: positive for symptoms PAIN Pain Scale Used: JAIMIE Pain Rating (0-10): 6 = Moderate Past Medical History: Past Medical History Reviewedyes high cholesterol: Past Medical History, Active skin CA: Past Medical History, Active Electronic Signatures: Santana Swenson (MARCI) (Signed 28-Nov-2020 18:51) Authored: Quick Triage, Risk Screens, Pain, ABCD, Chart Review, Scores, Past Medical History Last Updated: 28-Nov-2020 18:51 by Santana Swenson) [facility] 11-28-2020 Mucus Ql (Urine sed) 3+ /LPF Normal [facility] Comment on above: Performed By: #### U AMIC ####[address] [address] RBC 7 /HPF Abnormal 0-5 [facility] Comment on above: Performed By: #### U AMIC ####[place] [id number] WBC 1 /HPF Normal 0-5 [facility] Comment on above: Performed By: #### U AMIC ####[place] [id number] URINALYSISon 11-28-2020 Appearance (U) CLEAR Normal CLEAR [facility] Comment on above: Performed By: #### U A #### [address] [address] Bilirubin Ql (U) Negative Normal NEGATIVE [facility] Comment on above: Performed By: #### U A #### [place] [address] Color (U) Yellow Normal STRAW,YELL OW [facility] Comment on above: Performed By: #### U A #### [address] [address] Glucose Ql (U) Negative Normal NEGATIVE [facility] Comment on above: Performed By: #### U A #### [address] [address] Hemoglobin Ql (U) SMALL(1+) Abnormal NEGATIVE [facility] Comment on above: Performed By: #### U A #### [address] [address] Ketones Ql (U) 5(TRACE) Abnormal NEGATIVE [facility] Comment on above: Performed By: #### U A #### [address] [address] Leukocyte esterase Test strip Ql (U) Negative Normal NEGATIVE [facility] Comment on above: Performed By: #### U A #### [place] [id number] Nitrite Ql (U) Negative Normal NEGATIVE [facility] Comment on above: Performed By: #### U A #### [address] [address] pH (U) 5.0 [pH] Normal 5.0 - 8.0 [facility] Comment on above: Performed By: #### U A #### [address] [address] Protein Ql (U) 30(1+) Abnormal NEGATIVE [facility] Comment on above: Performed By: #### U A #### [address] [address] Specific gravity (U) [Rel density] 1.027 Normal 1.005 - 1.035 [facility] Comment on above: Performed By: #### U A #### [address] [address] Urobilinogen (U) [Mass/Vol] mg/dL Normal 0.0 - 1.9 [facility] Comment on above: Performed By: #### U A #### [address] [address] Office Visiton 07-13-2017 Documentation of current medications (procedure) Done Invalid Interpretation Code [facility] Work Phone: Tobacco use [facility] Never smoker Invalid Interpretation Code [facility] Work Phone: Office Visiton 04-11-2017 Documentation of current medications (procedure) Done Invalid Interpretation Code [facility] Work Phone: [phone] Protein mass conc Done [facility] Work Phone: Tobacco smoking status NHIS Never smoker [facility] Work Phone: Tobacco use [facility] Never smoker Invalid Interpretation Code [facility] Work Phone: IOL BIOMETRY W/ IOL CALC OU (BOTH EYES) [facility] Vital Signs Date Time Vital Sign Value Performing Clinician Facility 05-09-2025 10:16-0400 Body height 177.8 cm Chalon Eddie MD Work Phone: [facility] 02-24-2025 09:12-0400 Body mass index (BMI) [Ratio] 25.8 kg/m2 Linda Ibarra MD Work Phone: [facility] 02-24-2025 09:12-0400 Body weight 81.64 kg Linda Ibarra MD Work Phone: [facility] 02-17-2025 09:00-0400 Body mass index (BMI) [Ratio] 25.8 kg/m2 Linda Ibarra MD Work Phone: [facility] 02-17-2025 09:00-0400 Body weight 81.64 kg Linda Ibarra MD Work Phone: [facility] 02-10-2025 10:57-0400 Body mass index (BMI) [Ratio] 25.8 kg/m2 Linda Ibarra MD Work Phone: [facility] 02-10-2025 10:57-0400 Body weight 81.64 kg Linda Ibarra MD Work Phone: [facility] 10-21-2024 08:15-0500 Body temperature 98.2 [degF] Linda Ibarra MD Work Phone: [facility] 10-21-2024 08:15-0500 Diastolic blood pressure 70 mm[Hg] Linda Ibarra MD Work Phone: [facility] 10-21-2024 08:15-0500 Heart rate 95 /min Linda Ibarra MD Work Phone: [facility] 10-21-2024 08:15-0500 Respiratory rate 12 /min Linda Ibarra MD Work Phone: [facility] 10-21-2024 08:15-0500 SaO2% (BldA) [Mass fraction] 100 % Linda Ibarra MD Work Phone: [facility] 10-21-2024 08:15-0500 Systolic blood pressure 112 mm[Hg] Linda Ibarra MD Work Phone: [facility] 10-20-2024 12:19-0500 Body height 177.8 cm Linda Ibarra MD Work Phone: [facility] 10-07-2024 06:17-0500 Body temperature 97.9 [degF] Linda Ibarra MD Work Phone: [facility] 10-07-2024 06:17-0500 Diastolic blood pressure 82 mm[Hg] Linda Ibarra MD Work Phone: [facility] 10-07-2024 06:17-0500 Heart rate 66 /min Linda Ibarra MD Work Phone: [facility] 10-07-2024 06:17-0500 Respiratory rate 16 /min Linda Ibarra MD Work Phone: [facility] 10-07-2024 06:17-0500 SaO2% (BldA) [Mass fraction] 97 % Linda Ibarra MD Work Phone: [facility] 10-07-2024 06:17-0500 Systolic blood pressure 142 mm[Hg] Linda Ibarra MD Work Phone: [facility] 09-18-2023 14:48-0500 Body mass index (BMI) [Ratio] 26.14 kg/m2 Omar Salguero MD Work Phone: [facility] 09-18-2023 14:48-0500 Body weight 85 kg Omar Salguero MD Work Phone: [facility] 09-06-2023 07:58-0500 Body height 180.3 cm Pacc 1 Work Phone: [facility] 09-06-2023 07:58-0500 Body temperature 97.9 [degF] Pacc 1 Work Phone: [facility] 09-06-2023 07:58-0500 Body weight 83.92 kg Pacc 1 Work Phone: [facility] 09-06-2023 07:58-0500 Diastolic blood pressure 86 mm[Hg] Pacc 1 Work Phone: [facility] 09-06-2023 07:58-0500 Heart rate 69 /min Pacc 1 Work Phone: [facility] 09-06-2023 07:58-0500 Respiratory rate 16 /min Pacc 1 Work Phone: [facility] 09-06-2023 07:58-0500 SaO2% (BldA) [Mass fraction] 97 % Pacc 1 Work Phone: [facility] 09-06-2023 07:58-0500 Systolic blood pressure 154 mm[Hg] Pacc 1 Work Phone: [facility] 09-01-2023 14:10-0400 Body height 180.3 cm Susan Farley MD Work Phone: [facility] 09-01-2023 14:10-0400 Body mass index (BMI) [Ratio] 26.1 kg/m2 Susan Farley MD Work Phone: [facility] 09-01-2023 14:10-0400 Body temperature 97.39 [degF] Susan Farley MD Work Phone: [facility] 09-01-2023 14:10-0400 Body weight 84.87 kg Susan Farley MD Work Phone: [facility] 12-27-2022 08:54-0500 Body height 177.8 cm Susan Farley MD Work Phone: YD-Phixywplkmpsmi-Nw jonny Work Phone: 12-27-2022 08:54-0500 Body mass index (BMI) [Ratio] 26.49 kg/m2 Susan Farley MD Work Phone: XC-Eqvjbwjkqetztk-Xp burban Work Phone: 12-27-2022 08:54-0500 Body surface area Derived from formula 2.02 m2 Susan Farley MD Work Phone: PP-Qwvtqfkjehuwor-Ei [facility] Work Phone: 12-27-2022 08:54-0500 Body temperature 98 [degF] Susan Farley MD Work Phone: KG-Waopgggqalvhse-Px [place] Work Phone: 12-27-2022 08:54-0500 Body weight 83.73 kg Susan Farley MD Work Phone: VW-Fnlkwyoezhrjst-Ti burban Work Phone: 07-26-2022 11:01-0400 Body height 175.26 cm Susan Farley MD Work Phone: IM-Vqsvysfxiezeju-Mh burban Work Phone: 07-26-2022 11:01-0400 Body mass index (BMI) [Ratio] 25.73 kg/m2 Susan Farley MD Work Phone: YB-Nkfhqjzrcrssoi-Mq burban Work Phone: 07-26-2022 11:01-0400 Body surface area Derived from formula 1.95 m2 Susan Farley MD Work Phone: GX-Gizlwdonutzxxi-Kx burban Work Phone: 07-26-2022 11:01-0400 Body temperature 96.7 [degF] Susan Farley MD Work Phone: MG-Jpehohcepcbxel-Zr burban Work Phone: 07-26-2022 11:01-0400 Body weight 79.04 kg Susan Farley MD Work Phone: GA-Audhtdrksmcqyo-Px burban Work Phone: 07-18-2022 09:51-0400 Body height 175.26 cm Susan Farley MD Work Phone: ZJ-Qabymvggnljitk-Gm burban Work Phone: 07-18-2022 09:51-0400 Body mass index (BMI) [Ratio] 26.23 kg/m2 Susan Farley MD Work Phone: [facility] Work Phone: 07-18-2022 09:51-0400 Body surface area Derived from formula 1.96 m2 Susan Farley MD Work Phone: [facility] Work Phone: 07-18-2022 09:51-0400 Body temperature 96 [degF] Susan Farley MD Work Phone: [facility] Work Phone: 07-18-2022 09:51-0400 Body weight 80.56 kg Susan Farley MD Work Phone: [facility] Work Phone: 04-22-2022 12:38-0400 Body height 177.8 cm Susan Farley MD Work Phone: [facility] 4100 Work Phone: 04-22-2022 12:38-0400 Body mass index (BMI) [Ratio] 25.66 kg/m2 Susan Farley MD Work Phone: [facility] 4100 Work Phone: 04-22-2022 12:38-0400 Body surface area Derived from formula 1.99 m2 Susan Farley MD Work Phone: IM-Gpsswgfcylvejg-GwCHI [facility] 4100 Work Phone: 04-22-2022 12:38-0400 Body temperature 96.8 [degF] Susan Farley MD Work Phone: AA-Gghwmgavautnpz-VjCHI [facility] 4100 Work Phone: 04-22-2022 12:38-0400 Body weight 81.1 kg Susan Farley MD Work Phone: ZM-Nfdgjpttjpiaka-JkCHI [facility] 4100 Work Phone: 04-20-2022 09:56-0400 Body height 177.8 cm Omar Salguero MD Work Phone: TI-Ywhwpgqywhcwyx-GnCHI [facility] 4100 Work Phone: 04-20-2022 09:56-0400 Body mass index (BMI) [Ratio] 25.83 kg/m2 Omar Salguero MD Work Phone: [facility] Work Phone: 04-20-2022 09:56-0400 Body surface area Derived from formula 2 m2 Omar Salguero MD Work Phone: [facility] 4[facility] Work Phone: 04-20-2022 09:56-0400 Body temperature 96.1 [degF] Omar Salguero MD Work Phone: RJ-Olxxcyjsyppvwv-KdCHI [facility] 4100 Work Phone: 04-20-2022 09:56-0400 Body weight 81.65 kg Omar Salguero MD Work Phone: PE-Dhrwhpzudtxzaf-ZzCHI [facility] 4100 Work Phone: 04-07-2022 08:09-0400 Diastolic blood pressure 76 mm[Hg] [facility] Mor[facility] 04-07-2022 08:09-0400 Systolic blood pressure 163 mm[Hg] Kirk Morales [facility] 03-30-2022 10:53-0400 Body height 177.8 cm Omar Salguero MD Work Phone: DX-Rmdgjofbzyxdep-Qu stla Work Phone: 03-15-2022 08:53-0400 Body height 177.8 cm Susan Farley MD Work Phone: EL-Vnopkmagavjgrg-Na burban Work Phone: 03-15-2022 08:53-0400 Body mass index (BMI) [Ratio] 25.83 kg/m2 Susan Farley MD Work Phone: GW-Pyfifnrwwiecbl-Dv burban Work Phone: 03-15-2022 08:53-0400 Body surface area Derived from formula 2 m2 Susan Farley MD Work Phone: QG-Jljtsxcpqitxva-Ia burban Work Phone: 03-15-2022 08:53-0400 Body temperature 97.4 [degF] Susan Farley MD Work Phone: QY-Umhcgmfnqqepuk-Ux burban Work Phone: 03-15-2022 08:53-0400 Body weight 81.65 kg Susan Farley MD Work Phone: PA-Hexxcqhigftdtm-Xz burban Work Phone: 08-26-2021 11:56-0400 Body height 180.3 cm Text Entry [facility] 08-26-2021 11:56-0400 Body temperature 98.78 [degF] Text Entry Free [facility] 08-26-2021 11:56-0400 Diastolic blood pressure 80 mm[Hg] Text Entry Free [facility] 08-26-2021 11:56-0400 Systolic blood pressure 159 mm[Hg] Text Entry Free [facility] 05-14-2021 10:23-0400 Body height 177.8 cm Text Entry [facility] 05-14-2021 10:23-0400 Body temperature 98.42 [degF] Text Entry [facility] 05-14-2021 10:23-0400 Diastolic blood pressure 97 mm[Hg] Text Entry Free [facility] 05-14-2021 10:23-0400 Heart rate 70 /min Text Entry [facility] 05-14-2021 10:23-0400 Respiratory rate 16 /min Text Entry [facility] 05-14-2021 10:23-0400 SaO2% (BldA) [Mass fraction] 98 % Text Entry Free [facility] 05-14-2021 10:23-0400 Systolic blood pressure 181 mm[Hg] Text Entry [facility] 06-09-2016 13:51-0400 BMI (Body Mass Index) 24.82 kg/m2 [facility] Work Phone: 06-09-2016 13:51-0400 Height 180.34 cm [facility] Work Phone: 06-09-2016 13:51-0400 Weight 80.74 kg [facility] Work Phone: 11-02-2012 10:04-0500 Body Temperature 97.6 [degF] [facility] Work Phone: 11-02-2012 10:04-0500 BP Diastolic 87 mm[Hg] [facility] Work Phone: 11-02-2012 10:04-0500 BP Systolic 155 mm[Hg] [facility] Work Phone: 11-02-2012 10:04-0500 BSA (Body Surface Area) 2 m2 [facility] Work Phone: 11-02-2012 10:04-0500 Pulse (Heart Rate) 65 /min Shelby Alonzoio[facility] Work Phone: 11-02-2012 10:04-0500 Respiratory Rate 14 /min Shelby Alonzoioana [facility] Work Phone: [phone] 23:00-0500 >na< Lisa Hawkins Dept. of Dermato logy Encounters Encounter Date Encounter Type Care Provider Facility Start: 06-17-2025 [facility] Facility:[facility] Start: 06-16-2025 Encounter for other preprocedural examination [facility] Start: 05-28-2025 End: 05-28-[address] Chris Burton DO -[facility] Work Phone: Start: 05-28-2025 End: 05-28-2025 ambulatory Linda Ibarra MD Work Phone: [facility] Start: 05-26-2025 End: 05-26-2025 ambulatory Linda Ibarra MD Work Phone: -[facility] Start: 05-26-2025 End: 05-26-[address] Chris Burton DO -[facility] Work Phone: Start: 05-26-2025 End: 05-26-2025 ambulatory Chalangelic [facility] Facility:[facility] Start: 05-12-2025 End: 05-12-[address] Rosendo Mccain MD -[facility] Start: 05-12-2025 End: 05-12-2025 ambulatory Linda Ibarra MD Work Phone: -[facility] Start: 02-24-2025 End: 02-24-[address] Chris Burton DO -[facility] Work Phone: Start: 02-24-2025 End: 02-24-2025 ambulatory Chalangelic Ibarra Facility:[facility] Start: 02-17-2025 End: 02-17-[address] [facility] Work Phone: Start: 02-17-2025 End: 02-17-2025 ambulatory Chalon Eddie Facility:[facility] Start: 02-10-2025 End: 02-10-[address] [facility] Work Phone: Start: 02-10-2025 End: 02-10-2025 ambulatory Chalon Eddie Facility:[facility] Start: 02-03-2025 End: 02-03-[address] [facility] Work Phone: Start: 02-03-2025 End: 02-03-2025 ambulatory Chalon Eddie Facility:[facility] Start: 01-27-2025 End: 01-27-2025 ambulatory Linda Ibarra MD Work Phone: [facility] Work Phone: Start: 01-27-2025 End: 01-27-[address] [facility] Start: 01-27-2025 End: 01-27-2025 ambulatory Chalon Eddie Facility:[facility] Start: 01-13-2025 End: 01-13-[address] [facility] Work Phone: Start: 01-13-2025 End: 01-13-2025 ambulatory Chalon Eddie Facility:[facility] Start: 12-25-2024 End: 12-25-2024 ambulatory CHERIE COVINGTON II Facility:[facility] Start: 12-25-2024 End: 12-25-2024 Patient encounter procedure Cherie Covington OD Work Phone: Optometry Comment on above: Regular astigmatism, bilateral (Primary Dx); Hyperopia, right; Myopia of left eye; Presbyopia; Glaucoma suspect of both eyes; Chronic dryness of left eye; Pseudophakia of both eyes Start: 11-28-2024 End: 11-28-[address] Linda Ibarra MD -Laboratory, [facility] Start: 11-28-2024 End: 11-28-2024 ambulatory Chalon Eddie Facility:[facility] Start: 10-21-2024 End: 10-21-2024 Patient encounter procedure Ankit CRAFT -Laboratory, Specimen Work Phone: Start: 10-21-2024 End: 10-21-2024 Patient encounter procedure Ankit CRAFT [facility] Work Phone: Start: 10-21-2024 End: 10-21-2024 ambulatory Ankit CRAFT Facility:[facility] Start: 10-21-2024 End: 10-21-2024 ambulatory Ankit CRAFT Facility:[facility] Start: 10-07-2024 End: 10-07-[address] Chris Burton DO -[facility] Work Phone: Start: 10-07-2024 End: 10-07-2024 ambulatory Chalon Eddie Facility:[facility] Start: 08-05-2024 End: 08-05-2024 ambulatory Chalon Eddie Facility:[facility] Start: 07-12-2024 End: 07-12-2024 ambulatory Chalon Eddie Facility:[facility] Start: 07-05-2024 End: 07-05-2024 ambulatory Chalon Eddie Facility:[facility] Start: 06-28-2024 End: 06-28-2024 ambulatory Chalon Eddie Facility:[facility] Start: 03-20-2024 End: 03-20-2024 ambulatory CHALON EDDIE Facility:[facility] Start: 03-20-2024 End: 03-20-2024 Patient encounter procedure Cherie Covington OD Work Phone: Optometry Comment on above: Chronically dry eyes , bilateral (Primary Dx); Pseudophakia of both eyes Start: 02-06-2024 End: 02-07-[address] [facility] Start: 02-06-2024 End: 02-06-2024 Office outpatient visit 15 minutes Susan Farley MD Work Phone: [facility] Comment on above: Lip swelling (Primar y Dx); Melanoma of skin of lip (CMS/HCC) Start: 11-14-2023 End: 11-14-2023 ambulatory [facility] Work Phone: Start: 11-14-2023 End: 11-14-2023 Patient encounter procedure [facility]-Laboratory, Phy Office 3rd Flr Start: 11-06-2023 End: 11-06-2023 ambulatory [facility] Work Phone: Start: 11-06-2023 End: 11-06-2023 Patient encounter procedure [facility]-Pulmonary Services/Neurology Work Phone: Start: 10-06-2023 End: 10-06-2023 Patient encounter procedure Bryn Lantigua MD Work Phone: Ophthalmology Comment on above: Pseudophakia of both eyes (Primary Dx) Start: 09-18-2023 End: 09-18-2023 ambulatory [facility] Ambulatory Start: 09-18-2023 End: 09-18-2023 Office outpatient visit 10 minutes Omar Salguero MD Work Phone: [facility] Comment on above: Melanoma of skin of lip (CMS/HCC) (Primary Dx); Malignant melanoma of face (CMS/HCC) Start: 09-06-2023 End: 09-06-2023 [facility] Keely 1 Work Phone: Pre Anesthesia Comment on above: Pre-operative examin ation (Primary Dx); Anxiety disorder, unspecified type; 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); Mixed hyperlipidemia; Essential hypertension, benign Start: 09-06-2023 End: 09-06-2023 Preprocedural examination done [facility] Keely 1 Work Phone: [facility] Work Phone: Start: 09-01-2023 End: 09-01-2023 ambulatory SUSAN FARLEY [facility] Ambulatory Start: 09-01-2023 End: 09-01-2023 Office outpatient visit 15 minutes Susan Farley MD Work Phone: [facility] Comment on above: Malignant melanoma o f face (CMS/HCC) (Primary Dx) Start: 07-14-2023 Telephone encounter Bryn Lozada MD Work Phone: Ophthalmology Comment on above: Schedule Surgery Start: 07-12-2023 End: 07-12-2023 Patient encounter procedure Bryn Lantigua MD Work Phone: Ophthalmology Comment on above: Nuclear senile catar act of both eyes (Primary Dx) Start: 05-15-2023 End: 05-15-2023 Patient encounter procedure Renae Covington OD Work Phone: Optometry Comment on above: 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 Susan Farley Facility:[id number] Start: 12-27-2022 Office outpatient vi sit 15 minutes Susan Farley MD Work Phone: UI-Rxlotsqqoucnbu-Tbej rban Work Phone: Start: 12-27-2022 Patient encounter procedure Susan Farley MD Work Phone: FL-Dilpadyvqdgstg-Nfgh rban Work Phone: Start: 09-30-2022 End: 09-30-2022 ambulatory [facility] Work Phone: Start: 09-30-2022 End: 09-30-2022 Patient encounter procedure [facility]-Laboratory, Phy Office 3rd Flr Start: 07-26-2022 Office outpatient vi sit 10 minutes Susan Farley MD Work Phone: KZ-Bxirjboomcebpk-Skib rban Work Phone: Start: 07-26-2022 ambulatory Provider Pending Facili ty:[id number] Start: 07-18-2022 ambulatory Provider Pending Facili ty:[id number] Start: 05-31-2022 End: 05-31-2022 Patient encounter procedure Renae Covington OD Work Phone: Optometry Comment on above: 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 of D ermatology Start: 04-22-2022 Chart Update Susan Farley MD Work Phone: YQ-Mohtccqqkkjlme-AkuwCHI [facility] 4108 Work Phone: Start: 04-22-2022 POV, Provider: Susan Farley, Status: Pen, Time: 1:15 PM Omar Salguero MD Work Phone: [facility] 9379 Work Phone: Start: 04-22-2022 ambulatory Provider Pending Facili ty:[id number] Start: 04-20-2022 Postop follow up vis it related to original px Omar Salguero MD Work Phone: [facility]qef[facility] 4105 Work Phone: Start: 04-20-2022 ambulatory Referral Self Facility: [id number] Start: 04-14-2022 Chart Update Susan Farley MD Work Phone: [facility]uvune[facility] 4105 Work Phone: Start: 04-13-2022 End: 04-13-2022 ambulatory Provider Pending Facility:[facility] Start: 04-13-2022 [facility], Provider: Omar Salguero, Status: Pen, Time: 7:00 AM Susan Farley MD Work Phone: DQ-Sjmgoeqhzqyqgj-Zjaa rban Work Phone: Start: 04-13-2022 [facility] Provider: Suasn Farley, Status: Pen, Time: 7:00 AM Susan Farley MD Work Phone: KY-Wigsgxeupjjoru-Vscm rban Work Phone: Start: 04-12-2022 Chart Update Susan Farley MD Work Phone: JB-Gimkiaexdpzkkj-Spmo rban Work Phone: Start: 04-07-2022 Kirk Morales Dept. of Dermatology Start: 04-07-[address] 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 of D ermatology Start: 03-30-2022 Office outpatient vi sit 25 minutes Omar Salguero MD Work Phone: BX-Sjeklbsauhxjgm-Oeqb lake Work Phone: Start: 03-30-2022 ambulatory Omar Salguero Facility: [facility] Start: 03-30-2022 ambulatory Provider Pending Facili ty:[facility] Start: 03-30-2022 Encounter for blood typing Dr. Susan Farley [facility] Start: 03-30-2022 Encounter for preprocedural cardiovascular examination Dr. Susan Farley [facility] Start: 03-30-2022 Encounter for preprocedural laboratory examination Dr. Susan Farley [facility] Start: 03-25-[address] Brooks Arroyo Fa cility:[id number] Start: 03-22-2022 AUDIT Susan Farley MD Work Phone: OD-Loydkabghwegsq-Dyob man Work Phone: Start: 03-19-2022 End: 03-19-2022 Patient encounter procedure Cherie Covington OD Work Phone: Optometry Comment on above: Hypermetropia of bot h eyes (Primary Dx); Regular astigmatism of both eyes; Presbyopia; Nuclear senile cataract of both eyes; Glaucoma suspect of both eyes Start: 03-15-2022 Patient encounter procedure Susan Farley MD Work Phone: LU-Mqstwawrdokpui-Rxta rbrajat Work Phone: Start: 03-15-[address] Susan Farley Facility:[id number] Start: 08-26-2021 End: 08-26-2021 Emergency department patient visit [facility] Start: 05-14-2021 End: 05-14-2021 Emergency department patient visit [facility] 02 Preoperative state Omar Salguero MD Work Phone: TF-Xzfkmkrxlkqpdu-Vzko lake Work Phone: Procedures Date Procedure Procedure Detail Performing Clinician Start: 05-26-2025 MRI of lower extremity Linda Ibarra MD Work Phone: Start: 05-12-2025 X-ray of knee, four or more views Linda Ibarra MD Work Phone: Start: 02-24-2025 Plain X-ray of shoulder Linda Ibarra MD Work Phone: Start: 10-21-2024 Urine culture Linda rivera MD Work Phone: Start: 11-06-2023 SARS-CoV-2, Influenz a & RSV (PCR) Start: 07-12-2023 IOL BIOMETRY W/ IOL CALC OU (BOTH EYES) Bryn Lantigua MD Work Phone: Start: 04-07-2022 Mohs micrographic h/n/h/f/g 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 Kirk Morales Start: 04-04-2022 Lisa Larry favian Start: 03-30-2022 Antibody screen Provide r Pending Comment on above: Performed By: #### T +S #### [facility] [address] [place] [address] Start: 10-19-2012 Exc b9 lesion mrgn x cp sk tg t/a/l 1.1-2.0 cm Corrie Nidia Víctor Work Phone: Start: 10-19-2012 Exc tr-ext b9+jessica 1 .1-2 cm Corrie Renee Work Phone: Influenza Types A,B Direct FA (SANTOS) Respiratory syncytia l virus antigen assay Plan of Treatment Date Care Activity Detail Author Start: 12-31-2025 End: 12-31-2025 Patient encounter procedure 12/31/2025 8:00 AM EST Office Visit [facility] [address] [place] [address] Cherie Covington II, OD [address] [place] [address] eye exam/[employer] Comment on above: eye exam/[employer]/[facility] [facility] Start: 05-12-2025 X-ray of knee, four or more views Knee 4 or More Views [facility] Start: 05-12-2025 XR Knee GE [address] [facility] Start: 03-30-2025 Diabetes Screening Diabetes Screenin g [facility] Start: 10-30-2024 Advance Directive Discussion Advance Directive Discussion [facility] Start: 10-09-2024 End: 10-09-2024 Patient encounter procedure 10/09/2024 8:00 AM EST Office Visit [facility] [address] [place] [address] Cherie Covington II, OD [address] [place], [place] [id number] Eye exam/[employer] Comment on above: Eye exam/[employer]/E[facility] d Start: 06-30-2024 Covid-19 Vaccine ( season) Covid-19 Vaccine ( season) [facility] Start: 06-30-[address] [facility] Start: 03-08-2024 OCT OPTIC NERVE CIRR US OU (BOTH EYES) OCT OPTIC NERVE CIRRUS OU (BOTH EYES) [facility] Imaging Routine Glaucoma suspect of both eyes Expected: 03/08/2024 [facility] Work Phone: Comment on above: Expected: 03/08/2024 Start: 11-13-2023 End: 11-13-2023 Patient encounter procedure 11/13/2023 9:45 AM EST Office Visit [facility] [address] [place] [address] [place] [address] [place] [address] [facility] Start: 10-30-2023 Advance Directive Discussion Advance Directive Discussion [facility] Start: 10-30-2023 Behavioral Health Screening Behavioral Health Screening [facility] Start: 06-30-2023 Covid-19 Vaccine ( season) Covid-19 Vaccine ( season) [facility] Start: 06-30-2023 COVID-19 Vaccine ( season) COVID-19 Vaccine ( season) [facility] Start: 06-30-2023 Influenza vaccination C [facility] Start: 10-30-2022 ADVANCE DIRECTIVE DISCUSSION ADVANCE DIRECTIVE DISCUSSION [facility] Start: 10-30-2022 DEPRESSION ASSESSMENT DEPRESSION ASS ESSMENT [facility] Start: 10-24-2022 COVID-19 Vaccine (4 - Moderna series) COVID-19 Vaccine (4 - Moderna series) [facility] Start: 10-21-2022 FUV, Provider: Susan Farley, Status: Pen, Time: 10:45 AM FUV, Provider: Susan Farley, Status: Pen, Time: 10:45 AM WK-Sgfptdtoactufi-Qjw urban Work Phone: Start: 2022 RSV Vaccine (1 - 1-d ose 75+ series) RSV Vaccine (1 - 1-dose 75+ series) [facility] Start: 07-18-2022 FUV, Provider: Omar Salguero, Status: Pen, Time: 10:00 AM FUV, Provider: mOar Salguero, Status: Pen, Time: 10:00 AM [facility]ceht[facility]ot[facility]yxlc[facility] 4100 Work Phone: Start: 06-30-2022 Influenza vaccination [facility] Start: 04-22-2022 POV, Provider: Susan Farley, Status: Pen, Time: 1:15 PM POV, Provider: Susan Farley, Status: Pen, Time: 1:15 PM JQ-Ysocwmbchvlcvd-Zeu tlake Work Phone: Start: 04-20-2022 POV, Provider: Omar Salguero, Status: Pen, Time: 10:15 AM POV, Provider: Omar Salguero, Status: Pen, Time: 10:15 AM [facility] 4100 Work Phone: Start: 04-13-2022 [facility] Provider: Omar Salguero, Status: Pen, Time: 7:00 AM [facility], Provider: Omar Salguero, Status: Pen, Time: 7:00 AM JN-Cgigkujbxdkbhq-Zmr tlake Work Phone: Start: 04-13-2022 SURGC, Provider: Susan Farley, Status: Pen, Time: 7:00 AM [facility], Provider: Susan Farley, Status: Pen, Time: 7:00 AM JB-Kqznahdiylkssa-Bql tlake Work Phone: Start: 10-30-2021 ADVANCE DIRECTIVE DISCUSSION ADVANCE DIRECTIVE DISCUSSION [facility] Start: 07-13-2017 End: 07-13-2017 Appointment Appointment [facility] Work Phone: Start: 07-13-2017 End: 07-13-2017 Mri any jt lower extrem w/o contrast matrl MRI Joint Lower Extremity [facility] Work Phone: Start: 07-13-2017 End: 07-13-2017 Mri jnt of lwr extre w/o dye MRI Joint Lower Extremity [facility] Work Phone: Start: 04-11-2017 End: 04-11-2017 Appointment Appointment [facility] Work Phone: Start: 01-11-2017 End: 01-11-2017 Physical Therapy General Physical Therapy [facility], [address] [place] [address], [address] [facility] Work Phone: Start: 01-11-2017 End: 01-11-2017 Physical Therapy General Physical Therapy [facility], [address] [place] [address], [address] [facility] Work Phone: Start: 01-10-2017 End: 01-10-2017 Radex shoulder complete minimum 2 views X-Ray, Shoulder [facility] Work Phone: Start: 01-10-2017 End: 01-10-2017 X-ray exam of shoulder X-Ray, Shoulder [facility] Work Phone: Start: 06-09-2016 End: 06-09-2016 Mri any jt lower extrem w/o contrast matrl MRI Joint Lower Extremity [facility] Work Phone: Start: 06-09-2016 End: 06-09-2016 Mri jnt of lwr extre w/o dye MRI Joint Lower Extremity [facility] Work Phone: Start: 2012 Pneumococcal Vaccine : 65+ (1 - PCV) Pneumococcal Vaccine: 65+ (1 - PCV) [facility] Start: 2012 Pneumococcal Vaccine : 65+ (1 of 1 - PCV) Pneumococcal Vaccine: 65+ (1 of 1 - PCV) [facility] Start: 2012 Pneumococcal Vaccine : 65+ Years (1 - PCV) Pneumococcal Vaccine: 65+ Years (1 - PCV) [facility] Start: 2012 PNEUMOCOCCAL: 65+ (1 - PCV) PNEUMOCOCCAL: 65+ (1 - PCV) [facility] Start: 2012 PNEUMOVAX AGE 65 AND OVER WITH 5YR LOOKBACK (#1) PNEUMOVAX AGE 65 AND OVER WITH 5YR LOOKBACK (#1) [facility] Start: 2007 RSV Vaccine (1 - 1-d ose 60+ series) RSV Vaccine (1 - 1-dose 60+ series) [facility] Start: 1997 Pneumococcal Vaccine : 50+ (1 of 1 - PCV) Pneumococcal Vaccine: 50+ (1 of 1 - PCV) [facility] Start: 1997 SHINGRIX VACCINE (1 of 2) SHINGRIX VACCINE (1 of 2) [facility] Start: 1997 Zoster Vaccines (1 o f 2) Zoster Vaccines (1 of 2) [facility] Start: 1992 COLOGUARD (FIT-DNA) COLOGUARD (FIT-D NA) [facility] Start: 1992 Colonoscopy COLONOSCOPY [facility] Start: 1992 COLORECTAL CANCER SCREENING COLORECTAL CANCER SCREENING [facility] Start: [address] COLONOGRAPHY [facility] Start: 1992 DIABETES SCREEN DIABETES SCREEN [facility] Start: 1992 Diabetes Screening Diabetes Screenin g [facility] Start: 1992 FECAL OCCULT BLOOD FECAL OCCULT BLOO D [facility] Start: 1992 SIGMOIDOSCOPY SIGMOIDOSCOPY [facility] Start: 1982 Lipid 1996 panel - Serum or Plasma Lipid Screening [facility] Start: 1982 LIPID SCREEN LIPID SCREEN [facility] Start: 1969 DTaP/Tdap/Td Vaccine s (1 - Tdap) DTaP/Tdap/Td Vaccines (1 - Tdap) [facility] Start: 1966 Urine microalbumin profile [facility] Start: 1965 Annual PCP Team Exhibits Coordinator jeronimo Disease Visit Annual PCP Team Chronic Disease Visit [facility] Start: 1965 BP Controlled (<130/80) BP Controlle d (<130/80) [facility] Start: 1965 Depression Screening Depression Scre mark [facility] Start: 1965 HEPATITIS C SCREENING HEPATITIS C [facility] Start: 1965 Hepatitis C screening Hepatitis C [facility] Start: 1959 Adult depression screening assessment DEPRESSION SCREENING [facility] Start: 1952 COVID-19 VACCINE (#1) COVID-19 VACCI NE (#1) [facility] Start: 04-05-1948 COVID-19 VACCINE (#1) COVID-19 VACCI NE (#1) [facility] Start: 04-05-1948 Examination of skin Derm Melanoma Sk in Check [facility] Start: 1947 Lipid panel Lipid Panel [facility] Start: 1947 Medicare Annual Wellness Visit Medicare Annual Wellness Visit (AWV) [facility] Start: 1947 Screening for malign ant neoplasm of colon [facility] Start: 1947 Thyroid stimulating hormone measurement TSH Level [facility] CORNEAL TOPOGRAPHY ATLAS OU (BOTH EYES) CORNEAL TOPOGRAPHY ATLAS OU (BOTH EYES) OPHT Imaging Routine Nuclear senile cataract of both eyes 07/12/2023 3:01 PM EDT [facility] Work Phone: CORNEAL TOPOGRAPHY PENTACAM OU (BOTH EYES) CORNEAL TOPOGRAPHY PENTACAM OU (BOTH EYES) OPHT Imaging Routine Nuclear senile cataract of both eyes 07/12/2023 3:01 PM EDT [facility] Work Phone: Patient Education OSTEOARTHRITIS [facility] Work Phone: [facility] EYE INS TITUTE Immunizations Immunization Date Immunization Notes Care Provider Eliazar wan 08-29-2022 Influenza, Seasonal, Quadrivalent, Adjuvanted Susan Farley MD Work Phone: [facility] Work Phone: 08-29-2022 Moderna COVID-19 vaccine, bivalent, blue cap/bliss label *Check age/dose* Susan Farley MD Work Phone: [facility] Work Phone: 08-29-2022 influenza virus vaccine, unspecified formulation Susan Farley MD Work Phone: [facility] Work Phone: 09-17-2021 Moderna SARS-CoV-2 Vaccination Susan Farley MD Work Phone: [facility] Work Phone: 08-26-2021 influenza, injectabl e, quadrivalent, preservative free Susan Farley MD Work Phone: [facility] Work Phone: 10-14-2019 influenza, injectabl e, quadrivalent, contains preservative Susan Farley MD Work Phone: [facility] Work Phone: 10-26-2017 influenza, injectabl e, quadrivalent, contains preservative Susan Farley MD Work Phone: [facility] Work Phone: 1945 pneumococcal conjuga te vaccine, 7 valent [facility] Payers Date Payer Category Payer Self-pay [id number] 2024 Self-pay [id number] 2023 Medicare [id number] 2023 Private Health Insurance [employer] [id number] 04-29-2023 Medicare [id number] 05-30-2019 Unknown MMO MMO [employer] [id number] 05/30/2019-Present [phone] [address] [place] [address] PPO [id number] 01-28-2018 Unknown VISION SERVICE P JOSE VSP VISION [id number] 01/28/2018-Present [address] [facility] [address] [place] [address] Indemnity [id number] 09-29-2012 Medicare MEDICARE MEDICAR E A AND B [id number] 09/29/2012-Present [phone] [address] [address] [place] [address] Medicare [id number] 09-29-2012 Medicare [id number] 10-30-1999 Unknown [id number] 1947 Unknown [id number] 2.840.1.744816.3.579.2. 651 1947 Unknown [id number] 2.16.840.1.586165.3.579.2. 356 1947 Unknown [id number] 2.16.840.1.976338.3.579.2. 356 1947 Unknown [id number] 2.16840.1.940413.3.579.2. 356 1947 Unknown [id number] 2.16.840.1.525835.3.579.2. 356 1947 Unknown [id number] 2.16.840.1.144003.3.579.2. 356 1947 Unknown [id number] 2.16.840.1.069183.3.579.2. 356 1947 Unknown [id number] 2.16.840.1.519845.3.579.2. 356 1947 Unknown [id number] 2.16.840.1.802200.3.579.2. 356 1947 Unknown [id number] 2.16.840.1.030089.3.579.2. 356 1947 Unknown [id number] 2.16.840.1.307005.3.579.2. 356 1947 Unknown [id number] 2.840.1.266914.3.579.2. 356 1947 Unknown [id number] 2.16.840.1.734377.3.579.2. 356 1947 Unknown [id number] 2.16.840.1.748554.3.579.2. 1244 1947 Unknown [id number] 2.16840.1.937270.3.579.2. 1244 1947 Unknown [id number] 2.16.840.1.005105.3.579.2. 1245 Unknown Unknown [id number] 2.16.840.1.880298.3.579.2. 462 Unknown [id number] 2.16.840.1.082554.3.579.2. 462 Unknown [id number] 2.16.840.1.974178.3.579.2. 462 Unknown [id number] 2.16.840.1.533936.3.579.2. 462 Unknown [id number] 2.16.840.1.146983.3.579.2. 462 Unknown [id number] 2.16.840.1.051609.3.579.2. 462 Unknown [id number] 2.16.840.1.604620.3.579.2. 462 Unknown [id number] 2.16.840.1.780231.3.579.2. 462 Unknown [id number] 2.16.840.1.005707.3.579.2. 462 Unknown [id number] 2.16.840.1.695516.3.579.2. 462 Unknown [id number] 2.16.840.1.745312.3.579.2. 462 Unknown [id number] 2.16.840.1.837784.3.579.2. 462 Unknown [id number] 2.16.840.1.501845.3.579.2. 462 Unknown [id number] 2.16.840.1.987989.3.579.2. 462 Unknown [id number] 2.16.840.1.369723.3.579.2. 462 Unknown [id number] 2.16.840.1.697717.3.579.2. 462 Unknown [id number] 2.16.840.1.264422.3.579.2. 462 Unknown [id number] 2.16.840.1.346811.3.579.2. 462 Unknown [id number] 2.16.840.1.846300.3.579.2. 462 Unknown [id number] 2.16840.1.321425.3.579.2. 462 Unknown [id number] 2.16840.1.488796.3.579.2. 462 Social History Date Type Detail Facility [facility] Start: 10-01-2021 End: 10-01-2021 Tobacco smoking consumption unknown [facility] Start: 04-18-2015 End: 05-27-2025 Tobacco smoking status NHIS Never smoked tobacco [facility] Start: 04-18-2015 End: 07-12-2023 Tobacco use and exposure Smokeless tobacco non-user [facility] Start: 03-19-2022 End: 12-25-2024 Alcohol intake Current drinker of alcohol (finding) [facility] Start: 03-19-2022 End: 08-25-2023 Alcohol intake [facility] Start: 1945 Sex Assigned At Not on file [facility] Start: 03-09-2022 End: 02-06-2024 Exposure to SARS-CoV-2 (event) Not sure [facility] Start: 1945 Sex Assigned At Male W [facility] Start: 04-08-2021 Occasional [facility] Start: 04-08-2021 None [facility] Start: 04-08-2021 Non-smoker [facility] Start: 02-13-2021 End: 08-25-2023 Tobacco use panel [facility] National Score (1-100), lower number is lower risk 69 [facility] Start: 01-30-2025 Sex Male (finding) [facility] Medical Equipment Procedure Code Equipment Code Equipment Origin al Text Equipment Identifier Dates Rde-Yh-F-Kind Implant - [id number]_[facility] Start: 10-06-2023 Comment on above: Description: [place] IOL Aspheric UV Absorbing IOL [id number] +24.5 [employer] Iol Uv Absorbing Hydrophobic +22d W/[employer] Sterile [id number]_[facility] Start: 09-08-2023 Goals Date Patient Goal Desired Activity /State Clinical Notes 04-18-2015 to 05-27-2025 Note Date & Type Note Facility 05-27-2025 Radiology Diagnostic study note [facility] Imaging Services [address] [place], [place] [id number] Extremity Lower without Contra MR#: [id number] Acct: [id number] Name: YOLANDA HATFIELD II Rep #: [id number] : 1945 M 79 From: Sosa Mcdaniels MD PCP: Dr. Linda Ibarra MD Status: REG CL I Study:Extremity Lower without Contra Date of Exam: 05/26/25 Exam# [id number] Ordering Dr: Chris Burton DO PROCEDURE: EXTREMITY LOWER WITHOUT CONTRA 05/26/2025 REASON FOR EXAM: TEMPLATING FOR RIGHT TKA TECHNIQUE: EXTREMITY LOWER WITHOUT CONTRA Coronal and Sagittal reconstruction series were provided. CONTRAST: None One or more dose reduction techniques were used (e.g., Automated exposure control, adjustment of the mA and/or kV according to patient size, use of iterative reconstruction technique). RADIATION DOSE SUMMARY: DLP: 1147 mGycm COMPARISON: May 12, 2025 x-ray FINDINGS: There is severe medial joint space narrowing. There multiple intra-articular osteochondral fragments with the largest measuring 0.7 cm in the medial joint space. Chondrocalcinosis is noted in the lateral meniscus. There are prominent osteophytes of the patellofemoral articulation and medial and lateral articular surfaces. There tc small joint effusion. Adjacent muscular structures appear intact. Vascular calcifications are noted. 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 Reading Location: [facility] CC: Dr. Linda Ibarra MD; Dr. Chris Burton DO ~ Audiovisual Equipment Operator: Signed [facility] 02-10-2025 Evaluation note Diagnosis Onset Date Resolution Primary osteoarthritis of right knee acute February 10, 2025 10:56am Viral URI acute February 10 10:56am Primary osteoarthritis of right knee acute February 17, 2025 9:01am Viral URI acute February 17 9:01am Arthritis of right shoulder acute February 24, 2025 9:04am Right rotator cuff tendinitis acute February 24, 2025 9:04am Subdeltoid bursitis of right shoulder joint acute February 24, 2025 9:04am Primary osteoarthritis of right knee acute May 12, 2025 9:44am Chronic pain of right knee chronic May 28, 2025 1:21pm [facility] Work Phone: 1(165) 514-926904-07-2025 Evaluation note* Diagnosis Onset Date Resolution Status Admit Date Primary osteoarthritis of ri ght knee acute February 03, 2025 10:47am Primary osteoarthritis of ri ght knee acute February 10, 2025 10:56am Viral URI acute February 10 10:56am Primary osteoarthritis of ri ght knee acute February 17, 2025 9:01am Viral URI acute February 17 9:01am Arthritis of right shoulder acute February 24, 2025 9:04am Right rotator cuff tendinitis acute February 24, 2025 9:04am Subdeltoid bursitis of right shoulder joint acute February 24, 2025 9:04am Primary osteoarthritis of ri ght knee acute May 12, 2025 9:44am Primary osteoarthritis of ri ght knee acute May 28, 2025 1:21pm [employer] Work Phone: 1(146) 669-426803-17-2025 Evaluation note* Diagnosis Onset Date Resolution Status Admit Date Primary osteoarthritis of ri ght knee acute January 13, 2025 9:17am Primary osteoarthritis of ri ght knee acute February 03, 2025 10:47am Primary osteoarthritis of ri ght knee acute February 10, 2025 10:56am Viral URI acute February 10 10:56am Primary osteoarthritis of ri ght knee acute February 17, 2025 9:01am Viral URI acute February 17 9:01am Arthritis of right shoulder acute February 24, 2025 9:04am Right rotator cuff tendinitis acute February 24, 2025 9:04am Subdeltoid bursitis of right shoulder joint acute February 24, 2025 9:04am [employer] Work Phone: 1(303) 471-8842450106-01-9984 Evaluation note* Diagnosis Onset Date Resolution Status Admit Date Primary osteoarthritis of ri ght knee acute January 13, 2025 9:17am Primary osteoarthritis of ri ght knee acute February 03, 2025 10:47am Primary osteoarthritis of ri ght knee acute February 10, 2025 10:56am Viral URI acute February 10 10:56am Primary osteoarthritis of ri ght knee acute February 17, 2025 9:01am Viral URI acute February 17 9:01am Arthritis of right shoulder acute February 24, 2025 9:04am Right rotator cuff tendinitis acute February 24, 2025 9:04am Subdeltoid bursitis of right shoulder joint acute February 24, 2025 9:04am Primary osteoarthritis of ri ght knee acute May 12, 2025 9:44am [facility] Work Phone: 1(931) [phone] Instructions* Patient Instructions* Cherie Covington II, OD - 12/25/2024 10:00 AM EST Assessment and Plan H52.223 Regular astigmatism, bilateral (primary encounter diagnosis) H52.01 Hyperopia, right H52.12 Myopia of left eye H52.4 Presbyopia Comment: Patient happy with natural monovision following cataract surgeries. H40.003 Glaucoma suspect of both eyes Comment: Glaucoma suspect both eyes due to optic nerve cupping. Stable Intraocular pressures and nerve appearance today. Monitor yearly. No treatment indicated at this time. Discussed need for continued close observation to minimize chance of future vision loss. H04.122 Chronic dryness of left eye Comment: Recommend use of Systane Complete 1 gt OS up to qid as needed for relief of symptoms. Z96.1 Pseudophakia of both eyes Comment: Posterior chamber intraocular lenses are well positioned. Grade 1 posterior capsular opacity OS I have confirmed and edited as necessary the relevant HPI, ophthalmic history, ROS, and the neuro exam findings as obtained by others. I have seen and examined Yolanda Hatfield II. I have discussed the case and the management of this patient's care with the Resident/Fellow, if applicable. I also have reviewed and agree with the assessment and plan as stated above and agree withall of its relevant components. documented in this encounterA[facility]25 NoteHNO ID: [id number] Author: CHERIE COVINGTON II, OD Service: ? Author Type: GUIDE TOUR Type: Progress Notes Filed: 12/25/2024 10:00 Note Text: Assessment and Plan H52.223 Regular astigmatism, bilateral (primary encounter diagnosis) H52.01 Hyperopia, right H52.12 Myopia of left eye H52.4 Presbyopia Comment: Patient happy with natural monovision following cataract surgeries. H40.003 Glaucoma suspect of both eyes Comment: Glaucoma suspect both eyes due to optic nerve cupping. Stable Intraocular pressures and nerve appearance today. Monitor yearly. No treatment indicated at this time. Discussed need for continued close observation to minimize chance of future vision loss. H04.122 Chronic dryness of left eye Comment: Recommend use of Systane Complete 1 gt OS up to qid as needed for relief of symptoms. Z96.1 Pseudophakia of both eyes Comment: Posterior chamber intraocular lenses are well positioned. Grade 1 posterior capsular opacity OS I have confirmed and edited as necessary the relevant HPI, ophthalmic history, ROS, and the neuro exam findings as obtained by others. I have seen and examined Yolanda Hatfield II. I have discussed the case and the management of this patient's care with the Resident/Fellow, if applicable. I also have reviewed and agree with the assessment and plan as stated above and agree with all of its relevant components.[facility]02-26-2025 History of Present illness Narrative* Cherie Covington II, OD - 12/25/2024 9:56 AM EST Assessment and Plan H52.223 Regular astigmatism, bilateral (primary encounter diagnosis) H52.01 Hyperopia, right H52.12 Myopia of left eye H52.4 Presbyopia Comment: Patient happy with natural monovision following cataract surgeries. H40.003 Glaucoma suspect of both eyes Comment: Glaucoma suspect both eyes due to optic nerve cupping. Stable Intraocular pressures and nerve appearance today. Monitor yearly. No treatment indicated at this time. Discussed need for continued close observation to minimize chance of future vision loss. H04.122 Chronic dryness of left eye Comment: Recommend use of Systane Complete 1 gt OS up to qid as needed for relief of symptoms. Z96.1 Pseudophakia of both eyes Comment: Posterior chamber intraocular lenses are well positioned. Grade 1 posterior capsular opacity OS I have confirmed and edited as necessary the relevant HPI, ophthalmic history, ROS, and the neuro exam findings as obtained by others. I have seen and examined Yolanda Hatfield II. I have discussed the case and the management of this patient's care with the Resident/Fellow, if applicable. I also have reviewed and agree with the assessment and plan as stated above and agree withall of its relevant components. documented in this encounterA[facility]12-09-[facility] Evaluation note* Diagnosis Onset Date Resolution Status Admit Date Primary osteoarthritis of ri ght knee acute October 07 8:29am Primary osteoarthritis of ri ght knee acute January 13, 2025 9:17am [facility] Work Phone: 1(229) 681-891105-22-2024 Instructions* Patient Instructions* Cherie Covington II, LENKA - 03/20/2024 10:13 AM EDT Assessment and Plan H04.123 Chronically dry eyes, bilateral (primary encounter diagnosis) Comment: L>R. Sleeping under ceiling fan. Facial reconstruction on left side for melanoma. Recommend use of Refresh Barney 3 or Systane Complete 1 gt OU up to qid as needed for relief of symptoms through day and ophthalmic brianda both eyes qhs. Recheck as needed. Z96.1 Pseudophakia of both eyes Comment: Posterior chamber intraocular lenses are well positioned and clear. Patient very happy with post op vision (monovision left eye near). Recommend full Dilated fundus exam in 09/2024. I have confirmed and edited as necessary the relevant HPI, ophthalmic history, ROS, and the neuro exam findings as obtained by others. I have seen and examined Yolanda Sykes Liu QUINTANILLA. I have discussed the case and the management of this patient's care with the Resident/Fellow, if applicable. I also have reviewed and agree with the assessment and plan as stated above and agree withall of its relevant components. documented in this encounterAcmc [facility]05-22-2024 NoteHNO ID: [id number] Author: CHERIE COVINGTON II, OD Service: ? Author Type: GUIDE TOUR Type: Progress Notes Filed: 03/20/2024 10:14 Note Text: Assessment and Plan H04.123 Chronically dry eyes, bilateral (primary encounter diagnosis) Comment: L>R. Sleeping under ceiling fan. Facial reconstruction on left side for melanoma. Recommend use of Refresh Barney 3 or Systane Complete 1 gt OU up to qid as needed for relief of symptoms through day and ophthalmic brianda both eyes qhs. Recheck as needed. Z96.1 Pseudophakia of both eyes Comment: Posterior chamber intraocular lenses are well positioned and clear. Patient very happy with post op vision (monovision left eye near). Recommend full Dilated fundus exam in 09/2024. I have confirmed and edited as necessary the relevant HPI, ophthalmic history, ROS, and the neuro exam findings as obtained by others. I have seen and examined Yolanda Hatfield II. I have discussed the case and the management of this patient's care with the Resident/Fellow, if applicable. I also have reviewed and agree with the assessment and plan as stated above and agree with all of its relevant components.[facility]05-22-[facility]24 History of Present illness Narrative* Cherie Covington II, OD - 03/20/2024 10:10 AM EDT Assessment and Plan H04.123 Chronically dry eyes, bilateral (primary encounter diagnosis) Comment: L>R. Sleeping under ceiling fan. Facial reconstruction on left side for melanoma. Recommend use of Refresh Barney 3 or Systane Complete 1 gt OU up to qid as needed for relief of symptoms through day and ophthalmic brianda both eyes qhs. Recheck as needed. Z96.1 Pseudophakia of both eyes Comment: Posterior chamber intraocular lenses are well positioned and clear. Patient very happy with post op vision (monovision left eye near). Recommend full Dilated fundus exam in 09/2024. I have confirmed and edited as necessary the relevant HPI, ophthalmic history, ROS, and the neuro exam findings as obtained by others. I have seen and examined Yolanda Hatfield II. I have discussed the case and the management of this patient's care with the Resident/Fellow, if applicable. I also have reviewed and agree with the assessment and plan as stated above and agree withall of its relevant components. documented in this encounterAcmc [facility]12-08-2023 Instructions* Patient Instructions* Bryn Lantigua MD - 10/06/2023 1:11 PM EST Cataract Post Operative Instructions: 1.) No heavy lifting (greater than 20 pounds), strenuous exercise, swimming or rubbing the eyes for2 weeks. 2.) To prevent inadvertently rubbing the eye, wear your eye shield while sleeping for 1 week after your surgery. 3.) Follow the written drop instructions given to you at your postoperative appointment. Use the chart to help you keep track of your drops. If you did not receive these instructions please call the office. 4.) Be aware of the signs and symptoms of infection or retinal detachment: Signs and symptoms of infection in the operative eye can include the following: - Increased pain - Increased redness - Increased light sensitivity - A sudden decrease in vision Signs and symptoms of retinal detachment can include the following: - Increasing floaters (spider web like) - Continuous or very bright flashes - Curtain or veil across the vision - Decline in vision Please call our office if these symptoms occur at during normal business hours. These are possible signs of infection or retinal detachment and may require immediate medical attention. After hours, and on weekends or holidays, please call the [facility] tankage grinder operator at [phone] ask for the eye doctor circulation analyst. documented in this encounterAcmc Healthcare [facility]12-08-2023 History of Present illness Narrative* Bryn Lantigua MD - 10/06/2023 1:10 PM EST Post-op day #0 status-post cataract extraction with intraocular lens insertion left eye: doing well. - prednisolone acetate 1% 1 drop four times a day - Eye shield at bedtime for 1 week - Signs and symptoms of retinal detachment and infection discussed with patient Follow-up 1 month The documentation recorded by the scribe, if applicable, accurately reflects the service I personally performed and the decisions made by me. I have confirmed and edited as necessary the relevant ophthalmic history, ROS, and the neuro exam findings as obtained by others. I have seen and examined Yolanda Hatfield DWIGHT. I have discussed the case and the management of this patient's care with the Resident/Fellow/Manager Field, if applicable. I also have reviewed and agree with the assessment and plan as stated above and agree with all of its relevant components. Bryn Lantigua MD October 06, 2023 1:10 PM documented in this encounterA[facility]11-20-[facility]23 History of Present illness Narrative* Omar Salguero MD - 09/18/2023 2:30 PM EST 77yo male with PMHx of melanoma of lip s/p lip reconstruction with nasolabial island flap 07.18.22 Doing well. Reconstruction intact, flap viable. Swelling expected. Flap with mild fullness,likely soft tissue fullness that could be reduced if patient opted for second stage. 09/18/23: Presents today for FUV and photodocumetation. Doing well. Swelling improved. Patient veryhappy with results. No issues. RTC prn documented [facility]Met[facility] Work Phone: 1(492) 568-971311-08-2023 History and physical note* Karina Cavanaugh APRN.PARAEDUCATOR - 09/06/2023 8:06 AM EST Images from the original note were not included. 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 Clinical Frailty Scale: 3. Well, with treated comorbid disease STOP-Bang Score: Has or is being treated for high blood pressure Patient over 50 years old Male patient Denies snoring loudly Denies feeling tired, fatigued, or sleepy during the daytime Has not been observed to stop breathing or choking/gasping during sleep BMI less than or equal to 35 kg/m^2 Does not have a large neck STOP-Bang Score: 3 [id number] Score: Age: >=75 Sex: male CHF history: No Hypertension history: Yes Stroke/TIA/thromboembolism history: No Vascular disease history: No Diabetes history: No [id number] Score: 3 ARISCAT Score: Age: 51-80 Preoperative SpO2: >=96% Respiratory infection in the last month: No Preoperative anemia: Yes Surgical incision: peripheral Duration of surgery: <2 hrs Emergency procedure: No ARISCAT Score: 14 ANESTHESIA FINDINGS: Intubation History: No history of difficult intubation Significant Anesthesia Considerations: none Airway History: No history of difficult airway I - PHYSICAL EVALUATION AIRWAY Patient intubated: No. Tracheostomy tube not present Mallampati: III. TM distance: >3 FB. Neck ROM: full ROM without neurological symptoms. Mouth opening: adequate. Short neck: no. Additional comments: +smaller mouth opening due to reconstruction but adequate. Thick neck: no Mitchell present: no Lip Bite Test: I Microretrognathia/Micronagthia/Recessed Chin: No DENTAL Dental findings: teeth intact. Additional comments: +crown/back. II - ANESTHESIA PLAN Anesthetic Plan: other Beta Spring Monitoring Plan Post Procedure Analgesic Plan Informed Consent Anesthetic risks, benefits, alternatives, personnel and consent discussed: yes. Patient / Responsible Libertarian agrees to proceed: yes Patient / Surrogate agrees to blood products: blood products not planned Discussed the possibility of lip / dental damage: yes REASON FOR VISIT: Yolanda Hatfield II is a 77 year old male who is scheduled for PHACOEMULSIFICATIONCATARACT IMPLANT INTRAOCULAR LENS W/O ENDOSCOPIC CYCLOPHOTOCOAGULATION (Left) at the request of Dr.Peter Nidia Lantigua for consultation. My final recommendation will be [facility] by way of shared medical record or letter. 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 07/12/2023, Dr. Lantigua H25.13 Nuclear senile cataract of both eyes (primary encounter diagnosis) Comment: Cataract Presurgical Documentation Cataract: Both eyes (OU) Current Visual Acuity Right Eye Distance CC 20/25 Left Eye Distance CC 20/20 Best Corrected Vision Right Eye 20/20 Best Corrected Vision Left Eye 20/20 Glare Testing: Right Eye High 20/70 Left Eye High 20/60 Visual Function: Yolanda Hatfield II states that the decline in vision from the cataract impedes hisabilities as listed in the HPI, as well as other activities of daily living. Yolanda Hatfield II has confirmed that he is no longer able to function adequately on a day-to-day basis because of his current visual condition. Further, it is my medical opinion that the cataract is the primary cause, or at least a significantly contributory cause of his visual dysfunction. With uncomplicated cataract surgery and lens implantation, it is my expectation that his visual function and quality of life will improve, significantly. REVIEW OF SYSTEMS: General: No weight loss, malaise or fevers. Neurological: No history of TIA's, stroke, NECKTIES PAINTER tumor, impaired sensorium, hemiplegia, paraplegia orquadraplegia. No neurological symptoms or problems. Respiratory: No history of current cough or dyspnea, or pneumonia in the past 6 weeks. No history of respiratory/pulmonary symptoms or problems. Cardiovascular: Positive for: hyperlipidemia and hypertension Negative for: anticoagulation therapy, arrhythmia, atrial fibrillation, CAD, chest pain, CHF, congenital heart defect, DVT/PE, recent MT, murmur/valvular heart disease, open heart surgery and valve surgery. GI: No history of GI symptoms or problems. No history of esophageal varices, recent ascites, or ETOH greater than 2 drinks per day. : No history of dysuria, frequency or incontinence, stones or chronic kidney disease. No difficulty urinating, nocturia > 1 time per night or hematuria. Endocrine: No history of diabetes. Has not taken steroids within the past 30 days. No history of endocrinological symptoms or problems. Hematology: No history of bleeding or clotting disorder. Patient is not taking anti-coagulation or platelet medications. No history of hematological symptoms or problems. Oncology: Melanoma s/p excision Psych: Positive for: anxiety (on rx). Musculoskeletal: Negative for joint pain or swelling, back pain or muscle pain. Skin: Negative for lesions, rash and itching. PAST MEDICAL HISTORY Diagnosis Date Elevated cholesterol Hypertension Other vitreous opacities Senile nuclear sclerosis Skin cancer PAST SURGICAL HISTORY Procedure Laterality Date ELBOW SURGERY HX 2018 Left elbow surgery FACIAL RECONSTRUCTION SURGERY HX Due to melanoma PAST SURGICAL HISTORY OF Skin Cancer Surgery SHOULDER SURGERY HX FAMILY HISTORY Problem Relation Age of Onset No Ocular Disease Father No Ocular Disease Mother No Ocular Disease Sister No Ocular Disease Sister No Ocular Disease Sister No Ocular Disease Sister No Ocular Disease Brother No Ocular Disease Brother No Ocular Disease Maternal Grandmother No Ocular Disease Maternal Grandfather No Ocular Disease Paternal Grandmother No Ocular Disease Paternal Grandfather Social History Tobacco Use Smoking status: Never Smokeless tobacco: Never Vaping Use Vaping Use: Never used Substance Use Topics Alcohol use: Yes Alcohol/week: 3.3 standard drinks of alcohol Types: 4 Standard drinks or equivalent per week Drug use: No Prior to Admission medications as of 09/06/23 0810 Medication Sig Last Dose Taking cholecalciferol, vitamin D3, (VITAMIN D3 ORAL) Take by mouth. Taking Yes citalopram hydrobromide (CELEXA) 10 mg tablet Take 1 tablet by mouth every afternoon. Taking Yes clonazePAM (KLONOPIN) 0.5 mg tablet Take by mouth. Taking Yes prednisoLONE acetate (PRED FORTE) 1 % ophthalmic suspension Use 1 drop in the operative eye 4 timesa day starting the day after surgery. Taper drop weekly as instructed by your doctor. Taking Yes BYSTOLIC 10 mg tablet 10 mg once daily. Taking Yes AMLODIPINE/VALSARTAN (EXFORGE ORAL) Take by mouth daily at bedtime. Dosage unknown Taking Yes ATORVASTATIN CALCIUM (LIPITOR ORAL) Take by mouth. Dosage unknown Taking Yes No medication comments found. ALLERGIES No Known Allergies Objective PHYSICAL EXAM: General: alert and oriented (x3) and healthy appearance. Pertinent negatives noted - not distressed. Skin: normal color, no rash or lesions. HEENT: EOM intact and pupils equal round. Pertinent negatives noted - no carotid bruit. Cardiovascular: regular rate and rhythm, normal S1 and S2, no rub, murmurs, or gallop. Respiratory: normal breath sounds, no wheezes or crackles. No chest wall deformity or tenderness. Abdomen: soft. Pertinent negatives noted - not tender. Extremities: no deformity, no edema or tenderness, no joint swelling or clubbing. Neurological: normal cognition and motor skills. Gait normal. No weakness or sensory deficit. PAIN ASSESSMENT: VITALS: BP 154/86 Pulse 69 Temp (Src) 97.9 (Temporal) Resp 16 Ht 5' 11 (1.80m) Wt 185 lb (83.9kg) SpO2 97% BMI 25.81 kg/(m^2). Diagnostic tests reviewed for today's visit: Lab Value Units Date High Low HB No results within date range. HCT No results within date range. WBC No results within date range. PLT No results within date range. NA No results within date range. K No results within date range. GLUC No results within date range. BUN No results within date range. CREAT No results within date range. PTSEC No results within date range. INR No results within date range. APTT No results within date range. ALT No results within date range. AST No results within date range. TBILI No results within date range. TSH No results within date range. Lab Value Units Date High Low HCGQT No results within date range. UHCG No results within date range. HCG, BODY* No results within date range. Lab Value Units Date High Low ABORHD No results within date range. ABSCREEN No results within date range. No results found for: HBA1C No results found for this or any previous visit (from the past 8760 hour(s)). No results found for this or any previous visit (from the past 40085 hour(s)). Prepared for Surgery: optimally prepared for surgery. CONSULTS: Patient does not require consults for optimization at this time Planned Anesthetic: other anesthesia choice The Following Tests/Procedures Have Been Initiated: Orders Placed This Encounter cholecalciferol, vitamin D3, (VITAMIN D3 ORAL) Sig: Take by mouth. Instructions Given to Patient: Instructions located in the after visit summary. Patient given verbal and written preop instructions and voices comprehension and compliance. SIGNATURE: Karina Cavanaugh APRN.CNP PATIENT NAME: Yolanda Hatfield II DATE: September 06, 2023 TIME: 8:06 AM PAGER/CONTACT #: documented in this encounterAcm[facility]11-08-2023 Instructions* Patient Instructions* Karina Cavanaugh APRN.PARAEDUCATOR - 09/06/2023 8:06 AM EST PATIENT PREOPERATIVE INSTRUCTIONS Bryn Lantigua MD has scheduled you for your procedure at this surgery center: [facility]: [phone] --[facility], [address], [place] [address]. Please read below carefully for your personalized instructions. Arrival Time for Surgery: - The Surgery Center or hospital where you are having surgery will call the afternoon before surgery (or Monday for Monday surgery) with a scheduled arrival time. - If you have not heard by 4 pm, please contact the surgery center above. Please be aware that emergency situations arise, which may delay or change your surgical time. If this happens, we will notify you as soon as possible and regret any inconvenience Dietary Restrictions: - No solid food after midnight. - You may have 12 ounces of clear liquids (water, clear juices such as apple juice or gatorade, carbonated beverages, clear tea, black coffee, jello) until 2 hours before scheduled arrival at facility. - no milk / coffee creamer - no pulp juices Medications: Unless instructed differently below, stay on all of your medications until your surgery. Approved medications to take the morning of surgery with a sip of water: All rx meds are okay If you start any new medications after today's visit, please contact the surgeon's office. Is Patient Diabetic:No Blood Thinning Medications: You do not need to hold blood thinners for cataract surgery Important Reminders: - If you are prescribed inhalers for breathing, continue using them. - Candy, mints, and tobacco products are NOT permitted the morning of surgery. - Hearing aids, dentures and glasses may be worn the morning of surgery. - NO jewelry, body piercings, makeup, hairpins or contacts are to be worn the day of surgery. If you develop symptoms such as a fever, cold, or flu, or have other changes to your health within TWO DAYS of scheduled surgery or the morning of surgery, please contact the surgery center above. Personal Belongings: -Please have photo ID and insurance cards. -If you do not have a copy of advance directives on file with us, please bring a copy with you on the day of surgery. - Leave ALL valuables and money at home or with family members. For Outpatient Procedures: - YOU MUST HAVE A RESPONSIBLE UNIT SECY TAKE YOU HOME. A CODING ADVISOR OR SOLUTION COORDINATOR CANNOT BE MADE A RESPONSIBLE UNIT SECY. - We recommend that a responsible person stays with you overnight to take care of you. - You cannot stay in a hotel alone after outpatient surgery. You will not be permitted to have yoursurgery, if you do not have someone to take care of you. If you already have an Advance Directive, please fax a copy to [phone] or email to for it to be added to your chart. If you do not have an Advance Directive, you can find the appropriate form and more information at [email or web address]. We recommend that youcomplete the Advance Directive form found on the website and bring it with you the day of your surgery. It can be witnessed and scanned into your chart that day. Karina Cavanaugh APRN.PARAEDUCATOR documented in this encounterAcmc [facility]11-03-2023 History of Present illness Narrative* Susan Farley MD - 09/01/2023 2:15 PM EDT S/p cheek resection slnb with local reconstruction 04/13/22 Doing well Follows with derm Physical Exam: CONSTITUTIONAL: No acute distress VOICE: No hoarseness or other abnormality RESPIRATION: Breathing comfortably, no stridor CV: No clubbing/cyanosis/edema in hands EYES: EOM intact, sclera normal NEURO: Alert and oriented times 3, Cranial nerves II-XII grossly intact and symmetric bilaterally HEAD AND FACE: asymmetric facial features, no masses or lesions, sinuses non- tender to palpation SALIVARY GLANDS: Parotid and submandibular glands normal bilaterally EARS: Normal external ears, external auditory canals, and TMs to otoscopy, normal hearing to whispered voice. NOSE: External nose midline, anterior rhinoscopy is normal with limited visualization to the anterior aspect of the interior turbinates, no bleeding or drainage, no lesions ORAL CAVITY/OROPHARYNX/LIPS: Normal mucous membranes, normal floor of mouth/tongue/OP, no masses orlesions PHARYNGEAL CUETO: No masses or lesions NECK/LYMPH: No LAD, no thyroid masses, trachea midline SKIN: incisions ok PSYCH: Alert and oriented with appropriate mood and affect Imp VERONICA He follows locally with dermatology and will see me again in 6 months time self exams were reviewedwith him documented in this encounterMet[facility] Work Phone: [phone]) 662-553909-15-2023 Miscellaneous Notes* Telephone Encounter - Lizette Guzmna LPN - 07/14/2023 3:23 PM EDT Left message for patient to call back to schedule surgery and related appointments. documented in this encounterAcmc [facility]09-13-2023 History of Present illness Narrative* Bryn Lantigua MD - 07/12/2023 3:29 PM EDT H25.13 Nuclear senile cataract of both eyes (primary encounter diagnosis) Comment: Cataract Presurgical Documentation Cataract: Both eyes (OU) Current Visual Acuity Right Eye Distance CC 20/25 Left Eye Distance CC 20/20 Best Corrected Vision Right Eye 20/20 Best Corrected Vision Left Eye 20/20 Glare Testing: Right Eye High 20/70 Left Eye High 20/60 Visual Function: Yolanda Sykes Liu QUINTANILLA states that the decline in vision from the cataract impedes hisabilities as listed in the HPI, as well as other activities of daily living. Yolanda Hatfield II has confirmed that he is no longer able to function adequately on a day-to-day basis because of his current visual condition. Further, it is my medical opinion that the cataract is the primary cause, or at least a significantly contributory cause of his visual dysfunction. With uncomplicated cataract surgery and lens implantation, it is my expectation that his visual function and quality of life will improve, significantly. The risks, benefits, alternatives, personnel and complications of cataract surgery with lens implantation were discussed with Yolanda Hatfield II in detail. he appeared to understand and asked that I proceed with plans for surgery. - right eye first - Aim: right eye: Blair Left eye: -2.00 - Flomax/alpha-spring? No - Special needs: None - Toric candidate: No - Patient interested in LenSx: No - Anesthesia: Topical with MAC The patient was offered a [facility]. The surgeon/proceduralist and patient have discussed in detail the risk of exposure to and/or potential harm posed by the COVID-19 virus with having a surgery/procedure at this time versus the risk of delaying the surgery/pr ocedure. It is not possible to know either the risk of delaying the surgery or procedure or chance of getting an infection with perfect accuracy, but a joint decision was made between the patient andthe surgeon/proceduralist to proceed at this time with the scheduled surgery/procedure as indicatedon the consent form. Follow-up for surgery Bryn Lantigua MD July 12, 2023 3:29 PM The documentation recorded by the scribe, if applicable, accurately reflects the service I personally performed and the decisions made by me. I have confirmed and edited as necessary the relevant ophthalmic history, ROS, and the neuro exam findings as obtained by others. I have seen and examined Yolanda Sykes Liu QUINTANILLA. I have discussed the case and the management of this patient's care with the Resident/Fellow/Manager Field, if applicable. I also have reviewed and agree with the assessment and plan as stated above and agree with all of its relevant components. documented in this encounterAcmc Healthcare [facility]07-17-2023 Instructions* Patient Instructions* Renae Covington, LENKA - 05/15/2023 7:59 AM EDT ASSESSMENT/PLAN: 1. 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 Lantigua. Return as directed documented in this encounterAcmc Healthcare [facility]07-17-2023 History of Present illness Narrative* Renae Covington, LENKA - 05/15/2023 7:55 AM EDT ASSESSMENT/PLAN: 1. 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 Lantigua. Return as directed Renae Covington OD I have confirmed and edited as necessary the relevant ophthalmic history, ROS, and the neuro exam findings as obtained by others. documented in this encounterAcmc Healthcare [facility]igh08-02-2022 Instructions* Patient Instructions* Renae Covington, OD - 05/31/2022 1:25 PM EDT ASSESSMENT/PLAN: 1. 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 Can slowly resume the contact lens wear and suggested using the higher oxygen permeable contact lens. Suggested slowly increasing his wearing time a couple of hours per day. Return in 2 weeks for check documented in this encounterAcmc Healthcare [facility]08-02-2022 History of Present illness Narrative* Renae Covington, OD - 05/31/2022 1:21 PM EDT ASSESSMENT/PLAN: 1. 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 Can slowly resume the contact lens wear and suggested using the higher oxygen permeable contact lens. Suggested slowly increasing his wearing time a couple of hours per day. Return in 2 weeks for check Renae Covington OD I have confirmed and edited as necessary the relevant ophthalmic history, ROS, and the neuro exam findings as obtained by others. I have seen and examined this patient. documented in this encounterAcmc Healthcare [facility]igh07-26-2022 Instructions* Patient Instructions* Cherie Covington II, OD - 05/24/2022 1:16 PM EDT Assessment and Plan H16.042 Marginal corneal ulcer of left eye (primary encounter diagnosis) Comment: Discontinue contact lens use until further notice. Start use of Vigamox 1 gt left eye q2h while awake x 4 days then reduce to 1 gt left eye four times a day x 4 days. Recheck in one week. Instruct patient to immediately report any change in condition outside of expected and discussed symptoms. I have confirmed and edited as necessary the relevant ophthalmic history, ROS, and the neuro exam findings as obtained by others. I have seen and examined Yolanda Hatfield II. I have discussed the case and the management of this patient's care with the Resident/Fellow, if applicable. I also have reviewed and agree with the assessment and plan as stated above and agree withall of its relevant components. Cherie Covington II, OD documented in this encounterAcmc [facility]07-26-2022 History of Present illness Narrative* Cherie Covington II, OD - 05/24/2022 1:14 PM EDT Assessment and Plan H16.042 Marginal corneal ulcer of left eye (primary encounter diagnosis) Comment: Discontinue contact lens use until further notice. Start use of Vigamox 1 gt left eye q2h while awake x 4 days then reduce to 1 gt left eye four times a day x 4 days. Recheck in one week. Instruct patient to immediately report any change in condition outside of expected and discussed symptoms. I have confirmed and edited as necessary the relevant ophthalmic history, ROS, and the neuro exam findings as obtained by others. I have seen and examined Yolanda Hatfield II. I have discussed the case and the management of this patient's care with the Resident/Fellow, if applicable. I also have reviewed and agree with the assessment and plan as stated above and agree withall of its relevant components. Cherie Covington II, OD documented in this encounterAcmc Healthcare [facility]06-24-2022 History of Present illness Narrative* CC: lip melanoma * Consulted by: dr mederos * HPI: had a spot on his lip getting darker * no bleeding * 04/22/22 * doing ok * eye feels a little blurry on the left * 07/26/22 * Still doing well, saw Dr. Agustin and had some stitches removed. * Otherwise happy with outcome of repair. * Did note some wax issues * Staff note * Above resident note reviewed and confirmed * I saw and examined the patient. I personally obtained the charlton and critical portions of the history and physical exam or was physically present for the charlton and critical portions performed by the resident/fellow. I reviewed the resident/fellow's documentation and discussed the patient with the residen t/fellow. I agree with the resident/fellow's medical decision making as documented in the resident's note. [facility] Work Phone: [phone]) 804-572406-24-2022 History of Present illness Narrative* CC: lip melanoma * Consulted by: dr mederos * HPI: had a spot on his lip getting darker * no bleeding * 04/22/22 * doing ok * eye feels a little blurry on the left * 07/26/22 * Still doing well, saw Dr. Agustin and had some stitches removed. * Otherwise happy with outcome of repair. * Did note some wax issues * Staff note * Above resident note reviewed and confirmed * I saw and examined the patient. I personally obtained the charlton and critical portions of the history and physical exam or was physically present for the charlton and critical portions performed by the resident/fellow. I reviewed the resident/fellow's documentation and discussed the patient with the residen t/fellow. I agree with the resident/fellow's medical decision making as documented in the resident's note. * 12/27/22 * doing well * still helping out family * tired but doing ok [facility] Work Phone: 1(107) 255-706806-24-2022 History of Present illness Narrative* CC: lip melanoma * Consulted by: dr mederos * HPI: had a spot on his lip getting darker * no bleeding * 04/22/22 * doing ok * eye feels a little blurry on the left * 07/26/22 * Still doing well, saw Dr. Agustin and had some stitches removed. * Otherwise happy with outcome of repair. * Did note some wax issues * Staff note * Above resident note reviewed and confirmed * I saw and examined the patient. I personally obtained the charlton and critical portions of the history and physical exam or was physically present for the charlton and critical portions performed by the resident/fellow. I reviewed the resident/fellow's documentation and discussed the patient with the residen t/fellow. I agree with the resident/fellow's medical decision making as documented in the resident's note. * 12/27/22 * doing well * still helping out family * tired but doing ok [facility]zjj[facility]dgrd Work Phone: 1([phone]) 485-717406-15-2022 NotePROCEDURE DETAILS Preoperative Diagnosis: open wound of face, cheek, upper lip melanoma Postoperative Diagnosis: open wound of face, cheek, upper lip melanoma Surgeon: MD Jose M Resident/Fellow/Other Glove Cleaner: MD Piter Procedure: reconstruction of left upper lip lesion melolabial flap cervicofacial advancement flap Estimated Blood Loss: 25 Findings: see below Operative Report: Operative indications: This is a 76-year-old gentleman who presented to the ENT clinic for 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 Patient underwent Mohs surgery to define the peripheral margin which was completed last week. He then presents today for the above procedure which was discussed to include a wide local excision as well as sentinel lymph node biopsy. This wide local excision was completed by Dr. Farley. We had discussed with the patient the indications, risk, benefits, and alternatives to the above listed procedure he did sign written informed consent to proceed. Operative findings: 1. After wide local excision, defect involving almost the entire left lateral subunit of the upper lip as well as the wet and dry mucosal red lip measuring about 3 x 5 cm 2. Melolabial flap and cervicofacial flap for reconstruction Operative description: Dr. Farley completed his portion of the procedure first. Please see his documentation for further information. I then entered the procedure to find a defect of almost the entire left upper lip lateral subunit as well as part of the right mucosal lip. We therefore decided to perform an island melolabial flap, ariella advancement flap, and cervical advancement flap. A template of the contralateral lateral upper lip cutaneous subunit was created. This was reflected at the WLE site at the left upper lip. The template was applied. The defect was converted to a total subunit defect of the left lateral upper lip with sharp excision of [place] skin and subcutaneous tissue. Sharp excision of previous scar was performed with debridement of skin and subcutaneous tissue performed. A defect of the orbicularis muscle was visualized with loss of vestibule height with cutaneous and mucosal defect appreciatd. The orbicularis muscle was advanced from the remaining right medial upper lip with isolation circumferentially - the orbicularis coni defect was closed with muscle re-approximation sutured in a mattress fashion. This aided to re-establish adequate vestibular height. A ariella mucosal advancement was performed in order to treat the mucosal defect of the wet and dry ariella lip on the left. This was performed over a defect of the mucosal lip measuring. This was secured to the [place] lip mucosa. A z-plasty of the buccal and ariella mucosa was performed along the midline in order to address a 0.5 square cm defect of lip mucosa. The template of the right cutaneous lip was then applied to the left medial cheek in order to design a melolabial island flap. The markings were then incised and dissection was carried into the subcutaneous/SMAS tissue. Deep muscle and fascia underlying the skin was preserved in an island flap fashion with cut as you go technique utilized for rotation and advancement of the melolabial flap based on the angular artery distribution for axial blood supply. The flap was inset into the cutaneous defect in a multilayer fashion utilizing a combination of prolene, monocryl and gut suture. This was met with the mucosal advancement flap to create the ariella cutaneous lip junction. Finally, a secondary defect was then address. A cheek/facial rotation advancement flap was designed based on the transverse facial artery in order to achieve closure at this defect. Incisions were carried from the secondary defect margin into the infra-orbital and cheek subunit junction in order to provide favorable scar placement. A sub-SMAS dissection plan to create a composite skin and SMAS flap - this was dissected with care not to injure facial musculature nor facial nerve branches as well as provide adequate tissue volume to reconstruct the defect.. The flap was advanced into the defect and secured with a combination of monocryl and prolene suture in a multilayer fashion. This completed the reconstruction. The face was cleansed with saline. Ointment was applied to all incisions. At this time, a Jobst facelift dressing was applied after we had applied Xeroform as well as fluffs to prevent skin edema. This concluded the procedure. The patient was turned over to anesthesia for extubation. He was then brought to the PACU in stable condition having tolerated our procedure well. Attestation: Note Completion: Attending AttestationI was present for the entire procedure I am a:Res (more content not included)...[facility]2022 NotePROCEDURE DETAILS Preoperative Diagnosis: melanoma Postoperative Diagnosis: melanoma Surgeon: MD Miguelito Resident/Fellow/Other Glove Cleaner: MD Piter Procedure: wide local excision of left upper lip 3x5cm left neck sentinel lymph nod biopsy Anesthesia: GETA Estimated Blood Loss: 5 Findings: WLE 3x5cm Left level III SLN found Specimens(s) Collected: yes, Operative Report: Operative indications: This is a 76-year-old gentleman who presented to the ENT clinic for 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 Patient underwent Mohs surgery to define the peripheral margin which was completed last week. He then presents today for the above procedure which was discussed to include a wide local excision as well as sentinel lymph node biopsy. We had discussed with the patient the indications, risk, benefits, and alternatives to the above listed procedure he did sign written informed consent to proceed. Operative findings: 1. Wide local excision of left upper lip skin, as well as left upper lip mucosa measuring 3 x 5 cm in total 2. Left level 2 node identified by both methylene blue, as well as target count of 33 on the neoprobe. Operative description: The patient was met in the preoperative holding area where consent was reviewed and all questions were answered. We then brought back to the patient to the operating room with the assistance of anesthesia where he was laid supine on the operating room table. A preoperative huddle was performed. General anesthesia was induced and we secured the tube by stitching at the lower dentition. The patient was then turned toward the ENT service. We then examined the operative site. We used the neoprobe along with the preoperative SPECT-CT to identify lymph nodes of interest which included the left level 3 area. This did somewhat light up on the neoprobe. Therefore we designed an incision and a horizontal neck crease over that area. We injected this with 1% lidocaine with 1 100,000 epinephrine and was allowed time to take effect. We then also injected aliquots of methylene blue in the subdermal plexus around the lesion. We then prepped and draped in standard sterile fashion. A timeout was called. We began by using a pickup and sharp scissors to come through the Mohs surgery sutures around the lesion. After this we then used Bovie electrocautery to remove the the lesion from the deeper tissues taking care to stay above the orbicularis. We controlled any bleeding as we encountered it. We then oriented the specimen, and then sent it to pathology for analysis. A wet sponge was then placed over the defect site. The defect measured approximately 3 x 5 cm. At this point we then proceeded to the sentinel lymph node biopsy. We again used the neoprobe to confirm that the left level 3 was the area of interest. We then made our incision using a 15 blade and then came through the subcutaneous and platysma layers using the Bovie electrocautery. We then opened up the fascia and the anterior border of the SCM began her search for sentinel lymph node. We found a lymph node approximately even with the thyroid cartilage which was stained with methylene blue and also was hot on the neoprobe. We then circumferentially dissected and removed it from surrounding tissue using bipolar electrocautery. We then confirmed a target count of 33 on the neoprobe. We did also include a separate specimen of the level 3 lymph node that did not have a high enough target count but was slightly stained with methylene blue. These were sent as sentinel lymph nodes 1 and 2. We then copiously irrigated the wound bed. Achieved hemostasis. Finally, fibrillar was placed in the wound bed. We then closed the incision using 3-0 Vicryl for the deep platysmal layer as well as the deep dermal layer. We then closed the skin using a running subcuticular 4-0 Monocryl. We then applied Mastisol and Steris to the site. At this time the patient was turned over to Dr. Salguero for reconstruction. At time of transfer, patient was in stable condition having tolerated procedure well with no apparent complications. Attestation: Note Completion: Attending AttestationI was present for the entire procedure I am a:Resident/Fellow Electronic Signatures: Susan Farley) (Signed 14-Apr-2022 09:20) Authored: Note Completion Co-Signer: Post-Operative Note, Chart Review, Note Completion Jareth Dumas (Resident)) (Signed 13-Apr-2022 19:41) Authored: Post-Operative Note, Chart Review, Note Completion Last Updated: 14-Apr-2022 09:20 by Susan Farley)[facility] 04-13-2022 History of Present illness Narrative* Susan Farley MD - 02/06/2024 1:00 PM EDT Lip resection S/p cheek resection slnb with local reconstruction 04/13/22 Doing welll Notice a blemish Monday Not painful Was a little red [place] something hard in it No drainage Has gotten smaller Physical Exam: CONSTITUTIONAL: No acute distress VOICE: No hoarseness or other abnormality RESPIRATION: Breathing comfortably, no stridor CV: No clubbing/cyanosis/edema in hands EYES: EOM intact, sclera normal NEURO: Alert and oriented times 3, Cranial nerves II-XII grossly intact and symmetric bilaterally HEAD AND FACE: Symmetric facial features, no masses or lesions, sinuses non- tender to palpation SALIVARY GLANDS: Parotid and submandibular glands normal bilaterally EARS: Normal external ears, external auditory canals, and TMs to otoscopy, normal hearing to whispered voice. NOSE: External nose midline, anterior rhinoscopy is normal with limited visualization to the anterior aspect of the interior turbinates, no bleeding or drainage, no lesions ORAL CAVITY/OROPHARYNX/LIPS:left upper lip reconstruction, small punctate area of blemish at the mucocutaneous junction ruptured with a 27-gauge needle with expression of mild sebum and purulence some surrounding erythema no masses on palpation PHARYNGEAL CUETO: No masses or lesions NECK/LYMPH: No LAD, no thyroid masses, trachea midline SKIN: Neck skin is without scar or injury PSYCH: Alert and oriented with appropriate mood and affect Imp. Concern represents a small area of cellulitis with folliculitis Partially resolved with rupture utilizing 27-gauge needle Warm compress and Augmentin for 5 days He will keep a regular visit with me in 2 months He will call if this does not fully resolve It appears to be related to shaving as he has several other areas on his lip and right cheek There is a small area in the postauricular region which we will recheck at the next visit documented in [facility] Work Phone: [phone]) 916-345606-15-2022 NoteHistory & Physical Reviewed: I have reviewed the History and Physical dated: 30-Mar-2022 History and Physical reviewed and relevant findings noted. Patient examined to review pertinent physical findings.: No significant changes Home Medications Reviewed: no changes noted Allergies Reviewed: no changes noted ERAS (Enhanced Recovery After Surgery): ERAS Patient: no Consent: COVID-19 Consent: COVID-19 Risk ConsentSurgeon has reviewed charlton risks related to the risk of cristina COVID-19 and if they contract COVID-19 what the risks are. Attestation: Note Completion: I am a: Resident/Fellow Attending AttestationI saw and evaluated the patient. I personally obtained the charlton and critical portions of the history and physical exam or was physically present for charlton and critical portions performed by the resident/fellow. I reviewed the resident/fellows documentation and discussed the patient with the resident/fellow. I agree with the resident/fellows medical decision making as documented in the note. 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 Good fit. Power changes given to try. Recheck in one year. H25.13 Nuclear senile cataract of both eyes Comment: Mild cataract in both eyes. Well tolerated at this time. Discussed possible future affect on daily activities to watch for. Monitor as instructed. H40.003 Glaucoma suspect of both eyes Comment: Recommend OCT NFA next visit. I have confirmed and edited as necessary the relevant ophthalmic history, ROS, and the neuro exam findings as obtained by others. I have seen and examined Yolanda Hatfield II. I have discussed the case and the management of this patient's care with the Resident/Fellow, if applicable. I also have reviewed and agree with the assessment and plan as stated above and agree withall of its relevant components. 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 Good fit. Power changes given to try. Recheck in one year. H25.13 Nuclear senile cataract of both eyes Comment: Mild cataract in both eyes. Well tolerated at this time. Discussed possible future affect on daily activities to watch for. Monitor as instructed. H40.003 Glaucoma suspect of both eyes Comment: Recommend OCT NFA next visit. I have confirmed and edited as necessary the relevant ophthalmic history, ROS, and the neuro exam findings as obtained by others. I have seen and examined Yolanda Hatfield II. I have discussed the case and the management of this patient's care with the Resident/Fellow, if applicable. I also have reviewed and agree with the assessment and plan as stated above and agree withall of its relevant components. Cherie Covington II, OD documented in this encounterA[facility] History of Past illness Narrative* Problem Noted Date Diagnosed Date Resolved Date Senile nuclear sclerosis 04/18/201505/2023 documented as of this encounter (statuses as of 10/06/2023) [facility]* Diagnosis Hypermetropia of both eyes- Primary Hypermetropia Regular astigmatism of both eyes Regular astigmatism Presbyopia Nuclear senile cataract of both eyes Glaucoma suspect of both eyes Preglaucoma, unspecified documented in this encounter [facility] noteN/ADept. 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 Marginal corneal ulcer documented in this encounter [facility]* Diagnosis Nuclear senile cataract of both eyes- Primary documented in this encounter [facility]* Diagnosis Malignant melanoma of face (CMS/HCC)- Primary Malignant melanoma of skin of other and unspecified parts of face documented in this encounter [facility] Work Phone: Evaluation note* Diagnosis Pre-operative examination- Primary Preoperative examination, unspecified Anxiety disorder, unspecified type 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) Malignant melanoma of skin of lip Mixed hyperlipidemia Essential hypertension, benign Nuclear senile cataract of both eyes Nuclear senile cataract of both eyes documented in this encounter [facility]* Diagnosis Melanoma of skin of lip (CMS/HCC)- Primary Malignant melanoma of face (CMS/HCC) Malignant melanoma of skin of other and unspecified parts of face documented in this encounter [facility] Work Phone: Evaluation note* Diagnosis Pseudophakia of both eyes- Primary Lens replaced by other means documented in this encounter [facility]* Diagnosis Lip swelling- Primary Diseases of lips Melanoma of skin of lip (CMS/HCC) documented in this encounter [facility] Work Phone: Evaluation note* Diagnosis Chronically dry eyes, bilateral- Primary Pseudophakia of both eyes Lens replaced by other means documented in this encounter [facility]* Diagnosis Pre-operative examination- Primary Preoperative examination, unspecified Anxiety disorder, unspecified type 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) Malignant melanoma of skin of lip Mixed hyperlipidemia Essential hypertension, benign Regular astigmatism, bilateral- Primary Hyperopia, right Myopia of left eye Myopia Presbyopia Glaucoma suspect of both eyes Preglaucoma, unspecified Chronic dryness of left eye Pseudophakia of both eyes Lens replaced by other means documented in this encounter [facility] Present illness Narrative* CC: lip melanoma * Consulted by: dr mederos * HPI: had a spot on his lip getting darker * no bleeding * Past medical history: no DM, +HTN * Past surgical history: MOHS surgery, * Social history: no smoking, social drinking (nightcap), lives with family * Family history: Reviewed and not relevant to the presenting complaint * Current medications: * Reviewed as noted in current orders * Allergies: * Reviewed and as noted in current orders * ROS: All other systems have been reviewed and are negative for complaint. I personally reviewed theintake form that was scanned in today * PE: * CONSTITUTIONAL: Vitals -reviewed from intake field, well developed, well nourished. * VOICE: * RESPIRATION: Breathing comfortably, no stridor. * CV: No clubbing/cyanosis/edema in hands. * EYES: EOM Intact, sclera normal. * NEURO: Alert and oriented times 3, Cranial nerves II-XII intact and symmetric bilaterally. * HEAD AND FACE: Symmetric facial features, no masses or lesions, sinuses nontender to palpation. * SALIVARY GLANDS: Parotid and submandibular glands normal bilaterally. * EARS: Normal external ears, external auditory canals, and TMs to otoscopy, normal hearing to whispered voice. * NOSE: External nose midline, anterior rhinoscopy is normal with limited visualization to the anterior aspect of the inferior turbinates. No lesions noted. * ORAL CAVITY/OROPHARYNX/LIPS: Normal mucous membranes, normal floor of mouth/tongue/OP, no masses orlesions are noted. * PHARYNGEAL CUETO AND NASOPHARYNX: No masses noted. Mucosa appears clean and moist * NECK/LYMPH: No LAD, no thyroid masses. Trachea palpably midline * SKIN: Neck skin is without scar or injury * PSYCH: Alert and oriented with appropriate mood and affect * Radiology reviewed: * I personally reviewed the from [date of report] and this is my impression * Other notes reviewed; I personally reviewed the acura sales consultant notes or primary team notes I personallyreviewed the? EKG, ? other studies? Nutrition notes? * A/P: (Minimum of moderate clinical decision making) --> Level 4 note. * TIME CODES: I spent 40/55/80/110 minutes with the patient and/or family. Greater than 50% of this time was spent in counselling or coordination of care. [facility]rg[facility] Work Phone: History of Present illness Narrative* Chief Complaint: lip melanoma * Referring Provider: Dr. Farley * Location: upper lip, left * Quality: melanoma * Severity: severe * Duration: months * Timing: all times * Context: no smoking, minimal etoh, mohs surgery prior. spot noticed on the left upper lip that got darker over time * Modifying factors: none * Associated signs and symptoms: as above, no ulceration * Dr. Farley referred this patient. Review of his note was performed to gather information in regardsto this visit. 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 * All other systems have been reviewed and are negative for complaint unless documented above. * Physical Exam: * General: Well-developed and well-nourished in appearance. * Skin: No rashes or concerning lesions on the visible portions of the skin. * Eyes: Extraocular movements intact. Visual baez grossly normal. * Ears: Pinna are normal in shape and position. External canals are patent. * Nose: Dorsum is midline. Septum is midline and turbinates are normal on anterior * rhinoscopy. * Oral Cavity/Oropharynx: Dentition is intact. Mucous membranes moist. No masses or lesions. scar at upper lip with surrounding melanocytic changes * Neck: Midline trachea without masses or lesions. Thyroid is normal in size. * Lymphatics: No palpable cervical lymphadenopathy * Respiratory: No respiratory distress. Quiet breathing without stertor or stridor. * Cardiovascular: Regular rate and rhythm. Warm extremities with equal pulses. * Psych: Normal mood and affect. Judgement and insight appropriate. * Neuro: Alert and oriented. CN II-XII grossly intact. No focal deficits. * Musculoskeletal: Gait intact. Moves all extremities well without apparent deformities. [id number] Work Phone: History of Present illness Narrative* IH 04.20.22 Here s/p melolabial flap and cervicofacial advancement flap for reconstruction of the upper lip after WLE and SLNB * Doing well, no complaints * Sutures removed * RTC 2 months for scar observation. discussed scar and incision care in detail * Chief Complaint: lip melanoma * Referring Provider: Dr. Farley * Location: upper lip, left * Quality: melanoma * Severity: severe * Duration: months * Timing: all times * Context: no smoking, minimal etoh, mohs surgery prior. spot noticed on the left upper lip that got darker over time * Modifying factors: none * Associated signs and symptoms: as above, no ulceration * Dr. Farley referred this patient. Review of his note was performed to gather information in regardsto this visit. 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 * All other systems have been reviewed and are negative for complaint unless documented above. * Physical Exam: * General: Well-developed and well-nourished in appearance. * Skin: No rashes or concerning lesions on the visible portions of the skin. * Eyes: Extraocular movements intact. Visual baez grossly normal. * Ears: Pinna are normal in shape and position. External canals are patent. * Nose: Dorsum is midline. Septum is midline and turbinates are normal on anterior * rhinoscopy. * Oral Cavity/Oropharynx: Dentition is intact. Mucous membranes moist. No masses or lesions. scar at upper lip with surrounding melanocytic changes * Neck: Midline trachea without masses or lesions. Thyroid is normal in size. * Lymphatics: No palpable cervical lymphadenopathy * Respiratory: No respiratory distress. Quiet breathing without stertor or stridor. * Cardiovascular: Regular rate and rhythm. Warm extremities with equal pulses. * Psych: Normal mood and affect. Judgement and insight appropriate. * Neuro: Alert and oriented. CN II-XII grossly intact. No focal deficits. * Musculoskeletal: Gait intact. Moves all extremities well without apparent deformities. [facility] Work Phone: Reason for referral (narrative)* Name Reason for referral [facility] Reason for referral (narrative)No reason for referral information availableWUniversity [facility] Work Phone: Summary Purpose Family History No Family History Records FoundNo Family History Records FoundNo Family History Records FoundNo Family History Records FoundNo Family History Records FoundNo Family History Records FoundNo Family History Records FoundNo Family History Records Found Advance Directives No Advanced Directives Records Found Advance Directive Response Recorded Date/ Time Advance Directives No April 08 2:59pm Living Will No April 08, 2021 2:59pm Power of Sink Cutter No April 08 2:59pm Advance Directive Response Recorded Date/ Time Advance Directives No April 08 3:59pm Living Will No April 08, 2021 3:59pm Power of Sink Cutter No April 08 3:59pm Advance Directive Response Recorded Date/ Time Advance Directives No September 1:19pm Advance Directive Response Recorded Date/ Time Advance Directives No May 09 10:16am Chief Complaint melanoma upper lipPOV surgery 04/13follow upfollow upfollow up Medications Administered Section Active Administered Medications - up to 3 most recent administrations Medication Order MAR Action Action Date Dose Rate Site tropicamide 0.5 % 1 Drop (MYDRIACYL) 1 Drop, BOTH EYES, DIRECTED, Starting on 03/19/22 at 1000, Until 03/19/22 at 2159, Administer for dilation Given 03/19/2022 10:00 AM EDT 1 Drop Active Administered Medications - up to 3 most recent administrations Medication Order MAR Action Action Date Dose Rate Site fluorescein-benoxinate 0.25-0.4 % 1 Drop (FLURESS) 1 Drop, LEFT EYE, DIRECTED, Starting on Tu05/24/22 at 1330, Until Mon05/25/22 at 0129, Administer for applanation tonometry. In the event of a Fluress shortage, administer Isabel-Fluor 1 drop into the left eye as directed for applanation tonometry Given 05/24/2022 1:30 PM EDT 1 Drop Active Administered Medications - up to 3 most recent administrations Medication Order MAR Action Action Date Dose Rate Site fluorescein-benoxinate 0.25-0.4 % 1 Drop (FLURESS) 1 Drop, BOTH EYES, DIRECTED, Starting on Mon07/12/23 at 1430, Until Miriam 07/13/23 at 0229, Administer for applanation tonometry. In the event of a Fluress shortage, administer Isabel-Fluor 1 drop into both eyes as directed for applanation tonometry Given 07/12/2023 2:30 PM EDT 1 Drop PHENYLephrine 2.5 % 1 Drop (AK-DILATE, TWIN-SYNEPHRINE) 1 Drop, BOTH EYES, DIRECTED, Starting on Mon07/12/23 at 1430, Until Miriam 07/13/23 at 0229, Administer for dilation PROTECT FROM LIGHT Given 07/12/2023 2:30 PM EDT 1 Drop tropicamide 1 % 1 Drop (MYDRIACYL) 1 Drop, BOTH EYES, DIRECTED, Starting on Mon07/12/23 at 1430, Until Miriam 07/13/23 at 0229, Administer for dilation Given 07/12/2023 2:30 PM EDT 1 Drop Chief Complaint and Reason for Visit Chief Complaint SCREENING Chief Complaint VIRAL SYMPTOMS Chief Complaint Admit Date COUGH/SINUS COMPLAINT October 07, 2024 8:06am RIGHT KNEE October 07, 2024 8 :29am COUGH/SINUS- GETTING WORSE/HERE 10/07 [facility] 2023 8:02am URINE October 21, 2024 10:19am RIGHT KNEE January 13, 2025 9:1 7am NO ORDERS January 27, 2025 10: 15am Reason for Visit Admit Date Primary osteoarthritis of right knee [facility] 2023 8:29am Primary osteoarthritis of right knee [facility] 2024 9:17am Chief Complaint Admit Date RIGHT KNEE January 13, 2025 9:1 7am NO ORDERS January 27, 2025 10: 15am RIGHT KNEE February 03, 2025 10:4 7am RIGHT KNEE February 10, 2025 10: 56am RIGHT KNEE February 17, 2025 9:0 1am RIGHT SHOULDER February 24, 2025 9:0 4am Room 2 February 24, 2025 9:2 6am RIGHT KNEE May 12, 2025 9:44 am Room 2 May 12, 2025 10:0 1am Reason for Visit Admit Date Primary osteoarthritis of right knee Mar 2024 9:17am Primary osteoarthritis of right knee Apr in 2024 10:47am Primary osteoarthritis of right knee Apr in 2024 10:56am Viral URI February 10, 2025 10: 56am Primary osteoarthritis of right knee Apr in 2024 9:01am Viral URI February 17, 2025 9:0 1am Arthritis of right shoulder February 24, 2025 9:04am Right rotator cuff tendinitis January 9:04am Subdeltoid bursitis of right shoulder tricia int February 24, 2025 9:04am Reason for Visit Admit Date Primary osteoarthritis of right knee Mar 2024 9:17am Primary osteoarthritis of right knee Apr in 2024 10:47am Primary osteoarthritis of right knee Apr in 2024 10:56am Viral URI February 10, 2025 10: 56am Primary osteoarthritis of right knee Apr in 2024 9:01am Viral URI February 17, 2025 9:0 1am Arthritis of right shoulder February 24, 2025 9:04am Right rotator cuff tendinitis January 9:04am Subdeltoid bursitis of right shoulder tricia int February 24, 2025 9:04am Primary osteoarthritis of right knee Miky 2024 9:44am Chief Complaint Admit Date RIGHT KNEE February 03, 2025 10:4 7am RIGHT KNEE February 10, 2025 10: 56am RIGHT KNEE February 17, 2025 9:0 1am RIGHT SHOULDER February 24, 2025 9:0 4am Room 2 February 24, 2025 9:2 6am RIGHT KNEE May 12, 2025 9:44 am Room 2 May 12, 2025 10:0 1am TEMPLATING FOR RT TKA May 26, 2025 8: 19am right knee May 28, 2025 1:21 pm Reason for Visit Admit Date Primary osteoarthritis of right knee Apr 2024 10:47am Primary osteoarthritis of right knee Apr in 2024 10:56am Viral URI February 10, 2025 10: 56am Primary osteoarthritis of right knee Apr 2024 9:01am Viral URI February 17, 2025 9:0 1am Arthritis of right shoulder February 24, 2025 9:04am Right rotator cuff tendinitis January 9:04am Subdeltoid bursitis of right shoulder tricia int February 24, 2025 9:04am Primary osteoarthritis of right knee Apr 9:44am Primary osteoarthritis of right knee Apr 1:21pm Chief Complaint Admit Date RIGHT KNEE February 10, 2025 10: 56am RIGHT KNEE February 17, 2025 9:0 1am RIGHT SHOULDER February 24, 2025 9:0 4am Room 2 February 24, 2025 9:2 6am RIGHT KNEE May 12, 2025 9:44 am Room 2 May 12, 2025 10:0 1am TEMPLATING FOR RT TKA May 26, 2025 8: 19am right knee May 28, 2025 1:21 pm Reason for Visit Admit Date Primary osteoarthritis of right knee Apr 2024 10:56am Viral URI February 10, 2025 10: 56am Primary osteoarthritis of right knee Jan 9:01am Viral URI February 17, 2025 9:0 1am Arthritis of right shoulder February 24, 2025 9:04am Right rotator cuff tendinitis January 9:04am Subdeltoid bursitis of right shoulder tricia int February 24, 2025 9:04am Primary osteoarthritis of right knee Apr 9:44am Chronic pain of right knee May 28 1:21pm Additional Source Comments <item><item> Privacy Markings (unrecogniz ed section and content) Section Author: Edelmira Aguillon PROHIBITION ON REDISCLOSURE OF CONFIDENTIAL INFORMATION This notice accompanies a disclosure of information concerning a client made to you with the consent of such client. Section Author: Edelmira Aguillon PROHIBITION ON REDISCLOSURE OF CONFIDENTIAL INFORMATION This notice accompanies a disclosure of information concerning a client made to you with the consent of such client. (unrecognized sect ion and content) No Status Records FoundNo Status Records FoundNo Status Records FoundNo Status Records FoundNo Status Records FoundNo Status Records FoundNo Status Records FoundNo Status Records Found INFORMATION SOURCE (unrecogn ized section and content) DATE CREATED AUTHOR 08/28/2021 [facility] DATE CREATED AUTHOR AUTHOR'S ORGANIZ ATION 04/18/2022 [facility] DATE CREATED AUTHOR AUTHOR'S ORGANIZ ATION 12/28/2022 [facility] DATE CREATED AUTHOR AUTHOR'S ORGANIZ ATION 12/29/2022 [facility] DATE CREATED AUTHOR AUTHOR'S ORGANIZ ATION 09/20/2023 [facility] DATE CREATED AUTHOR AUTHOR'S ORGANIZ ATION 02/11/2024 [facility] DATE CREATED AUTHOR AUTHOR'S ORGANIZ ATION 12/27/2024 [facility] DATE CREATED AUTHOR AUTHOR'S ORGANIZ ATION 06/16/2025 [facility] Source Comments (unrecognize d section and content) In the event this informatio n is protected by the Federal Confidentiality of Alcohol and Drug Abuse Patient Records regulations: The Federal rules restrict any use of the information to criminally investigate or prosecute any alcohol or drug abuse patient.[facility]ighIn the event this information is protected by the Federal Confidentiality of Alcohol and Drug Abuse Patient Records regulations: The Federal rules restrict any use of the information to criminally investigate or prosecute any alcohol or drug abuse patient.[facility]ighIn the event this information is protected by the Federal Confidentiality of Alcohol and Drug Abuse Patient Records regulations: The Federal rules restrict any use of the information to criminally investigate or prosecute any alcohol or drug abuse patient.[facility]ighIn the event this information is protected by the Federal Confidentiality of Alcohol and Drug Abuse Patient Records regulations: The Federal rules restrict any use of the information to criminally investigate or prosecute any alcohol or drug abuse patient.[facility]ighIn the event this information is protected by the Federal Confidentiality of Alcohol and Drug Abuse Patient Records regulations: The Federal rules restrict any use of the information to criminally investigate or prosecute any alcohol or drug abuse patient.[facility]ighIn the event this information is protected by the Federal Confidentiality of Alcohol and Drug Abuse Patient Records regulations: The Federal rules restrict any use of the information to criminally investigate or prosecute any alcohol or drug abuse patient.[facility]ighIn the event this information is protected by the Federal Confidentiality of Alcohol and Drug Abuse Patient Records regulations: The Federal rules restrict any use of the information to criminally investigate or prosecute any alcohol or drug abuse patient.[facility]ighIn the event this information is protected by the Federal Confidentiality of Alcohol and Drug Abuse Patient Records regulations: The Federal rules restrict any use of the information to criminally investigate or prosecute any alcohol or drug abuse patient.[facility]ighIn the event this information is protected by the Federal Confidentiality of Alcohol and Drug Abuse Patient Records regulations: The Federal rules restrict any use of the information to criminally investigate or prosecute any alcohol or drug abuse patient.[facility]ighIn the event this information is protected by the Federal Confidentiality of Alcohol and Drug Abuse Patient Records regulations: The Federal rules restrict any use of the information to criminally investigate or prosecute any alcohol or drug abuse patient.[facility] Reason for Visit (unrecogniz ed section and content) Reason Comments Yearly Exam Contact lens evaluation Reason Comments Red Eye Left Eye Reason Comments Follow Up For Corneal ulcer left e ye Reason Comments Corneal Ulcer Follow Up Left eye Reason Comments Blurred Vision Both Eyes Pt dislikes wea ring his glasses. 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 Pt states trouble walking with current glasses. Dry Eye(s) Both Eyes Using systane PF AT 2-3x a day mostly left eye Reason Comments Schedule Surgery Reason Comments Follow-up Surgery April 13. Reason Comments Consult Reason Comments Follow-up Reason Comments Post-op (Ophthalmology) Left Eye POD0 - Phaco OS Specialty Diagnoses / Procedures Referred By Shanel ford Referred To Contact OPHT MAIN Diagnoses Nuclear senile cataract of both eyes Procedures XCAPSL CTRC RMVL INSJ IO LENS PROSTH W/O ECP OPH BMTRY PRTL COHER INTRFRMTRY IO LENS PWR ANTONIO PHACOEMULSIFICATION CATARACT IMPLANT INTRAOCULAR LENS W/O ENDOSCOPIC CYCLOPHOTOCOAGULATION OPHTHALMIC BIOMETRY BY PARTIAL COHERENCE INTERFEROMETRY W/INTRAOCULAR LENS POWER CALCULATION [facility] [address] [address] Referral ID Status Reason Start Date Expiration Date Visits Re quested Visits Authorized [id number] 1 1 Reason Comments Watery Eyes Left Eye Reason Comments Yearly Exam Care Teams (unrecognized sec tion and content) 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 Jin Richard MD Family Provider Active Dr. Jin Richard MD Primary Care Provider Active Team Status: Inactive Member Role Status Dates Dr. 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 Jin Richard MD Primary Care Provi anton, Attending Provider, Referring Provider Active ED WEIR Other Provider Active JOSE M SAMUELS Other Provider Active Team Status: Inactive Member Role Status Dates Dr. Jin Richard MD Primary Care Provider, Attending Provider Active Revenue Enforcement Collection Agent Relationship Specialty Start Date End Date Linda Ibarra MD [address] [place] [facility] [address] [place] [address] PCP - General Internal Medicine 03/20/24 Revenue Enforcement Collection Agent Relationship Specialty Start Date End Date Linda Ibarra MD [address] [place] [facility] [address], [place] [address] PCP - General Internal Medicine 03/20/24 Team Status: Active Member Role Status Dates Dr. Jin Richard MD Family Provider Active Linda Ibarra MD Primary Care Provider Active Team Status: Inactive Member Role Status Dates Linda Ibarra MD Primary Care Provider Active St art: October 07, 2024 End: October 07, 2024 Linda Ibarra MD Referring Provider Active Start : October 07, 2024 End: October 07, 2024 Ankit CRAFT PA Attending Provider Active Start: October 07, 2024 End: October 07, 2024 Team Status: Inactive Member Role Status Dates Linda Ibarra MD Primary Care Provider Active St art: October 07, 2024 End: October 07, 2024 Linda Ibarra MD Referring Provider Active Start : October 07, 2024 End: October 07, 2024 Dr. Chris Burton DO Attending Provider Active Start: October 07, 2024 End: October 07, 2024 Team Status: Inactive Member Role Status Dates Linda Ibarra MD Primary Care Provider Active St art: October 21, 2024 End: October 21, 2024 Linda Ibarra MD Referring Provider Active Start : October 21, 2024 End: October 21, 2024 Ankit CRAFT PA Attending Provider Active Start: October 21, 2024 End: October 21, 2024 Team Status: Inactive Member Role Status Dates Linda Ibarra MD Primary Care Provider Active St art: October 21, 2024 End: October 21, 2024 Ankit CRAFT PA Attending Provider Active Start: October 21, 2024 End: October 21, 2024 Ankit Hagan PA, PA Referring Provider Active Start: October 21, 2024 End: October 21, 2024 Team Status: Inactive Member Role Status Brooklyn Ibarra MD Primary Care Provider Active St art: November 28, 2024 End: November 28, 2024 Linda Ibarra MD Attending Provider Active Start : November 28, 2024 End: November 28, 2024 Team Status: Inactive Member Role Status Brooklyn Ibarra MD Primary Care Provider Active St art: January 13, 2025 End: January 13, 2025 Linda Ibarra MD Referring Provider Active Start : January 13, 2025 End: January 13, 2025 Dr. Chris Burton DO Attending Provider Active Start: January 13, 2025 End: January 13, 2025 Team Status: Inactive Member Role Status Brooklyn Ibarra MD Primary Care Provider Active St art: January 27, 2025 End: January 27, 2025 Linda Ibarra MD Attending Provider Active Start : January 27, 2025 End: January 27, 2025 Linda Ibarra MD Referring Provider Active Start : January 27, 2025 End: January 27, 2025 Team Status: Active Member Role/Relationship Status Dates Dr. Jin Richard MD Family Provider Active Linda Ibarra MD Primary Care Provider Active Team Status: Inactive Member Role/Relationship Status Brooklyn Ibarra MD Primary Care Provider Active St art: January 13, 2025 End: January 13, 2025 Linda Ibarra MD Referring Provider Active Start : January 13, 2025 End: January 13, 2025 Dr. Chris Burton DO Attending Provider Active Start: January 13, 2025 End: January 13, 2025 Team Status: Inactive Member Role/Relationship Status Brooklyn Ibarra MD Primary Care Provider Active St art: January 27, 2025 End: January 27, 2025 Linda Ibarra MD Attending Provider Active Start : January 27, 2025 End: January 27, 2025 Linda Ibarra MD Referring Provider Active Start : January 27, 2025 End: January 27, 2025 Team Status: Inactive Member Role/Relationship Status Brooklyn Ibarra MD Primary Care Provider Active St art: February 03, 2025 End: February 03, 2025 Linda Ibarra MD Referring Provider Active Start : February 03, 2025 End: February 03, 2025 Dr. Chris Burton DO Attending Provider Active Start: February 03, 2025 End: February 03, 2025 Team Status: Inactive Member Role/Relationship Status Brooklyn Ibarra MD Primary Care Provider Active St art: February 10, 2025 End: February 10, 2025 Linda Ibarra MD Referring Provider Active Start : February 10, 2025 End: February 10, 2025 Dr. Chris Burton DO Attending Provider Active Start: February 10, 2025 End: February 10, 2025 Team Status: Inactive Member Role/Relationship Status Brooklyn Ibarra MD Primary Care Provider Active St art: February 17, 2025 End: February 17, 2025 Linda Ibarra MD Referring Provider Active Start : February 17, 2025 End: February 17, 2025 Dr. Chris Burton DO Attending Provider Active Start: February 17, 2025 End: February 17, 2025 Team Status: Inactive Member Role/Relationship Status Brooklyn Ibarra MD Primary Care Provider Active St art: February 24, 2025 End: February 24, 2025 Linda Ibarra MD Referring Provider Active Start : February 24, 2025 End: February 24, 2025 Dr. Chris Burton DO Attending Provider Active Start: February 24, 2025 End: February 24, 2025 Team Status: Inactive Member Role/Relationship Status Brooklyn Ibarra MD Primary Care Provider Active St art: February 24, 2025 End: February 24, 2025 Dr. Rosendo Mccain MD Attending Provider Active S tart: February 24, 2025 End: February 24, 2025 Team Status: Active Member Role/Relationship Status Brooklyn Ibarra MD Primary Care Provider Active St art: May 12, 2025 Linda Ibarra MD Referring Provider Active Start : May 12, 2025 Dr. Chris Burton DO Attending Provider Active Start: May 12, 2025 Team Status: Inactive Member Role/Relationship Status Brooklyn Ibarra MD Primary Care Provider Active St art: May 12, 2025 End: May 12, 2025 Dr. Rosendo Mccain MD Attending Provider Active S tart: May 12, 2025 End: May 12, 2025 Team Status: Inactive Member Role/Relationship Status Brooklyn Ibarra MD Primary Care Provider Active St art: May 12, 2025 End: May 12, 2025 Linda Ibarra MD Referring Provider Active Start : May 12, 2025 End: May 12, 2025 Dr. Chris Burton DO Attending Provider Active Start: May 12, 2025 End: May 12, 2025 Team Status: Active Member Role/Relationship Status Brooklyn Ibarra MD Primary Care Provider Active Team Status: Inactive Member Role/Relationship Status Brooklyn Ibarra MD Primary Care Provider Active St art: February 03, 2025 End: February 03, 2025 Linda Ibarra MD Referring Provider Active Start : February 03, 2025 End: February 03, 2025 Dr. Chris Burton DO Attending Provider Active Start: February 03, 2025 End: February 03, 2025 Team Status: Inactive Member Role/Relationship Status Brooklyn Ibarra MD Primary Care Provider Active St art: February 10, 2025 End: February 10, 2025 Linda Ibarra MD Referring Provider Active Start : February 10, 2025 End: February 10, 2025 Dr. Chris Burton DO Attending Provider Active Start: February 10, 2025 End: February 10, 2025 Team Status: Inactive Member Role/Relationship Status Brooklyn Ibarra MD Primary Care Provider Active St art: February 17, 2025 End: February 17, 2025 Linda Ibarra MD Referring Provider Active Start : February 17, 2025 End: February 17, 2025 Dr. Chris Burton DO Attending Provider Active Start: February 17, 2025 End: February 17, 2025 Team Status: Inactive Member Role/Relationship Status Brooklyn Ibarra MD Primary Care Provider Active St art: February 24, 2025 End: February 24, 2025 Linda Ibarra MD Referring Provider Active Start : February 24, 2025 End: February 24, 2025 Dr. Chris Burton DO Attending Provider Active Start: February 24, 2025 End: February 24, 2025 Team Status: Inactive Member Role/Relationship Status Brooklyn Ibarra MD Primary Care Provider Active St art: February 24, 2025 End: February 24, 2025 Dr. Rosendo Mccain MD Attending Provider Active S tart: February 24, 2025 End: February 24, 2025 Team Status: Inactive Member Role/Relationship Status Brooklyn Ibarra MD Primary Care Provider Active St art: May 12, 2025 End: May 12, 2025 Linda Ibarra MD Referring Provider Active Start : May 12, 2025 End: May 12, 2025 Dr. Chris Burton DO Attending Provider Active Start: May 12, 2025 End: May 12, 2025 Team Status: Inactive Member Role/Relationship Status Brooklyn Ibarra MD Primary Care Provider Active St art: May 12, 2025 End: May 12, 2025 Dr. Rosendo Mccain MD Attending Provider Active S tart: May 12, 2025 End: May 12, 2025 Team Status: Active Member Role/Relationship Status Brooklyn Ibarra MD Primary Care Provider Active St art: May 26, 2025 Dr. Chris Burton DO Attending Provider Active Start: May 26, 2025 Dr. Chris Burton DO Referring Provider Active Start: May 26, 2025 Team Status: Inactive Member Role/Relationship Status Brooklyn Ibarra MD Primary Care Provider Active St art: May 28, 2025 End: May 28, 2025 Linda Ibarra MD Referring Provider Active Start : May 28, 2025 End: May 28, 2025 Dr. Chris Burton DO Attending Provider Active Start: May 28, 2025 End: May 28, 2025 Team Status: Inactive Member Role/Relationship Status Brooklyn Ibarra MD Primary Care Provider Active St art: February 10, 2025 End: February 10, 2025 Linda Ibarra MD Referring Provider Active Start : February 10, 2025 End: February 10, 2025 Dr. Chris Burton DO Attending Provider Active Start: February 10, 2025 End: February 10, 2025 Team Status: Inactive Member Role/Relationship Status Brooklyn Ibarra MD Primary Care Provider Active St art: February 17, 2025 End: February 17, 2025 Linda Ibarra MD Referring Provider Active Start : February 17, 2025 End: February 17, 2025 Dr. Chris Burton DO Attending Provider Active Start: February 17, 2025 End: February 17, 2025 Team Status: Inactive Member Role/Relationship Status Brooklyn Ibarra MD Primary Care Provider Active St art: February 24, 2025 End: February 24, 2025 Linda Ibarra MD Referring Provider Active Start : February 24, 2025 End: February 24, 2025 Dr. Chris Burton DO Attending Provider Active Start: February 24, 2025 End: February 24, 2025 Team Status: Inactive Member Role/Relationship Status Brooklyn Ibarra MD Primary Care Provider Active St art: February 24, 2025 End: February 24, 2025 Dr. Rosendo Mccain MD Attending Provider Active S tart: February 24, 2025 End: February 24, 2025 Team Status: Inactive Member Role/Relationship Status Brooklyn Ibarra MD Primary Care Provider Active St art: May 12, 2025 End: May 12, 2025 Linda Ibarra MD Referring Provider Active Start : May 12, 2025 End: May 12, 2025 Dr. Chris Burton DO Attending Provider Active Start: May 12, 2025 End: May 12, 2025 Team Status: Inactive Member Role/Relationship Status Brooklyn Ibarra MD Primary Care Provider Active St art: May 12, 2025 End: May 12, 2025 Dr. Rosendo Mccain MD Attending Provider Active S tart: May 12, 2025 End: May 12, 2025 Team Status: Inactive Member Role/Relationship Status Brooklyn Ibarra MD Primary Care Provider Active St art: May 26, 2025 End: May 26, 2025 Dr. Chris Burton DO Attending Provider Active Start: May 26, 2025 End: May 26, 2025 Dr. Chris Burton DO Referring Provider Active Start: May 26, 2025 End: May 26, 2025 Team Status: Inactive Member Role/Relationship Status Brooklyn Ibarra MD Primary Care Provider Active St art: May 28, 2025 End: May 28, 2025 Linda Ibarra MD Referring Provider Active Start : May 28, 2025 End: May 28, 2025 Dr. Chris Burton DO Attending Provider Active Start: May 28, 2025 End: May 28, 2025 Goals (unrecognized section and content) Goals may be documented in a n alternate sectionGoals may be documented in an alternate sectionGoals may be documented in an alternate sectionGoals may be documented in an alternate sectionGoals may be documented in an alternate sectionGoals may be documented in an alternate sectionGoals may be documented in an alternate sectionGoals may be documented in an alternate sectionGoals may be documented in an alternate section FOR RECORDS PERTAINING TO PATIENTS WHO ARE OR HAVE BEEN ENROLLED IN A CHEMICAL DEPENDENCY/SUBSTANCEABUSE PROGRAM, SOME INFORMATION MAY BE OMITTED. This clinical summary was aggregated from multiple sources. Caution should be exercised in using it in the provision of clinical care. This summary normalizes information from multiple sources, and as a consequence, information in this document may materially change the coding, format and clinical context of patient data. In addition, data may be omitted in some cases. CLINICAL DECISIONS SHOULD BE BASED ON THE PRIMARY CLINICAL RECORDS. [facility] [employer] [facility]. provides no warranty or guarantee of the accuracy or completeness of information in this document.
[2025-06-17] MEDS: LR 1,000 ML - 125 ML/HR (POST BOLUS) POST OP IV (06:10)
[2025-06-17] MEDS: Magnesium 1 GM over 15 mins IV (06:11)
[2025-06-17] MEDS: Scopolamine 1mg/72hr Patch 1 PATCH TD (06:19)
--- NOTE | 2025-06-17 06:53 | PCM.PRE.AN2 ---
ASA Classification* ASA Classification ASA Classification: 2 Assessment & Plan Anesthesia* Anesthesia Assessment Anesthesia Assessment: Discussed sedation and/or anesthesia options, risks, benefits, and alternatives with patient/parents/legal guardian/POA. Questions invited. The patient/parents/legal guardian/POA seems to understand and agrees to proceed with anesthesia plan. Reviewed the physical assessment, medical history, allergy history and patient home medications list prior to surgery/procedure/anesthetic and documented any changes. Performed airway and anesthesia risk assessments. Anesthesia Type Anesthesia Type: Spinal and Block (Patient is consented for postop pain block.) History Source History Obtained from:: Patient and Chart Anesthesia Focused Assessment* Temperature: 97.0 F Blood Pressure: 124/83 Respiratory Rate: 14 Pulse Ox: 98 Oxygen Delivery Method: Room Air Airway Assessment Mouth opens: >3 cm Mallampati Score: I Teeth Condition: Caps/Crowns (Patient has several crowns. They are tight.) Neck Range of motion (ROM): Limited ROM (Slight Decrease) Labs Anesthesia Preop lab: CBC WBC 6.2 K/mm3 (4.4-11.0) 05/29/25 11:42 05/29/25 RBC 4.17 M/mm3 (4.6-6.2) L 05/29/25 11:42 05/29/25 Hgb 13.5 g/dL (13.0-16.5) 05/29/25 11:42 05/29/25 Hct 40.1 % (40-54) 05/29/25 11:42 05/29/25 Plt Count 305 K/mm3 (150-450) 05/29/25 11:42 05/29/25 CHEMISTRY Potassium 4.5 mmol/L (3.3-5.1) 05/29/25 11:42 05/29/25 Sodium 140 mmol/L (133-145) 05/29/25 11:42 05/29/25 Magnesium 2.1 mg/dL (1.5-2.2) 05/29/25 11:42 05/29/25 BUN 13 mg/dL (4-19) 05/29/25 11:42 05/29/25 Creatinine 1.08 mg/dL (0.70-1.20) 05/29/25 11:42 05/29/25 Glucose 99 mg/dL (70-99) 05/29/25 11:42 05/29/25 TSH 2.180 uIU/mL (0.300-4.200) 05/29/25 11:42 05/29/25 COAG PT 13.3 SECONDS (11.7-14.9) 05/29/25 11:42 05/29/25 Pre-Assessment Diagnosis/Proposed Procedure Planned Operative Procedure(s): Right Total Knee Replacement Robotic Arm Assisted Anesthesia History Anesthesia History - coding manager: Anesthesia History - coding manager Hx Hospitalization No 05/27/25 10:28 Any Problems With Anesthesia No 05/27/25 10:28 Cholinesterase deficiency No 05/27/25 10:28 You/Your Family Experience No 05/27/25 10:28 fever (hyperthermia) with Relationship Recent Exposure to Contagious No 06/17/25 06:02 Disease Does patient have nerve No 05/27/25 10:28 stimulator Patient instructed to have device shut off --Does patient have Pacemaker No 06/17/25 06:02 or ICD? When Was Last Pacemaker Check QUESTION #4 FULL TEXT: You/Your Family Experience fever (hyperthermia) with Anesthesia Last Oral Intake Last Oral intake: Last Oral Intake NPO since 04:30 06/17/25 06:02 Meds taken in AM with sips of Yes 06/17/25 06:02 water? Meds patient instructed to take am of surgery Any additional information?: Yes NPO since: 04:30 (Patient had preop Ensure at 4:30 AM.) Meds taken in AM with sips of water?: Yes Meds patient instructed to take am of surgery: Levothyroxine PONV PONV - coding manager: PONV - coding manager Female No 05/27/25 10:28 HX of Motion Sickness No 05/27/25 10:28 HX of N/V After Surgery No 05/27/25 10:28 Non-Smoker Yes 05/27/25 10:28 Duration of Surgery greater Yes 05/27/25 10:28 than 60 minutes Number of Risk Factors 2 05/27/25 10:28 PONV Score Moderate Risk 05/27/25 10:28 Height & Weight Height & Weight: Anesthesia: Height & Weight Height 5 ft 10 in 06/17/25 06:02 Weight: 83 kg 06/17/25 06:02 Body Mass Index (BMI) 26.2 06/17/25 06:02 Respiratory Assessment Respiratory Assessment - coding manager: Respiratory Tract Infection Hx - coding manager Hx Respiratory Tract Infection No 05/27/25 10:28 STOP Sleep Apnea STOP Sleep Apnea - coding manager: STOP Sleep Apnea - coding manager Hx Hypertension Yes: PER PT, CONTROLLED ON 05/27/25 10:28 MEDS Hx Sleep Apnea No 05/27/25 10:28 CPAP BIPAP Do you snore loudly (louder No 05/27/25 10:28 than talking or can be heard Do you often feel tired/ No 05/27/25 10:28 fatigued/ sleepy during daytime? Has anyone observed you stop No 05/27/25 10:28 breathing during sleep? STOP Results Negative 05/27/25 10:28 QUESTION #5 FULL TEXT : Do you snore loudly (louder than talking or can be heard through closed doors)? Tobacco Use History Tobacco Use History - coding manager: Tobacco Use History - coding manager Tobacco Use Non-smoker 05/09/25 10:16 Smoking Status Never smoker 05/27/25 10:28 Hx Tobacco Use No 05/27/25 10:28 Years Smoking Packs Smoked per Day Smoking Cessation Date was within the last 15 years Hx Smoking Cessation Date Hx Smoking Cessation Counseling Hematologic Medial History Hematologic Hx - coding manager: Hematologic Medical Hx - developer prover mechanical Hx of Blood Transfusion No 05/27/25 10:28 Hx of Transfusion in last 3 No 05/27/25 10:28 Months Date of Last Transfusion (if within last 3 months) Ever experience any problems No 05/27/25 10:28 with transfusion(s)? Specify any problems Hx of Preganancy in last 3 N/A 05/27/25 10:28 Months Nurse Filling Out Transfusion MGRIFFITH 05/27/25 10:28 & Questions: Date: 05/27/25 05/27/25 10:28 Time: 10:34 05/27/25 10:28 Patient unable to answer at this time (ie. confused, unrespo /Reproduction History /Reproductive History - coding manager: /Reproductive Hx- coding manager Hx Now Gestational Age (in weeks): EDC: Hx Hx Para Hx Section SAB Active Medications Active Medications: Current Medications Generic Name Dose Route Start Last Admin Trade Name Denise PRN Reason Stop Dose Admin Acetaminophen 1,000 mg 06/17/25 07:30 Acetaminophen 500 Mg Tablet PO 06/17/25 07:31 PREOP ONE Celecoxib 400 mg 06/17/25 07:30 Celecoxib 200 Mg Capsule PO 06/17/25 07:31 PREOP ONE Dexamethasone Sodium Phosphate 10 mg 06/17/25 07:30 Dexamethasone 10 Mg/Ml Vial IV 06/17/25 07:31 INTRAOP ONE Gabapentin 600 mg 06/17/25 07:30 Gabapentin 600 Mg Tablet PO 06/17/25 07:31 PREOP ONE Cefazolin Sodium 2 gm/ Sodium 110 mls @ 150 mls/hr 06/17/25 07:30 Chloride IV 06/17/25 08:13 INTRAOP ONE Tranexamic Acid 1,000 mg/ 110 mls @ 660 mls/hr 06/17/25 07:30 Sodium Chloride IV 06/17/25 07:39 INTRAOP ONE Tranexamic Acid 1,000 mg/ 110 mls @ 660 mls/hr 06/17/25 07:30 Sodium Chloride IV 06/17/25 07:39 INTRAOP ONE Lactated Ringer's 1,000 mls @ 125 mls/hr 06/17/25 07:30 06/17/25 06:10 IV 06/17/25 15:29 125 mls/hr .Q8H YOLETTE Administration Insulin Human Lispro 1 - 6 unit 06/17/25 07:30 Insulin Lispro 100 Unit/Ml Insuln.Pen SC 06/17/25 18:00 Q4H PRN PRN BG>/= 180, SEE PROTOCOL Protocol Scopolamine HBr 1 patch 06/17/25 07:30 Scopolamine 1mg/72hr Patch TD 06/17/25 07:31 PREOP ONE PFSH Medical History Wears hearing aid Anxiety Alcohol use Thyroid disease High cholesterol Non-smoker History of stress test Restless leg Hypertension Home Medications ?Medication ?Instructions ?Recorded ?Last Taken ?Type amlodipine 5 mg-valsartan 320 mg 1 tab PO QHS 09/27/14 06/16/25 History tablet (Exforge) nebivolol 10 mg tablet (Bystolic) 10 mg PO QHS 09/27/14 06/16/25 History clonazepam 0.5 mg tablet 0.25 mg PO QHS 06/08/16 06/16/25 History citalopram 10 mg tablet 10 mg PO DAILY 05/27/25 06/16/25 History levothyroxine 25 mcg tablet 25 mcg PO DAILY 05/27/25 06/17/25 History Allergy/AdvReac Type Severity Reaction Status Date / Time No Known Allergies Allergy Verified 06/17/25 06:00 Surgical History History of skin surgery H/O knee surgery Social History household members: spouse Smoking Status: Never smoker alcohol intake: current alcohol intake frequency: 0-2 drinks per day substance use type: does not use Review of Systems (Anesthesia) ROS Narrative System reviewed and no additional complaints, except as documented.
--- NOTE | 2025-06-17 07:17 | PCM.HP.BLA ---
History and Physical Date of Admission: 06/17/25 [facility] [address] [place] [address] OFFICE VISIT Date of Service: 05/12/25 MR#: [id number] Acct: [id number] Name: YOLANDA YUSUF II Rep #: [id number] : 1945 Provider: Dr. Chris Burton DO Age/Sex: 79/M [place] [facility] [place] Status: Signed Intake Vital Signs 02/24/2509:12 05/09/2510:16 Height 5 ft 10 in 5 ft 10 in Weight: 180 lb BMI 25.8 Intake Visit Reasons: RIGHT KNEE Chief Complaint: Right Knee Pain Accompanied by: Self Is patient in pain?: Yes Pain scale (1-10): 4 Allergies No Known Allergies Allergy (Verified 05/12/25 09:56) Medications ?Medication ?Instructions ?Recorded ?Confirmed ?Type amlodipine 5 mg-valsartan 320 mg 1 tab PO DAILY 09/27/14 05/12/25 History tablet (Exforge) nebivolol 10 mg tablet (Bystolic) 10 mg PO DAILY 09/27/14 05/12/25 History clonazepam 0.5 mg tablet 0.5 mg PO QHS 06/08/16 05/12/25 History Have you fallen in the past year?: No PFSH Medical History Restless leg Hypertension Surgical History H/O knee surgery Social History household members: spouse Smoking Status: Never smoker alcohol intake: current alcohol intake frequency: 0-2 drinks per day substance use type: does not use HPI RIGHT KNEE Details: This documentation accurately reflects the service provided and the decisions made by me, Dr. Chris Burton, 05/12/25 0742. Part of today?s visit was documented by Eden Cherry ATC, acting as scribe. YOLANDA YUSUF is a 79 year old M here today for right knee pain. Patient would like to discuss surgery today. Patient states he did stand up from the couch and hit the knee on the marble ground and it caused an increase in pain but states this happened prior to his last appointment. He states the past injections have given him some relief. He states the last round of injections did help but did not last very long. He has tried a sleeve in the past but no cut off machine unloader brace. 02/17/2025: Completed Euflexxa series right knee 01/13/2025:01/13/2025 :here today for right knee pain and swelling. Rates pain 2 out of ten. Reports pain stable at a 2-3/10 most of the time. Denies radiculopathy, weakness, numbness or tingling. Ibuprofen taken occasionally for pain. 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 Hx Euflexxa injections completed 07/12/2024. Right knee steroid injection right knee 10/07/2024 reporting pain relief did not last as long as other times. Denies history of surgery on right knee. Denies hx physical therapy. Does not use assistive devices. Plan:Patients xrays show severe osteoarthritis but he does not want to proceed with a total knee arthroplasty at this time. His pain is not affecting his ADLs and when it does, he should consider a total knee arthroplasty. He would like to try the series of viscosupplementation injections which he may have every 6 months. Patient may wear his knee brace when he is running. Followup when we receive the injection approval or sooner if pain, swelling, numbness or associated symptoms, or concerns develop. All questions answered. Patient in agreement of plan. 05/27/2024:right knee pain. Patient notes that he has had knee pain off and on for his entire life. He states that in March, he stood from the couch and a blanket was wrapped around his knee, and he fell on his knee and his knee hit a marble coffee table. Patient denies any bruising or swelling. He went to the ED the next day due to his pain, and he had a steroid injection. Patient notes that he is 95% better. He notes that he still has pain with ambulation. Patient complains of pain over his anterior knee when he ambulates. He rates his pain at a 3/10. Patient denies any pain medications. Patient has a knee sleeve which he uses at times. He denies any physical therapy. Patient had a knee scope [place] [address] Koehler. 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 Plan:Very pleasant 78-year old active male recent runner up to 2 years ago seen with his today Educated the patient about the anatomy of the knee and etiology of his pain. Spoke with the patient about have having a chip of his medial tibial plateau. 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 Spoke with the patient about his options- repeat steroid injections every 3 months, viscosupplementation injections, physical therapy for strengthening, medial cut off machine unloader bracing, oral anti-inflammatory or a total knee arthroplasty. Due to patients pain at this time, he should try conservative treatment. He should not do regular running after a total knee arthroplasty. Patient is not able to have a knee replacement for 3 months after any injection. If he aggravates his knee with activities, he should take an oral anti-inflammatory and ice. Patient mat take up to 600mg ibuprofen three times a day. We will get the viscosupplementation injections approved with her insurance. We will order a medial cut off machine unloader brace and send his information to [facility]. 10/01/2021: 75 year old M here today for right knee pain. He states that he has been having some increased knee pain over the last month. He is a runner. He has posterior lateral knee pain. He states that he has increased pain at the end of the day. He states that he stand a lot at work. He had a right knee scope with Dr. Koehler 2016 which was Right knee partial medial and lateral meniscectomies, intercondylar osteophyte debridement in the notch, patellofemoral chondroplasty, according to operative report there was grade 4 kissing lesions of the medial compartment. He states that he has been taking ibuprofen occasionally for the pain. Denies any injections of the right knee. He is also complaining of right buttock pain and plantar fasciitis. Has not seen anyone for the plantar fasciitis. Also wonders if he has gout in his right great toe d/t a dull achiness at times, but denies any past hx. Denies any redness of the toe or sensitivity to the touch, however he is questioning gout. Plan:Obtained X-rays of patient's right knee. Personally reviewed x-rays. There is no obvious fracture, dislocation, or lucency noted. Patient educated that he does have severe OA of the right knee. Educated that his treatment options are do nothing or activity modification or medial cut off machine unloader bracing or steroid injections or viscosupplementation or PT for strengthening or right TKA would be his surgical option is conservative care fails. He wishes to proceed with right knee medial cut off machine unloader brace at this time. We will send is information to [facility] at this time. He should see the foot and ankle center for his foot pain if the NSAIDs are not effective. He declines an injection at this time because he is having very little pain at this time. Also recommended Ibuprofen 600mg BID or TID for 1 week to help with inflammation. Also since patient is concerned about possible gout despite him not having a hx of gout. Xrays taken of the right great toe, educated that he has very mild OA so we can check his uric acid to determine if he has gout and a gout diet provided only to be started if uric acid elevated as I have a low suspicion of gout here. He will call once he has the uric acid completed for result. Ortho Exam General General: Yes no acute distress and Yes well groomed Neurologic: Yes alert and Yes oriented x3 Psychologic: Yes reasonable and appropriate Right Knee Skin/Wound: Yes CDI, No erythema, No ecchymosis and No swelling Homans Sign: No Knee ROM: Yes ROM-Extension -20 to 0 and Yes ROM-Flexion 0-140 Examination: No Med jt line tenderness, No Lat jt line tenderness, No Pain with flexion and No Pain with extention Stability: NML: Anterior Drawer, NML: Posterior Drawer, NML: Varus 0 and NML: Varus 30 and 1+: Valgus 0 (Due to medial joint space narrowing) and 1+: Valgus 30 Apprehension with Lateral Translation: No KNEE: lacking 5 degrees EXT FLEX 120 - collateral instability No significant swelling no gross motor or sensory deficits right lower EXTR Constitutional: Well-developed; well-nourished; in no acute distress Eyes: No jaundice ENT: Nares patent; no obvious deformity Cardiovascular: No cyanosis; clubbing; or edema Lymphatic: No adenopathy in area of examination Skin: No rashes or lesions in the area of examination and intact Neurologic: Alert and oriented x 3 Psychiatric: Mood and affect appropriate Supplemental Info 05/12/2025 x-ray right knee: There is advanced medial compartment arthrosis with bony erosion of the medial tibial plateau on the flexion view there is also bone spurs throughout the remainder of the knee and moderate spurring of the patellofemoral compartment 02/24/2025 x-ray right shoulder there is severe glenohumeral arthrosis 04/14/2024 x-ray right knee: Advanced medial compartment arthrosis near [id number] there is a fractured osteophyte of the most proximal medial tibial plateau joint space narrowing medially with varus deformity there is also moderate spurring noted through the remainder of the knee 10/01/2021 x-ray right great toe mild/moderate arthritic changes with subchondral cysts 10/01/2021 x-ray right knee: moderate to severe medial and patellofemoral compartment arthrosis there is spurring noted in the lateral compartment as well Coding Level of Care Code Off vis,est,level 3 Diagnoses Primary osteoarthritis of right knee M17.11 Assessment and Plan Assessment and Plan (1) Primary osteoarthritis of right knee: Status: Acute Orders: Orders Knee 4 or More Views Today M17.11 - Unilateral primary osteoarthritis, right knee Plan Obtained and reviewed right knee x-rays today in the clinic. Reviewed imaging findings in detail today with the patient and explained the knee has progressed since his last x-rays were done on 04/14/2024. His options at this point would be: do nothing, continuation of steroid injections or viscosupplementation injections, anti-inflammatory medication, Glucosamine Chondroitin supplements, bracing, physical therapy, and then TKA. Risks, benefits and alternatives of surgery reviewed including but not limited to bleeding, infection, nerve, artery and/or tissue damage, fracture, VTE, mechanical feel of the knee, continued pain, stiffness and expected post-operative course. Patient is ready to proceed with a TKA. Explained that he cannot take any Ibuprofen/Aleve prior to surgery or 2 weeks following surgery and 1 week before but he can take Tylenol if he needs it. Spoke to patient that physical therapy is very important to get into right away to start working on his range of motion. Spoke to patient about the Iovera treatment that is optional. This is something that he would be interested in if his insurance does cover it. He does have a few steps at his house so he should be okay to go home the same day if things go well. Patient will talk to his family and figure out when a good time would be to proceed with surgery and call the office and let us know when he would like to proceed. He does have gout we did discuss that surgery can sometimes precipitate a gout flare. He states he would be comfortable with same-day surgery although he does not have help at home. Follow up once surgery is scheduled for post-op appointment or sooner if pain, swelling, numbness or associated symptoms, or concerns develop. All questions answered. Patient in agreement of plan. Clinical Quality Measures Falls Risk Screening/Assistive Devices Have you fallen in the past year?: No 05/12/25 1038 <Electronically signed by Chris Burton DO> Date Chris Burton DO I have examined the patient and the H&P has been reviewed. There are no clinical changes since date of exam.
[2025-06-17] MEDS: Midazolam 2 MG/2 ML Syringe IV (07:20)
--- NOTE | 2025-06-17 07:30 | KNEE_PTH ---
PATIENT: YOLANDA YUSUF II LOC: [facility] [place] U#:[id number] AGE/SX: 79/M ROOM: RE06/17/[address]: Dr. Chris Burton DO : 1945 BED: DIS: 06/17/2025 SPEC #: [id number] RECD: 06/17/25 12:31 STATUS: EDNA REArias #: [id number] RONNI: 06/17/25 07:[address]: Chris Burton DEPT: SURGICAL PATHOLOGY RECD BY: Estrada Montoya ENTERED: 06/17/25 13:31 SP TYPE: TOTAL KNEE OTHR DR: Linda Ibarra MD Tissues: A - Knee, NOS Procedures: Decalcification bone/plaque Surgery Specimen Level III HEADER OPERATION: EUGENIE, right total knee replacement robotic arm assisted PRE-OP DIAGNOSIS: Primary osteoarthritis right knee TISSUE SUBMITTED: A- Bone and soft tissue - right knee MICROSCOPIC DIAGNOSIS A. Right knee, total knee arthroplasty: - Articular bone with reactive/degenerative changes and fatty marrow spaces. MICROSCOPIC DESCRIPTION Slides are reviewed. GROSS DESCRIPTION A. Received in formalin labeled with the patient's name and date of . Designated as bone and soft tissue right knee is a 11.5 x 10.8 x 2.6 cm aggregate of irregular bone fragments and tissue, collectively comprising a knee joint. The articular surfaces are durant to red granular and eburnated. Mild to moderate osteophyte formation is identified. Bonded Strand Operator sections are submitted in 2 cassettes, following decalcification. IN 06/17/2025 CPT:27011,06548
[2025-06-17] MEDS: Cefazolin 1 GM/5 ML Vial 2 GM IV (07:36)
[2025-06-17] MEDS: Lidocaine 1% (5 ml sdv) 5 ML Vial IV (07:41)
[2025-06-17] MEDS: TRANEXAMIC ACID 1,000 MG/10 ML ML 2000 MG IV (08:12)
[2025-06-17] MEDS: 0.9% Normal Saline (Pres. free 10 ML Vial (09:14)
[2025-06-17] MEDS: Epinephrine (1 mg/ml) 1 MG/ML VIAL (09:14)
--- NOTE | 2025-06-17 10:06 | OP.PCM_ITS ---
Operative Report (Standard) Operative Information Date of Procedure: 06/17/25 Pre-Operative Diagnosis: Right knee DJD Post-Operative Diagnosis: Same Surgery/Procedure Performed: Right total knee arthroplasty shaker screen operator: Yes Gas Torch Solderer: Ruddy Tillman Tasks completed by dermatology physician assistant: Opening & closing, Implanting device and Retracting Additional sourcing assistant?: No Type of Anesthesia: Spinal RN Documented Start/Stop Times: Operation Date: 06/17/25 07:30 Case Time Into Pre-Op 06/17/25 05:41 Anesthesia Start 06/17/25 07:36 Into Room 06/17/25 07:36 Procedure Start 06/17/25 07:58 Procedure End 06/17/25 09:58 Anesthesia End 06/17/25 10:04 Out of Room 06/17/25 10:04 Procedure Start Time: 07:58 Procedure Stop Time: 09:58 Select all DRAINS/GRAFTS/IMPLANTS that apply: Implanted device Implanted device details: [place]k Estimated Blood Loss: 125 Specimen collected: Yes Description of specimen(s) removed: Bone Description of surgery: Preoperative diagnosis: Right knee DJD Postoperative diagnosis: Same Procedure: Right total knee arthroplasty CT guided Robotic Assisted Implant: [place]k triathlon press fit, femoral component size5, tibial baseplate size 5, asymmetric patella size 35, polyethylene X3 size 9 CS Anesthesia: Spinal with adductor canal block Tourniquet time: 14 minutes at 300 mmHg Complications: None Condition: Stable to PACU Estimated blood loss: [address] Ruddy Tillman. My physician sourcing assistant was a vital part of this case. He was important in appropriate retraction during the case, and protection of soft tissues during procedure. His intimate knowledge of the case and my steps aided in safe and expedient completion of the procedure as well as appropriate position of the extremity during the case. He was also vital in assisting with closure under my direct supervision. Indication for procedure: This is a 79-year-old male with long standing degenerative joint disease of the knee who has failed conservative treatment and wished to proceed with elective total knee arthroplasty. Risk benefits and alternatives were reviewed including; risk of bleeding, infection, nerve artery and tissue damage, continued pain, postoperative stiffness, venous thromboembolism, need for postoperative rehabilitation, mechanical feel to the knee, and expected postoperative course. The pre- operative CT and templating was performed with component sizing. Procedure: The patient was met in the preoperative holding area. The operative extremity was identified by both patient and physician and was marked. Patient was met by anesthesia. An adductor canal block was placed by anesthesia postoperatively the patient was brought back to the operating room on a wheeled cart and transferred to the operating table in the supine position. Anesthesia was started. A well-padded tourniquet was placed on the operative extremity. The patient was prepped and draped in the usual sterile fashion. A timeout was called to ensure the proper patient procedure and extremity were being contemplated. An esmarch was used to exsanguinate the extremity. The tourniquet was inflated. A 10 blade scalpel was used to make a midline incision down through the skin and subcutaneous tissue. Skin retractors placed. Bovie and Aquamantis were used to perform meticulous hemostasis. full-thickness flaps were elevated medial and lateral along the joint capsule. A deep blade scalpel was used to perform a medial parapatellar arthrotomy. The knee was brought to full extension. A bovie was used to release the soft tissues off the most proximal aspect of the medial tibial plateau, a three-quarter inch curved osteotome was also used in this process. The infrapatellar fat pad was excised. The suprapatellar fat pad was excised partially anteriorolateraly and portion the anterioromedial pad was elevated from the femur. At this point our intra- articular femoral array was placed at a 45 degree angle proximal and posterior to the medial epicondyle. femoral checkpoint was placed at this time. Our tibial array was placed partially intra incisional 1 stab incision was made for the inferior pin with a 15 blade scaple, and pins were placed and attached to the tibial array , tibial checkpoint was placed in the proximal tibial metaphysis. Tourniquet was let down. At this point registration pruitt were taken throughout the knee . Once the knee was registered we then tensioned the medial and lateral ligaments in extension and 90 degrees of flexion. We then used these numbers to adjust our components within parameters to balance the knee in both flexion and extension once this was done on our monitor we then proceeded with using the robotic arm to make our tibial plateau cut, anterior and posterior chamfer and distal femur cuts. we removed the cut fragments with the use of a bovie and Frandy, we did use a lamina office executive to insure we visualized and removed all posterior osteophytes and at this time also used the Aquamantis on the posterior joint capsule. we then trialed and achieved the desired plan with a well-balanced knee. we used the green probe to rosalino the corresponding tibial rotation based on our CT template. Lug holes were drilled in the femur the tibia preparation was completed with the appropriate sized base plate pinned based on previous rotation rosalino. An appropriate sized fin punch was used on the tibia and 4 corner drill was used for the press fit component and the patella was prepared by first using a caliper to ensure sufficient bone stock and a patellar reamer to remove the desired amount of bone. lug holes drilled for an asymmetric poly. We then brought the knee through range of motion with excellent patellar tracking. We thoroughly irrigated the knee. Trial components were removed a posterior capsular injection was preformed with our standard cocktail. In addition the aqua Mantis was also used to aid in hemostasis. Betadine rinse was allowed to sit and washed out completely. Components were press-fit into place. Aricept rinse was then used followed by several more liters of irrigation after it was allowed to sit. The joint capsule was closed with #1 Ethibond [id number] in the upper part of the arthrotomy and #1 Vicryl in the lower part of the arthrotomy. , Followed by 2-0 Vicryl in the subcutaneous tissues with merary in the skin. Arrays and checkpoints were removed prior to closure all counts were correct stab incisions were closed with a staple standard dressing in the form of Mepilex AG for the main incision and a small Mepilex over the pin holes. Thigh-high MONIKA hose applied over top of dressing. Patient tolerated the procedure well and was directed to PACU in stable condition . There were no intraoperative complications. Surgical Findings: DJD knee Complications Complications: No
--- NOTE | 2025-06-17 10:08 | EX.PCM.DISCH ---
Discharge Instructions Diet Discharge Diet: No restrictions Activity Weight Bearing Status: Weight bearing as tolerated Keep extremity elevated above heart level: Operative Extremity Dressing / Incision Call your doctor if you observe: Shortness of breath and Chest pain Additional Dressing/Incision Instructions:: Ice and elevate lower extremities 2 weeks while not ambulating. Ambulation is encouraged. Weight bearing as tolerated. Use assistive devise for stability. Encourage FULL knee extension and flexion 1 time EVERY time you get up and down and MULTIPLE times per day. No showering until 72 hours after surgery. May begin showering postop day #3. Remove the dressing prior to shower and gently wash with warm water and antibacterial soap then pat dry and place abdominal pad (or plain gauze) and MONIKA hose over top. If you decide not to begin showering 72 hrs post operatively and wish to sponge bath only, then you may leave dressing undisturbed for up to 1 week, but must remove prior to first shower. Do not submerge for 3 weeks. If not showering daily after the initial dressing is removed you must clean incision and change dressing daily after the dressing comes off, must come off by 7 days postop. Do not allow animals near the incision area. Keep clean. Follow anti-coagulation recommendations as prescribed. Do not take any NSAIDs while on blood thinner. Do not take any additional narcotic pain medication other than what was prescribed on your surgery day without discussing with physician. Narcotic medication can be addictive. Do not drink alcohol while taking narcotics. Supplement narcotic prescription with acetaminophen 1000 mg 4 times a day. Start physical therapy. If you are not currently scheduled for physical therapy or you are unsure of appointment time please call office [facility] to arrange. Call Dr. Burton's office ) with any concerns. Follow Up Care Please Follow Up With: Chris Burton DO When: 2 weeks Test Results: Test results from this visit will be discussed in further detail at your follow-up appointment, if applicable. Discharge Plan Admission Primary Reason for Your Visit: Right total knee arthroplasty Attending Provider: Chris Burton Primary Care Provider: Linda Ibarra Instructions Print Language: Faroese Discharge Orders/Prescriptions Prescriptions: New acetaminophen 500 mg tablet 1,000 mg PO Q6H Qty: 100 0RF cephalexin 500 mg capsule 1,000 mg PO Q8H Qty: 4 0RF Rx Instructions: Take 2 tabs before you go to bed and 2 tabs after 5 AM morning after surgery when you wake up oxycodone 5 mg tablet 5 - 10 mg PO Q4H PRN (Reason: pain) 7 Days Qty: 60 0RF Eliquis 2.5 mg tablet 2.5 mg PO BID Qty: 28 0RF Rx Instructions: Begin morning after surgery. Continued amlodipine-valsartan [Exforge] 1 EACH tablet 1 tab PO QHS Patient Comments: bp medication nebivolol [Bystolic] 10 MG tablet 10 mg PO QHS Patient Comments: bp lowering medication clonazepam 0.5 MG tablet 0.25 mg PO QHS Patient Comments: for sleep/anxiety citalopram 10 mg tablet 10 mg PO DAILY levothyroxine 25 mcg tablet 25 mcg PO DAILY Other Ambulatory Orders: 12 Lead EKG (Routine) Timeframe: [id number] Location: None Selected Ordered By: Dr. Chris uBrton Referrals / Follow Up: Linda Ibarra MD [Primary Care Provider] - Disposition Disposition (needs filled in before D/C Order can be placed): Home, Self Care
--- NOTE | 2025-06-17 10:23 | PCM.POST.ANE ---
Anesthesia: Postop Eval I Current Vital Signs Temperature: 97 F Pulse Rate: 98 Blood Pressure: 124/83 Respiratory Rate: 16 Pulse Ox: 98 Oxygen Delivery Method: Room Air Assessment Airway patent: Yes Spontaneous unlabored respirations: Yes Mental status: Awake and Calm nausea: No Vomiting: No Anesthesia Complication: No Fluid Hydration Crystalloid volume administer (ml): 1,000 Total IV fluid infused: 1,000 Progress Note Anesthesia document: Postop Eval 1 completed: Yes
--- NOTE | 2025-06-17 10:25 | RAD_ITS ---
PROCEDURE: KNEE 1 OR 2 VIEWS 06/17/2025 REASON FOR EXAM: POST OP PACU TECHNIQUE: Right knee two views COMPARISON: May 12, 2025 FINDINGS: There is a total knee prosthesis in position with anatomic alignment. There is air in the joint space with overlying merary consistent with recent surgery. Vascular calcifications are noted. RAD/Knee 1 or 2 Views IMPRESSION: Hardware in position. Reading Location: [facility]
--- NOTE | 2025-06-17 10:42 | POSTOPAN2_ITS ---
Anesthesia Postop Eval I Sum Postop Eval Completion status Anesthesia document: Postop Eval 1 completed: Yes Anesthesia Postop Eval I Summary Anesthesia Postop Eval I Summary: Anesthesia Postop Eval I: Assessment Summary Airway patent Yes 06/17/25 10:24 [email or web address] Spontaneous unlabored Yes 06/17/25 10:24 [email or web address] respirations Mental status Awake,Calm 06/17/25 10:24 [email or web address] nausea No 06/17/25 10:24 [email or web address] Vomiting No 06/17/25 10:24 [email or web address] Anesthesia Postop Eval I: Fluid Summary Crystalloid volume administer 1,000 06/17/25 10:24 [email or web address] (ml) Colloids volume administered ( ml) Blood Product volume administered (ml) Total IV fluid infused 1,000 06/17/25 10:24 [email or web address] Anesthesia Postop Eval I: Summary Notes Anesthesia Complication No 06/17/25 10:24 [email or web address] Anesthesia Complication Comment: Post-operative progress note Anesthesia: Postop Eval II Evaluation Mental status: Awake Pain Level: 0 nausea: No Vomiting: No Complications Anesthesia Complication: No
--- NOTE | 2025-06-17 10:42 | PCM.POSTANE2 ---
Anesthesia Postop Eval I Sum Postop Eval Completion status Anesthesia document: Postop Eval 1 completed: Yes Anesthesia Postop Eval I Summary Anesthesia Postop Eval I Summary: Anesthesia Postop Eval I: Assessment Summary Airway patent Yes 06/17/25 10:24 [email or web address] Spontaneous unlabored Yes 06/17/25 10:24 [email or web address] respirations Mental status Awake,Calm 06/17/25 10:24 [email or web address] nausea No 06/17/25 10:24 [email or web address] Vomiting No 06/17/25 10:24 [email or web address] Anesthesia Postop Eval I: Fluid Summary Crystalloid volume administer 1,000 06/17/25 10:24 [email or web address] (ml) Colloids volume administered ( ml) Blood Product volume administered (ml) Total IV fluid infused 1,000 06/17/25 10:24 [email or web address] Anesthesia Postop Eval I: Summary Notes Anesthesia Complication No 06/17/25 10:24 [email or web address] Anesthesia Complication Comment: Post-operative progress note Anesthesia: Postop Eval II Evaluation Mental status: Awake Pain Level: 0 nausea: No Vomiting: No Complications Anesthesia Complication: No
[2025-06-17] MEDS: Cefazolin 2 GM in 0.9% Normal Saline (100mL Bag) 100 ML IV (12:38)
== END 2025-06-17 15:50 | disposition home or self-care (01) ==
LOC: SDC 05:18 → AC 05:18
PROVIDERS: Anesthesiology; PCP Family Medicine; Referring Provider Orthopaedic Surgery; Visit Provider Orthopaedic Surgery
PROC: 0SRC0JZ Replacement of Right Knee Joint with Synthetic Substitute, Open Approach (ICD-10-PCS; CPT 27447; principal; 2025-06-17 07:00)
DX: M17.11 Unilateral primary osteoarthritis, right knee (principal); I10 Essential (primary) hypertension; Z79.899 Other long term (current) drug therapy; M25.561 Pain in right knee
CPT/HCPCS: 27447; 01402; S2900; 64447; 36415; 73560; 80048; 82962; 82985; 83036; 83735; 84443; 85025; 85610; 85730; 86850; 86900; 86901; 87081; 88304; 88311; 93005; 97162; C1776; A4216; J2405; J3475

== ENCOUNTER → 2025-06-27 | Outpatient (CLI) | payer MEDICARE, SELFPAY ==
--- NOTE | 2025-06-27 09:53 | VDLE_ITS ---
Reason For Study Reason For Study: Right leg pain RIGHT LEFT GSV is normal. CFV is compressible, spontaneous, phasic, competent, CFV is compressible, spontaneous, phasic, competent and demonstrates normal augmentation. and demonstrates normal augmentation. FV is compressible, spontaneous, phasic, competent and demonstrates normal augmentation. POP V is compressible, spontaneous, phasic, competent and demonstrates normal augmentation. T/P Trunk is compressible. PTV is compressible. RT PerV is compressible. Procedure This is a venous duplex using B-mode, color flow and spectral Doppler. Exam performed in department. A preliminary report was called and/or faxed to Dr. Burton. VL/Venous Duplex US, Unilateral Interpretation Summary Deep veins of the right lower extremity are patent and compressible segmentally . There is no evidence of right lower extremity deep vein thrombosis. Valvular competence appears intact within the p roximal deep venous system on the right . The right great saphenous vein appears patent and compressible segmentally. The left common femoral vein is patent and compressible . Ordering Physician: Chris Burton Referring Physician: Linda Ibarra Performed By: Rody Cadena RVT
== END | disposition home or self-care (01) ==
LOC: CVS 09:51
PROVIDERS: PCP Family Medicine; Referring Provider Orthopaedic Surgery; Visit Provider Orthopaedic Surgery
DX: M79.661 Pain in right lower leg (principal); M79.89 Other specified soft tissue disorders
CPT/HCPCS: 93971